=== PATIENT | male | born 1955 | race Caucasian/White ===

== ENCOUNTER 2016-10-13 17:24 | Inpatient (IN) | payer MEDICARE, OTHER ==
[~2016-10-13] VITALS: Ht 175.3 cm; Wt 148.0 kg
[~2016-10-13 17:24] MED LIST: ALLO300T2 PO; ASCO500C7 PO; ASPI-535 PO; GABA300C16 PO; INSU100V19 SQ; LISI20TA11 PO; METO100T PO; MTF1000T PO; NIT4 SL; NOVO3I SC; OMEG1CAP73 PO; UBID10CA5 PO; VITA1TAB58 PO; Vancomycin Iv Per Pharmacy XX; [UNRECOGNIZED DRUG - CODE] PO
[2016-10-13] MEDS ORDERED: ASPIRIN 81 MG TAB PO ONE (18:00)
[2016-10-13] MEDS ORDERED: ENALAPRILAT 1.25 MG INJ IV ONE (18:00)
[2016-10-13] MEDS ORDERED: FUROSEMIDE 40 MG INJ IV ONE (18:00)
[2016-10-13 18:33] LABS: BASOPHILS % 0.3 % (0.0-2.0); EOSINOPHILS # 0.1 10^3/ul (0.0-0.5); EOSINOPHILS % 2.3 % (0.0-7.0); HEMATOCRIT 34.4 % (42.0-52.0); HEMOGLOBIN 11.7 g/dl (14.0-18.0); LYMPHOCYTES % 20.3 % (15.0-51.0); MEAN CORPUSCULAR HGB CONC 34.1 g/dl (32.0-37.0); MEAN CORPUSCULAR VOLUME 99.6 fl (82.0-101.0); MEAN PLATELET VOLUME 10.9 fl (7.4-10.4); MONOCYTE # 0.5 10^3/ul (0.3-0.9); MONOCYTES % 10.6 % (0.0-11.0); NEUTROPHIL # 3.4 10^3/ul (1.6-7.5); NEUTROPHILS % 66.5 % (39.0-77.0); PLATELET COUNT 132 10^3/UL (140-440); RED BLOOD COUNT 3.46 10^6/ul (4.70-6.10); RED CELL DISTRIBUTION WIDTH 14.7 % (11.5-14.5); UNCORRECTED WBC 5.2 10^3/ul (4.8-10.8); WHITE BLOOD COUNT 5.2 10^3/ul (4.8-10.8)
[2016-10-13 18:36] LABS: CONDITION 1; LH ANALYZER COMMENTS 1
--- NOTE | 2016-10-13 18:36 | RADRPT ---
PROCEDURE: XR Chest AP portable CLINICAL INDICATION: CHF, abdominal pain TECHNIQUE: An AP portable radiograph of the chest was submitted. COMPARISON: 06/28/2016 FINDINGS: Support Hardware: The left upper extremity PICC catheter is no longer evident. The TIPS shunt is no t identified to the density in the abdomen. Cardiovascular: The heart remains mildly enlarged well a peripheral plantar vasculature is unremarka ble. . Lung Flores: The lung flores appear clear with no nodule, alveolar infiltrate, for a interstitial pr ominence evident. Pleural Spaces: No pneumothorax or pleural effusion is identified. Osseous Structures: The osseous structures appear intact. Soft Tissues: The soft tissues appear unremarkable. IMPRESSION: 1. The left upper extremity PICC catheter is no longer evident and the TIPS shunt is poorly seen to the density of the superior abdomen on this underpenetrated image. 2. Mild persistent cardiomegaly without CHF. 3. Otherwise, stable unremarkable portable chest. Physician Ankur Date Time Electronically viewed and signed by Physician Ankur on 10/13/2016 18:36 /
[2016-10-13 18:42] LABS: ALBUMIN 3.5 g/dl (3.3-4.9)
[2016-10-13 18:43] LABS: POTASSIUM 4.7 mmol/L (3.5-5.1)
[2016-10-13 18:45] LABS: ALBUMIN/GLOBULIN RATIO 0.89; BILIRUBIN,INDIRECT 0.3 mg/dl (0-1.1); BILIRUBIN,TOTAL 0.3 mg/dl (0.2-1.3); CALCIUM 9.2 mg/dl (8.4-10.2); CREATININE 1.17 mg/dl (0.61-1.24); TOTAL PROTEIN 7.4 g/dl (6.1-8.1)
[2016-10-13 18:56] LABS: TROPONIN-I 0.021 ng/ml (0.00-0.12)
[2016-10-13] MEDS ORDERED: SELE200T11 PO (19:10)
[2016-10-13] MEDS ORDERED: CHOL100062 PO (19:11)
[2016-10-13] MEDS ORDERED: RANO500T2 PO (19:12)
[2016-10-13] MEDS ORDERED: UBID400C5 PO (19:12)
[2016-10-13] MEDS ORDERED: OMEG-124 PO (19:16)
--- NOTE | 2016-10-13 19:40 | ERA ---
ER Documentation Chief Complaint Date/Time DATE: 10/13/16 TIME: 19:21 Chief Complaint SOB,ЕЛЕНА LOWER EXT SWELLING,HX OF CHF HPI 61-year-old man referred here by the [facility] for suspicion of acutely decompensated heart failure. Patient is status post left forefoot amputation and was therefore wound care although he has had recent increased bilateral peripheral edema and stated he felt short of breath. Patient has had nocturnal dyspnea, and severe dyspnea on exertion over the last few weeks with increased swelling to the lower legs. He has been using low-dose furosemide daily for the last 5 days without improvement. Patient denies chest pain, no fevers or chills, no vomiting or diarrhea, no headache or blurry vision. ROS All systems reviewed and are negative except as per history of present illness. Medications Home Meds Reported Medications [place]-3S/Dha/Epa/Fish Oil (Fish Oil 1,200 mg Softgel) 1 Each Capsule, 1 EACH PO DAILY, CAP 10/13/16 Ranolazine* (Ranexa*) 500 Mg Tab.sr.12h, 500 MG PO Q12, TAB 10/13/16 Ubidecarenone* (Co Q-10*) 400 Mg Capsule, 400 MG PO DAILY, CAP 10/13/16 Cholecalciferol* (Vitamin D3*) 1,000 Unit Tablet, 1000 UNIT PO DAILY, TAB 10/13/16 Selenomethionine* (Selenium*) 200 Mcg Tablet, 200 MCG PO DAILY, TAB 10/13/16 Lisinopril* (Lisinopril*) 20 Mg Tablet, 20 MG PO BID, #30 TAB 06/22/16 Allopurinol* (Allopurinol*) 300 Mg Tablet, 300 MG PO DAILY, TAB 06/22/16 Gabapentin* (Gabapentin*) 300 Mg Capsule, 300 MG PO BID, CAP 01/01/15 Metformin* (Glucophage*) 1,000 Mg Tablet, 1000 MG PO BID, TAB 01/01/15 Insulin Aspart* (Novolog Insulin Pen*) 100 Unit/Ml Soln, 18 UNIT SC WITH MEALS, EA 01/01/15 Aspirin Ec (Aspir 81) 81 Mg Tablet.dr, 81 MG PO DAILY, TAB 04/23/14 Vitamin B Complex (B Complex) 1 Tab.sa Tablet.sa, 1 TAB.SA PO DAILY 04/16/13 Vitamin E* (Vitamin E*) 1,000 Unit Capsule, 1000 UNIT PO DAILY 04/16/13 Ascorbic Acid* (Vitamin C*) 500 Mg Capsule.sa, 1000 MG PO DAILY 04/16/13 Metoprolol (Lopressor) 100 Mg Tablet, 100 MG PO AM 04/16/13 Insulin Glargine,Hum.rec.anlog (Lantus) 100 U/Ml Vial, 30 UNITS SQ DAILY 09/10/12 Discontinued Reported Medications Ubidecarenone* (Co Q-10*) Unknown Strength Capsule, MG PO DAILY, CAP 06/22/16 Nitroglycerin* (Nitrostat*) 0.4 Mg Tab.subl, 0.4 MG SL Q5MIN Y for CHEST PAIN, BOTTLE 03/03/15 [place]-3/Dha/Epa/Fish Oil (FISH OIL 1,000 MG SOFTGEL) 1 Each Capsule, 1 EACH PO DAILY 04/16/13 Discontinued Scripts [Vancomycin Iv Per Pharmacy] 1 EA EACH No Conflict Check, 0 EA XX .PER PROTOCOL for 42 Days Prov:RICHRUSS 06/30/16 Allergies Allergies: Coded Allergies: Penicillins (Verified Allergy, Unknown, 10/13/16) PMhx/Soc Obesity, hypertension, gout, congestive heart failure, coronary artery disease previous myocardial infarction, diabetes mellitus, peripheral vascular disease, peripheral neuropathy, left forefoot amputation History of Surgery: Yes (see notes) Anesthesia Reaction: No Hx Neurological Disorder: Yes Hx Respiratory Disorders: No Hx Cardiac Disorders: Yes Hx Psychiatric Problems: No Hx Miscellaneous Medical Probl: No Hx Alcohol Use: Yes Hx Substance Use: No Hx Tobacco Use: No Smoking Status: Unknown if ever smoked FmHx Family History: diabetes Physical Exam Vitals Vital Signs Date Time Temp Pulse Resp B/P Pulse Ox O2 Delivery O2 Flow Rate FiO2 10/13/16 18:50 98.7 72 18 165/125 96 10/13/16 18:03 Nasal Cannula 10/13/16 17:30 98.7 73 18 168/72 96 Physical Exam GENERAL: Well-developed, well-nourished, well-hydrated, dyspneic, afebrile HEENT: Moist mucous membranes, pink conjunctiva, no cervical spine tenderness or step-off deformities, no goiter, no jaundice or icterus, extraocular movements intact without pain. No submandibular induration, and no pharyngeal erythema NEURO: Alert and oriented 3, cranial nerves II through XII intact bilaterally, pupils equal round reactive to light, no focal deficits or facial asymmetry, sensation intact distally Strength 5/5 in upper and lower extremities bilaterally CARDIAC: Regular rate and rhythm, no murmurs rubs or gallops LUNGS: Bilateral crackles, no wheezing or stridor ABDOMEN: Soft nontender, no guarding, no rigidity, no rebound, no psoas sign no obturator sign. Normoactive bowel sounds SKIN: Warm and dry to touch, no abrasions, contusions, or hematomas, no lacerations, no ecchymosis, no target lesions, and without ulcers EXTREMITIES: No clubbing cyanosis 4+ pitting edema in the lower extremities bilaterally, calves are bilaterally symmetrical, no Homans sign, no popliteal cord sign. Distal pulses equal and bilateral PSYCH: Normal affect without agitation or irritability Result Diagram: 10/13/16181410/13/161814 Results 24 hrs Laboratory Tests Test 10/13/16 18:15 Alanine Aminotransferase (ALT/SGPT) 42IU/L Albumin 3.5g/dl Albumin/Globulin Ratio 0.89 Alkaline Phosphatase 78IU/L Anion Gap 16 Aspartate Amino Transf (AST/SGOT) 52IU/L B-Type Natriuretic Peptide 3400PG/ML Basophils # 0.010^3/ul Basophils % 0.3% Blood Morphology Comment Blood Urea Nitrogen 24mg/dl Calcium Level 9.2mg/dl Carbon Dioxide Level 26mmol/L Chloride Level 103mmol/L Creatinine 1.17mg/dl Direct Bilirubin 0.00mg/dl Eosinophils # 0.110^3/ul Eosinophils % 2.3% Globulin 3.90g/dl Glucose Level 229mg/dl Hematocrit 34.4% Hemoglobin 11.7g/dl Indirect Bilirubin 0.3mg/dl Lipase 70U/L Lymphocytes # 1.010^3/ul Lymphocytes % 20.3% Mean Corpuscular Hemoglobin 34.0pg Mean Corpuscular Hemoglobin Concent 34.1g/dl Mean Corpuscular Volume 99.6fl Mean Platelet Volume 10.9fl Monocytes # 0.510^3/ul Monocytes % 10.6% Neutrophils # 3.410^3/ul Neutrophils % 66.5% Nucleated Red Blood Cells # 0.010^3/ul Nucleated Red Blood Cells % 0.0/100WBC Platelet Count 24412^3/UL Potassium Level 4.7mmol/L Red Blood Count 3.4610^6/ul Red Cell Distribution Width 14.7% Sodium Level 140mmol/L Total Bilirubin 0.3mg/dl Total Protein 7.4g/dl Troponin I 0.021ng/ml White Blood Count 5.210^3/ul Current Medications Medications (Trade) Dose Ordered Sig/Marcos Route PRN Reason Start Time Stop Time Status Last Admin Dose Admin Aspirin (Aspirin) 324 mg ONCE ONCE PO 10/13/16 18:00 10/13/16 18:01 DC 10/13/16 18:21 Furosemide (Lasix) 80 mg ONCE ONCE IV 10/13/16 18:00 10/13/16 18:01 DC 10/13/16 18:20 Enalaprilat (Vasotec Iv) 1.25 mg ONCE ONCE IV 10/13/16 18:00 10/13/16 18:01 DC 10/13/16 18:20 Procedures/MDM IV line was established patient was placed on web development manager rhythm strip revealed a sinus rhythm at about 70 bpm with upright P and T waves. Patient was afebrile. I administered aspirin 324 mg p.o. and furosemide 80 mg IV for diuresis. For hypertension I administered enalapril 1.25 mg IV. EKG performed, read by me revealed a normal sinus rhythm at 69 bpm, normal axis with a first-degree atrioventricular block and a right bundle branch block with diffuse T-wave inversions, QRS duration 136 ms, no concerning ST elevations or depressions noted One view chest x-ray performed, read by me revealed cardiomegaly and bilateral interstitial edema, no acute infiltrates, no pneumothorax. CBC revealed mild thrombocytopenia, electrolytes revealed dehydration with a BUN /creatinine of 24/1.2, liver function tests were normal, troponin was negative, BNP was elevated at 3400 consistent with decompensated heart failure. Patient will be admitted to telemetry setting for continued medical management and cardiology consultation. Blood pressure has improved and patient has diuresed although he remains symptomatic and dyspneic. Departure Diagnosis: Primary Impression: Congestive heart failure Qualified Code: I50.21 - Acute systolic congestive heart failure Additional Impressions: Hypertension Qualified Code: I10 - Essential hypertension Peripheral edema Condition: ELLIS Samayoa MD Oct 13, 2016 19:39
[2016-10-13 20:21] VITALS: TEMP 98.6
[2016-10-13 20:45] VITALS: BP 138/67; PULSE 67; RESP 20; Ht 175.3 cm; Wt 148.0 kg
[2016-10-13 20:55] VITALS: PULSE 66
[2016-10-13] MEDS ORDERED: ACETAMINOPHEN 325 MG TAB PO PRN ×2 (22:00→22:30)
[2016-10-13] MEDS ORDERED: GLUCOSE GEL 15 GRAM TUBE PO PRN ×2 (22:30)
[2016-10-13] MEDS ORDERED: GLUCOSE GEL 15 GRAM TUBE BUCCAL PRN (22:30)
[2016-10-13] MEDS ORDERED: DEXTROSE 50% 50 ML SYRINGE IV PRN ×2 (22:30)
[2016-10-13] MEDS ORDERED: GLUCAGON 1 MG INJ IM PRN (22:30)
[2016-10-13 23:34] VITALS: BP 138/69; RESP 20
[2016-10-14] VITALS (12 sets, daily range): BP systolic 114–136; BP diastolic 55–75; PULSE 59–66; RESP 16–20
[2016-10-14] MEDS: ACCUCHECK XX SCH (02:00)
[2016-10-14 06:37] LABS: ALBUMIN 3.2 g/dl (3.3-4.9)
[2016-10-14 06:38] LABS: POTASSIUM 4.3 mmol/L (3.5-5.1)
[2016-10-14 06:40] LABS: ALBUMIN/GLOBULIN RATIO 0.88; BILIRUBIN,INDIRECT 0.4 mg/dl (0-1.1); BILIRUBIN,TOTAL 0.4 mg/dl (0.2-1.3); CALCIUM 9.1 mg/dl (8.4-10.2); CREATININE 1.19 mg/dl (0.61-1.24); TOTAL PROTEIN 6.8 g/dl (6.1-8.1)
[2016-10-14 06:41] LABS: CHOL/HDL RATIO 3.6 RATIO; MAGNESIUM 1.8 mg/dl (1.7-2.5)
[2016-10-14 06:50] LABS: TROPONIN-I 0.021 ng/ml (0.00-0.12)
[2016-10-14 06:53] LABS: BASOPHILS % 0.6 % (0.0-2.0); EOSINOPHILS % 3.4 % (0.0-7.0); HEMATOCRIT 32.1 % (42.0-52.0); HEMOGLOBIN 10.6 g/dl (14.0-18.0); LYMPHOCYTES # 1.2 10^3/ul (0.8-2.9); LYMPHOCYTES % 25.4 % (15.0-51.0); MEAN CORPUSCULAR HEMOGLOBIN 33.5 pg (29.0-33.0); MEAN CORPUSCULAR VOLUME 101.6 fl (82.0-101.0); MEAN PLATELET VOLUME 12.6 fl (7.4-10.4); MONOCYTE # 0.7 10^3/ul (0.3-0.9); MONOCYTES % 14.5 % (0.0-11.0); NEUTROPHIL # 2.6 10^3/ul (1.6-7.5); NEUTROPHILS % 55.9 % (39.0-77.0); PLATELET COUNT 116 10^3/UL (140-440); RED BLOOD COUNT 3.16 10^6/ul (4.70-6.10); RED CELL DISTRIBUTION WIDTH 13.8 % (11.5-14.5); WHITE BLOOD COUNT 4.7 10^3/ul (4.8-10.8)
--- NOTE | 2016-10-14 07:06 | HP ---
DATE OF ADMISSION: 10/13/2016 TIME SEEN: 2200 CHIEF COMPLAINT: Shortness of breath and lower extremity swelling. HISTORY OF PRESENT ILLNESS: The patient is a 61-year-old male with a history of CAD, hypertension, d iabetes, gout, previous history of left foot transmetatarsal amputation, with a subsequent history o f infection/ulcer, status post surgical debridement, history of cirrhosis, status post TIPS, who indeep eugeniealia [facility] care followup, but was transfe rred to the ER for shortness of breath. He said his shortness of breath and lower extremity swellin g and has been going on for 1 month, but has been progressively getting worse. He stated that 2 wee ks ago he was started on Lasix 20 mg daily, but he states his urine output has been on the lower adrian e. He also reports earlier today having had left-sided chest pain described as a tightness, with r adiation to his left the upper arm. He also reported PND. He denied any nausea, vomiting, fever or chills. He also reported increased abdominal girth, which has been also progressively getting wors e. He states he had a cardiac catheterization about 3 years ago and said he was told he had minimal blockage. There is actually a report here from 2012, which is incomplete. When the patient presented to the ER, his blood pressure was 158/72, heart rate 73, respiratory rate 18, temperature 98.7, oxygen saturation 96% on room air. Laboratory values show a hemoglobin of 1 1.7, BUN 24, with a creatinine of 1.17. Glucose 229. AST 52. Otherwise, CBC and CMP are within no rmal limits. His BNP is 3400. His chest x-ray shows mild persistent cardiomegaly without CHF. The patient was given Lasix 80 mg IV x1, Vasotec and aspirin. Currently he is admitted to the telemetr y unit and he actually looks comfortable, is chest pain free now, and is able to speak in full sente nces and no acute respiratory distress was noted. REVIEW OF SYSTEMS: A 12-point review of systems was performed and negative except as mentioned in th e HPI. PAST MEDICAL HISTORY: As per HPI. PAST SURGICAL HISTORY: Left transmetatarsal amputation, and a TIPS procedure. SOCIAL HISTORY: The patient has almost 15 years of alcohol abuse, almost drinking on a daily basis, but for the past several years has only been drinking occasionally. ALLERGIES: PENICILLIN. HOME MEDICATIONS: 1. Lisinopril. 2. Metoprolol. 3. Fish oil. 4. Ranexa 5. Aspirin. 6. Gabapentin. 7. Selenium. 8. Insulin. 9. Metformin. 10. Ascorbic acid. 11. Vitamin D3. 12. Vitamin B. 13. Vitamin E. 14. Allopurinol. 15. CoQ10. PHYSICAL EXAMINATION: VITAL SIGNS: Blood pressure 138/67, heart rate 67, respiratory rate 20, temperature 98.1, oxygen sa turation 97% on room air. GENERAL: Morbidly obese male, lying in bed, in no acute distress, answering questions appropriately and able to speak in full sentences. HEENT: Normocephalic, atraumatic. Extraocular muscles are intact. Pupils are reactive to light an d no scleral icterus. CARDIOVASCULAR: Regular rate and rhythm, with no extra sounds. LUNGS: He has decreased breath sounds at the bases. ABDOMEN: Morbidly obese. There is a sign of anasarca. His abdomen is diffusely tender to deep pal pation, with no guarding, no rebound tenderness, or rigidity. EXTREMITIES: The patient is status post left transmetatarsal amputation and his left lower extremit y is covered up to his knee. Right lower extremity shows venous stasis changes, as well as he has t ense pitting edema. LABORATORY: Pertinent positives as mentioned in the HPI. Chest x-ray, results as mentioned in the HPI. IMPRESSION: 1. Volume overload state and shortness of breath. 2. Congestive heart failure exacerbation. 3. Chest pain. 4. History of cirrhosis, status post TIPS. 5. Status post transmetatarsal amputation of the left foot. 6. Left foot necrotic open wound, status post excisional debridement. 7. Diabetes, with a recent A1c of 10.1. 8. Morbid obesity, with a BMI of 48. 9. A history of gout. 10. Hypertension. PLAN: The patient's shortness of breath and volume overload state is most likely secondary to conge stive heart failure exacerbation, but with a history of cirrhosis with TIPS procedure, it can also h ave liver etiology. He will be continued with Lasix for diuresis. Strict ins and outs, and will mo nitor his urine output closely. He will be continued with his home medications, with adjustment as needed. Will obtain a 2D echo. Will trend his troponins and place a cardiology consult with Dr. Fan garrido. He will be continued with his insulin for diabetes. Will continue wound care management and will notify the [facility] about the patient's admission. Further workup and management per clinical course. Dictated By: HILL RUBIN/MILTON Conf#: [id number] DID#: [id number]
[2016-10-14] MEDS: ASPIRIN (EC) 81 MG TAB PO SCH (08:35)
[2016-10-14] MEDS: GABAPENTIN 300 MG CAP PO SCH ×2 (08:36→20:41)
[2016-10-14] MEDS: RANOLAZINE (SR) 500 MG TAB PO SCH ×2 (08:37→20:41)
[2016-10-14] MEDS: CHOLECALCIFEROL 1,000 UNIT TAB PO SCH (08:37)
[2016-10-14] MEDS: VITAMIN E 1,000 UNIT CAP PO SCH (08:37)
[2016-10-14] MEDS: ASCORBIC ACID 500 MG TAB PO SCH (08:37)
[2016-10-14] MEDS: ALLOPURINOL 300 MG TAB PO SCH (08:38)
[2016-10-14] MEDS: LISINOPRIL 20 MG TAB PO SCH ×2 (08:38→20:41)
[2016-10-14] MEDS: HEPARIN 5,000 UNIT/0.5 ML SYG SC SCH ×2 (08:39→20:41)
[2016-10-14] MEDS: INSULIN GLARGINE [LANtus] 3 ML PEN SC SCH (08:39)
[2016-10-14] MEDS: INSULIN ASPART [NOVOLOG] 3 ML PEN SC SCH ×7 (08:40→20:41)
[2016-10-14] MEDS ORDERED: FUROSEMIDE 20 MG INJ IV SCH ×2 (09:00)
[2016-10-14] MEDS ORDERED: METOPROLOL 100 MG TAB PO SCH ×2 (09:00→21:00)
[2016-10-14] MEDS ORDERED: HEPARIN 5,000 UNIT/0.5 ML SYG SC SCH (09:00)
--- NOTE | 2016-10-14 10:17 | CONS ---
Date/Time of Note Date/Time of Note DATE: 10/14/16 TIME: 10:10 Assessment/Plan Assessment/Plan Additional Assessment/Plan Ascites * Continue diuretic * Paracentesis as needed * Fluid analysis * Sodium and fluid restriction Abdominal pain * Evaluate 2/2 2 increasing abdominal girth versus SBP * Reviewed fluid analysis Liver cirrhosis Status post TIPS CAD Hypertension Diabetes Status post left foot transmetatarsal amputation Further recommendations depend on clinical course Patient seen in collaboration with Dr. Reid Consultation Date/Type/Reason Admit Date/Time Oct 13, 2016 at 20:09 Reason for Consultation GI Hx of Present Illness 61 YO M that presents with increasing abdominal girth x 1 month. Pt reports starting diuretic 2 weeks ago but has not noticed a decrease in the girth. Pt denies nausea, vomiting, and diarrhea. Pt reports lower abdominal tenderness that is secondary to his abdomen being taut. Pt reports a TIPS procedure, possibly in 1998, and reports not having any issues with increasing abdominal girth after that. 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 Pt reports last drink Axis Frdea 2015 and he has been sober ever since. Pt does not adhere to sodium or fluid restriction with diet. Patient has past medical history of CAD, hypertension, diabetes, gout, previous history of left foot transmetatarsal amputation, with a subsequent history of infection/ulcer, status post surgical debridement, history of cirrhosis, status post TIPS. Per HPI Past Medical History Medical History: coronary artery disease, diabetes, other (Cirrhosis) Past Surgical History Past Surgical Hx: other (Left foot dictation) Social History Alcohol Use: sober Smoking Status: Unknown if ever smoked Exam/Review of Systems Vital Signs Vitals Vital Signs Date Time Temp Pulse Resp B/P Pulse Ox O2 Delivery O2 Flow Rate FiO2 10/14/16 08:08 61 10/14/16 07:14 97.6 20 116/56 97 10/13/16 20:45 Room Air Intake and Output 10/13/16 10/13/16 10/14/16 15:00 23:00 07:00 Intake Total 350 ml Output Total 650 ml Balance -300 ml Exam Constitutional: alert, obese, oriented, well developed Psych: nl mood/affect Head: normocephalic Eyes: EOMI, nl conjunctiva, nl lids, nl sclera ENMT: mucosa pink and moist, nl external ears & nose, nl lips & teeth, nl nasal mucosa & septum Respiratory: normal air movement Cardiovascular: regular rate and rhythm Gastrointestinal: distended, firm, tender (Diffuse) Neurological: EVICTION SPECIALIST II-XII intact Results Result Diagram: 10/14/16 0535 10/14/16 0535 Results 24 hrs Laboratory Tests Test 10/13/16 18:15 10/13/16 21:24 10/14/16 05:35 10/14/16 07:42 Alanine Aminotransferase (ALT/SGPT) 42 38 Albumin 3.5 3.2 L Albumin/Globulin Ratio 0.89 0.88 Alkaline Phosphatase 78 65 Anion Gap 16 16 Aspartate Amino Transf (AST/SGOT) 52 H 42 B-Type Natriuretic Peptide 3400 H Basophils # 0.0 Basophils % 0.3 0.6 Blood Morphology Comment Blood Urea Nitrogen 24 H 25 H Calcium Level 9.2 9.1 Carbon Dioxide Level 26 26 Chloride Level 103 105 Creatinine 1.17 1.19 Direct Bilirubin 0.00 0.00 Eosinophils # 0.1 Eosinophils % 2.3 3.4 Globulin 3.90 H 3.60 H Glucose Level 229 H 152 Hematocrit 34.4 L 32.1 L Hemoglobin 11.7 L 10.6 L Indirect Bilirubin 0.3 0.4 Lipase 70 Lymphocytes # 1.0 1.2 Lymphocytes % 20.3 25.4 Mean Corpuscular Hemoglobin 34.0 H 33.5 H Mean Corpuscular Hemoglobin Concent 34.1 33.0 Mean Corpuscular Volume 99.6 101.6 H Mean Platelet Volume 10.9 H 12.6 H Monocytes # 0.5 0.7 Monocytes % 10.6 14.5 H Neutrophils # 3.4 2.6 Neutrophils % 66.5 55.9 Nucleated Red Blood Cells # 0.0 Nucleated Red Blood Cells % 0.0 Platelet Count 132 #L 116 L Potassium Level 4.7 4.3 Red Blood Count 3.46 L 3.16 L Red Cell Distribution Width 14.7 H 13.8 Sodium Level 140 143 Total Bilirubin 0.3 0.4 Total Protein 7.4 6.8 Troponin I 0.021 0.021 White Blood Count 5.2 4.7 L Bedside Glucose 158 179 Cholesterol Level 120 Cholesterol/HDL Ratio 3.6 HDL Cholesterol 33 LDL Cholesterol, Calculated 72 Magnesium Level 1.8 Triglycerides Level 73 Medications Medications Current Medications Allopurinol (Zyloprim) 300 mg DAILY PO Last administered on 10/14/16 08:38; Admin Dose 300 MG; Start 10/14/16 at 09:00 Ascorbic Acid (Vitamin C) 1,000 mg DAILY PO Last administered on 10/14/16 08:37 ; Admin Dose 1,000 MG; Start 10/14/16 at 09:00 Aspirin (Halfprin) 81 mg DAILY PO Last administered on 10/14/16 08:35; Admin Dose 81 MG; Start 10/14/16 at 09:00 Cholecalciferol (Vitamin D) 1,000 unit DAILY PO Last administered on 10/14/16 08:37; Admin Dose 1,000 UNIT; Start 10/14/16 at 09:00 Gabapentin (Neurontin) 300 mg BID PO Last administered on 10/14/16 08:36; Admin Dose 300 MG; Start 10/14/16 at 09:00 Insulin Glargine (Lantus) 30 unit DAILY SC Last administered on 10/14/16 08:39 ; Admin Dose 30 UNIT; Start 10/14/16 at 09:00 Lisinopril (Zestril) 20 mg BID PO Last administered on 10/14/16 08:38; Admin Dose 20 MG; Start 10/14/16 at 09:00 Metoprolol Tartrate (Lopressor) 100 mg AM PO Last administered on 10/14/16 08: 36; Admin Dose 100 MG; Start 10/14/16 at 09:00 Ranolazine (Ranexa) 500 mg Q12 PO Last administered on 10/14/16 08:37; Admin Dose 500 MG; Start 10/14/16 at 09:00 Vitamin E (Vitamin E) 1,000 unit DAILY PO Last administered on 10/14/16 08:37; Admin Dose 1,000 UNIT; Start 10/14/16 at 09:00 Acetaminophen (Tylenol Tab) 650 mg Q6H PRN PO PAIN AND OR ELEVATED TEMP; Start 10/13/16 at 22:30 Heparin Sodium (Porcine) (Heparin (5000 Units/0.5 ml)) 5,000 unit BID SC Last administered on 10/14/16 08:39; Admin Dose 5,000 UNIT; Start 10/14/16 at 09:00 Diagnostic Test (Pha) (Accucheck) 1 ea 02 XX ; Start 10/14/16 at 02:00 Miscellaneous Information 1 ea NOTE XX ; Start 10/13/16 at 22:30 Glucose (Glutose) 15 gm Q15M PRN PO DECREASED GLUCOSE; Start 10/13/16 at 22:30 Glucose (Glutose) 22.5 gm Q15M PRN PO DECREASED GLUCOSE; Start 10/13/16 at 22:30 Dextrose (D50w Syringe) 25 ml Q15M PRN IV DECREASED GLUCOSE; Start 10/13/16 at 22:30 Dextrose (D50w Syringe) 50 ml Q15M PRN IV DECREASED GLUCOSE; Start 10/13/16 at 22:30 Glucagon (Glucagen) 1 mg Q15M PRN IM DECREASED GLUCOSE; Start 10/13/16 at 22:30 Glucose (Glutose) 15 gm Q15M PRN BUCCAL DECREASED GLUCOSE; Start 10/13/16 at 22: 30 Furosemide (Lasix) 40 mg DAILY IV ; Start 10/15/16 at 09:00 MILTON GOFF Oct 14, 2016 10:17
[2016-10-14 13:28] LABS: INR 1.16; PROTIME 14.9 Sec (12.2-14.2); PT RATIO 1.2
[2016-10-14 13:29] LABS: PARTIAL THROMBOPLASTIN TIME 36.5 Sec (25.0-35.0)
--- NOTE | 2016-10-14 13:37 | PN ---
Date/Time of Note Date/Time of Note DATE: 10/14/16 TIME: 13:23 Assessment/Plan VTE Prophylaxis VTE Prophylaxis Intervention: heparin Lines/Catheters IV Catheter Type (from Nrs): Saline Lock Urinary Cath still in place: No Assessment/Plan Assessment/Plan 1. Shortness of breath, likely obesity related, ABG check hypoventilation, echo check pulmonary artery pressure 2. Obesity, sleep study outpatient 3. History of cirrhosis, status post TIPS. 5. Status post transmetatarsal amputation of the left foot. 6. Left foot necrotic open wound, status post excisional debridement. 7. Diabetes, adjust medications 8. A history of gout. 9. Hypertension. controlled 10. DVT prophylaxis: heparin Subjective 24 Hr Interval Summary Free Text/Dictation SOB, severe ZACARIAS Exam/Review of Systems Vital Signs Vitals Vital Signs Date Time Temp Pulse Resp B/P Pulse Ox O2 Delivery O2 Flow Rate FiO2 10/14/16 12:06 59 10/14/16 11:15 97.8 20 126/75 96 10/13/16 20:45 Room Air Intake and Output 10/13/16 10/13/16 10/14/16 15:00 23:00 07:00 Intake Total 350 ml Output Total 650 ml Balance -300 ml Exam Constitutional: alert, obese, oriented Head: atraumatic, normocephalic Eyes: EOMI, PERRL, nl conjunctiva, nl lids ENMT: nl external ears & nose, nl lips & teeth, nl nasal mucosa & septum Neck: non-tender, supple Respiratory: clear to auscultation, normal air movement, No congested cough, No crackles/rales, No diminished breath sounds, No intercostal retraction, No labored breathing, No other, No respirations, No tactile fremitus, No wheezing Cardiovascular: nl pulses, regular rate and rhythm, No S3, No S4, No bruits, No diastolic murmur, No edema, No gallop, No irregular rhythm, No jugular venous distention (JVD), No murmurs/extra sounds, No other, No rub, No systolic murmur Gastrointestinal: bowel sounds, distended, nl liver, spleen, non-tender, soft, No firm, No hepatomegaly, No mass, No rebound or guarding, No surgical scars , No tender Extremities: other (left foot amputation/wound) Neurological: LECTURER IN COMPUTER SCIENCE II-XII intact, nl mental status, nl speech, nl strength Results Result Diagram: 10/14/16 0535 10/14/16 0535 Results 24 hrs Laboratory Tests Test 10/13/16 18:15 10/13/16 21:24 10/14/16 05:35 10/14/16 07:42 Alanine Aminotransferase (ALT/SGPT) 42 38 Albumin 3.5 3.2 L Albumin/Globulin Ratio 0.89 0.88 Alkaline Phosphatase 78 65 Anion Gap 16 16 Aspartate Amino Transf (AST/SGOT) 52 H 42 B-Type Natriuretic Peptide 3400 H Basophils # 0.0 Basophils % 0.3 0.6 Blood Morphology Comment Blood Urea Nitrogen 24 H 25 H Calcium Level 9.2 9.1 Carbon Dioxide Level 26 26 Chloride Level 103 105 Creatinine 1.17 1.19 Direct Bilirubin 0.00 0.00 Eosinophils # 0.1 Eosinophils % 2.3 3.4 Globulin 3.90 H 3.60 H Glucose Level 229 H 152 Hematocrit 34.4 L 32.1 L Hemoglobin 11.7 L 10.6 L Indirect Bilirubin 0.3 0.4 Lipase 70 Lymphocytes # 1.0 1.2 Lymphocytes % 20.3 25.4 Mean Corpuscular Hemoglobin 34.0 H 33.5 H Mean Corpuscular Hemoglobin Concent 34.1 33.0 Mean Corpuscular Volume 99.6 101.6 H Mean Platelet Volume 10.9 H 12.6 H Monocytes # 0.5 0.7 Monocytes % 10.6 14.5 H Neutrophils # 3.4 2.6 Neutrophils % 66.5 55.9 Nucleated Red Blood Cells # 0.0 Nucleated Red Blood Cells % 0.0 Platelet Count 132 #L 116 L Potassium Level 4.7 4.3 Red Blood Count 3.46 L 3.16 L Red Cell Distribution Width 14.7 H 13.8 Sodium Level 140 143 Total Bilirubin 0.3 0.4 Total Protein 7.4 6.8 Troponin I 0.021 0.021 White Blood Count 5.2 4.7 L Bedside Glucose 158 179 Cholesterol Level 120 Cholesterol/HDL Ratio 3.6 HDL Cholesterol 33 LDL Cholesterol, Calculated 72 Magnesium Level 1.8 Triglycerides Level 73 Test 10/14/16 11:32 Bedside Glucose 189 Medications Medications Current Medications Allopurinol (Zyloprim) 300 mg DAILY PO Last administered on 10/14/16t 08:38; Admin Dose 300 MG; Start 10/14/16 at 09:00 Ascorbic Acid (Vitamin C) 1,000 mg DAILY PO Last administered on 10/14/16 08:37 ; Admin Dose 1,000 MG; Start 10/14/16 at 09:00 Aspirin (Halfprin) 81 mg DAILY PO Last administered on 10/14/16 08:35; Admin Dose 81 MG; Start 10/14/16 at 09:00 Cholecalciferol (Vitamin D) 1,000 unit DAILY PO Last administered on 10/14/16 08:37; Admin Dose 1,000 UNIT; Start 10/14/16 at 09:00 Gabapentin (Neurontin) 300 mg BID PO Last administered on 10/14/16 08:36; Admin Dose 300 MG; Start 10/14/16 at 09:00 Insulin Glargine (Lantus) 30 unit DAILY SC Last administered on 10/14/16 08:39 ; Admin Dose 30 UNIT; Start 10/14/16 at 09:00 Lisinopril (Zestril) 20 mg BID PO Last administered on 10/14/16 08:38; Admin Dose 20 MG; Start 10/14/16 at 09:00 Ranolazine (Ranexa) 500 mg Q12 PO Last administered on 10/14/16 08:37; Admin Dose 500 MG; Start 10/14/16 at 09:00 Vitamin E (Vitamin E) 1,000 unit DAILY PO Last administered on 10/14/16 08:37; Admin Dose 1,000 UNIT; Start 10/14/16 at 09:00 Acetaminophen (Tylenol Tab) 650 mg Q6H PRN PO PAIN AND OR ELEVATED TEMP; Start 10/13/16 at 22:30 Heparin Sodium (Porcine) (Heparin (5000 Units/0.5 ml)) 5,000 unit BID SC Last administered on 10/14/16 08:39; Admin Dose 5,000 UNIT; Start 10/14/16 at 09:00 Diagnostic Test (Pha) (Accucheck) 1 ea 02 XX ; Start 10/14/16 at 02:00 Miscellaneous Information 1 ea NOTE XX ; Start 10/13/16 at 22:30 Glucose (Glutose) 15 gm Q15M PRN PO DECREASED GLUCOSE; Start 10/13/16 at 22:30 Glucose (Glutose) 22.5 gm Q15M PRN PO DECREASED GLUCOSE; Start 10/13/16 at 22:30 Dextrose (D50w Syringe) 25 ml Q15M PRN IV DECREASED GLUCOSE; Start 10/13/16 at 22:30 Dextrose (D50w Syringe) 50 ml Q15M PRN IV DECREASED GLUCOSE; Start 10/13/16 at 22:30 Glucagon (Glucagen) 1 mg Q15M PRN IM DECREASED GLUCOSE; Start 10/13/16 at 22:30 Glucose (Glutose) 15 gm Q15M PRN BUCCAL DECREASED GLUCOSE; Start 10/13/16 at 22: 30 Metoprolol Tartrate (Lopressor) 50 mg BID PO ; Start 10/14/16 at 21:00 JESSICA PARRISH MD Oct 14, 2016 13:33
--- NOTE | 2016-10-14 13:54 | CONS ---
DATE OF ADMISSION: 10/13/2016 DATE OF CONSULTATION: 10/14/2016 TYPE OF CONSULTATION: Cardiology. REASON FOR CONSULTATION: Congestive heart failure exacerbation. REQUESTING PHYSICIAN: Dr. Haynes from the hospitalist service and Dr. Buckley from the vascular surgery department. HISTORY OF PRESENT ILLNESS: Mr. Morales is a very pleasant 61-year-old male with a history of donna nary artery disease; hypertension; diabetes mellitus; gout; peripheral arterial disease, status post left transmetatarsal amputation; nonhealing wound with need for surgical debridement and ongoing ca re; cirrhosis, status post TIPS who had [facility] and was found to have significant shortness of breath and therefore was referred to the e mergency department. Upon arrival, temperature 98.7, blood pressure elevated at 168/72, pulse 73, r espiratory rate 18, saturating 96%. The patient's labs revealed a white cell count of 5.2, hemoglob in 11.7, platelet count of 132. Sodium 140, potassium 4.7, creatinine 1.1, BUN of 25, AST 52, ALT 4 2. Troponin negative. BNP 3400. The patient underwent a chest x-ray revealing left upper extremit y ____ evident, tip shunt poorly seen, mild persistent cardiomegaly, questionable CHF. The patient' s electrocardiogram revealed sinus arrhythmia, rate of 69, prolonged first-degree AV block, right bu ndle branch block with secondary repolarization abnormalities. The patient subsequently admitted to the floor and since admit to the floor continues to have shortness of breath, has had improvement i n blood pressure, has had some milder bradycardia to the high 50s, has had a second troponin return negative. PAST MEDICAL HISTORY: As above in HPI. MEDICATIONS CURRENTLY IN HOSPITAL: 1. Lasix 40 mg IV daily. 2. Allopurinol 300 mg daily. 3. Vitamin C 1000 mg daily. 4. Aspirin 81 mg daily. 5. Vitamin D 1000 ____ daily. 6. Neurontin 300 mg b.i.d. 7. Lantus 30 units subQ daily. 8. Zestril 20 mg p.o. b.i.d. 9. Metoprolol 100 mg daily. 10. Ranexa 500 mg q.12. 11. Vitamin E 1000 mg daily. 12. Heparin 5000 subQ b.i.d. 13. Insulin sliding scale. ALLERGIES: PENICILLIN. SOCIAL HISTORY: No current tobacco, ETOH, illicit drug use. FAMILY HISTORY: No history of sudden cardiac or early CAD. REVIEW OF SYSTEMS: As above in HPI. CONSTITUTIONAL: No fevers, chills. PULMONARY: Positive shortness of breath. CARDIOVASCULAR: Congestive heart failure. GASTROINTESTINAL: Cirrhosis. GENITOURINARY: No hematuria. MUSCULOSKELETAL: Degenerative joint disease. Nonhealing lower extremity wound, status post left tr ansmetatarsal amputation. PSYCHIATRIC: No documented psychiatric history. NEUROLOGIC: No documented history of CVA. PHYSICAL EXAMINATION: VITAL SIGNS: Temperature of 97.8, blood pressure 126/75, pulse 67, respiratory rate 20, saturating 96%. GENERAL: The patient is alert, awake, complaining of shortness of breath. NECK: JVP approximately 9 cm of water. CHEST: Fair air movement throughout with decreased breath sounds at bases bilaterally. HEART: Bradycardic, regular rhythm. Normal S1, S2. I/ systolic murmur. ABDOMEN: Positive bowel sounds, soft, mildly distended. EXTREMITIES: Chronic venous stasis changes of the right lower extremity. Difficult to palpate righ t lower extremity pulses. Trace edema. Left lower extremity status post transmetatarsal amputation with dressing covering lower leg. LABORATORIES: As above in HPI with most recent from today: Sodium 143, potassium 4.3, creatinine 1 .1, BUN of 25. Troponin negative x2. LDL 72, HDL of 33. White blood cell count 4.7, hemoglobin 10 .6, platelet count of 116. IMAGING STUDIES: As above in HPI. No further imaging studies for my review at this time. ELECTROCARDIOGRAM: As above in HPI. No further electrocardiograms for my review at this time. IMPRESSION: 1. Congestive heart failure exacerbation, question systolic versus diastolic, likely acute on chron ic. 2. Hypertension, under improved control. 3. Abnormal electrocardiogram, assess for acute coronary syndrome with negative troponins x2 at thi s time. 4. Shortness of breath secondary to #1 possibly. 5. History of cirrhosis. 6. Diabetes mellitus. 7. Obesity. 8. Status post transmetatarsal amputation of the foot. 9. Left lower extremity nonhealing wound, status post debridement, covered by dressing. 10. Ascites. 11. Diabetes mellitus. RECOMMENDATIONS: 1. At this time would maintain the patient on telemetry monitoring to follow rhythm and rate contro l closely. 2. Complete the patient's rule-out for myocardial infarction, ensure that the patient's constellati on of symptoms are not due to an acute coronary syndrome such as acute myocardial infarction. 3. Continue the patient's Lasix diuresis, following strict I's and O's to grade diuresis closely. 4. Continue the patient's current Zestril and metoprolol for blood pressure and heart rate control but will change the beta tawana to b.i.d. dosing given half-life of the medication to improve overa ll efficacy. 5. Continue the patient's aspirin for prophylaxis for cardiac events. 6. Continue the patient current Ranexa antianginal medication at this time. 6. Will follow up the patient's 2D echo done today for assessment of ejection fraction, wall motion , rule out any major valve abnormalities and complete the patient's rule-out for myocardial infarcti on. 7. Continue local wound care per PMD and alternative consultations and follow the patient's blood s ugars closely. Thank you for allowing me to take part in the care of this patient. I will continue to follow along very closely with you with further recommendations to be made as the patient progresses through his inpatient hospital clinical course. Dictated By: AMAN GARCES/MILTON Conf#: [id number] DID#: [id number] CC: AMAN BUCKLEY MD; HILL HAYNES MD;*End*
--- NOTE | 2016-10-14 14:02 | RADRPT ---
Echocardiogram Report Patient Name: MARIO CROOKS Gender: Male Date: 1955 Study Date: 14-Oct-2016 [facility] Technician: [facility] Location: 502 Ref. Physician: HILL HAYNES Quality: Technically Difficult Study Procedures: Transthoracic echocardiogram with complete 2D, M-Mode, and doppler examination. Indications: Congestive Heart Failure. 2D/M Mode Doppler Measurement Value Normal Ranges Measurement Value Normal Ranges LVIDd 2D 5.5 3.5 - 5.6 cm AV Peak Arturo 1.5 m/sec LVIDs 2D 4.4 2.1 - 4.1 cm AV Peak PG 9.0 mmHg FS 2D 19.5 % LVOT Peak Arturo 0.9 m/sec LVPWd 2D 1.1 0.6 - 1.1 cm LVOT Peak PG 3.0 mmHg IVSd 2D 0.9 0.6 - 1.1 cm MV E Peak Arturo 1.3 m/sec IVS/LVPW 2D 0.8 MV A Peak Arturo 0.7 m/sec AoR Diam 2D 2.7 2.0 - 3.7 cm MV E/A 1.8 LA/Ao 2D 2 0 - 1 MV Decel Time 289 msec EDV 2D 166.0 cm3 MV E/A 1.8 ESV 2D 86.9 cm3 TR Peak Arturo 2.3 m/sec LA Dimen 2D 4.6 2.3 - 4.0 cm TR Peak PG 20.0 mmHg Findings Left Ventricle: Overall, normal left ventricular systolic function. Not all segments visualized. Normal left ventricular cavity size. Left ventricular wall thickness upper limits of normal. Ejection fraction is visually estimated at 50 %. Right Ventricle: Not well visualized. Left Atrium: There is mild enlargement of left atrium. Right Atrium: There is mild enlargement of right atrium. Mitral Valve: Mild mitral leaflet calcification. Mild mitral annular calcification. Trace mitral regurgitation. Aortic Valve: Trileaflet aortic valve. Tricuspid Valve: Tricuspid valve not well visualized. Estimated peak PA systolic pressure 28 mmHg. There is mild tricuspid regurgitation. Pulmonic Valve: There is trace pulmonic regurgitation. Pericardium: Left pleural effusion seen. Aorta: Normal aortic root. IVC: Dilated IVC with respiratory collapse consistent with elevated right atrial pressure. Conclusions 1.Overall, normal left ventricular systolic function. Not all segments visualized. Normal left ventricular cavity size. Left ventricular wall thickness upper limits of normal. Ejection fraction is visually estimated at 50 %. 2.There is mild enlargement of left atrium. 3.There is mild enlargement of right atrium. 4.Mild mitral leaflet calcification. Mild mitral annular calcification. Trace mitral regurgitation. 5.Tricuspid valve not well visualized. Estimated peak PA systolic pressure 28 mmHg. There is mild tricuspid regurgitation. 6.There is trace pulmonic regurgitation. 7.Left pleural effusion seen. Electronically Signed By: Josh Munoz 14-Oct-2016 14:02:17 -0800 Patient Name: MARIO CROOKS Study Date: 14-Oct-2016 [id number]
[2016-10-14 14:43] LABS: AADO2 Arterial 97.8 mmHg (7.0-24.0); Allen Test ACCEPTAB; Arterial Base Excess 1.2 mmol/L (-3.0-3); Arterial COHb 0.1 % (0.0-3.0); Arterial Fraction of Oxyhgb 94.4 % (93.0-99.0); Arterial HCO3 24.8 mmol/L (22.0-26.0); Arterial MetHb 0.1 % (0.0-1.5); Arterial Total Hemglobin 11.9 g/dl (12.0-18.0); MODE ROOM AIR
[2016-10-14] MEDS: METOPROLOL 50 MG TAB PO SCH (20:40)
[2016-10-14] MEDS: FUROSEMIDE 40 MG INJ IV SCH (20:40)
[2016-10-14] MEDS ORDERED: MAGNESIUM SULFATE 2 GM/50 ML 50 ML IVPB ONE (21:00)
[2016-10-15] VITALS (11 sets, daily range): BP systolic 121–140; BP diastolic 60–68; PULSE 59–71; RESP 18–20
[2016-10-15] MEDS: ACCUCHECK XX SCH (02:00)
[2016-10-15] MEDS: FUROSEMIDE 40 MG INJ IV SCH ×2 (05:17→17:34)
[2016-10-15 06:18] LABS: ADD SCAN DIFF NO
[2016-10-15 06:20] LABS: BASOPHILS % 0.5 % (0.0-2.0); EOSINOPHILS # 0.2 10^3/ul (0.0-0.5); EOSINOPHILS % 2.8 % (0.0-7.0); HEMATOCRIT 35.8 % (42.0-52.0); HEMOGLOBIN 11.9 g/dl (14.0-18.0); LYMPHOCYTES # 1.7 10^3/ul (0.8-2.9); LYMPHOCYTES % 26.4 % (15.0-51.0); MEAN CORPUSCULAR HEMOGLOBIN 33.4 pg (29.0-33.0); MEAN CORPUSCULAR HGB CONC 33.2 g/dl (32.0-37.0); MEAN CORPUSCULAR VOLUME 100.6 fl (82.0-101.0); MEAN PLATELET VOLUME 12.2 fl (7.4-10.4); MONOCYTE # 0.8 10^3/ul (0.3-0.9); NEUTROPHIL # 3.8 10^3/ul (1.6-7.5); PLATELET COUNT 157 10^3/UL (140-415); RED BLOOD COUNT 3.56 10^6/ul (4.70-6.10); RED CELL DISTRIBUTION WIDTH 13.7 % (11.5-14.5); WHITE BLOOD COUNT 6.5 10^3/ul (4.8-10.8)
[2016-10-15 06:53] LABS: POTASSIUM 4.2 mmol/L (3.5-5.1)
[2016-10-15 06:55] LABS: CREATININE 1.23 mg/dl (0.61-1.24)
[2016-10-15 06:56] LABS: CALCIUM 9.9 mg/dl (8.4-10.2)
[2016-10-15] MEDS: ASPIRIN (EC) 81 MG TAB PO SCH (08:54)
[2016-10-15] MEDS: GABAPENTIN 300 MG CAP PO SCH ×2 (08:55→21:10)
[2016-10-15] MEDS: METOPROLOL 50 MG TAB PO SCH ×2 (08:55→21:10)
[2016-10-15] MEDS: ASCORBIC ACID 500 MG TAB PO SCH (08:56)
[2016-10-15] MEDS: VITAMIN E 1,000 UNIT CAP PO SCH (08:56)
[2016-10-15] MEDS: RANOLAZINE (SR) 500 MG TAB PO SCH ×2 (08:56→21:10)
[2016-10-15] MEDS: CHOLECALCIFEROL 1,000 UNIT TAB PO SCH (08:56)
[2016-10-15] MEDS: LISINOPRIL 20 MG TAB PO SCH ×2 (08:56→21:10)
[2016-10-15] MEDS: ALLOPURINOL 300 MG TAB PO SCH (08:57)
[2016-10-15] MEDS ORDERED: FUROSEMIDE 20 MG INJ IV SCH (09:00)
[2016-10-15] MEDS ORDERED: FUROSEMIDE 40 MG INJ IV SCH (09:00)
[2016-10-15] MEDS: INSULIN ASPART [NOVOLOG] 3 ML PEN SC SCH ×7 (09:00→21:14)
[2016-10-15] MEDS: INSULIN GLARGINE [LANtus] 3 ML PEN SC SCH (09:01)
[2016-10-15] MEDS: HEPARIN 5,000 UNIT/0.5 ML SYG SC SCH ×2 (09:02→21:11)
--- NOTE | 2016-10-15 10:20 | RADRPT ---
PROCEDURE: US Abdomen (right upper quadrant). CLINICAL INDICATION: Assess for TIPS patency. TECHNIQUE: Multiple real-time longitudinal and transverse images of the right upper quadrant of th e abdomen were acquired utilizing a curved array transducer. Images were reviewed on a high-resoluti on PACS workstation. COMPARISON: None FINDINGS: The study is suboptimal due to the patient's body habitus. A patent TIPS shunt is identified within the liver extending from the portal vein to the respective hepatic vein. The liver is increase in size and echogenicity indicative of fatty infiltration measuring 17.7 cm wi thout focal mass or intrahepatic biliary dilatation. The gallbladder demonstrate mild gallbladder w all thickening measuring 3.6 cm in thickness. No intra or extrahepatic biliary dilatation is seen. The common bile duct measures 8 mm in maximal dimension. The visualized portions of the pancreas a re unremarkable with obscuration of the tail of the pancreas. No free fluid is identified. The right kidney measures 12.9 cm in length. There is normal echogenicity within the right kidney. There is no perinephric fluid collection. No hydronephrosis, mass, or calculus is seen. IMPRESSION: 1. Suboptimal study due to the patient's body habitus. 2. Mild hepatomegaly and hepatic steatosis. 3. Patent TIPS shunt. 4. The pancreas is partially visualized. 5. Mild gallbladder wall thickening. 6. Otherwise unremarkable right upper quadrant ultrasound. 7. No evidence of ascites. RPTAT: QQ .Monica Spangler MD, MD Date Time Electronically viewed and signed by .Monica Spangler MD, MD on 10/15/2016 10:20 .N/
--- NOTE | 2016-10-15 11:10 | CONS ---
Date/Time of Note Date/Time of Note DATE: 10/15/16 TIME: 11:06 Assessment/Plan Assessment/Plan Chief Complaint/Hosp Course 61 YO M that presents with increasing abdominal girth x 1 month. Pt reports starting diuretic 2 weeks ago but has not noticed a decrease in the girth. Pt denies nausea, vomiting, and diarrhea. Pt reports lower abdominal tenderness that is secondary to his abdomen being taut. Pt reports a TIPS procedure, possibly in 1998, and reports not having any issues with increasing abdominal girth after that. 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 Pt reports last drink [place] 2015 and he has been sober ever since. Pt does not adhere to sodium or fluid restriction with diet. Patient has past medical history of CAD, hypertension, diabetes, gout, previous history of left foot transmetatarsal amputation, with a subsequent history of infection/ulcer, status post surgical debridement, history of cirrhosis, status post TIPS. Problems: Additional Assessment/Plan Ascites * Continue diuretics * Paracentesis as needed Abdominal pain, improving Liver cirrhosis Status post TIPS, per Doppler still patent CAD Hypertension Diabetes Status post left foot transmetatarsal amputation Further recommendations depend on clinical course Patient seen in collaboration with Dr. Reid Consultation Date/Type/Reason Admit Date/Time Oct 13, 2016 at 20:09 Initial Consult Date Type of Consultation: Gastroenterology Reason for Consultation Increasing abdominal girth 24 HR Interval Summary Free Text/Dictation Tolerating diet Liver ultrasound in process Exam/Review of Systems Vital Signs Vitals Vital Signs Date Time Temp Pulse Resp B/P Pulse Ox O2 Delivery O2 Flow Rate FiO2 10/15/16 08:41 65 10/15/16 07:48 97.0 18 129/62 98 10/15/16 04:00 Room Air Intake and Output 10/14/16 10/14/16 10/15/16 15:00 23:00 07:00 Intake Total 400 ml 550 ml Output Total 900 ml 1200 ml Balance -500 ml -650 ml Exam Constitutional: alert, obese, oriented, well developed Psych: nl mood/affect Head: normocephalic Eyes: EOMI, nl conjunctiva, nl lids, nl sclera ENMT: mucosa pink and moist, nl external ears & nose, nl lips & teeth, nl nasal mucosa & septum Respiratory: normal air movement Cardiovascular: regular rate and rhythm Gastrointestinal: soft, mild diffuse abdominal pain Neurological: DESTATICIZER FEEDER II-XII intact Results Result Diagram: 10/15/16 0540 10/15/16 0545 Results 24 hrs Laboratory Tests Test 10/14/16 11:32 10/14/16 11:40 10/14/16 12:52 10/14/16 14:00 Bedside Glucose 189 Troponin I 0.013 Activated Partial Thromboplast Time 36.5 H INR International Normalized Ratio 1.16 Prothrombin Time 14.9 H Prothrombin Time Ratio 1.2 Arterial Blood HCO3 24.8 Arterial Blood Base Excess 1.2 Arterial Blood Oxygen Saturation 94.6 L Oscar Test ACCEPTAB Arterial Blood Gas Puncture Site Left Radial Arterial Blood Carboxyhemoglobin 0.1 Arterial Blood Date Drawn 10/14/2016 2:00:00 PM Arterial Blood Methemoglobin 0.1 Arterial Blood pCO2 (Temp correct) 35.9 Arterial Blood pH (Temp corrected) 7.458 H Arterial Blood pO2 (Temp corrected) 73.9 L Blood Gas A-a O2 Differential 97.8 H Blood Gas Modality ROOM AIR Blood Gas Notified Time 10/14/2016 2:36:00 PM Blood Gas Notified Whom JLD Blood Gas Specimen Source Blood arterial Blood Gas Temperature 37.0 FiO2 30.0 Oxyhemoglobin Percent 94.4 Total Hemoglobin 11.9 L Test 10/14/16 17:19 10/14/16 20:37 10/15/16 05:40 10/15/16 05:45 Bedside Glucose 115 119 Basophils # 0.0 Basophils % 0.5 Eosinophils # 0.2 Eosinophils % 2.8 Hematocrit 35.8 L Hemoglobin 11.9 L Lymphocytes # 1.7 Lymphocytes % 26.4 Mean Corpuscular Hemoglobin 33.4 H Mean Corpuscular Hemoglobin Concent 33.2 Mean Corpuscular Volume 100.6 Mean Platelet Volume 12.2 H Monocytes # 0.8 Monocytes % 12.0 H Neutrophils # 3.8 Neutrophils % 58.0 Nucleated Red Blood Cells # 0.0 Nucleated Red Blood Cells % 0.0 Platelet Count 157 Red Blood Count 3.56 L Red Cell Distribution Width 13.7 White Blood Count 6.5 # Anion Gap 17 H Blood Urea Nitrogen 26 H Calcium Level 9.9 Carbon Dioxide Level 27 Chloride Level 101 Creatinine 1.23 Glucose Level 164 Potassium Level 4.2 Sodium Level 141 Test 10/15/16 08:51 Bedside Glucose 161 Medications Medications Current Medications Allopurinol (Zyloprim) 300 mg DAILY PO Last administered on 10/15/16 08:57; Admin Dose 300 MG; Start 10/14/16 at 09:00 Ascorbic Acid (Vitamin C) 1,000 mg DAILY PO Last administered on 10/15/16 08: 56; Admin Dose 1,000 MG; Start 10/14/16 at 09:00 Aspirin (Halfprin) 81 mg DAILY PO Last administered on 10/15/16 08:54; Admin Dose 81 MG; Start 10/14/16 at 09:00 Cholecalciferol (Vitamin D) 1,000 unit DAILY PO Last administered on 10/15/16 08:56; Admin Dose 1,000 UNIT; Start 10/14/16 at 09:00 Gabapentin (Neurontin) 300 mg BID PO Last administered on 10/15/16 08:55; Admin Dose 300 MG; Start 10/14/16 at 09:00 Insulin Glargine (Lantus) 30 unit DAILY SC Last administered on 10/15/16 09:01 ; Admin Dose 30 UNIT; Start 10/14/16 at 09:00 Lisinopril (Zestril) 20 mg BID PO Last administered on 10/15/16 08:56; Admin Dose 20 MG; Start 10/14/16 at 09:00 Ranolazine (Ranexa) 500 mg Q12 PO Last administered on 10/15/16 08:56; Admin Dose 500 MG; Start 10/14/16 at 09:00 Vitamin E (Vitamin E) 1,000 unit DAILY PO Last administered on 10/15/16 08:56 ; Admin Dose 1,000 UNIT; Start 10/14/16 at 09:00 Acetaminophen (Tylenol Tab) 650 mg Q6H PRN PO PAIN AND OR ELEVATED TEMP; Start 10/13/16 at 22:30 Heparin Sodium (Porcine) (Heparin (5000 Units/0.5 ml)) 5,000 unit BID SC Last administered on 10/15/16 09:02; Admin Dose 5,000 UNIT; Start 10/14/16 at 09:00 Diagnostic Test (Pha) (Accucheck) 1 ea 02 XX ; Start 10/14/16 at 02:00 Miscellaneous Information 1 ea NOTE XX ; Start 10/13/16 at 22:30 Glucose (Glutose) 15 gm Q15M PRN PO DECREASED GLUCOSE; Start 10/13/16 at 22:30 Glucose (Glutose) 22.5 gm Q15M PRN PO DECREASED GLUCOSE; Start 10/13/16 at 22:30 Dextrose (D50w Syringe) 25 ml Q15M PRN IV DECREASED GLUCOSE; Start 10/13/16 at 22:30 Dextrose (D50w Syringe) 50 ml Q15M PRN IV DECREASED GLUCOSE; Start 10/13/16 at 22:30 Glucagon (Glucagen) 1 mg Q15M PRN IM DECREASED GLUCOSE; Start 10/13/16 at 22:30 Glucose (Glutose) 15 gm Q15M PRN BUCCAL DECREASED GLUCOSE; Start 10/13/16 at 22: 30 Metoprolol Tartrate (Lopressor) 50 mg BID PO Last administered on 10/15/16t 08: 55; Admin Dose 50 MG; Start 10/14/16 at 21:00 MILTON GOFF Oct 15, 2016 11:10
--- NOTE | 2016-10-15 13:16 | PN ---
Date/Time of Note Date/Time of Note DATE: 10/15/16 TIME: 13:12 Assessment/Plan VTE Prophylaxis VTE Prophylaxis Intervention: heparin Lines/Catheters IV Catheter Type (from Nrs): Saline Lock Urinary Cath still in place: No Assessment/Plan Assessment/Plan 1. Shortness of breath, likely obesity related, echo unremarkable without pulmonary hypertension, no CO2 retention on ABG, CT r/o ILD 2. Obesity, sleep study outpatient 3. History of cirrhosis, unclear etiology, status post TIPS. 5. Status post transmetatarsal amputation of the left foot. 6. Left foot necrotic open wound, status post excisional debridement. 7. Diabetes, adjust medications 8. A history of gout. 9. Hypertension. controlled 10. DVT prophylaxis: heparin Subjective 24 Hr Interval Summary Free Text/Dictation still SOB on exertion Exam/Review of Systems Vital Signs Vitals Vital Signs Date Time Temp Pulse Resp B/P Pulse Ox O2 Delivery O2 Flow Rate FiO2 10/15/16 12:28 59 10/15/16 12:22 98.0 18 133/68 98 10/15/16 04:00 Room Air Intake and Output 10/14/16 10/14/16 10/15/16 15:00 23:00 07:00 Intake Total 400 ml 550 ml Output Total 900 ml 1200 ml Balance -500 ml -650 ml Exam Constitutional: alert, obese, oriented, well developed Psych: nl mood/affect, no complaints Head: atraumatic, normocephalic Eyes: EOMI, PERRL, nl conjunctiva, nl lids ENMT: nl external ears & nose, nl lips & teeth, nl nasal mucosa & septum Neck: non-tender, supple Respiratory: clear to auscultation, normal air movement, No congested cough, No crackles/rales, No diminished breath sounds, No intercostal retraction, No labored breathing, No other, No respirations, No tactile fremitus, No wheezing Cardiovascular: nl pulses, regular rate and rhythm, No S3, No S4, No bruits, No diastolic murmur, No edema, No gallop, No irregular rhythm, No jugular venous distention (JVD), No murmurs/extra sounds, No other, No rub, No systolic murmur Gastrointestinal: nl liver, spleen, non-tender, other (abdominal wall edema), soft, No ascites, No bowel sounds, No distended, No firm, No hepatomegaly, No mass , No rebound or guarding, No splenomegaly, No surgical scars, No tender Musculoskeletal: other (left foot amputation) Extremities: normal pulses, other (left foot amputation), No calf tenderness, No clubbing, No cyanosis, No palpable cord, No tenderness 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 II-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 intact, nl mental status, nl speech, nl strength Lymph: nl lymph nodes Results Result Diagram: 10/15/16 0540 10/15/16 0545 Results 24 hrs Laboratory Tests Test 10/14/16 14:00 10/14/16 17:19 10/14/16 20:37 10/15/16 05:40 Arterial Blood HCO3 24.8 Arterial Blood Base Excess 1.2 Arterial Blood Oxygen Saturation 94.6 L Oscar Test ACCEPTAB Arterial Blood Gas Puncture Site Left Radial Arterial Blood Carboxyhemoglobin 0.1 Arterial Blood Date Drawn 10/14/2016 2:00:00 PM Arterial Blood Methemoglobin 0.1 Arterial Blood pCO2 (Temp correct) 35.9 Arterial Blood pH (Temp corrected) 7.458 H Arterial Blood pO2 (Temp corrected) 73.9 L Blood Gas A-a O2 Differential 97.8 H Blood Gas Modality ROOM AIR Blood Gas Notified Time 10/14/2016 2:36:00 PM Blood Gas Notified Whom JLD Blood Gas Specimen Source Blood arterial Blood Gas Temperature 37.0 FiO2 30.0 Oxyhemoglobin Percent 94.4 Total Hemoglobin 11.9 L Bedside Glucose 115 119 Basophils # 0.0 Basophils % 0.5 Eosinophils # 0.2 Eosinophils % 2.8 Hematocrit 35.8 L Hemoglobin 11.9 L Lymphocytes # 1.7 Lymphocytes % 26.4 Mean Corpuscular Hemoglobin 33.4 H Mean Corpuscular Hemoglobin Concent 33.2 Mean Corpuscular Volume 100.6 Mean Platelet Volume 12.2 H Monocytes # 0.8 Monocytes % 12.0 H Neutrophils # 3.8 Neutrophils % 58.0 Nucleated Red Blood Cells # 0.0 Nucleated Red Blood Cells % 0.0 Platelet Count 157 Red Blood Count 3.56 L Red Cell Distribution Width 13.7 White Blood Count 6.5 # Test 10/15/16 05:45 10/15/16 08:51 10/15/16 12:43 Anion Gap 17 H Blood Urea Nitrogen 26 H Calcium Level 9.9 Carbon Dioxide Level 27 Chloride Level 101 Creatinine 1.23 Glucose Level 164 Potassium Level 4.2 Sodium Level 141 Bedside Glucose 161 188 Medications Medications Current Medications Allopurinol (Zyloprim) 300 mg DAILY PO Last administered on 10/15/16 08:57; Admin Dose 300 MG; Start 10/14/16 at 09:00 Ascorbic Acid (Vitamin C) 1,000 mg DAILY PO Last administered on 10/15/16 08: 56; Admin Dose 1,000 MG; Start 10/14/16 at 09:00 Aspirin (Halfprin) 81 mg DAILY PO Last administered on 10/15/16 08:54; Admin Dose 81 MG; Start 10/14/16 at 09:00 Cholecalciferol (Vitamin D) 1,000 unit DAILY PO Last administered on 10/15/16 08:56; Admin Dose 1,000 UNIT; Start 10/14/16 at 09:00 Gabapentin (Neurontin) 300 mg BID PO Last administered on 10/15/16 08:55; Admin Dose 300 MG; Start 10/14/16 at 09:00 Insulin Glargine (Lantus) 30 unit DAILY SC Last administered on 10/15/16 09:01 ; Admin Dose 30 UNIT; Start 10/14/16 at 09:00 Lisinopril (Zestril) 20 mg BID PO Last administered on 10/15/16 08:56; Admin Dose 20 MG; Start 10/14/16 at 09:00 Ranolazine (Ranexa) 500 mg Q12 PO Last administered on 10/15/16 08:56; Admin Dose 500 MG; Start 10/14/16 at 09:00 Vitamin E (Vitamin E) 1,000 unit DAILY PO Last administered on 10/15/16 08:56 ; Admin Dose 1,000 UNIT; Start 10/14/16 at 09:00 Acetaminophen (Tylenol Tab) 650 mg Q6H PRN PO PAIN AND OR ELEVATED TEMP; Start 10/13/16 at 22:30 Heparin Sodium (Porcine) (Heparin (5000 Units/0.5 ml)) 5,000 unit BID SC Last administered on 10/15/16 09:02; Admin Dose 5,000 UNIT; Start 10/14/16 at 09:00 Diagnostic Test (Pha) (Accucheck) 1 ea 02 XX ; Start 10/14/16 at 02:00 Miscellaneous Information 1 ea NOTE XX ; Start 10/13/16 at 22:30 Glucose (Glutose) 15 gm Q15M PRN PO DECREASED GLUCOSE; Start 10/13/16 at 22:30 Glucose (Glutose) 22.5 gm Q15M PRN PO DECREASED GLUCOSE; Start 10/13/16 at 22:30 Dextrose (D50w Syringe) 25 ml Q15M PRN IV DECREASED GLUCOSE; Start 10/13/16 at 22:30 Dextrose (D50w Syringe) 50 ml Q15M PRN IV DECREASED GLUCOSE; Start 10/13/16 at 22:30 Glucagon (Glucagen) 1 mg Q15M PRN IM DECREASED GLUCOSE; Start 10/13/16 at 22:30 Glucose (Glutose) 15 gm Q15M PRN BUCCAL DECREASED GLUCOSE; Start 10/13/16 at 22: 30 Metoprolol Tartrate (Lopressor) 50 mg BID PO Last administered on 10/15/16t 08: 55; Admin Dose 50 MG; Start 10/14/16 at 21:00 JESSICA PARRISH MD Oct 15, 2016 13:16
--- NOTE | 2016-10-15 14:38 | CONS ---
Date/Time of Note Date/Time of Note DATE: 10/15/16 TIME: 14:34 Assessment/Plan Assessment/Plan Chief Complaint/Hosp Course IMPRESSION: 1. Congestive heart failure exacerbation, diastolic, likely acute on chronic. EF 50% by echo this admit/mild RV hypokinesis 2. Hypertension, under improved control. 3. Abnormal electrocardiogram, assess for acute coronary syndrome with negative troponins x2 at this time. 4. Shortness of breath secondary to #1 possibly. 5. History of cirrhosis s/p TIPPS 6. Diabetes mellitus. 7. Obesity. 8. Status post transmetatarsal amputation of the foot. 9. Left lower extremity nonhealing wound, status post debridement, covered by dressing. 10. Ascites-no sig ascites by imaging studies. 11. Diabetes mellitus. Recc: -Tele -serial ecg's -Contineu current BB/ACEI -Contineu lasix and follow i/o's closely Problems: Consultation Date/Type/Reason Admit Date/Time Oct 13, 2016 at 20:09 Initial Consult Date 10/13/2016 Type of Consultation: Cardiology Reason for Consultation CHF Referring Provider: CONSTANTINE FERNANDEZ MD Exam/Review of Systems Vital Signs Vitals Vital Signs Date Time Temp Pulse Resp B/P Pulse Ox O2 Delivery O2 Flow Rate FiO2 10/15/16 12:28 59 10/15/16 12:22 98.0 18 133/68 98 10/15/16 04:00 Room Air Intake and Output 10/14/16 10/14/16 10/15/16 15:00 23:00 07:00 Intake Total 400 ml 550 ml Output Total 900 ml 1200 ml Balance -500 ml -650 ml Exam Review of Systems: CONSTITUTIONAL: No fevers, chills. PULMONARY: ongoing sob CARDIOVASCULAR: No chest pain/palpitations GASTROINTESTINAL: No nausea/vomiting. GENITOURINARY: No hematuria/dysuria. MUSCULOSKELETAL: No myagias/arthalgias. PSYCHIATRIC: The patient denies depression. NEUROLOGIC: No weakness Constitutional: alert, oriented Psych: no complaints ENMT: mucosa pink and moist Neck: jvd (9 cm water), supple Respiratory: diminished breath sounds (at bases/B) Cardiovascular: regular rate and rhythm Gastrointestinal: distended, soft Musculoskeletal: muscle tone (normal) Extremities: pitting pedal edema (bilateral LE) Neurological: other (No focal deficits) Results Result Diagram: 2/10/17 0540 10/15/16 0545 Results 24 hrs Laboratory Tests Test 10/14/16 17:19 10/14/16 20:37 10/15/16 05:40 10/15/16 05:45 Bedside Glucose 115 119 Basophils # 0.0 Basophils % 0.5 Eosinophils # 0.2 Eosinophils % 2.8 Hematocrit 35.8 L Hemoglobin 11.9 L Lymphocytes # 1.7 Lymphocytes % 26.4 Mean Corpuscular Hemoglobin 33.4 H Mean Corpuscular Hemoglobin Concent 33.2 Mean Corpuscular Volume 100.6 Mean Platelet Volume 12.2 H Monocytes # 0.8 Monocytes % 12.0 H Neutrophils # 3.8 Neutrophils % 58.0 Nucleated Red Blood Cells # 0.0 Nucleated Red Blood Cells % 0.0 Platelet Count 157 Red Blood Count 3.56 L Red Cell Distribution Width 13.7 White Blood Count 6.5 # Anion Gap 17 H Blood Urea Nitrogen 26 H Calcium Level 9.9 Carbon Dioxide Level 27 Chloride Level 101 Creatinine 1.23 Glucose Level 164 Potassium Level 4.2 Sodium Level 141 Thyroid Stimulating Hormone (TSH) 5.770 H Test 10/15/16 08:51 10/15/16 12:43 Bedside Glucose 161 188 Medications Medications Current Medications Allopurinol (Zyloprim) 300 mg DAILY PO Last administered on 10/15/16 08:57; Admin Dose 300 MG; Start 10/14/16 at 09:00 Ascorbic Acid (Vitamin C) 1,000 mg DAILY PO Last administered on 10/15/16 08: 56; Admin Dose 1,000 MG; Start 10/14/16 at 09:00 Aspirin (Halfprin) 81 mg DAILY PO Last administered on 10/15/16 08:54; Admin Dose 81 MG; Start 10/14/16 at 09:00 Cholecalciferol (Vitamin D) 1,000 unit DAILY PO Last administered on 10/15/16 08:56; Admin Dose 1,000 UNIT; Start 10/14/16 at 09:00 Gabapentin (Neurontin) 300 mg BID PO Last administered on 10/15/16 08:55; Admin Dose 300 MG; Start 10/14/16 at 09:00 Insulin Glargine (Lantus) 30 unit DAILY SC Last administered on 10/15/16 09:01 ; Admin Dose 30 UNIT; Start 10/14/16 at 09:00 Lisinopril (Zestril) 20 mg BID PO Last administered on 10/15/16 08:56; Admin Dose 20 MG; Start 10/14/16 at 09:00 Ranolazine (Ranexa) 500 mg Q12 PO Last administered on 10/15/16 08:56; Admin Dose 500 MG; Start 10/14/16 at 09:00 Vitamin E (Vitamin E) 1,000 unit DAILY PO Last administered on 10/15/16 08:56 ; Admin Dose 1,000 UNIT; Start 10/14/16 at 09:00 Acetaminophen (Tylenol Tab) 650 mg Q6H PRN PO PAIN AND OR ELEVATED TEMP; Start 10/13/16 at 22:30 Heparin Sodium (Porcine) (Heparin (5000 Units/0.5 ml)) 5,000 unit BID SC Last administered on 10/15/16 09:02; Admin Dose 5,000 UNIT; Start 10/14/16 at 09:00 Diagnostic Test (Pha) (Accucheck) 1 ea 02 XX ; Start 10/14/16 at 02:00 Miscellaneous Information 1 ea NOTE XX ; Start 10/13/16 at 22:30 Glucose (Glutose) 15 gm Q15M PRN PO DECREASED GLUCOSE; Start 10/13/16 at 22:30 Glucose (Glutose) 22.5 gm Q15M PRN PO DECREASED GLUCOSE; Start 10/13/16 at 22:30 Dextrose (D50w Syringe) 25 ml Q15M PRN IV DECREASED GLUCOSE; Start 10/13/16 at 22:30 Dextrose (D50w Syringe) 50 ml Q15M PRN IV DECREASED GLUCOSE; Start 10/13/16 at 22:30 Glucagon (Glucagen) 1 mg Q15M PRN IM DECREASED GLUCOSE; Start 10/13/16 at 22:30 Glucose (Glutose) 15 gm Q15M PRN BUCCAL DECREASED GLUCOSE; Start 10/13/16 at 22: 30 Metoprolol Tartrate (Lopressor) 50 mg BID PO Last administered on 10/15/16 08: 55; Admin Dose 50 MG; Start 10/14/16 at 21:00 AMAN CALDWELLb 10, 2017 14:37
[2016-10-15] MEDS: METOLAZONE 5 MG TAB PO SCH (17:34)
--- NOTE | 2016-10-15 18:35 | RADRPT ---
PROCEDURE: CT scan of the chest with and without intravenous contrast. CLINICAL INDICATION: Evaluate for interstitial lung disease. TECHNIQUE: Thin section axial, coronal and sagittal images were performed through the chest before and after administration of the 100 cc of Isovue 370 intravenous contrast. CTDI: 27.4 and DLP: 1114.96 One or more of the following dose reduction techniques were used: - Automated exposure control. - Adjustment of the mA and/or kV according to patient size. Use of iterative reconstruction technique. COMPARISON: Chest x-ray 10/13/2016. 06:22 p.m. FINDINGS: The thyroid gland and trachea are unremarkable. The great vessels of the superior mediastinum are n ormal in size. There is bilateral gynecomastia. No enlarged supraclavicular, mediastinal or hilar lymph nodes are identified. The main pulmonary artery and pulmonary artery outflow tracts are normal. The pulmonary vasculature and lung flores are normal. No interstitial changes are identified. Ther e is no evidence of pulmonary nodule or pleural effusion. There are vascular calcifications in the a ortic arch and coronary arteries. The heart is moderately enlarged but stable when compared to 04/2017. The left diaphragm is elevated. A TIPS procedure has been performed with a stent noted in the right lobe of the liver and santiago hepa tis area. No hepatic mass or intrahepatic biliary ductal dilatation is identified. There is no ariella dence of ascites. The liver has a slightly nodular border. The small amount of ascitic fluid adjac ent to the spleen. The spleen measures 11.7 cm. There is no evidence of a hiatal hernia. The stomach contains an air-fluid level but is otherwise n ormal. The visible portions of the kidneys are normal. The adrenal glands are normal. The pancreas and extrahepatic common bile duct are normal. There are degenerative osteophytes in the thoracic and upper lumbar spine. No bone metastasis or ac ely sh[place] bony fracture is noted. IMPRESSION: 1. The lungs are unremarkable with no evidence of interstitial lung disease. 2. Cardiomegaly with vascular calcifications in the coronary arteries, thoracic and upper abdominal aorta. 3. Status post TIPS procedure with cirrhosis of the liver and a small amount of intra-abdominal asc ites. RPTAT:AAJJ Juancho Barber Physician Date Time Electronically viewed and signed by Juancho Barber Physician on 10/15/2016 18:34 JM/
[2016-10-16] VITALS (15 sets, daily range): BP systolic 91–146; BP diastolic 52–67; PULSE 59–88; RESP 16–20
[2016-10-16] MEDS: ACCUCHECK XX SCH (02:00)
[2016-10-16 06:10] LABS: ADD SCAN DIFF NO
[2016-10-16 06:22] LABS: CREATININE 1.19 mg/dl (0.61-1.24)
[2016-10-16] MEDS: FUROSEMIDE 40 MG INJ IV SCH ×2 (06:28→17:12)
[2016-10-16 06:34] LABS: BASOPHILS % 0.6 % (0.0-2.0); EOSINOPHILS # 0.2 10^3/ul (0.0-0.5); EOSINOPHILS % 3.1 % (0.0-7.0); HEMATOCRIT 33.9 % (42.0-52.0); HEMOGLOBIN 11.6 g/dl (14.0-18.0); LYMPHOCYTES # 1.2 10^3/ul (0.8-2.9); LYMPHOCYTES % 22.9 % (15.0-51.0); MEAN CORPUSCULAR HEMOGLOBIN 34.1 pg (29.0-33.0); MEAN CORPUSCULAR HGB CONC 34.2 g/dl (32.0-37.0); MEAN CORPUSCULAR VOLUME 99.7 fl (82.0-101.0); MEAN PLATELET VOLUME 11.9 fl (7.4-10.4); MONOCYTE # 0.7 10^3/ul (0.3-0.9); MONOCYTES % 12.9 % (0.0-11.0); NEUTROPHIL # 3.1 10^3/ul (1.6-7.5); NEUTROPHILS % 60.3 % (39.0-77.0); PLATELET COUNT 132 10^3/UL (140-415); RED CELL DISTRIBUTION WIDTH 13.6 % (11.5-14.5); WHITE BLOOD COUNT 5.2 10^3/ul (4.8-10.8)
[2016-10-16] MEDS: INSULIN ASPART [NOVOLOG] 3 ML PEN SC SCH ×7 (08:09→21:00)
[2016-10-16] MEDS: GABAPENTIN 300 MG CAP PO SCH ×2 (09:03→22:00)
[2016-10-16] MEDS: ASCORBIC ACID 500 MG TAB PO SCH (09:03)
[2016-10-16] MEDS: ALLOPURINOL 300 MG TAB PO SCH (09:04)
[2016-10-16] MEDS: LISINOPRIL 20 MG TAB PO SCH ×2 (09:04→22:00)
[2016-10-16] MEDS: ASPIRIN (EC) 81 MG TAB PO SCH (09:05)
[2016-10-16] MEDS: CHOLECALCIFEROL 1,000 UNIT TAB PO SCH (09:05)
[2016-10-16] MEDS: RANOLAZINE (SR) 500 MG TAB PO SCH ×2 (09:06→22:00)
[2016-10-16] MEDS: VITAMIN E 1,000 UNIT CAP PO SCH (09:07)
[2016-10-16] MEDS: METOPROLOL 50 MG TAB PO SCH ×2 (09:07→22:00)
[2016-10-16] MEDS: METOLAZONE 5 MG TAB PO SCH (09:08)
[2016-10-16] MEDS: HEPARIN 5,000 UNIT/0.5 ML SYG SC SCH ×2 (09:24→22:04)
[2016-10-16] MEDS: INSULIN GLARGINE [LANtus] 3 ML PEN SC SCH (09:24)
--- NOTE | 2016-10-16 15:51 | PN ---
Date/Time of Note Date/Time of Note DATE: 10/16/16 TIME: 15:46 Assessment/Plan VTE Prophylaxis VTE Prophylaxis Intervention: SCD's Lines/Catheters IV Catheter Type (from Rust): Saline Lock Urinary Cath still in place: No Assessment/Plan Assessment/Plan Assessment : * Decompensated congestive heart failure * Coronary artery disease/hypertension History of alcoholic cirrhosis * Status post tips currently patent * Small amount of ascites Diabetes mellitus Morbid obesity Peripheral vascular disease/post left foot transmetatarsal amputation Plan: Continue present regimen with diureses GI gregory no evidence of significant ascites TIPS patent therefore portal hypertension risk of varices minimal Abstinence critical to patient's well-being Subjective 24 Hr Interval Summary Free Text/Dictation Course reviewed with nursing staff Patient feels better Abdominal distention also improved Exam/Review of Systems Vital Signs Vitals Vital Signs Date Time Temp Pulse Resp B/P Pulse Ox O2 Delivery O2 Flow Rate FiO2 10/16/16 15:40 98.1 59 19 120/67 96 10/16/16 00:31 Intake and Output 10/15/16 10/15/16 10/16/16 14:59 22:59 06:59 Intake Total 800 ml 240 ml Output Total 1800 ml 1150 ml Balance -1000 ml -910 ml Exam Constitutional: alert, oriented, well developed Head: atraumatic, normocephalic Eyes: EOMI, PERRL, nl conjunctiva, nl lids, nl sclera Neck: non-tender, supple Respiratory: clear to auscultation, crackles/rales (Both bases), diminished breath sounds Cardiovascular: nl pulses, regular rate and rhythm Gastrointestinal: bowel sounds, distended, firm, non-tender, No ascites, No hepatomegaly, No mass, No rebound or guarding, No splenomegaly Musculoskeletal: other (Post left transmetatarsal amputation) Skin: nl turgor, No rash or lesions Lymph: nl lymph nodes Results Result Diagram: 10/16/1645 10/16/1645 Results 24 hrs Laboratory Tests Test 10/15/16 16:56 10/15/16 20:59 10/16/16 02:18 10/16/16 05:45 Bedside Glucose 191 202 163 Anion Gap 15 Basophils # 0.0 Basophils % 0.6 Blood Urea Nitrogen 26 H Calcium Level 10.0 Carbon Dioxide Level 28 Chloride Level 101 Creatinine 1.19 Eosinophils # 0.2 Eosinophils % 3.1 Glucose Level 159 Hematocrit 33.9 L Hemoglobin 11.6 L Lymphocytes # 1.2 Lymphocytes % 22.9 Mean Corpuscular Hemoglobin 34.1 H Mean Corpuscular Hemoglobin Concent 34.2 Mean Corpuscular Volume 99.7 Mean Platelet Volume 11.9 H Monocytes # 0.7 Monocytes % 12.9 H Neutrophils # 3.1 Neutrophils % 60.3 Nucleated Red Blood Cells # 0.0 Nucleated Red Blood Cells % 0.0 Platelet Count 132 L Potassium Level 4.0 Red Blood Count 3.40 L Red Cell Distribution Width 13.6 Sodium Level 140 White Blood Count 5.2 Test 10/16/16 07:56 10/16/16 11:50 Bedside Glucose 186 159 Medications Medications Current Medications Allopurinol (Zyloprim) 300 mg DAILY PO Last administered on 10/16/16 09:04; Admin Dose 300 MG; Start 10/14/16 at 09:00 Ascorbic Acid (Vitamin C) 1,000 mg DAILY PO Last administered on 10/16/16 09: 03; Admin Dose 1,000 MG; Start 10/14/16 at 09:00 Aspirin (Halfprin) 81 mg DAILY PO Last administered on 10/16/16 09:05; Admin Dose 81 MG; Start 10/14/16 at 09:00 Cholecalciferol (Vitamin D) 1,000 unit DAILY PO Last administered on 10/16/16 09:05; Admin Dose 1,000 UNIT; Start 10/14/16 at 09:00 Gabapentin (Neurontin) 300 mg BID PO Last administered on 10/16/16 09:03; Admin Dose 300 MG; Start 10/14/16 at 09:00 Insulin Glargine (Lantus) 30 unit DAILY SC Last administered on 10/16/16 09:24 ; Admin Dose 30 UNIT; Start 10/14/16 at 09:00 Lisinopril (Zestril) 20 mg BID PO Last administered on 10/16/16 09:04; Admin Dose 20 MG; Start 10/14/16 at 09:00 Ranolazine (Ranexa) 500 mg Q12 PO Last administered on 10/16/16 09:06; Admin Dose 500 MG; Start 10/14/16 at 09:00 Vitamin E (Vitamin E) 1,000 unit DAILY PO Last administered on 10/16/16 09:07 ; Admin Dose 1,000 UNIT; Start 10/14/16 at 09:00 Acetaminophen (Tylenol Tab) 650 mg Q6H PRN PO PAIN AND OR ELEVATED TEMP; Start 10/13/16 at 22:30 Heparin Sodium (Porcine) (Heparin (5000 Units/0.5 ml)) 5,000 unit BID SC Last administered on 10/16/16 09:24; Admin Dose 5,000 UNIT; Start 10/14/16 at 09:00 Diagnostic Test (Pha) (Accucheck) 1 ea 02 XX ; Start 10/14/16 at 02:00 Miscellaneous Information 1 ea NOTE XX ; Start 10/13/16 at 22:30 Glucose (Glutose) 15 gm Q15M PRN PO DECREASED GLUCOSE; Start 10/13/16 at 22:30 Glucose (Glutose) 22.5 gm Q15M PRN PO DECREASED GLUCOSE; Start 10/13/16 at 22:30 Dextrose (D50w Syringe) 25 ml Q15M PRN IV DECREASED GLUCOSE; Start 10/13/16 at 22:30 Dextrose (D50w Syringe) 50 ml Q15M PRN IV DECREASED GLUCOSE; Start 10/13/16 at 22:30 Glucagon (Glucagen) 1 mg Q15M PRN IM DECREASED GLUCOSE; Start 10/13/16 at 22:30 Glucose (Glutose) 15 gm Q15M PRN BUCCAL DECREASED GLUCOSE; Start 10/13/16 at 22: 30 Metoprolol Tartrate (Lopressor) 50 mg BID PO Last administered on 10/16/16 09: 07; Admin Dose 50 MG; Start 10/14/16 at 21:00 Metolazone (Zaroxolyn) 5 mg DAILY PO Last administered on 10/16/16 09:08; Admin Dose 5 MG; Start 10/15/16 at 20:30 DUY SARABIA MD Oct 16, 2016 15:51
[2016-10-17] VITALS (10 sets, daily range): BP systolic 91–117; BP diastolic 45–61; PULSE 50–66; RESP 16–19
[2016-10-17] MEDS: ACCUCHECK XX SCH (02:00)
[2016-10-17] MEDS: FUROSEMIDE 40 MG INJ IV SCH ×2 (06:07→16:56)
[2016-10-17] MEDS: INSULIN ASPART [NOVOLOG] 3 ML PEN SC SCH ×7 (07:55→21:00)
--- NOTE | 2016-10-17 07:58 | PN ---
DATE: 10/16/2016 INTERNAL MEDICINE FOLLOWUP SUBJECTIVE: Chart reviewed. Events noted. The patient is diuresing well. The patient, however, s till complains of shortness of breath on exertion. PHYSICAL EXAMINATION: VITAL SIGNS: Blood pressure 104/52, pulse 57, respiration 18, temperature 98, saturating 97%. HEENT: Pupils are equal and reactive to light. NECK: Supple, no JVD noted, no cervical adenopathy noted, no carotid bruits heard. LUNGS: Diminished breath sounds bilaterally. CARDIOVASCULAR: S1, S2 normal. ABDOMEN: Soft, obese, nontender. No organomegaly or masses noted. EXTREMITIES: No clubbing or cyanosis noted. 2+ pretibial edema present on the right lower extremit y. LABORATORY DATA: Sodium 140, potassium 4.0, chloride 101, CO2 28, BUN 26, creatinine 1.19, glucose 159. WBC 5.2, hemoglobin 11.6, hematocrit 33.9, platelets 132. ABG shows pH of 7.45, pCO2 of 36, p O2 of [address] scan of the chest done yesterday shows no evidence of interstitial lung di sease. IMPRESSION: 1. The patient most likely has congestive heart failure due to acute on chronic LV diastolic failur e. 2. Morbid obesity and suspect underlying obstructive sleep apnea. 3. Obstructive sleep apnea may be the reason for acute diastolic LV failure. 4. History of hypertension. 5. History of cirrhosis status post TIPS. 6. Diabetes mellitus. 7. Morbid obesity. 8. Status post transmetatarsal amputation of left foot. 9. Left lower extremity nonhealing wound status post debridement. 10. No significant ascites on CAT scan. PLAN: 1. Continue diuresis per cardiology. 2. Continue wound care. 3. The patient will need an outpatient sleep study after discharge. 4. Above discussed with patient and explained to him in detail. Dictated By: MIKE HOGUE MD, MA/MILTON Conf#: [id number] DID#: [id number]
[2016-10-17] MEDS: GABAPENTIN 300 MG CAP PO SCH ×2 (08:31→20:26)
[2016-10-17] MEDS: VITAMIN E 1,000 UNIT CAP PO SCH (08:32)
[2016-10-17] MEDS: METOLAZONE 5 MG TAB PO SCH (08:32)
[2016-10-17] MEDS: CHOLECALCIFEROL 1,000 UNIT TAB PO SCH (08:32)
[2016-10-17] MEDS: ALLOPURINOL 300 MG TAB PO SCH (08:32)
[2016-10-17] MEDS: ASCORBIC ACID 500 MG TAB PO SCH (08:32)
[2016-10-17] MEDS: ASPIRIN (EC) 81 MG TAB PO SCH (08:32)
[2016-10-17] MEDS: RANOLAZINE (SR) 500 MG TAB PO SCH ×2 (08:33→20:25)
[2016-10-17] MEDS: HEPARIN 5,000 UNIT/0.5 ML SYG SC SCH ×2 (08:47→20:27)
[2016-10-17] MEDS: INSULIN GLARGINE [LANtus] 3 ML PEN SC SCH (08:48)
[2016-10-17] MEDS: LISINOPRIL 20 MG TAB PO SCH ×2 (09:00→20:26)
[2016-10-17] MEDS: METOPROLOL 50 MG TAB PO SCH ×2 (09:00→20:25)
--- NOTE | 2016-10-17 11:24 | PN ---
DATE: 10/17/2016 INTERNAL MEDICINE FOLLOWUP SUBJECTIVE: Chart reviewed. No significant events noted. OBJECTIVE: VITAL SIGNS: Blood pressure 99/46, pulse 67, respirations 18, temperature 98.1, saturating 95%. HEENT: Pupils are equal and reactive to light. NECK: Supple, no JVD noted, no cervical adenopathy noted, no carotid bruits heard. LUNGS: Fair breath sounds bilaterally. CARDIOVASCULAR: S1, S2 normal. ABDOMEN: Soft, nontender. No organomegaly or masses noted. EXTREMITIES: No clubbing or cyanosis noted. NEUROLOGIC: No changes. IMPRESSION: 1. Congestive heart failure. 2. Acute on chronic LV diastolic failure. 3. Morbid obesity and suspect underlying obstructive sleep apnea. 4. History of hypertension. 5. History of cirrhosis, status post TIPS. 6. Diabetes mellitus. 7. Morbid obesity. 8. Status post transmetatarsal amputation, left foot. 9. Left lower extremity nonhealing wound status post debridement. 10. No significant ascites on CAT scan. RECOMMENDATIONS: 1. Continue diuresis per cardiology. 2. Continue wound care. 3. He will need outpatient sleep study after discharge. 4. Above plans discussed with patient. Dictated By: MIKE HOGUE MD, MA/MILTON Conf#: [id number] DID#: [id number]
--- NOTE | 2016-10-17 12:11 | PN ---
Date/Time of Note Date/Time of Note DATE: 10/17/16 TIME: 12:08 Assessment/Plan VTE Prophylaxis VTE Prophylaxis Intervention: SCD's Lines/Catheters IV [facility]ter Type (from [facility] Saline Lock Urinary Cath still in place: No Assessment/Plan Assessment/Plan Assessment : * Decompensated congestive heart failure * Coronary artery disease/hypertension History of alcoholic cirrhosis * Status post tips currently patent * Small amount of ascites Diabetes mellitus Morbid obesity Peripheral vascular disease/post left foot transmetatarsal amputation Plan: Continue present regimen with diureses GI gregory no evidence of significant ascites TIPS patent therefore portal hypertension risk of varices minimal Abstinence critical to patient's well-being Will sign off and follow upon request Subjective 24 Hr Interval Summary Free Text/Dictation Course reviewed with nursing staff Patient reports feeling better Breathing a lot easier Informed of findings i.e. patency of TIPS, minimal ascites No further GI intervention required We will sign off and follow upon request Exam/Review of Systems Vital Signs Vitals Vital Signs Date Time Temp Pulse Resp B/P Pulse Ox O2 Delivery O2 Flow Rate FiO2 10/17/16 12:01 66 10/17/16 11:35 98.0 19 117/46 96 10/16/16 20:00 Room Air Intake and Output 10/16/16 10/16/16 10/17/16 15:00 23:00 07:00 Intake Total 1200 ml 800 ml Output Total 3350 ml 950 ml Balance -2150 ml -150 ml Exam Constitutional: alert, oriented, well developed Head: atraumatic, normocephalic Eyes: EOMI, PERRL, nl conjunctiva, nl lids, nl sclera Neck: non-tender, supple Respiratory: clear to auscultation, crackles/rales (Both bases), diminished breath sounds Cardiovascular: nl pulses, regular rate and rhythm Gastrointestinal: bowel sounds, distended, firm, non-tender, No ascites, No hepatomegaly, No mass, No rebound or guarding, No splenomegaly Musculoskeletal: other (Post left transmetatarsal amputation) Skin: nl turgor, No rash or lesions Lymph: nl lymph nodes Results Result Diagram: 10/16/16 0545 10/16/16 0545 Results 24 hrs Laboratory Tests Test 10/16/16 17:03 10/16/16 21:53 10/17/16 07:18 10/17/16 11:31 Bedside Glucose 134 124 122 183 Medications Medications Current Medications Allopurinol (Zyloprim) 300 mg DAILY PO Last administered on 10/17/16 08:32; Admin Dose 300 MG; Start 10/14/16 at 09:00 Ascorbic Acid (Vitamin C) 1,000 mg DAILY PO Last administered on 10/17/16 08: 32; Admin Dose 1,000 MG; Start 10/14/16 at 09:00 Aspirin (Halfprin) 81 mg DAILY PO Last administered on 10/17/16 08:32; Admin Dose 81 MG; Start 10/14/16 at 09:00 Cholecalciferol (Vitamin D) 1,000 unit DAILY PO Last administered on 10/17/16 08:32; Admin Dose 1,000 UNIT; Start 10/14/16 at 09:00 Gabapentin (Neurontin) 300 mg BID PO Last administered on 10/17/16 08:31; Admin Dose 300 MG; Start 10/14/16 at 09:00 Insulin Glargine (Lantus) 30 unit DAILY SC Last administered on 10/17/16 08:48 ; Admin Dose 30 UNIT; Start 10/14/16 at 09:00 Lisinopril (Zestril) 20 mg BID PO Last administered on 10/16/16 22:00; Admin Dose 20 MG; Start 10/14/16 at 09:00 Ranolazine (Ranexa) 500 mg Q12 PO Last administered on 10/17/16 08:33; Admin Dose 500 MG; Start 10/14/16 at 09:00 Vitamin E (Vitamin E) 1,000 unit DAILY PO Last administered on 10/17/16 08:32 ; Admin Dose 1,000 UNIT; Start 10/14/16 at 09:00 Acetaminophen (Tylenol Tab) 650 mg Q6H PRN PO PAIN AND OR ELEVATED TEMP; Start 10/13/16 at 22:30 Heparin Sodium (Porcine) (Heparin (5000 Units/0.5 ml)) 5,000 unit BID SC Last administered on 10/17/16 08:47; Admin Dose 5,000 UNIT; Start 10/14/16 at 09:00 Diagnostic Test (Pha) (Accucheck) 1 ea 02 XX ; Start 10/14/16 at 02:00 Miscellaneous Information 1 ea NOTE XX ; Start 10/13/16 at 22:30 Glucose (Glutose) 15 gm Q15M PRN PO DECREASED GLUCOSE; Start 10/13/16 at 22:30 Glucose (Glutose) 22.5 gm Q15M PRN PO DECREASED GLUCOSE; Start 10/13/16 at 22:30 Dextrose (D50w Syringe) 25 ml Q15M PRN IV DECREASED GLUCOSE; Start 10/13/16 at 22:30 Dextrose (D50w Syringe) 50 ml Q15M PRN IV DECREASED GLUCOSE; Start 10/13/16 at 22:30 Glucagon (Glucagen) 1 mg Q15M PRN IM DECREASED GLUCOSE; Start 10/13/16 at 22:30 Glucose (Glutose) 15 gm Q15M PRN BUCCAL DECREASED GLUCOSE; Start 10/13/16 at 22: 30 Metoprolol Tartrate (Lopressor) 50 mg BID PO Last administered on 10/16/16 22: 00; Admin Dose 50 MG; Start 10/14/16 at 21:00 Metolazone (Zaroxolyn) 5 mg DAILY PO Last administered on 10/17/16 08:32; Admin Dose 5 MG; Start 10/15/16 at 20:30 DUY SARABIA MD Oct 17, 2016 12:11
--- NOTE | 2016-10-17 13:19 | CONS ---
Date/Time of Note Date/Time of Note DATE: 10/17/16 TIME: 13:18 Assessment/Plan Assessment/Plan Chief Complaint/Hosp Course IMPRESSION: 1. Congestive heart failure exacerbation, diastolic, likely acute on chronic. EF 50% by echo this admit/mild RV hypokinesis 2. Hypertension, under improved control. 3. Abnormal electrocardiogram, assess for acute coronary syndrome with negative troponins x2 at this time. 4. Shortness of breath secondary to #1 possibly. 5. History of cirrhosis s/p TIPPS 6. Diabetes mellitus. 7. Obesity. 8. Status post transmetatarsal amputation of the foot. 9. Left lower extremity nonhealing wound, status post debridement, covered by dressing. 10. Ascites-no sig ascites by imaging studies. 11. Diabetes mellitus. Recc: -Tele -serial ecg's -Continue current BB/ACEI -Continue lasix and follow i/o's closely -AM lexiscan as possible given weight Problems: Consultation Date/Type/Reason Admit Date/Time Oct 13, 2016 at 20:09 Initial Consult Date 10/13/2016 Type of Consultation: Cardiology Reason for Consultation CHF Referring Provider: CONSTANTINE FERNANDEZ MD Exam/Review of Systems Vital Signs Vitals Vital Signs Date Time Temp Pulse Resp B/P Pulse Ox O2 Delivery O2 Flow Rate FiO2 10/17/16 12:01 66 10/17/16 11:35 98.0 19 117/46 96 10/16/16 20:00 Room Air Intake and Output 10/16/16 10/16/16 10/17/16 15:00 23:00 07:00 Intake Total 1200 ml 800 ml Output Total 3350 ml 950 ml Balance -2150 ml -150 ml Exam Review of Systems: CONSTITUTIONAL: No fevers, chills. PULMONARY: mild sob CARDIOVASCULAR: No chest pain/palpitations GASTROINTESTINAL: No nausea/vomiting. GENITOURINARY: No hematuria/dysuria. MUSCULOSKELETAL: No myagias/arthalgias. PSYCHIATRIC: The patient denies depression. NEUROLOGIC: No weakness Constitutional: alert, oriented Psych: no complaints Head: normocephalic ENMT: mucosa pink and moist Neck: jvd (9-10 cm water) Respiratory: diminished breath sounds (at bases/B) Cardiovascular: regular rate and rhythm Gastrointestinal: non-tender, soft Musculoskeletal: muscle tone (normal) Extremities: edema (trace/B) Neurological: other (No focal deficits) Results Result Diagram: 10/16/16 0545 10/16/16 0545 Results 24 hrs Laboratory Tests Test 10/16/16 17:03 10/16/16 21:53 10/17/16 07:18 10/17/16 11:31 Bedside Glucose 134 124 122 183 Medications Medications Current Medications Allopurinol (Zyloprim) 300 mg DAILY PO Last administered on 10/17/16 08:32; Admin Dose 300 MG; Start 10/14/16 at 09:00 Ascorbic Acid (Vitamin C) 1,000 mg DAILY PO Last administered on 10/17/16 08: 32; Admin Dose 1,000 MG; Start 10/14/16 at 09:00 Aspirin (Halfprin) 81 mg DAILY PO Last administered on 10/17/16 08:32; Admin Dose 81 MG; Start 10/14/16 at 09:00 Cholecalciferol (Vitamin D) 1,000 unit DAILY PO Last administered on 10/17/16 08:32; Admin Dose 1,000 UNIT; Start 10/14/16 at 09:00 Gabapentin (Neurontin) 300 mg BID PO Last administered on 10/17/16 08:31; Admin Dose 300 MG; Start 10/14/16 at 09:00 Insulin Glargine (Lantus) 30 unit DAILY SC Last administered on 10/17/16 08:48 ; Admin Dose 30 UNIT; Start 10/14/16 at 09:00 Lisinopril (Zestril) 20 mg BID PO Last administered on 10/16/16 22:00; Admin Dose 20 MG; Start 10/14/16 at 09:00 Ranolazine (Ranexa) 500 mg Q12 PO Last administered on 10/17/16 08:33; Admin Dose 500 MG; Start 10/14/16 at 09:00 Vitamin E (Vitamin E) 1,000 unit DAILY PO Last administered on 10/17/16 08:32 ; Admin Dose 1,000 UNIT; Start 10/14/16 at 09:00 Acetaminophen (Tylenol Tab) 650 mg Q6H PRN PO PAIN AND OR ELEVATED TEMP; Start 10/13/16 at 22:30 Heparin Sodium (Porcine) (Heparin (5000 Units/0.5 ml)) 5,000 unit BID SC Last administered on 10/17/16 08:47; Admin Dose 5,000 UNIT; Start 10/14/16 at 09:00 Diagnostic Test (Pha) (Accucheck) 1 ea 02 XX ; Start 10/14/16 at 02:00 Miscellaneous Information 1 ea NOTE XX ; Start 10/13/16 at 22:30 Glucose (Glutose) 15 gm Q15M PRN PO DECREASED GLUCOSE; Start 10/13/16 at 22:30 Glucose (Glutose) 22.5 gm Q15M PRN PO DECREASED GLUCOSE; Start 10/13/16 at 22:30 Dextrose (D50w Syringe) 25 ml Q15M PRN IV DECREASED GLUCOSE; Start 10/13/16 at 22:30 Dextrose (D50w Syringe) 50 ml Q15M PRN IV DECREASED GLUCOSE; Start 10/13/16 at 22:30 Glucagon (Glucagen) 1 mg Q15M PRN IM DECREASED GLUCOSE; Start 10/13/16 at 22:30 Glucose (Glutose) 15 gm Q15M PRN BUCCAL DECREASED GLUCOSE; Start 10/13/16 at 22: 30 Metoprolol Tartrate (Lopressor) 50 mg BID PO Last administered on 10/16/16 22: 00; Admin Dose 50 MG; Start 10/14/16 at 21:00 Metolazone (Zaroxolyn) 5 mg DAILY PO Last administered on 10/17/16 08:32; Admin Dose 5 MG; Start 10/15/16 at 20:30 AMAN CALDWELL Oct 17, 2016 13:19
[2016-10-18] VITALS (11 sets, daily range): BP systolic 102–120; BP diastolic 56–72; PULSE 60–67; RESP 18–20
[2016-10-18] MEDS: ACCUCHECK XX SCH (02:00)
[2016-10-18] MEDS: FUROSEMIDE 40 MG INJ IV SCH ×2 (05:49→18:19)
[2016-10-18] MEDS: INSULIN ASPART [NOVOLOG] 3 ML PEN SC SCH ×7 (07:55→21:15)
[2016-10-18] MEDS: ASPIRIN (EC) 81 MG TAB PO SCH (08:30)
[2016-10-18] MEDS: GABAPENTIN 300 MG CAP PO SCH ×2 (08:34→21:16)
[2016-10-18] MEDS: METOPROLOL 50 MG TAB PO SCH ×2 (08:34→21:00)
[2016-10-18] MEDS: CHOLECALCIFEROL 1,000 UNIT TAB PO SCH (08:35)
[2016-10-18] MEDS: ASCORBIC ACID 500 MG TAB PO SCH (08:35)
[2016-10-18] MEDS: RANOLAZINE (SR) 500 MG TAB PO SCH ×2 (08:35→21:15)
[2016-10-18] MEDS: VITAMIN E 1,000 UNIT CAP PO SCH (08:35)
[2016-10-18] MEDS: METOLAZONE 5 MG TAB PO SCH (08:36)
[2016-10-18] MEDS: LISINOPRIL 20 MG TAB PO SCH ×2 (08:36→21:00)
[2016-10-18] MEDS: ALLOPURINOL 300 MG TAB PO SCH (08:37)
[2016-10-18] MEDS: INSULIN GLARGINE [LANtus] 3 ML PEN SC SCH (08:44)
[2016-10-18] MEDS: HEPARIN 5,000 UNIT/0.5 ML SYG SC SCH ×2 (08:45→21:20)
[2016-10-18] MEDS ORDERED: REGADENOSON 0.4 MG/5 ML SYG ONE (10:26)
--- NOTE | 2016-10-18 10:49 | CONS ---
Date/Time of Note Date/Time of Note DATE: 10/18/16 TIME: 10:47 Assessment/Plan Assessment/Plan Chief Complaint/Hosp Course IMPRESSION: 1. Congestive heart failure exacerbation, diastolic, likely acute on chronic. EF 50% by echo this admit/mild RV hypokinesis 2. Hypertension, under improved control. 3. Abnormal electrocardiogram, assess for acute coronary syndrome with negative troponins x2 at this time. 4. Shortness of breath secondary to #1 possibly. 5. History of cirrhosis s/p TIPPS 6. Diabetes mellitus. 7. Obesity. 8. Status post transmetatarsal amputation of the foot. 9. Left lower extremity nonhealing wound, status post debridement, covered by dressing. 10. Ascites-no sig ascites by imaging studies. 11. Diabetes mellitus. Recc: -Tele -serial ecg's -Continue current BB/ACEI -Continue lasix and follow i/o's closely -Lexiscan today Problems: Consultation Date/Type/Reason Admit Date/Time Oct 13, 2016 at 20:09 Initial Consult Date 10/13/2016 Type of Consultation: Cardiology Reason for Consultation CHF Referring Provider: CONSTANTINE FERNANDEZ MD Exam/Review of Systems Vital Signs Vitals Vital Signs Date Time Temp Pulse Resp B/P Pulse Ox O2 Delivery O2 Flow Rate FiO2 10/18/16 09:30 60 10/18/16 08:37 98.1 19 115/72 96 10/18/16 04:00 Room Air Intake and Output 10/17/16 10/17/16 10/18/16 15:00 23:00 07:00 Intake Total 1600 ml 800 ml Output Total 4250 ml 850 ml Balance -2650 ml -50 ml Exam Review of Systems: CONSTITUTIONAL: No fevers, chills. PULMONARY: mild sob-improving CARDIOVASCULAR: No chest pain/palpitations GASTROINTESTINAL: No nausea/vomiting. GENITOURINARY: No hematuria/dysuria. MUSCULOSKELETAL: No myagias/arthalgias. PSYCHIATRIC: The patient denies depression. NEUROLOGIC: No weakness Constitutional: alert Psych: no complaints Head: normocephalic ENMT: mucosa pink and moist Neck: jvd (9 cm water), supple Respiratory: diminished breath sounds (at bases/B) Cardiovascular: regular rate and rhythm Gastrointestinal: non-tender, soft Musculoskeletal: muscle tone (normal) Extremities: pitting pedal edema (bilateral) Neurological: other (No focal deficits) Results Result Diagram: 10/16/16 0545 10/16/16 0545 Results 24 hrs Laboratory Tests Test 10/17/16 11:31 10/17/16 16:52 10/17/16 20:15 10/18/16 07:37 Bedside Glucose 183 166 169 165 Medications Medications Current Medications Allopurinol (Zyloprim) 300 mg DAILY PO Last administered on 10/18/16 08:37; Admin Dose 300 MG; Start 10/14/16 at 09:00 Ascorbic Acid (Vitamin C) 1,000 mg DAILY PO Last administered on 10/18/16 08: 35; Admin Dose 1,000 MG; Start 10/14/16 at 09:00 Aspirin (Halfprin) 81 mg DAILY PO Last administered on 10/18/16 08:30; Admin Dose 81 MG; Start 10/14/16 at 09:00 Cholecalciferol (Vitamin D) 1,000 unit DAILY PO Last administered on 10/18/16 08:35; Admin Dose 1,000 UNIT; Start 10/14/16 at 09:00 Gabapentin (Neurontin) 300 mg BID PO Last administered on 10/18/16 08:34; Admin Dose 300 MG; Start 10/14/16 at 09:00 Insulin Glargine (Lantus) 30 unit DAILY SC Last administered on 10/18/16 08:44 ; Admin Dose 30 UNIT; Start 10/14/16 at 09:00 Lisinopril (Zestril) 20 mg BID PO Last administered on 10/18/16 08:36; Admin Dose 20 MG; Start 10/14/16 at 09:00 Ranolazine (Ranexa) 500 mg Q12 PO Last administered on 10/18/16 08:35; Admin Dose 500 MG; Start 10/14/16 at 09:00 Vitamin E (Vitamin E) 1,000 unit DAILY PO Last administered on 10/18/16 08:35 ; Admin Dose 1,000 UNIT; Start 10/14/16 at 09:00 Acetaminophen (Tylenol Tab) 650 mg Q6H PRN PO PAIN AND OR ELEVATED TEMP; Start 10/13/16 at 22:30 Heparin Sodium (Porcine) (Heparin (5000 Units/0.5 ml)) 5,000 unit BID SC Last administered on 10/18/16 08:45; Admin Dose 5,000 UNIT; Start 10/14/16 at 09:00 Diagnostic Test (Pha) (Accucheck) 1 ea 02 XX ; Start 10/14/16 at 02:00 Miscellaneous Information 1 ea NOTE XX ; Start 10/13/16 at 22:30 Glucose (Glutose) 15 gm Q15M PRN PO DECREASED GLUCOSE; Start 10/13/16 at 22:30 Glucose (Glutose) 22.5 gm Q15M PRN PO DECREASED GLUCOSE; Start 10/13/16 at 22:30 Dextrose (D50w Syringe) 25 ml Q15M PRN IV DECREASED GLUCOSE; Start 10/13/16 at 22:30 Dextrose (D50w Syringe) 50 ml Q15M PRN IV DECREASED GLUCOSE; Start 10/13/16 at 22:30 Glucagon (Glucagen) 1 mg Q15M PRN IM DECREASED GLUCOSE; Start 10/13/16 at 22:30 Glucose (Glutose) 15 gm Q15M PRN BUCCAL DECREASED GLUCOSE; Start 10/13/16 at 22: 30 Metoprolol Tartrate (Lopressor) 50 mg BID PO Last administered on 10/18/16 08: 34; Admin Dose 50 MG; Start 10/14/16 at 21:00 Metolazone (Zaroxolyn) 5 mg DAILY PO Last administered on 10/18/16 08:36; Admin Dose 5 MG; Start 10/15/16 at 20:30 AMAN CALDWELL Oct 18, 2016 10:49
--- NOTE | 2016-10-18 13:39 | RADRPT ---
PROCEDURE: Lexiscan myocardial perfusion study CLINICAL INDICATION: 61 -year-old patient complaining of chest pain. TECHNIQUE: Lexiscan 0.4 mg intravenously separate acquisition gated myocardial perfusion SPECT usi ng Tc 99m Myoview 32.2 mCi intravenously at stress and Tc-99m Myoview, 10.3 mCi intravenously at res t was performed using the rest/stress sequence. Poststress Myoview SPECT images were obtained in th e supine position. COMPARISON: No prior studies. FINDINGS: Perfusion images reveal no evidence of perfusion defects. Lexiscan post stress gated SPECT images demonstrate no wall motion abnormalities. IMPRESSION: 1. No evidence of perfusion defects. 2. No wall motion abnormalities. 3. The left ventricle ejection fraction at stress is 61%. A call report was made to Dr. Munoz at 01:37 p.m. on October 18, 2016. RPTAT: HH .Swathi Carpenter MD, Date Time Electronically viewed and signed by .Swathi Carpenter MD, on 10/18/2016 13:39 .L/
--- NOTE | 2016-10-18 15:57 | PN ---
Date/Time of Note Date/Time of Note DATE: 10/18/16 TIME: 15:52 Assessment/Plan VTE Prophylaxis VTE Prophylaxis Intervention: LMWH Lines/Catheters IV [facility]ter Type (from [facility] Saline Lock Urinary Cath still in place: No Assessment/Plan Chief Complaint/Hosp Course Subjective: Less dyspnea. Less abd pain. No fever. Objective: Vss. First-degree AV block remains PE No pallor adenopathy JVD icterus Reg, no murmur rub gallop CTAB Bs+, mild tender, mildly distended, no r/r/g Mild edema A/P: 1. Acute decompensated diastolic CHF. Stable cont bp mngmnt. Stress test appears negative. 2. Chronic hypertension; salt nonadherence 3. Chronic compensated alcoholic cirrhosis. ho TIPS procedure 4. Past alcoholism 5. Hypothyroidism? 6. PAD? 7. Left TMA status. 8. Lwr ext wound~nonweightbearing? 9. Diabetes A1c 7.7. Could be better 10. Chr CAD; cont Ranexa/ asa. Needs advanced care planning reevaluated 11. Sleep apnea? Outpatient sleep study 12. First-degree AV block. Avoid beta-tawana 13. RBBB 14. Chr stasis 15. Anemia stable Problems: Exam/Review of Systems Vital Signs Vitals Vital Signs Date Time Temp Pulse Resp B/P Pulse Ox O2 Delivery O2 Flow Rate FiO2 10/18/16 15:41 98.3 61 18 102/59 96 10/18/16 04:00 Room Air Intake and Output 10/17/16 10/17/16 10/18/16 15:00 23:00 07:00 Intake Total 1600 ml 800 ml Output Total 4250 ml 850 ml Balance -2650 ml -50 ml Results Result Diagram: 10/16/16 0545 10/16/16 0545 Results 24 hrs Laboratory Tests Test 10/17/16 16:52 10/17/16 20:15 10/18/16 07:37 10/18/16 12:27 Bedside Glucose 166 169 165 146 Medications Medications Current Medications Allopurinol (Zyloprim) 300 mg DAILY PO Last administered on 10/18/16 08:37; Admin Dose 300 MG; Start 10/14/16 at 09:00 Ascorbic Acid (Vitamin C) 1,000 mg DAILY PO Last administered on 10/18/16 08: 35; Admin Dose 1,000 MG; Start 10/14/16 at 09:00 Aspirin (Halfprin) 81 mg DAILY PO Last administered on 10/18/16 08:30; Admin Dose 81 MG; Start 10/14/16 at 09:00 Cholecalciferol (Vitamin D) 1,000 unit DAILY PO Last administered on 10/18/16 08:35; Admin Dose 1,000 UNIT; Start 10/14/16 at 09:00 Gabapentin (Neurontin) 300 mg BID PO Last administered on 10/18/16 08:34; Admin Dose 300 MG; Start 10/14/16 at 09:00 Insulin Glargine (Lantus) 30 unit DAILY SC Last administered on 10/18/16 08:44 ; Admin Dose 30 UNIT; Start 10/14/16 at 09:00 Lisinopril (Zestril) 20 mg BID PO Last administered on 10/18/16 08:36; Admin Dose 20 MG; Start 10/14/16 at 09:00 Ranolazine (Ranexa) 500 mg Q12 PO Last administered on 10/18/16 08:35; Admin Dose 500 MG; Start 10/14/16 at 09:00 Vitamin E (Vitamin E) 1,000 unit DAILY PO Last administered on 10/18/16 08:35 ; Admin Dose 1,000 UNIT; Start 10/14/16 at 09:00 Acetaminophen (Tylenol Tab) 650 mg Q6H PRN PO PAIN AND OR ELEVATED TEMP; Start 10/13/16 at 22:30 Heparin Sodium (Porcine) (Heparin (5000 Units/0.5 ml)) 5,000 unit BID SC Last administered on 10/18/16 08:45; Admin Dose 5,000 UNIT; Start 10/14/16 at 09:00 Diagnostic Test (Pha) (Accucheck) 1 ea 02 XX ; Start 10/14/16 at 02:00 Miscellaneous Information 1 ea NOTE XX ; Start 10/13/16 at 22:30 Glucose (Glutose) 15 gm Q15M PRN PO DECREASED GLUCOSE; Start 10/13/16 at 22:30 Glucose (Glutose) 22.5 gm Q15M PRN PO DECREASED GLUCOSE; Start 10/13/16 at 22:30 Dextrose (D50w Syringe) 25 ml Q15M PRN IV DECREASED GLUCOSE; Start 10/13/16 at 22:30 Dextrose (D50w Syringe) 50 ml Q15M PRN IV DECREASED GLUCOSE; Start 10/13/16 at 22:30 Glucagon (Glucagen) 1 mg Q15M PRN IM DECREASED GLUCOSE; Start 10/13/16 at 22:30 Glucose (Glutose) 15 gm Q15M PRN BUCCAL DECREASED GLUCOSE; Start 10/13/16 at 22: 30 Metoprolol Tartrate (Lopressor) 50 mg BID PO Last administered on 10/18/16 08: 34; Admin Dose 50 MG; Start 10/14/16 at 21:00 Metolazone (Zaroxolyn) 5 mg DAILY PO Last administered on 10/18/16 08:36; Admin Dose 5 MG; Start 10/15/16 at 20:30 NISHANT SONG MD Oct 18, 2016 15:57
[2016-10-18] MEDS: THIAMINE 100 MG TAB PO SCH (16:42)
--- NOTE | 2016-10-18 17:57 | CARRPT ---
DATE OF PROCEDURE: 10/18/2016 REASON FOR STRESS TESTING: Congestive heart failure, abnormal electrocardiogram, assess for ischemi a. BASELINE VITAL SIGNS/ELECTROCARDIOGRAM: Pulse 54, blood pressure 116/65. Electrocardiogram with si nus bradycardia, rate of 59 with a prolonged first degree AV block, occasional PACs, right bundle br anch block, secondary repolarization abnormalities, nonspecific ST and T . PROCEDURE: The patient underwent standard Lexiscan infusion protocol over 10 seconds followed by ra diolabeled tracer. The patient's test was stopped due to completion of protocol. Maximal achieved blood pressure during the test 97/55. Maximal heart rate during the test 61. ELECTROCARDIOGRAM FINDINGS: The patient did not develop any new Lexiscan-induced ST or T-wave russell es from baseline abnormalities. Patient had occasional PVCs. SYMPTOMS: The patient had complaints of shortness of breath during stress testing. No chest pain. IMPRESSION: 1. No Lexiscan-induced ST or T wave changes from baseline abnormalities or diagnostic cardiac ische corie. 2. Complaints of shortness breath during stress test that resolved in recovery. 3. No documented chest pain during stress testing. 4. Occasional premature ventricular contractions during stress testing. Dictated By: AMAN GARCES/MILTON Conf#: [id number] DID#: [id number]
[2016-10-19] VITALS (15 sets, daily range): BP systolic 84–124; BP diastolic 40–70; PULSE 56–83; RESP 20
[2016-10-19] MEDS ORDERED: ACCUCHECK XX SCH (02:00)
[2016-10-19] MEDS: ACCUCHECK XX SCH (02:00)
[2016-10-19] MEDS ORDERED: LEVOTHYROXINE 25 MCG TAB PO SCH (06:00)
[2016-10-19] MEDS: FUROSEMIDE 40 MG INJ IV SCH (06:09)
[2016-10-19 06:28] LABS: POTASSIUM 3.9 mmol/L (3.5-5.1)
[2016-10-19 06:30] LABS: CREATININE 1.49 mg/dl (0.61-1.24)
[2016-10-19 06:31] LABS: CALCIUM 10.3 mg/dl (8.4-10.2)
[2016-10-19 07:02] LABS: TRIIODOTHYRONINE 1.5 ng/ml (0.97-1.69)
[2016-10-19] MEDS: ASPIRIN (EC) 81 MG TAB PO SCH (08:20)
[2016-10-19] MEDS: METOPROLOL 50 MG TAB PO SCH (08:21)
[2016-10-19] MEDS: RANOLAZINE (SR) 500 MG TAB PO SCH (08:21)
[2016-10-19] MEDS: GABAPENTIN 300 MG CAP PO SCH (08:21)
[2016-10-19] MEDS: ASCORBIC ACID 500 MG TAB PO SCH (08:22)
[2016-10-19] MEDS: CHOLECALCIFEROL 1,000 UNIT TAB PO SCH (08:22)
[2016-10-19] MEDS: THIAMINE 100 MG TAB PO SCH (08:22)
[2016-10-19] MEDS: LISINOPRIL 20 MG TAB PO SCH (08:23)
[2016-10-19] MEDS: VITAMIN E 1,000 UNIT CAP PO SCH (08:23)
[2016-10-19] MEDS: ALLOPURINOL 300 MG TAB PO SCH (08:23)
[2016-10-19] MEDS: METOLAZONE 5 MG TAB PO SCH (08:23)
[2016-10-19] MEDS: HEPARIN 5,000 UNIT/0.5 ML SYG SC SCH (08:25)
[2016-10-19] MEDS: INSULIN GLARGINE [LANtus] 3 ML PEN SC SCH (08:26)
[2016-10-19] MEDS: INSULIN ASPART [NOVOLOG] 3 ML PEN SC SCH ×6 (08:27→17:31)
--- NOTE | 2016-10-19 09:55 | CONS ---
Date/Time of Note Date/Time of Note DATE: 10/19/16 TIME: 09:50 Assessment/Plan Assessment/Plan Additional Assessment/Plan 1. Congestive heart failure exacerbation, diastolic, likely acute on chronic. EF 50% by echo this admit/mild RV hypokinesis - stress test EF 60%, no ischemia. 2. Hypertension, under improved control -con't med rx 3. Abnormal electrocardiogram, assess for acute coronary syndrome with negative troponins x2 at this time. 4. Shortness of breath secondary to #1 possibly- no ischemia - mild CHF by exam , improved with diuresis. 5. History of cirrhosis s/p TIPPS - GI to follow 6. Diabetes mellitus-on meds, keep euglycemic 7. Obesity. 8. Status post transmetatarsal amputation of the foot - stable. 9. Left lower extremity nonhealing wound, status post debridement, covered by dressing. 10. Ascites-no sig ascites by imaging studies. 11. Diabetes mellitus. Consultation Date/Type/Reason Admit Date/Time Oct 13, 2016 at 20:09 Initial Consult Date Type of Consultation: Cardiology Referring Provider: CONSTANTINE FERNANDEZ MD 24 HR Interval Summary Free Text/Dictation No acute change -improved SOB - stress test EF 60%, no ischemia. ROS: No fever, no chills, no nausea, no vomiting, no diarrhea/constipation No recent weight changes No chest pain, no PND, no orthopnea - stable SOB No dizziness, blurred vision No thirst, no heat or cold intolerance Exam/Review of Systems Vital Signs Vitals Vital Signs Date Time Temp Pulse Resp B/P Pulse Ox O2 Delivery O2 Flow Rate FiO2 10/19/16 09:22 83 10/19/16 08:19 119/70 10/19/16 07:16 98.2 20 96 10/18/16 04:00 Room Air Intake and Output 10/18/16 10/18/16 10/19/16 15:00 23:00 07:00 Intake Total 450 ml 120 ml Output Total 1100 ml 1400 ml Balance -650 ml -1280 ml Exam General: WN/WD/NAD, AOx 3 HEENT: Unicetric/atraumatic/EOMI (follow commands) NECK: JVD elevated, no thyromegaly Lymph: no lymphadenopathy HEART: regular with no S3, II/ systolic murmur at apex LUNGS: Coarse sounds ABD: soft, NT, ND, +BS : Intact Neuro: non focal SKIN: chronic changes EXT: trace edema, amput Results Result Diagram: 10/16/16 0545 10/19/16 0535 Results 24 hrs Laboratory Tests Test 10/18/16 12:27 10/18/16 17:20 10/18/16 21:12 10/19/16 02:07 Bedside Glucose 146 186 219 172 Test 10/19/16 05:35 10/19/16 08:17 Anion Gap 14 Blood Urea Nitrogen 34 H Calcium Level 10.3 H Carbon Dioxide Level 33 H Chloride Level 96 L Creatinine 1.49 H Free Thyroxine 1.20 Glucose Level 171 Potassium Level 3.9 Sodium Level 139 Total Triiodothyronine 1.50 Bedside Glucose 179 Medications Medications Current Medications Allopurinol (Zyloprim) 300 mg DAILY PO Last administered on 10/19/16 08:23; Admin Dose 300 MG; Start 10/14/16 at 09:00 Ascorbic Acid (Vitamin C) 1,000 mg DAILY PO Last administered on 10/19/16 08: 22; Admin Dose 1,000 MG; Start 10/14/16 at 09:00 Aspirin (Halfprin) 81 mg DAILY PO Last administered on 10/19/16 08:20; Admin Dose 81 MG; Start 10/14/16 at 09:00 Cholecalciferol (Vitamin D) 1,000 unit DAILY PO Last administered on 10/19/16 08:22; Admin Dose 1,000 UNIT; Start 10/14/16 at 09:00 Gabapentin (Neurontin) 300 mg BID PO Last administered on 10/19/16 08:21; Admin Dose 300 MG; Start 10/14/16 at 09:00 Insulin Glargine (Lantus) 30 unit DAILY SC Last administered on 10/19/16 08:26 ; Admin Dose 30 UNIT; Start 10/14/16 at 09:00 Lisinopril (Zestril) 20 mg BID PO Last administered on 10/19/16 08:23; Admin Dose 20 MG; Start 10/14/16 at 09:00 Ranolazine (Ranexa) 500 mg Q12 PO Last administered on 10/19/16 08:21; Admin Dose 500 MG; Start 10/14/16 at 09:00 Vitamin E (Vitamin E) 1,000 unit DAILY PO Last administered on 10/19/16 08:23 ; Admin Dose 1,000 UNIT; Start 10/14/16 at 09:00 Acetaminophen (Tylenol Tab) 650 mg Q6H PRN PO PAIN AND OR ELEVATED TEMP; Start 10/13/16 at 22:30 Heparin Sodium (Porcine) (Heparin (5000 Units/0.5 ml)) 5,000 unit BID SC Last administered on 10/19/16 08:25; Admin Dose 5,000 UNIT; Start 10/14/16 at 09:00 Diagnostic Test (Pha) (Accucheck) 1 ea 02 XX ; Start 10/14/16 at 02:00 Miscellaneous Information 1 ea NOTE XX ; Start 10/13/16 at 22:30 Glucose (Glutose) 15 gm Q15M PRN PO DECREASED GLUCOSE; Start 10/13/16 at 22:30 Glucose (Glutose) 22.5 gm Q15M PRN PO DECREASED GLUCOSE; Start 10/13/16 at 22:30 Dextrose (D50w Syringe) 25 ml Q15M PRN IV DECREASED GLUCOSE; Start 10/13/16 at 22:30 Dextrose (D50w Syringe) 50 ml Q15M PRN IV DECREASED GLUCOSE; Start 10/13/16 at 22:30 Glucagon (Glucagen) 1 mg Q15M PRN IM DECREASED GLUCOSE; Start 10/13/16 at 22:30 Glucose (Glutose) 15 gm Q15M PRN BUCCAL DECREASED GLUCOSE; Start 10/13/16 at 22: 30 Metoprolol Tartrate (Lopressor) 50 mg BID PO Last administered on 10/19/16 08: 21; Admin Dose 50 MG; Start 10/14/16 at 21:00 Metolazone (Zaroxolyn) 5 mg DAILY PO Last administered on 10/19/16 08:23; Admin Dose 5 MG; Start 10/15/16 at 20:30 Diagnostic Test (Pha) (Accucheck) 1 ea 02 XX ; Start 10/19/16 at 02:00 Levothyroxine Sodium (Synthroid) 25 mcg DAILY@06 PO Last administered on 06:04; Admin Dose 25 MCG; Start 10/19/16 at 06:00 Thiamine HCl (Vitamin B1) 100 mg DAILY PO Last administered on 10/19/16 08:22 ; Admin Dose 100 MG; Start 10/18/16 at 16:00 BABATUNDE URIBE MD Oct 19, 2016 09:55
--- NOTE | 2016-10-19 15:14 | PN ---
Date/Time of Note Date/Time of Note DATE: 10/19/16 TIME: 15:11 Assessment/Plan VTE Prophylaxis VTE Prophylaxis Intervention: LMWH Lines/Catheters IV [facility]ter Type (from [email or web address] Saline Lock Urinary Cath still in place: No Assessment/Plan Chief Complaint/Hosp Course Subjective: No events. No dyspnea fever. Was nonadherent with PT; refused nwb status. Risk of limb loss discussed with patient.. Objective: Vss. First-degree AV block remains PE No pallor JVD Reg, no m/r/g CTAB Bs+, mild tender, mildly distended, no r/r/g Mild edema; foot dressed. A/P: 1. Ac decompensated diastolic CHF. Stable cont bp mngmnt. Stress test negative. Discharge home. 2. Chronic hypertension; salt nonadherence 3. Chronic compensated alcoholic cirrhosis. ho TIPS procedure 4. Past alcoholism 5. Hypothyroidism? 6. PAD? 7. Left TMA status. 8. Lwr ext wound- nwb recommended 9. Diabetes A1c 7.7. Could be better 10. Chr CAD; cont Ranexa/ asa. Needs advanced care planning reevaluated 11. Sleep apnea? Outpatient sleep study 12. First-degree AV block. Tolerating beta-tawana 13. RBBB 14. Chr stasis 15. Anemia stable 16. Nonadherence Problems: Exam/Review of Systems Vital Signs Vitals Vital Signs Date Time Temp Pulse Resp B/P Pulse Ox O2 Delivery O2 Flow Rate FiO2 10/19/16 15:04 98.5 52 20 92/57 94 10/18/16 04:00 Room Air Intake and Output 10/18/16 10/18/16 10/19/16 15:00 23:00 07:00 Intake Total 450 ml 120 ml Output Total 1100 ml 1400 ml Balance -650 ml -1280 ml Results Result Diagram: 10/16/16 0545 10/19/16 0535 Results 24 hrs Laboratory Tests Test 10/18/16 17:20 10/18/16 21:12 10/19/16 02:07 10/19/16 05:35 Bedside Glucose 186 219 172 Anion Gap 14 Blood Urea Nitrogen 34 H Calcium Level 10.3 H Carbon Dioxide Level 33 H Chloride Level 96 L Creatinine 1.49 H Free Thyroxine 1.20 Glucose Level 171 Potassium Level 3.9 Sodium Level 139 Total Triiodothyronine 1.50 Test 10/19/16 08:17 10/19/16 11:35 Bedside Glucose 179 220 Medications Medications Current Medications Allopurinol (Zyloprim) 300 mg DAILY PO Last administered on 10/19/16 08:23; Admin Dose 300 MG; Start 10/14/16 at 09:00 Ascorbic Acid (Vitamin C) 1,000 mg DAILY PO Last administered on 10/19/16 08: 22; Admin Dose 1,000 MG; Start 10/14/16 at 09:00 Aspirin (Halfprin) 81 mg DAILY PO Last administered on 10/19/16 08:20; Admin Dose 81 MG; Start 10/14/16 at 09:00 Cholecalciferol (Vitamin D) 1,000 unit DAILY PO Last administered on 10/19/16 08:22; Admin Dose 1,000 UNIT; Start 10/14/16 at 09:00 Gabapentin (Neurontin) 300 mg BID PO Last administered on 10/19/16 08:21; Admin Dose 300 MG; Start 10/14/16 at 09:00 Insulin Glargine (Lantus) 30 unit DAILY SC Last administered on 10/19/16 08:26 ; Admin Dose 30 UNIT; Start 10/14/16 at 09:00 Lisinopril (Zestril) 20 mg BID PO Last administered on 10/19/16 08:23; Admin Dose 20 MG; Start 10/14/16 at 09:00 Ranolazine (Ranexa) 500 mg Q12 PO Last administered on 10/19/16 08:21; Admin Dose 500 MG; Start 10/14/16 at 09:00 Vitamin E (Vitamin E) 1,000 unit DAILY PO Last administered on 10/19/16 08:23 ; Admin Dose 1,000 UNIT; Start 10/14/16 at 09:00 Acetaminophen (Tylenol Tab) 650 mg Q6H PRN PO PAIN AND OR ELEVATED TEMP; Start 10/13/16 at 22:30 Heparin Sodium (Porcine) (Heparin (5000 Units/0.5 ml)) 5,000 unit BID SC Last administered on 10/19/16 08:25; Admin Dose 5,000 UNIT; Start 10/14/16 at 09:00 Diagnostic Test (Pha) (Accucheck) 1 ea 02 XX ; Start 10/14/16 at 02:00 Miscellaneous Information 1 ea NOTE XX ; Start 10/13/16 at 22:30 Glucose (Glutose) 15 gm Q15M PRN PO DECREASED GLUCOSE; Start 10/13/16 at 22:30 Glucose (Glutose) 22.5 gm Q15M PRN PO DECREASED GLUCOSE; Start 10/13/16 at 22:30 Dextrose (D50w Syringe) 25 ml Q15M PRN IV DECREASED GLUCOSE; Start 10/13/16 at 22:30 Dextrose (D50w Syringe) 50 ml Q15M PRN IV DECREASED GLUCOSE; Start 10/13/16 at 22:30 Glucagon (Glucagen) 1 mg Q15M PRN IM DECREASED GLUCOSE; Start 10/13/16 at 22:30 Glucose (Glutose) 15 gm Q15M PRN BUCCAL DECREASED GLUCOSE; Start 10/13/16 at 22: 30 Metoprolol Tartrate (Lopressor) 50 mg BID PO Last administered on 10/19/16 08: 21; Admin Dose 50 MG; Start 10/14/16 at 21:00 Metolazone (Zaroxolyn) 5 mg DAILY PO Last administered on 10/19/16 08:23; Admin Dose 5 MG; Start 10/15/16 at 20:30 Diagnostic Test (Pha) (Accucheck) 1 ea 02 XX ; Start 10/19/16 at 02:00 Levothyroxine Sodium (Synthroid) 25 mcg DAILY@06 PO Last administered on 06:04; Admin Dose 25 MCG; Start 10/19/16 at 06:00 Thiamine HCl (Vitamin B1) 100 mg DAILY PO Last administered on 10/19/16 08:22 ; Admin Dose 100 MG; Start 10/18/16 at 16:00 NISHANT SONG MD Oct 19, 2016 15:14
--- NOTE | 2016-10-19 15:21 | PDOCDIS ---
Discharge Instructions DIAGNOSIS Discharge Diagnosis: chf CONDITION Patient Condition: Good HOME CARE INSTRUCTIONS: Special Diet: 1800 prashanth, 2gram, low chol low fat ACTIVITY: Activity Restrictions: Slowly Increase Activity Do not Drive FOLLOW UP/APPOINTMENTS Appointments Pcp -1wk Dr Jaeger 1-2wks; for sleep testing referral. Regular Product Support Engineer -1-2wks NISHANT SONG MD Oct 19, 2016 15:21
[2016-10-19] MEDS ORDERED: Thiamine PO (15:24)
[2016-10-19] MEDS ORDERED: METO5TAB65 PO (15:24)
[2016-10-19] MEDS ORDERED: LEVO25TA53 PO (15:24)
[2016-10-19] MEDS ORDERED: METO-429 PO (15:24)
[2016-10-19] MEDS ORDERED: LAS20 PO (16:04)
--- NOTE | 2016-10-19 17:42 | DS ---
DATE OF ADMISSION: 10/13/2016 DATE OF DISCHARGE: 10/19/2016 PRIMARY CARE PHYSICIAN: Unknown. 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 Munoz. DIAGNOSIS ON ADMISSION: Congestive heart failure. DIAGNOSES ON DISCHARGE: 1. Acute on likely chronic decompensated diastolic congestive heart failure. 2. Hypertension. 3. Chronic compensated DICTATION ENDS HERE Dictated By: NISHANT SONG MD AC/NTS Conf#: [id number] DID#: [id number] CC: HILL HAYNES MD;*EndCC*
--- NOTE | 2016-10-19 18:01 | DS ---
DATE OF ADMISSION: 10/13/2016 DATE OF DISCHARGE: 10/19/2016 PRIMARY CARE PHYSICIAN: Unknown. DIAGNOSIS ON ADMISSION: Congestive heart failure. DIAGNOSES ON DISCHARGE: 1. Congestive heart failure. 2. Nonadherence. HOSPITAL COURSE: This is a 61-year-old gentleman admitted with anasarca. Evaluated by cardiology a nd gastroenterology due to cirrhosis. The patient is presently stable and fit for discharge. Stres s test negative. A 2D echo done. He is not a smoker. He does have some salt nonadherence issues. In terms of his CHF, blood pressure, salt management will be ideal. His cardiac stress test was neg ative. The patient was seen by GI for alcoholic cirrhosis. He has a history of TIPS procedure. I do not b elieve paracentesis was done or required. would be one thing that could be evaluated [facility]. He was seen by GI. No decompensation of cirrhosis at this time. There is . Possible peripheral artery disease, continue surveillance. Possible hypothyroidism appears subclinical. Left transmetatarsal amputation status. Lower extremity wound. Continue wound care. Follow up wit podiatry. Myself and podiatry recommended nonweightbearing status. The patient refused. He stat es he is going to bear weight on his leg. I did go through the risks and benefits of our recommenda tions. He has a risk of limb loss, and we will be happy to reinforce this adherence plan at any cornelius e should he choose to accept our care. Diabetes. A1c 7.7, could be a little better, not at goal. Chronic coronary artery disease, stable. Continue Ranexa and aspirin. Needs advanced care planning established. Possible sleep apnea. Outpatient sleep study recommended to patient. He was given the phone number of pulmonary. First degree AV block. However, he is tolerating a beta tawana. Nonadherence to physical therapy and salt. Counseling done. Anemia. Chronic venous stasis. Right bundle branch block. DISCHARGE PLAN: Home. Follow up with primary in 1 week or sooner. DIET: Cardiac 1800 ADA. ALLERGIES: PENICILLIN. CODE STATUS: FULL. CONDITION: Stable. BARRIERS TO DISCHARGE: None. PENDING TESTS: None. FUNCTIONAL STATUS: The patient is awake, alert and aware of the care plan and options. PENDING TESTS: None. VARIOUS PROCEDURES: None. STOPPED MEDICATIONS: None. DURABLE MEDICAL EQUIPMENT: None. MEDICATIONS: 1. Lisinopril 20 b.i.d. 2. Lopressor 50 b.i.d. 3. Fish oil daily. 4. Ranexa 500 twice daily. 5. Aspirin 81 daily. 6. Neurontin 300 b.i.d. 7. Selenium 200 mcg daily. 8. Insulin NovoLog 18 units with meals, 30 subcutaneous Lantus at bedtime. 9. Vitamin C 1000 daily. 10. D3 1000 daily. 11. B complex daily. 12. Vitamin E 1000 daily. 13. Allopurinol 300 daily. 14. Coenzyme Q10 400 daily. STOPPED MEDICATION: Metformin. NEW MEDICATIONS: 1. Synthroid 25 mcg daily. 2. Metolazone 5 mg daily. 3. Thiamine 100 daily. 4. Lasix 20 mg p.o. b.i.d. for 3 days. LABORATORY/DIAGNOSTIC DATA: Cardiac stress test negative, Lexiscan, EF of 61. CT chest with contra st: No acute process. There is cardiomegaly. TIPS procedure with cirrhosis, small amount of intra -abdominal ascites. Liver ultrasound suboptimal study, mild hepatomegaly and hepatic steatosis, pat ent TIPS. Mild gallbladder wall thickening, otherwise normal. No significant ascites. Chest x-ray : No acute process. Sodium 139, potassium 3.9, chloride 96, bicarbonate 33, BUN 34, creatinine 1.4, glucose of 170. A1c of 7.7. TSH of 5.7, T 4 of 1.0, T3 of 1.5. Troponin negative. LFTs okay. Cholesterol 120, trigl ycerides 73, LDL 72, HDL 33. Dictated By: NISHANT SONG MD AC/NTS Conf#: [id number] DID#: [id number] CC: ; MIKE HOGUE MD; AMAN CALDWELL MD;*[facility]*
[2016-10-20] MEDS ORDERED: FUROSEMIDE 20 MG TAB PO SCH (09:00)
== END 2016-10-19 18:15 | disposition home or self-care (01) | DRG 292 ==
LOC: E/R 17:24 → TEL 20:09 → UNDOADMIN 21:21 → TEL 21:21
PROVIDERS: ADMIT Internal Medicine; ATTEND Internal Medicine
DX: I11.0 Hypertensive heart disease with heart failure (principal); Z68.42 Body mass index [BMI] 45.0-49.9, adult; K70.31 Alcoholic cirrhosis of liver with ascites; E11.9 Type 2 diabetes mellitus without complications; E02 Subclinical iodine-deficiency hypothyroidism; D64.9 Anemia, unspecified; Z91.11 Patient's noncompliance with dietary regimen; I25.10 Atherosclerotic heart disease of native coronary artery without angina pectoris; G47.30 Sleep apnea, unspecified; I44.0 Atrioventricular block, first degree; Z89.432 Acquired absence of left foot; I25.2 Old myocardial infarction; E66.01 Morbid (severe) obesity due to excess calories; M10.9 Gout, unspecified; I50.43 Acute on chronic combined systolic (congestive) and diastolic (congestive) heart failure; S81.802D Unspecified open wound, left lower leg, subsequent encounter; I45.10 Unspecified right bundle-branch block; I87.8 Other specified disorders of veins
CPT/HCPCS: 36415; 36600; 71010; 71250; 76705; 78452; 80048; 80053; 80061; 82803; 82962; 83036; 83690; 83735; 83880; 84439; 84443; 84480; 84484; 85025; 85610; 85730; 93005; 93017; 93306; 96374; 96375; J1940; A9500; A9505; J1815; J2785; J3475

== ENCOUNTER 2016-12-14 16:19 | Inpatient (IN) | payer MEDICARE, OTHER ==
[~2016-12-14] VITALS: Ht 175.3 cm; Wt 133.5 kg
[~2016-12-14 16:19] MED LIST changes: +CHOL100062 PO; +LAS20 PO; +LEVO25TA53 PO; +METO-429 PO; -METO100T PO; +METO5TAB65 PO; -MTF1000T PO; -NIT4 SL; +OMEG-124 PO; -OMEG1CAP73 PO; +RANO500T2 PO; +SELE200T11 PO; +Thiamine PO; -UBID10CA5 PO; +UBID400C5 PO; -Vancomycin Iv Per Pharmacy XX
--- NOTE | 2016-12-14 18:58 | ERA ---
ER Documentation Chief Complaint Date/Time DATE: 12/14/16 TIME: 18:54 Chief Complaint LT FOOT DIABETIC ULCER HPI Patient is a 61-year-old male with diabetes, status post partial amputation of left foot with chronic ulcers who is noted to have increased erythema to the left foot extending up to the left lower leg. Onset of erythema is unknown. Patient denies increased pain. Denies fever, nausea, vomiting, shortness of breath. The patient was seen by his event marketing specialist, Dr. Major, who sent him to the ER for admission and IV antibiotics. ROS All systems reviewed and are negative except as per history of present illness. Medications Home Meds Active Scripts Furosemide (Lasix) 20 Mg Tab, 20 MG PO BID DIURETICS for 3 Days, #10 TAB Prov:NISHANT SONG MD 10/19/16 Metoprolol Tartrate* (Lopressor*) 50 Mg Tab, 50 MG PO BID for 10 Days, #20 TAB Prov:NISHANT SONG MD 10/19/16 [Thiamine] 100 MG TAB No Conflict Check, 100 MG PO DAILY for 30 Days, #30 2 Refills Prov:NISHANT SONG MD 10/19/16 Metolazone* (Metolazone*) 5 Mg Tablet, 5 MG PO DAILY for 14 Days, #14 TAB Prov:NISHANT SONG MD 10/19/16 Levothyroxine Sodium* (Levothyroxine Sodium*) 25 Mcg Tablet, 25 MCG PO DAILY@06 for 30 Days, #30 TAB Prov:NISHANT SONG MD 10/19/16 Reported Medications [place]-3S/Dha/Epa/Fish Oil (Fish Oil 1,200 mg Softgel) 1 Each Capsule, 1 EACH PO DAILY, CAP 10/13/16 Ranolazine* (Ranexa*) 500 Mg Tab.sr.12h, 500 MG PO Q12, TAB 10/13/16 Ubidecarenone* (Co Q-10*) 400 Mg Capsule, 400 MG PO DAILY, CAP 10/13/16 Cholecalciferol* (Vitamin D3*) 1,000 Unit Tablet, 1000 UNIT PO DAILY, TAB 10/13/16 Selenomethionine* (Selenium*) 200 Mcg Tablet, 200 MCG PO DAILY, TAB 10/13/16 Lisinopril* (Lisinopril*) 20 Mg Tablet, 20 MG PO BID, #30 TAB 06/22/16 Allopurinol* (Allopurinol*) 300 Mg Tablet, 300 MG PO DAILY, TAB 06/22/16 Gabapentin* (Gabapentin*) 300 Mg Capsule, 300 MG PO BID, CAP 01/01/15 Insulin Aspart* (Novolog Insulin Pen*) 100 Unit/Ml Soln, 18 UNIT SC WITH MEALS, EA 01/01/15 Aspirin Ec (Aspir 81) 81 Mg Tablet.dr, 81 MG PO DAILY, TAB 04/23/14 Vitamin B Complex (B Complex) 1 Tab.sa Tablet.sa, 1 TAB.SA PO DAILY 04/16/13 Vitamin E* (Vitamin E*) 1,000 Unit Capsule, 1000 UNIT PO DAILY 04/16/13 Ascorbic Acid* (Vitamin C*) 500 Mg Capsule.sa, 1000 MG PO DAILY 04/16/13 Insulin Glargine,Hum.rec.anlog (Lantus) 100 U/Ml Vial, 30 UNITS SQ DAILY 09/10/12 Allergies Allergies: Coded Allergies: Penicillins (Verified Allergy, Unknown, 10/13/16) PMhx/Soc Past medical history: Diabetes, hypertension, CHF Past surgical history: Amputation of left foot, unknown abdominal vascular surgery. Social history: Denies tobacco or alcohol History of Surgery: Yes (AAA repair? partial foot amputation) Anesthesia Reaction: No Hx Neurological Disorder: Yes Hx Respiratory Disorders: Yes Hx Cardiac Disorders: Yes (HTN, CHF) Hx Psychiatric Problems: No Hx Miscellaneous Medical Probl: Yes (DM) Hx Alcohol Use: No Hx Substance Use: No Hx Tobacco Use: No Smoking Status: Never smoker FmHx Family History: No coronary disease, No diabetes Physical Exam Vitals Vital Signs Date Time Temp Pulse Resp B/P Pulse Ox O2 Delivery O2 Flow Rate FiO2 12/14/16 16:21 99.3 70 16 132/60 100 Physical Exam Const: Alert, no acute distress Head: Atraumatic Eyes: Normal Conjunctiva, no pallor or icterus ENT: Normal External Ears, Nose and Mouth. Neck: Full range of motion. No JVD. No meningismus. Resp: Clear to auscultation bilaterally, no wheezes, no rales Cardio: Regular rate and rhythm, no murmurs Abd: Soft, non tender, non distended. Obese Skin: Erythema to left foot extending up to the left knee. No bulla formation. Compartments soft, no significant tenderness to palpation. 4 cm ulcer to sole of foot 1 cm ulcer to lateral foot, no foul odor or expressible discharge. Back: No midline or flank tenderness Ext: No cyanosis, 2+ edema bilateral legs, amputation to left midfoot. Additional findings under skin above. Neur: Awake and alert, cranial nerves II through XII intact bilaterally moves and feels 4 extremities appropriately. Psych: Normal Mood and Affect Result Diagram: 12/14/16184812/14/161848 Results 24 hrs Laboratory Tests Test 12/14/16 18:49 White Blood Count 8.310^3/ul Red Blood Count 3.8910^6/ul Hemoglobin 13.0g/dl Hematocrit 37.5% Mean Corpuscular Volume 96.4fl Mean Corpuscular Hemoglobin 33.4pg Mean Corpuscular Hemoglobin Concent 34.7g/dl Red Cell Distribution Width 14.3% Platelet Count 32455^3/UL Mean Platelet Volume 11.2fl Neutrophils % 63.4% Lymphocytes % 22.3% Monocytes % 10.8% Eosinophils % 2.6% Basophils % 0.4% Nucleated Red Blood Cells % 0.0/100WBC Neutrophils # 5.310^3/ul Lymphocytes # 1.910^3/ul Monocytes # 0.910^3/ul Eosinophils # 0.210^3/ul Basophils # 0.010^3/ul Nucleated Red Blood Cells # 0.010^3/ul Prothrombin Time 13.8Sec Prothrombin Time Ratio 1.1 INR International Normalized Ratio 1.06 Activated Partial Thromboplast Time 29.1Sec Sodium Level 133mmol/L Potassium Level 4.4mmol/L Chloride Level 96mmol/L Carbon Dioxide Level 29mmol/L Anion Gap 12 Blood Urea Nitrogen 18mg/dl Creatinine 1.12mg/dl Glucose Level 417mg/dl Lactic Acid Level 2.8mmol/L Calcium Level 9.7mg/dl Total Bilirubin 0.5mg/dl Direct Bilirubin 0.00mg/dl Indirect Bilirubin 0.5mg/dl Aspartate Amino Transf (AST/SGOT) 37IU/L Alanine Aminotransferase (ALT/SGPT) 31IU/L Alkaline Phosphatase 90IU/L Total Protein 7.7g/dl Albumin 3.5g/dl Globulin 4.20g/dl Albumin/Globulin Ratio 0.83 Current Medications Medications (Trade) Dose Ordered Sig/Marcos Route PRN Reason Start Time Stop Time Status Last Admin Dose Admin Ciprofloxacin/ Dextrose 200 ml @ 200 mls/hr ONCE ONCE IVPB 12/14/16 19:00 12/14/16 19:59 DC 12/14/16 19:09 Clindamycin HCl/ Dextrose 50 ml @ 50 mls/hr ONCE IVPB 12/14/16 19:00 12/14/16 19:59 DC Sodium Chloride 1,000 ml @ 1,000 mls/hr Q1H ONCE IV 12/14/16 19:00 12/14/16 19:59 DC 12/14/16 19:09 Sodium Chloride (NS) 1,000 ml @ 1,000 mls/hr Q1H ONCE IV 12/14/16 20:00 12/14/16 20:59 Insulin Human Regular (Humulin R) 10 unit ONCE ONCE SC 12/14/16 20:00 12/14/16 20:01 DC Procedures/MDM EKG read by me: Time 1853, rate 62 Rhythm: Normal sinus [place]: Normal Intervals: First-degree AV block, right bundle branch block, prolonged QTC ST-T waves: Nonspecific ST-T wave changes in inferior and lateral leads Ectopy: No Q-waves: No Impression: Right bundle branch block, first-degree AV block, nonspecific ST -T wave changes MDM: Patient is a 61-year-old male with diabetes and chronic left foot ulcers who was sent by his event marketing specialist due to cellulitis of the left foot and lower leg there is acute in onset. The patient does not have fever or leukocytosis, but he does have a slightly elevated lactic acid. He is also found to have hyperglycemia without signs of DKA. Due to penicillin allergy, he will be treated with ciprofloxacin and clindamycin per his event marketing specialist's request. Blood and urine cultures were sent prior to administration of antibiotics. He was given a bolus of 2 L of IV fluids, but due to underlying CHF and low suspicion for sepsis, weight-based IV fluids were not given. Given his poorly controlled diabetes and history of amputation to this limb, he will be admitted for IV antibiotics and further treatment. He was given subcutaneous insulin for glycemic control. There is no evidence of necrotizing soft tissue infection or gangrene. I attempted to admit him to his primary doctor Dr. Kingston, but he did not return calls over more than 1 hour. He will be admitted to Dr. Hui. Departure Diagnosis: Primary Impression: Cellulitis Qualified Code: L03.116 - Cellulitis of left lower extremity Additional Impression: Hyperglycemia Condition: Stable CAMILO HARTMAN MD Dec 14, 2016 18:58
[2016-12-14] MEDS ORDERED: CIPROFLOXACIN 400MG/D5W 200 ML IVPB ONE (19:00)
[2016-12-14] MEDS ORDERED: SOD CHLORIDE 0.9% 1,000 ML IV ONE ×2 (19:00→20:00)
[2016-12-14] MEDS ORDERED: CLINDAMYCIN 900 MG/D5W (PMX) 50 ML IVPB SCH (19:00)
[2016-12-14 19:02] LABS: ADD SCAN DIFF NO
[2016-12-14 19:04] LABS: BASOPHILS % 0.4 % (0.0-2.0); EOSINOPHILS # 0.2 10^3/ul (0.0-0.5); EOSINOPHILS % 2.6 % (0.0-7.0); HEMATOCRIT 37.5 % (42.0-52.0); LYMPHOCYTES # 1.9 10^3/ul (0.8-2.9); LYMPHOCYTES % 22.3 % (15.0-51.0); MEAN CORPUSCULAR HEMOGLOBIN 33.4 pg (29.0-33.0); MEAN CORPUSCULAR HGB CONC 34.7 g/dl (32.0-37.0); MEAN CORPUSCULAR VOLUME 96.4 fl (82.0-101.0); MEAN PLATELET VOLUME 11.2 fl (7.4-10.4); MONOCYTE # 0.9 10^3/ul (0.3-0.9); MONOCYTES % 10.8 % (0.0-11.0); NEUTROPHIL # 5.3 10^3/ul (1.6-7.5); NEUTROPHILS % 63.4 % (39.0-77.0); PLATELET COUNT 196 10^3/UL (140-415); RED BLOOD COUNT 3.89 10^6/ul (4.70-6.10); RED CELL DISTRIBUTION WIDTH 14.3 % (11.5-14.5); WHITE BLOOD COUNT 8.3 10^3/ul (4.8-10.8)
[2016-12-14 19:13] LABS: INR 1.06; PROTIME 13.8 Sec (12.2-14.2); PT RATIO 1.1
[2016-12-14 19:14] LABS: PARTIAL THROMBOPLASTIN TIME 29.1 Sec (25.0-35.0)
[2016-12-14 19:16] LABS: ALBUMIN 3.5 g/dl (3.3-4.9); ALBUMIN/GLOBULIN RATIO 0.83; BILIRUBIN,INDIRECT 0.5 mg/dl (0-1.1); BILIRUBIN,TOTAL 0.5 mg/dl (0.2-1.3); CALCIUM 9.7 mg/dl (8.4-10.2); CREATININE 1.12 mg/dl (0.61-1.24); POTASSIUM 4.4 mmol/L (3.5-5.1); TOTAL PROTEIN 7.7 g/dl (6.1-8.1)
--- NOTE | 2016-12-14 19:56 | RADRPT ---
PROCEDURE: XR Chest. CLINICAL INDICATION: Chest pain. Possible sepsis TECHNIQUE: Portable AP semi - erect view of the chest was obtained. COMPARISON: 10/13/2016 FINDINGS: The cardiomediastinal silhouette is moderately enlarged. The lungs are clear. There is no evidence for pleural effusion, pneumothorax or pulmonary vascular congestion. The osseous structures are in tact with no evidence for acute abnormality. Faint calcification of the aortic arch is again noted. RPTAT:HJJR IMPRESSION: Stable cardiac silhouette enlargement without evidence for acute intrathoracic pathology. Physician Scooby Date Time Electronically viewed and signed by Physician Scooby on 12/14/2016 19:56 JR/
[2016-12-14] MEDS ORDERED: INSULIN REGULAR, HUMAN 100 UNIT/1 ML 3ML VIAL SC ONE (20:00)
[2016-12-14 20:30] VITALS: TEMP 98.4
[2016-12-14] MEDS ORDERED: ONDANSETRON 4 MG INJ IV PRN ×2 (21:00→22:30)
[2016-12-14] MEDS ORDERED: ACETAMINOPHEN 325 MG TAB PO PRN ×2 (21:00→22:30)
[2016-12-14] MEDS ORDERED: HYDROmorphONE 1 MG/ML SYG IV STA (21:01)
--- NOTE | 2016-12-14 21:27 | RADRPT ---
PROCEDURE: XR Left Foot CLINICAL INDICATION: Infection TECHNIQUE: An AP and a lateral view were submitted. COMPARISON: 02/27/2016 FINDINGS: Since the previous study, the spine is been removed. Osseous structures: There is again evidence of amputation at the bases of the metatarsals. A cortic al screw is seen extend to the medial malleolus presumably transfixing a healed fracture and a synde smotic screw is evident. An anchor suture projects through the junction of the cuneiform and tarsal navicular. There is calcaneal spurring at the insertion of the plantar aponeurosis. Joint spaces: There is narrowing of the tibial talar joint space with degenerative spurring. Soft tissues: There appears to be an ulceration plantar are to the metatarsal tarsal junction as see n in the lateral projection with diffuse soft tissue swelling. IMPRESSION: 1. The spleen has been removed. 2. There is again amputation at the bases of the metatarsals with soft tissue swelling seen distall y and with the suggestion of an ulceration plantar are to the metatarsal tarsal junction as seen in the lateral projection. 3. Fixation screws are seen at the distal tibia and fibula as described with an anchor suture proje cting through the cuboid tarsal navicular junction. 4. Degenerative changes are seen about the tibial talar joint. Physician Ankur Date Time Electronically viewed and signed by Physician Ankur on 12/14/2016 21:26 /
[2016-12-14 21:47] VITALS: BP 143/104; RESP 19
[2016-12-14 22:27] VITALS: Ht 175.3 cm; Wt 133.5 kg
[2016-12-14] MEDS ORDERED: morphine 4 MG/ML VIAL IV PRN (22:30)
[2016-12-14] MEDS ORDERED: VANCOMYCIN IV PER PHARMACY XX SCH (22:30)
[2016-12-14] MEDS ORDERED: GLUCOSE GEL 15 GRAM TUBE PO PRN ×2 (23:00)
[2016-12-14] MEDS ORDERED: GLUCAGON 1 MG INJ IM PRN (23:00)
[2016-12-14] MEDS ORDERED: GLUCOSE GEL 15 GRAM TUBE BUCCAL PRN (23:00)
[2016-12-14] MEDS ORDERED: DEXTROSE 50% 50 ML SYRINGE IV PRN ×2 (23:00)
[2016-12-14] MEDS: ERTAPENEM SODIUM 1 GM in SOD CHLORIDE 0.9% 100 ML IVPB SCH (23:25)
[2016-12-14] MEDS ORDERED: VANCOMYCIN 2 GM in SOD CHLORIDE 0.9% 500 ML IVPB SCH (23:30)
[2016-12-15] MEDS: ACCU-CHEK XX SCH (02:00)
--- NOTE | 2016-12-15 04:32 | HP ---
Date/Time of Note Date/Time of Note DATE: 12/15/16 TIME: 04:15 Assessment/Plan VTE Prophylaxis VTE Prophylaxis Intervention: heparin Lines/Catheters IV [facility]from [facility] Peripheral IV Urinary Cath still in place: No Assessment/Plan Assessment/Plan 1. Chronic Left foot necrotic open wound, status post excisional debridement - broad spectrum abx - f/u wound cx result - pt to be followed by his Wood Flooring Specialist, Dr. Major - Will place an ID consult 2. Diabetes with hyperglycemia: recent A1c of 10.1. - insulin and IVF 3. History of cirrhosis, status post TIPS. - no acute issue 4. Status post transmetatarsal amputation of the left foot. - see # 1 5. Morbid obesity, with a BMI of 43. - weight loss advised 6. A history of Gout.- with no acute flare-up 7. Hypertension. - cont meds with adjustment as needed HPI/ROS Admit Date/Time Admit Date/Time Dec 14, 2016 at 20:42 Hx of Present Illness The patient is a 61-year-old male with a history of CAD, hypertension, diabetes , gout, previous history of left foot transmetatarsal amputation, with a subsequent history of infection/ulcer, status post surgical debridement, history of cirrhosis, status post TIPS, who [facility], but was transferred to the ER by his cash reconciliation specialist, Dr. Major, who for admission and IV antibiotics for increased erythema to the left foot extending up to the left lower leg. Patient denied fever, chills, CP, N/V. In ER, vitals were stable. Labs showed Na 133, lactate 2.8, glucose 417. Foot xray was read by radiologist as there is again amputation at the bases of the metatarsals with soft tissue swelling seen distally and with the suggestion of an ulceration plantar are to the metatarsal tarsal junction as seen in the lateral projection. . PMH/Family/Social Past Medical History Medical History: congestive heart failure, diabetes, hypertension Past Surgical History Past Surgical Hx: other Social History Alcohol Use: occasionally Smoking Status: Former smoker Drug Use: none Exam/Review of Systems Vital Signs Vitals Vital Signs Date Time Temp Pulse Resp B/P Pulse Ox O2 Delivery O2 Flow Rate FiO2 12/14/16 21:47 98.2 65 19 143/104 96 12/14/16 21:19 Room Air Exam Exam GENERAL: Morbidly obese male, lying in bed, in no acute distress, answering questions appropriately and able to speak in full sentences. HEENT: Normocephalic, atraumatic. Extraocular muscles are intact. Pupils are reactive to light and no scleral icterus. CARDIOVASCULAR: Regular rate and rhythm, with no extra sounds. LUNGS: He has decreased breath sounds at the bases. ABDOMEN: Morbidly obese. non-tender, no guarding, no rebound tenderness, or rigidity. EXTREMITIES: The patient is status post left transmetatarsal amputation and his left lower extremity is covered up to his knee. Right lower extremity shows venous stasis changes, as well as he has tense pitting edema. Labs Result Diagram: 12/14/16184812/14/161848 Medications Medications Current Medications Gabapentin (Neurontin) 300 mg BID PO ; Start 12/15/16 at 09:00 Insulin Glargine (Lantus) 30 unit DAILY SC ; Start 12/15/16 at 09:00 Morphine Sulfate (morphine) 3 mg Q4H PRN IV pain; Start 12/14/16 at 22:30 Ondansetron HCl (Zofran Inj) 4 mg Q6H PRN IV NAUSEA AND/OR VOMITING; Start 07/22 at 22:30 Acetaminophen (Tylenol Tab) 650 mg Q4H PRN PO PAIN AND OR ELEVATED TEMP; Start 12/14/16 at 22:30 Diagnostic Test (Pha) 1 ea 1 ea 02 XX ; Start 12/15/16 at 02:00 Ertapenem/Sodium Chloride (Invanz/NS) 100 ml @ 200 mls/hr Q24H IVPB Last administered on 12/14/16t 23:25; Admin Dose 200 MLS/HR; Start 12/14/16 at 23:00 Miscellaneous Information 1 ea NOTE XX ; Start 12/14/16 at 23:00 Glucose (Glutose) 15 gm Q15M PRN PO DECREASED GLUCOSE; Start 12/14/16 at 23:00 Glucose (Glutose) 22.5 gm Q15M PRN PO DECREASED GLUCOSE; Start 12/14/16 at 23: 00 Dextrose (D50w Syringe) 25 ml Q15M PRN IV DECREASED GLUCOSE; Start 12/14/16 at 23:00 Dextrose (D50w Syringe) 50 ml Q15M PRN IV DECREASED GLUCOSE; Start 12/14/16 at 23:00 Glucagon (Glucagen) 1 mg Q15M PRN IM DECREASED GLUCOSE; Start 12/14/16 at 23:00 Glucose (Glutose) 15 gm Q15M PRN BUCCAL DECREASED GLUCOSE; Start 12/14/16 at 23 :00 Heparin Sodium (Porcine) 5000 unit 5,000 unit BID SC ; Start 12/15/16 at 09:00 Vancomycin HCl/ Sodium Chloride (Vancocin/NS) 250 ml @ 83.333 mls/ hr Q12H IVPB ; Start 12/15/16 at 12:00 HILL HAYNES MD Dec 15, 2016 04:30
[2016-12-15 05:48] LABS: ADD SCAN DIFF NO
[2016-12-15 05:53] LABS: BASOPHILS % 0.6 % (0.0-2.0); EOSINOPHILS # 0.2 10^3/ul (0.0-0.5); EOSINOPHILS % 4.6 % (0.0-7.0); HEMATOCRIT 34.4 % (42.0-52.0); HEMOGLOBIN 11.9 g/dl (14.0-18.0); LYMPHOCYTES # 1.6 10^3/ul (0.8-2.9); LYMPHOCYTES % 30.9 % (15.0-51.0); MEAN CORPUSCULAR HEMOGLOBIN 33.4 pg (29.0-33.0); MEAN CORPUSCULAR HGB CONC 34.6 g/dl (32.0-37.0); MEAN CORPUSCULAR VOLUME 96.6 fl (82.0-101.0); MEAN PLATELET VOLUME 11.4 fl (7.4-10.4); MONOCYTE # 0.7 10^3/ul (0.3-0.9); MONOCYTES % 12.7 % (0.0-11.0); NEUTROPHIL # 2.6 10^3/ul (1.6-7.5); NEUTROPHILS % 50.8 % (39.0-77.0); PLATELET COUNT 151 10^3/UL (140-415); RED BLOOD COUNT 3.56 10^6/ul (4.70-6.10); RED CELL DISTRIBUTION WIDTH 14.2 % (11.5-14.5); WHITE BLOOD COUNT 5.2 10^3/ul (4.8-10.8)
[2016-12-15 06:05] LABS: ALBUMIN 2.8 g/dl (3.3-4.9); ALBUMIN/GLOBULIN RATIO 0.75; BILIRUBIN,INDIRECT 0.4 mg/dl (0-1.1); BILIRUBIN,TOTAL 0.4 mg/dl (0.2-1.3); CALCIUM 8.6 mg/dl (8.4-10.2); CREATININE 0.85 mg/dl (0.61-1.24); POTASSIUM 4.1 mmol/L (3.5-5.1); TOTAL PROTEIN 6.5 g/dl (6.1-8.1)
[2016-12-15 06:40] LABS: ADD UMIC YES; URINE BILIRUBIN (Dip) NEGATIVE (NEGATIVE); URINE BLOOD (Dip) NEGATIVE (NEGATIVE); URINE COLOR YELLOW (YELLOW); URINE KETONES (Dip) NEGATIVE (NEGATIVE); URINE LEUKOCYTE ESTERASE (Dip) NEGATIVE (NEGATIVE); URINE NITRITE (Dip) NEGATIVE (NEGATIVE); URINE TOTAL PROTEIN (Dip) TRACE (NEGATIVE); URINE UROBILINOGEN (Dip) 0.2 E.U./dL (0.1-1.0)
[2016-12-15 06:56] LABS: URINE RBCS 0-2 /HPF (0)
[2016-12-15] MEDS: INSULIN ASPART [NOVOLOG] 3 ML PEN SC SCH ×7 (08:06→21:13)
[2016-12-15] MEDS: GABAPENTIN 300 MG CAP PO SCH ×2 (08:53→21:07)
[2016-12-15 08:58] VITALS: BP 125/59; RESP 20
[2016-12-15] MEDS ORDERED: INSULIN GLARGINE [LANtus] 3 ML PEN SC SCH (09:00)
[2016-12-15] MEDS: HEPARIN 5,000 UNIT/0.5 ML VIAL SC SCH ×2 (09:48→21:13)
--- NOTE | 2016-12-15 10:58 | PN ---
DATE: 12/15/2016 SUBJECTIVE: The patient denies any left foot pain, sent in by manager business systems, no acute events overnight . OBJECTIVE: VITAL SIGNS: Stable. GENERAL: The patient is lying in bed, answering questions appropriately, alert, in no acute distres s. HEENT: Pupils equal, round, react to light. Extraocular muscles intact. NECK: Supple, no thyromegaly. LUNGS: Clear to auscultation bilaterally. CARDIOVASCULAR: S1, S2 heard. No gallops. ABDOMEN: Soft, nontender, nondistended. Normal bowel sounds. No rebound or guarding. MUSCULOSKELETAL: He is status post left transmetatarsal amputation left lower extremity covered up in bandage up to the knee. Right lower extremity shows venous stasis changes, some mild pitting chad ma as well. NEUROLOGIC: No focal deficits. LABORATORY DATA: The CBC is normal. The sodium 134, potassium 4.1, chloride 105, CO2 of 25, BUN of 17, creatinine 0.8, glucose 279. Lactic acid yesterday was 2.8. LFTs are normal. The foot x-ray showed: There is amputation at the base above the metatarsals with soft tissue swelling seen distall y with a suggestion of an ulceration plantar to the metatarsal tarsal culture junction as seen in th e lateral projection. There are also fixation screws seen at the distal tibia and fibula as a nchor with an anchor suture projecting through the cuboid tarsal navicular junction, degenerative ch anges are seen about the tibiotalar joint and this is on the left foot. ASSESSMENT AND PLAN: This is a 61-year-old male with past medical history of CAD, hypertension, typ e 2 diabetes poorly controlled, gout, previous left foot transmetatarsal amputation with subsequent infection and ulcer, cirrhosis, status post TIPS procedure, who sent in by manager business systems for increasing erythema to the left foot, cellulitis and diabetic foot ulcers. 1. Left foot cellulitis and diabetic foot ulcer. Continue broad spectrum antibiotics. Check A1c, it has been elevated in the past. We will get endocrinology consult, get infectious disease consult as well. Follow podiatry recommendations. Pain control medications as well IV fluids. Follow up c ulture results, continue broad spectrum antibiotics. Consider PT consult. 2. Type 2 diabetes, again, poorly controlled. Follow up A1c. Continue insulins. We will increase Lantus to 35 units, continue Aspart insulin with meals and again get a personal development educator consult an d an endocrinology consult. 3. History of hypertension. Blood pressure is presently stable. Continue current medications. 4. History of coronary artery disease. Continue to monitor for now. 5. History of cirrhosis, status post TIPS procedure in the past. Continue to monitor for now. 6. Lactic acidosis, unclear source. Continue IV fluids and trend lactic acid as well. The patient is alert. 7. Gastrointestinal prophylaxis. Add PPI. 8. Deep venous thrombosis prophylaxis. Continue heparin subQ. Dictated By: AHSAN GLASER/MILTON Conf#: [id number] DID#: [id number]
--- NOTE | 2016-12-15 11:45 | CONS ---
DATE OF ADMISSION: 12/14/2016 DATE OF CONSULTATION: 12/15/2016 INFECTIOUS DISEASE CONSULTATION REASON FOR CONSULTATION: Antibiotic management. HISTORY OF PRESENT ILLNESS: Silvio Morales is a 61-year-old male with a number of problems who com es in with chronic left foot chronic open wound status post excisional debridement. His past proble ms include: 1. Coronary artery disease. 2. Hypertension. 3. Diabetes. 4. Gout. 5. Previous history of left foot transmetatarsal amputation with a subsequent history of infection and ulcer status post surgical debridement. 6. History of cirrhosis. 7. Status post TIPS. The [facility] care followup and was rain sferred to the ER by his comic book designer, Dr. Sivakumar Major, for admission and IV antibiotics because of i ncreased erythema to the left foot extending up to the left lower leg. The patient denies fever or chills. A foot x-ray was read by radiologist, there is an amputation at the base of the metatarsals with soft tissue swelling. Seen ____ with a suggestion of a plantar ulceration near the metatarsal -tarsal junction as seen in the lateral projection. There are also fixation screws which are seen a t the distal tibia and fibula and described with an anchor suture projecting through the cuboidal-ta rsal-navicular junction. Chest x-ray was unremarkable. PAST MEDICAL HISTORY: Operations as outlined. FAMILY HISTORY: Noncontributory. SOCIAL HISTORY: The patient is a former smoker. He does not drink or abuse drugs. ALLERGIES: NONE TO PENICILLIN, SULFA OR FOODS. MEDICATIONS: Per chart. REVIEW OF SYSTEMS: Positive for morbid obesity with a BMI of 43 as well as the aforementioned probl ems. PHYSICAL EXAMINATION: GENERAL: The patient is a morbidly obese male who is lying in bed in no acute distress. VITAL SIGNS: Stable. He is afebrile. SKIN: Without generalized rash. HEENT: Within normal limits. NECK: Supple. LYMPH NODES: None palpable. CHEST: Decreased breath sounds at the bases. HEART: Without murmur or gallop. ABDOMEN: Soft, morbidly obese, nontender, without organosplenomegaly or masses. EXTREMITIES: Status post left transmetatarsal amputation. Right lower extremity shows venous stasi s changes as well as pitting edema. The left foot is noted to have chronic open wound status post e xcisional debridement. LABORATORY DATA: His white count was 8.3, H and H of 13 and 37.5, platelet count of 396,000. BUN a nd creatinine 18 and 1.12, glucose of 417. IMPRESSION AND PLAN: The patient is currently on vancomycin and ertapenem. Urine cultures are nega tive. We will continue him on this regimen. I will dictate my findings to the hospitalist. Dictated By: JYOTHI HERNANDEZ MD, JD/MILTON Conf#: [id number] DID#: [id number]
[2016-12-15] MEDS ORDERED: VANCOMYCIN 1.25 GM in SOD CHLORIDE 0.9% 250 ML IVPB SCH (12:00)
[2016-12-15] MEDS: VANCOMYCIN 1.5 GM in SOD CHLORIDE 0.9% 250 ML IVPB SCH (12:08)
[2016-12-15] MEDS: HYDROCODONE/APAP (5/325) TAB PO PRN (13:06)
[2016-12-15] MEDS: morphine 4 MG/ML VIAL IV PRN ×2 (18:39→23:03)
--- NOTE | 2016-12-15 19:29 | CONS ---
DATE OF ADMISSION: 12/14/2016 DATE OF CONSULTATION: 12/15/2016 TYPE OF CONSULTATION: Endocrinology. HISTORY OF PRESENT ILLNESS: This is one of multiple [facility] admissions for thi s 61-year-old male with a long history of diabetes mellitus type 2, now on insulin therapy , who has a 9-year history of a left foot ulcer that has never healed, multiple episodes of infectio n including gas gangrene requiring a transmetatarsal amputation, now comes in with another infection . His blood sugar control at home has not been excellent, and he reports he has not been good about taking care of himself. Please note he has had a recent formalized cardiac evaluation that was unr emarkable. PAST MEDICAL HISTORY: 1. Alcoholism. 2. History of cirrhosis. 3. Status post shunt procedure--probable TIPS. 4. Organic heart disease. 5. Hypertension. 6. Diabetes mellitus type 2. 7. Hyperuricemic gout. 8. History of left foot ulcer with normal arterial circulation with multiple infections including g as gangrene and prior left TMA. 9. History of left ankle fracture with hardware. 10. Usual childhood diseases. ALLERGIES: HE REPORTS AN ALLERGY TO PENICILLIN. OUTPATIENT MEDICATIONS: If the information is correct include: 1. Allopurinol. 2. Vitamin C. 3. Aspirin. 4. Vitamin D. 5. Lasix. 6. Gabapentin. 7. NovoLog insulin. 8. Lantus insulin. 9. Levothyroxine at 25 mcg daily. 10. Lisinopril. 11. Metolazone. 12. Lopressor. 13. [place]-3 fish oil. 14. Ranexa. 15. Selenium. 16. CoQ10. 17. Vitamin B. 18. Vitamin E. 19. Thiamine. HABITS: He is not smoking. He has a long history of alcohol usage and said his last alcohol was a week ago which was some type of a pineapple drink (I do not find him to be a reliable historian). D enies recreational drugs. FAMILY HISTORY: Noncontributory. PHYSICAL EXAMINATION: At time of physical exam, he is a morbidly obese male lying in bed. His general exam is well documented by colleagues. ASSESSMENT AND PLAN: 1. Diabetes mellitus type 2. Given his liver disease, we need to be somewhat circumspect about how we do this, but we can use metformin at very low dose safely in this situation. I will get him sta rted on that to see if it will augment his insulin nicely and get him under better control. 2. Hypertension. He should be maintained on his MARTINA inhibitor. 3. Alcoholism. He should continue on thiamine. 4. Foot infection. He has been attempted to be treated for this for 9 years. Will see where we ar e going to go from here. Dictated By: CARY DURAN MD, JR/MILTON Conf#: [id number] DID#: [id number]
[2016-12-15 19:59] VITALS: BP 139/64; RESP 20
[2016-12-15] MEDS: TERBINAFINE 250 MG TAB PO SCH (21:07)
[2016-12-15] MEDS: ERTAPENEM SODIUM 1 GM in SOD CHLORIDE 0.9% 100 ML IVPB SCH (23:03)
[2016-12-16] MEDS: VANCOMYCIN 1.5 GM in SOD CHLORIDE 0.9% 250 ML IVPB SCH ×2 (00:43→16:40)
[2016-12-16] MEDS: ACCU-CHEK XX SCH (02:00)
[2016-12-16 05:11] LABS: ADD SCAN DIFF NO
[2016-12-16 05:14] LABS: BASOPHILS % 0.8 % (0.0-2.0); EOSINOPHILS # 0.3 10^3/ul (0.0-0.5); EOSINOPHILS % 5.1 % (0.0-7.0); HEMATOCRIT 36.2 % (42.0-52.0); HEMOGLOBIN 12.4 g/dl (14.0-18.0); LYMPHOCYTES # 1.6 10^3/ul (0.8-2.9); LYMPHOCYTES % 30.9 % (15.0-51.0); MEAN CORPUSCULAR HEMOGLOBIN 33.4 pg (29.0-33.0); MEAN CORPUSCULAR HGB CONC 34.3 g/dl (32.0-37.0); MEAN CORPUSCULAR VOLUME 97.6 fl (82.0-101.0); MEAN PLATELET VOLUME 11.3 fl (7.4-10.4); MONOCYTE # 0.6 10^3/ul (0.3-0.9); NEUTROPHIL # 2.7 10^3/ul (1.6-7.5); PLATELET COUNT 162 10^3/UL (140-415); RED BLOOD COUNT 3.71 10^6/ul (4.70-6.10); RED CELL DISTRIBUTION WIDTH 14.3 % (11.5-14.5); WHITE BLOOD COUNT 5.3 10^3/ul (4.8-10.8)
[2016-12-16] MEDS: PANTOPRAZOLE (EC) 40 MG TAB PO SCH (05:16)
[2016-12-16 05:23] LABS: POTASSIUM 4.1 mmol/L (3.5-5.1)
[2016-12-16] MEDS: morphine 4 MG/ML VIAL IV PRN ×3 (05:24→20:36)
[2016-12-16 05:26] LABS: CREATININE 0.93 mg/dl (0.61-1.24)
[2016-12-16 05:27] LABS: CALCIUM 9.2 mg/dl (8.4-10.2); CREATININE 0.85 mg/dl (0.61-1.24)
[2016-12-16 07:29] VITALS: BP 138/65; RESP 18
[2016-12-16] MEDS: INSULIN ASPART [NOVOLOG] 3 ML PEN SC SCH ×7 (08:03→22:00)
--- NOTE | 2016-12-16 08:53 | PN ---
Date/Time of Note Date/Time of Note DATE: 12/16/16 TIME: 08:49 Assessment/Plan VTE Prophylaxis VTE Prophylaxis Intervention: heparin Lines/Catheters IV C[facility]ter Type (from [facility]): [place] Urinary Cath still in place: No Assessment/Plan Chief Complaint/Hosp Course ASSESSMENT AND PLAN: 61-year-old male with past medical history of CAD, hypertension, type 2 diabetes poorly controlled, gout, previous left foot transmetatarsal amputation with subsequent infection and ulcer, cirrhosis, status post TIPS procedure, who sent in by provider relations specialist for increasing erythema to the left foot, cellulitis and diabetic foot ulcers. 1. Left foot cellulitis and diabetic foot ulcer. A1c = 10.3, FS still elevated. - Continue broad spectrum antibiotics, f/u endocrinology consult and nfectious disease rec's. - Follow podiatry recommendations - consider left foot MRI. - Pain control medications as well IV fluids. Follow up culture result - Consider PT consult. 2. Type 2 diabetes, again, poorly controlled - appreciate endo consult - continue insulins, metformin added yesterday as well, continue Lantus to 35 units, continue Aspart insulin with meals - f/u endocrinology consult rec's 3. History of hypertension. Blood pressure is presently stable. Continue current medications. 4. History of coronary artery disease. Continue to monitor for now. 5. History of cirrhosis, status post TIPS procedure in the past. Continue to monitor for now. 6. Lactic acidosis, unclear source - but resolved now - Continue IV fluids and trend lactic acid as well. The patient is alert. 7. Gastrointestinal prophylaxis - PPI. 8. Deep venous thrombosis prophylaxis. Continue heparin subQ. Problems: Subjective 24 Hr Interval Summary Free Text/Dictation No acute events overnight, seen by endo and ID teams. Exam/Review of Systems Vital Signs Vitals Vital Signs Date Time Temp Pulse Resp B/P Pulse Ox O2 Delivery O2 Flow Rate FiO2 12/16/16 07:29 97.7 65 18 138/65 96 12/14/16 21:19 Room Air Intake and Output 12/15/16 12/15/16 12/16/16 15:00 23:00 07:00 Intake Total 1310 ml 1150 ml Output Total 800 ml 700 ml Balance 510 ml 450 ml Exam GENERAL: The patient is lying in bed, answering questions appropriately, alert , in no acute distress. HEENT: Pupils equal, round, react to light. Extraocular muscles intact. NECK: Supple, no thyromegaly. LUNGS: Clear to auscultation bilaterally. CARDIOVASCULAR: S1, S2 heard. No gallops. ABDOMEN: Soft, nontender, nondistended. Normal bowel sounds. No rebound or guarding. MUSCULOSKELETAL: He is status post left transmetatarsal amputation left lower extremity covered up in bandage up to the knee. Right lower extremity shows venous stasis changes, some mild pitting edema as well. NEUROLOGIC: No focal deficits. Results Result Diagram: 12/16/16 0444 12/16/16 0444 Results 24 hrs Laboratory Tests Test 12/15/16 11:50 12/15/16 12:23 12/15/16 12:38 12/15/16 17:21 Bedside Glucose 255 H 287 H 179 Lactic Acid Level 1.3 Test 12/15/16 18:50 12/15/16 21:08 12/16/16 02:25 12/16/16 04:15 Lactic Acid Level 1.6 Bedside Glucose 248 H 246 H Uric Acid 4.2 Thyroid Stimulating Hormone (TSH) 4.840 H Test 12/16/16 04:44 12/16/16 07:55 White Blood Count 5.3 Red Blood Count 3.71 L Hemoglobin 12.4 L Hematocrit 36.2 L Mean Corpuscular Volume 97.6 Mean Corpuscular Hemoglobin 33.4 H Mean Corpuscular Hemoglobin Concent 34.3 Red Cell Distribution Width 14.3 Platelet Count 162 Mean Platelet Volume 11.3 H Neutrophils % 52.0 Lymphocytes % 30.9 Monocytes % 11.0 Eosinophils % 5.1 Basophils % 0.8 Nucleated Red Blood Cells % 0.0 Neutrophils # 2.7 Lymphocytes # 1.6 Monocytes # 0.6 Eosinophils # 0.3 Basophils # 0.0 Nucleated Red Blood Cells # 0.0 Sodium Level 136 Potassium Level 4.1 Chloride Level 101 Carbon Dioxide Level 29 Anion Gap 10 Blood Urea Nitrogen 18 Creatinine 0.93 Glucose Level 239 H Calcium Level 9.2 Bedside Glucose 252 H Medications Medications Current Medications Gabapentin (Neurontin) 300 mg BID PO Last administered on 12/15/16t 21:07; Admin Dose 300 MG; Start 12/15/16 at 09:00 Ondansetron HCl (Zofran Inj) 4 mg Q6H PRN IV NAUSEA AND/OR VOMITING; Start 07/22 at 22:30 Acetaminophen (Tylenol Tab) 650 mg Q4H PRN PO PAIN AND OR ELEVATED TEMP; Start 12/14/16 at 22:30 Diagnostic Test (Pha) 1 ea 1 ea 02 XX ; Start 12/15/16 at 02:00 Ertapenem/Sodium Chloride (Invanz/NS) 100 ml @ 200 mls/hr Q24H IVPB Last administered on 12/15/16 23:03; Admin Dose 200 MLS/HR; Start 12/14/16 at 23:00 Miscellaneous Information 1 ea NOTE XX ; Start 12/14/16 at 23:00 Glucose (Glutose) 15 gm Q15M PRN PO DECREASED GLUCOSE; Start 12/14/16 at 23:00 Glucose (Glutose) 22.5 gm Q15M PRN PO DECREASED GLUCOSE; Start 12/14/16 at 23: 00 Dextrose (D50w Syringe) 25 ml Q15M PRN IV DECREASED GLUCOSE; Start 12/14/16 at 23:00 Dextrose (D50w Syringe) 50 ml Q15M PRN IV DECREASED GLUCOSE; Start 12/14/16 at 23:00 Glucagon (Glucagen) 1 mg Q15M PRN IM DECREASED GLUCOSE; Start 12/14/16 at 23:00 Glucose (Glutose) 15 gm Q15M PRN BUCCAL DECREASED GLUCOSE; Start 12/14/16 at 23 :00 Heparin Sodium (Porcine) 5000 unit 5,000 unit BID SC Last administered on 21:13; Admin Dose 5,000 UNIT; Start 12/15/16 at 09:00 Vancomycin HCl/ Sodium Chloride (Vancocin/NS) 250 ml @ 83.333 mls/ hr Q12H IVPB Last administered on 12/16/16 00:43; Admin Dose 83.333 MLS/HR; Start 08/21 at 12:00 Miscellaneous Information (*Rx Drug Level Order Reminder*) VANCOMYCIN TROUGH AT 1100 ONCE ONCE XX ; Start 12/16/16 at 11:00; Stop 12/16/16 at 11:01 Morphine Sulfate (morphine) 2 mg Q4H PRN IV pain Last administered on 05:24; Admin Dose 2 MG; Start 12/15/16 at 10:30 Acetaminophen/ Hydrocodone Bitart ([place] (5/325)) 1 tab Q4H PRN PO PAIN LEVEL 4 -7 Last administered on 12/15/16 13:06; Admin Dose 1 TAB; Start 12/15/16 at 10: 00 Insulin Glargine (Lantus) 35 unit DAILY SC ; Start 12/16/16 at 09:00 Pantoprazole (Protonix Tab) 40 mg DAILY@06 PO Last administered on 12/16/16 05 :16; Admin Dose 40 MG; Start 12/16/16 at 06:00 Terbinafine HCl (Lamisil) 250 mg BID PO Last administered on 12/15/16 21:07; Admin Dose 250 MG; Start 12/15/16 at 21:00; Stop 12/22/16 at 20:59 Allopurinol (Zyloprim) 300 mg DAILY PO ; Start 12/16/16 at 09:00 Thiamine HCl (Vitamin B1) 100 mg DAILY PO ; Start 12/16/16 at 09:00 AHSAN ALVARENGA Dec 16, 2016 08:53
[2016-12-16] MEDS ORDERED: INSULIN GLARGINE [LANtus] 3 ML PEN SC SCH (09:00)
[2016-12-16] MEDS ORDERED: UBIDECARENONE 400 MG PO SCH (09:00)
[2016-12-16] MEDS ORDERED: SELENOMETHIONINE 200 MCG PO SCH (09:00)
[2016-12-16] MEDS ORDERED: ALLOPURINOL 300 MG TAB PO SCH (09:00)
[2016-12-16] MEDS: GABAPENTIN 300 MG CAP PO SCH ×2 (09:02→20:34)
[2016-12-16] MEDS: TERBINAFINE 250 MG TAB PO SCH ×2 (09:02→20:34)
[2016-12-16] MEDS: THIAMINE 100 MG TAB PO SCH (09:02)
[2016-12-16] MEDS: HEPARIN 5,000 UNIT/0.5 ML VIAL SC SCH ×2 (09:21→20:53)
[2016-12-16] MEDS: ALLOPURINOL 300 MG TAB PO SCH (10:19)
[2016-12-16] MEDS ORDERED: THIAMINE 100 MG TAB PO SCH (10:30)
--- NOTE | 2016-12-16 11:56 | RADRPT ---
PROCEDURE: MRI OF THE LEFT FOOT. CLINICAL INDICATION: Concern for osteomyelitis. History of multiple surgeries and amputations since 2009. Diabetes. TECHNIQUE: Multiple MRI images of the left foot were obtained in multiple planes utilizing multipl e pulse sequences. Images were interpreted on the high-resolution PACS system. COMPARISON: Plain film dated 12/14/2016. FINDINGS: There has been an amputation no of the metatarsals at the metatarsal bases. No there is moderate de generative change of Lisfranc's articulation but no bone destructive change to suggest osteomyelitis in this location. No midfoot osteomyelitis is identified. No evidence for osteomyelitis of the an kle. There is soft tissue swelling adjacent to probable ulceration of the plantar medial midfoot see n on sagittal image number 31. No underlying abscess and no discrete mass to suggest phlegmon is se en. There is moderate ankle joint degenerative change present. There is soft tissue swelling of the stump. No abscess or gangrene is seen. There is metallic artifact from the fixation screws of the tibia identified. IMPRESSION: 1. No evidence for osteomyelitis, abscess, phlegmon, or gangrene. 2. Soft tissue swelling along the plantar aspect of the medial midfoot adjacent to a probable ulcer ation. 3. Mid foot and ankle degenerative change. RPTAT: XX .Darien Moss MD, MD Date Time Electronically viewed and signed by .Darien Moss MD, on 12/16/2016 11:55 .T/
[2016-12-16] MEDS: RANOLAZINE (SR) 500 MG TAB PO SCH ×2 (12:21→20:34)
[2016-12-16] MEDS: VITAMIN E 1,000 UNIT CAP PO SCH (12:21)
[2016-12-16] MEDS: CHOLECALCIFEROL 1,000 UNIT TAB PO SCH (12:21)
[2016-12-16] MEDS: ASCORBIC ACID 500 MG TAB PO SCH (12:21)
[2016-12-16] MEDS: VITAMIN B COMPLEX/VIT C CAP PO SCH (12:22)
[2016-12-16] MEDS: ASPIRIN (EC) 81 MG TAB PO SCH (12:22)
[2016-12-16] MEDS: FISH OIL 1,000 MG CAP PO SCH (12:22)
[2016-12-16] MEDS: FUROSEMIDE 20 MG TAB PO SCH ×2 (12:25→17:36)
[2016-12-16] MEDS: METOPROLOL 50 MG TAB PO SCH ×2 (12:27→20:35)
[2016-12-16] MEDS: COLLAGENASE 30 GM TUBE TOP SCH (14:27)
[2016-12-16] MEDS: LEVOTHYROXINE 25 MCG TAB PO SCH (14:27)
[2016-12-16] MEDS: SODIUM HYPOCHLORITE 1/40% 1L IRRIG IRR SCH (14:27)
--- NOTE | 2016-12-16 14:38 | PN ---
DATE: 12/16/2016 SUBJECTIVE: No acute changes. The patient is alert, feels okay, looks comfortable, no fevers. LABORATORY DATA: WBC 5.3, no shift, no bands. BUN 18, creatinine 0.93. MICROBIOLOGY: Left lower extremity growing gram-positive cocci. DIAGNOSTICS: MRI revealed no evidence of osteomyelitis, abscess, phlegmon or gangrene. ANTIMICROBIALS: The patient is on: 1. Vancomycin. 2. Invanz. PHYSICAL EXAMINATION: GENERAL: An obese, well-developed, elderly man who is alert, in no distress. HEENT: Head atraumatic, normocephalic. Sclerae anicteric. Buccal mucosa pink. NECK: Supple. CHEST: Rise symmetrical. Breath sounds clear. HEART: S1, S2. ABDOMEN: Soft, bowel sounds present. EXTREMITIES: Without cyanosis. Left lower extremity erythema, edema, dressing intact. ASSESSMENT: 1. Left lower extremity acute on chronic cellulitis, no evidence of osteomyelitis, cultures on 12/04 grew Streptococcus agalactiae, Staphylococcus aureus and gram-negative rods. 2. Obesity. 3. Diabetes with diabetic neuropathy. 4. History of coronary artery disease and hypertension. 5. Gout. 6. History of cirrhosis, status post TIPS procedure. PLAN: The patient remains stable on appropriate antimicrobials. Awaiting for final cultures. Foll ow podiatry recommendations. Dictated By: SVETLANA MAY CYANIDE POT TENDER for JYOTHI ALLEN/MILTON Conf#: [id number] DID#: [id number]
[2016-12-16] MEDS: METOLAZONE 5 MG TAB PO SCH (16:38)
--- NOTE | 2016-12-16 17:03 | CONS ---
Date/Time of Note Date/Time of Note DATE: 12/16/16 TIME: 16:58 Assessment/Plan Assessment/Plan Problems: (1) Type 2 diabetes mellitus with hyperglycemia Status: Chronic Comment: DM remains OOC. Increase lantus to 48 qam. Increase Novolog to 24 qac. Increase metformin to 500 mg bid. Qualifiers: Diabetes mellitus chcf insulin use: with chcf use Qualified Code : E11.65 - Type 2 diabetes mellitus with hyperglycemia, with long-term current use of insulin Consultation Date/Type/Reason Admit Date/Time Dec 14, 2016 at 20:42 Initial Consult Date 12/15/2016 Type of Consultation: Endocrinology Reason for Consultation T2DM out of control (OOC) Referring Provider: AHSAN ALVARENGA 24 HR Interval Summary Constitutional: improved, no complaints Detailed Summary Respiratory: no complaints Cardiovascular: no complaints Gastrointestinal: no complaints Genitourinary: no complaints Musculoskeletal: no complaints Neurologic: no complaints Exam/Review of Systems Vital Signs Vitals VS - Last 72 Hours, by Label Date Time Temp Pulse Resp B/P Pulse Ox O2 Delivery O2 Flow Rate FiO2 12/16/16 07:29 97.7 65 18 138/65 96 12/15/16 19:59 97.8 62 20 139/64 96 12/15/16 08:58 97.5 59 20 125/59 97 12/14/16 21:47 98.2 65 19 143/104 96 12/14/16 21:19 63 18 137/100 96 Room Air 12/14/16 20:30 98.4 63 18 127/75 96 Room Air 12/14/16 16:21 99.3 70 16 132/60 100 Vital Signs Date Time Temp Pulse Resp B/P Pulse Ox O2 Delivery O2 Flow Rate FiO2 12/16/16 07:29 97.7 65 18 138/65 96 12/14/16 21:19 Room Air Intake and Output 12/15/16 12/15/16 12/16/16 15:00 23:00 07:00 Intake Total 1310 ml 1150 ml Output Total 800 ml 700 ml Balance 510 ml 450 ml Exam Constitutional: alert, obese, oriented Psych: nl mood/affect, no complaints Respiratory: clear to auscultation, normal air movement Cardiovascular: regular rate and rhythm, No edema, No murmurs/extra sounds, No rub Gastrointestinal: bowel sounds, nl liver, spleen, non-tender, soft, No mass, No rebound or guarding Musculoskeletal: No nl extremities to inspection (TMTA) Extremities: No clubbing, No cyanosis, No edema Neurological: 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, nl mental status, nl speech, nl strength Additional Comments Bedside Glucose - 72 Hours Test 12/14/16 20:45 12/14/16 23:44 12/15/16 07:49 12/15/16 11:50 Bedside Glucose 401mg/dL (70-220) *H 300mg/dL (70-220) H 266mg/dL (70-220) H 255mg/dL (70-220) H Test 12/15/16 12:38 12/15/16 17:21 12/15/16 21:08 12/16/16 02:25 Bedside Glucose 287mg/dL (70-220) H 179mg/dL (70-220) 248mg/dL (70-220) H 246mg/dL (70-220) H Test 12/16/16 07:55 12/16/16 12:17 Bedside Glucose 252mg/dL (70-220) H 206mg/dL (70-220) Results Result Diagram: 12/16/16 0444 12/16/16 0444 Results 24 hrs Laboratory Tests Test 12/15/16 17:21 12/15/16 18:50 12/15/16 21:08 12/16/16 02:25 Bedside Glucose 179 248 H 246 H Lactic Acid Level 1.6 Test 12/16/16 04:15 12/16/16 04:44 12/16/16 07:55 12/16/16 12:00 Uric Acid 4.2 Thyroid Stimulating Hormone (TSH) 4.840 H White Blood Count 5.3 Red Blood Count 3.71 L Hemoglobin 12.4 L Hematocrit 36.2 L Mean Corpuscular Volume 97.6 Mean Corpuscular Hemoglobin 33.4 H Mean Corpuscular Hemoglobin Concent 34.3 Red Cell Distribution Width 14.3 Platelet Count 162 Mean Platelet Volume 11.3 H Neutrophils % 52.0 Lymphocytes % 30.9 Monocytes % 11.0 Eosinophils % 5.1 Basophils % 0.8 Nucleated Red Blood Cells % 0.0 Neutrophils # 2.7 Lymphocytes # 1.6 Monocytes # 0.6 Eosinophils # 0.3 Basophils # 0.0 Nucleated Red Blood Cells # 0.0 Sodium Level 136 Potassium Level 4.1 Chloride Level 101 Carbon Dioxide Level 29 Anion Gap 10 Blood Urea Nitrogen 18 Creatinine 0.93 Glucose Level 239 H Calcium Level 9.2 Bedside Glucose 252 H Vancomycin Level Trough 13.5 Test 12/16/16 12:17 Bedside Glucose 206 Medications Medications Current Medications Gabapentin (Neurontin) 300 mg BID PO Last administered on 12/16/16 09:02; Admin Dose 300 MG; Start 12/15/16 at 09:00 Ondansetron HCl (Zofran Inj) 4 mg Q6H PRN IV NAUSEA AND/OR VOMITING; Start 07/22 at 22:30 Acetaminophen (Tylenol Tab) 650 mg Q4H PRN PO PAIN AND OR ELEVATED TEMP; Start 12/14/16 at 22:30 Diagnostic Test (Pha) 1 ea 1 ea 02 XX ; Start 12/15/16 at 02:00 Ertapenem/Sodium Chloride (Invanz/NS) 100 ml @ 200 mls/hr Q24H IVPB Last administered on 12/15/16 23:03; Admin Dose 200 MLS/HR; Start 12/14/16 at 23:00 Miscellaneous Information 1 ea NOTE XX ; Start 12/14/16 at 23:00 Glucose (Glutose) 15 gm Q15M PRN PO DECREASED GLUCOSE; Start 12/14/16 at 23:00 Glucose (Glutose) 22.5 gm Q15M PRN PO DECREASED GLUCOSE; Start 12/14/16 at 23: 00 Dextrose (D50w Syringe) 25 ml Q15M PRN IV DECREASED GLUCOSE; Start 12/14/16 at 23:00 Dextrose (D50w Syringe) 50 ml Q15M PRN IV DECREASED GLUCOSE; Start 12/14/16 at 23:00 Glucagon (Glucagen) 1 mg Q15M PRN IM DECREASED GLUCOSE; Start 12/14/16 at 23:00 Glucose (Glutose) 15 gm Q15M PRN BUCCAL DECREASED GLUCOSE; Start 12/14/16 at 23 :00 Heparin Sodium (Porcine) 5000 unit 5,000 unit BID SC Last administered on 09:21; Admin Dose 5,000 UNIT; Start 12/15/16 at 09:00 Vancomycin HCl/ Sodium Chloride (Vancocin/NS) 250 ml @ 83.333 mls/ hr Q12H IVPB Last administered on 12/16/16 16:40; Admin Dose 83.333 MLS/HR; Start 08/21 at 12:00 Morphine Sulfate (morphine) 2 mg Q4H PRN IV pain Last administered on 16:40; Admin Dose 2 MG; Start 12/15/16 at 10:30 Acetaminophen/ Hydrocodone Bitart ([place] (5/325)) 1 tab Q4H PRN PO PAIN LEVEL 4 -7 Last administered on 12/15/16 13:06; Admin Dose 1 TAB; Start 12/15/16 at 10: 00 Pantoprazole (Protonix Tab) 40 mg DAILY@06 PO Last administered on 12/16/16 05 :16; Admin Dose 40 MG; Start 12/16/16 at 06:00 Terbinafine HCl (Lamisil) 250 mg BID PO Last administered on 12/16/16 09:02; Admin Dose 250 MG; Start 12/15/16 at 21:00; Stop 12/22/16 at 20:59 Thiamine HCl (Vitamin B1) 100 mg DAILY PO Last administered on 12/16/16 09:02 ; Admin Dose 100 MG; Start 12/16/16 at 09:00 Allopurinol (Zyloprim) 300 mg DAILY PO ; Start 12/16/16 at 10:30 Ascorbic Acid (Vitamin C) 1,000 mg DAILY PO Last administered on 12/16/16 12: 21; Admin Dose 1,000 MG; Start 12/16/16 at 10:30 Aspirin (Halfprin) 81 mg DAILY PO Last administered on 12/16/16 12:22; Admin Dose 81 MG; Start 12/16/16 at 10:30 Cholecalciferol (Vitamin D) 1,000 unit DAILY PO Last administered on 12/16/16 12:21; Admin Dose 1,000 UNIT; Start 12/16/16 at 10:30 Levothyroxine Sodium (Synthroid) 25 mcg DAILY@06 PO Last administered on 14:27; Admin Dose 25 MCG; Start 12/16/16 at 10:30 Metolazone (Zaroxolyn) 5 mg DAILY PO Last administered on 12/16/16 16:38; Admin Dose 5 MG; Start 12/16/16 at 10:30 Metoprolol Tartrate (Lopressor) 50 mg BID PO Last administered on 12/16/16 12: 27; Admin Dose 50 MG; Start 12/16/16 at 10:30 Ranolazine (Ranexa) 500 mg Q12 PO Last administered on 12/16/16 12:21; Admin Dose 500 MG; Start 12/16/16 at 10:30 Vitamin E (Vitamin E) 1,000 unit DAILY PO Last administered on 12/16/16 12:21 ; Admin Dose 1,000 UNIT; Start 12/16/16 at 10:30 Fish Oil (Fish Oil) 1,000 mg DAILY PO Last administered on 12/16/16 12:22; Admin Dose 1,000 MG; Start 12/16/16 at 10:30 Vitamin B Complex/ Vitamin C (Berocca) 1 cap DAILY PO Last administered on 12/16 12:22; Admin Dose 1 CAP; Start 12/16/16 at 11:30 Collagenase (Santyl) 1 applic DAILY TOP Last administered on 12/16/16 14:27; Admin Dose 1 APPLIC; Start 12/16/16 at 12:00 Sodium Hypochlorite (Dakin'S (Dilute 1/40%)) 1 applic DAILY IRR Last administered on 12/16/16 14:27; Admin Dose 1 APPLIC; Start 12/16/16 at 12:00 Insulin Glargine (Lantus) 48 unit DAILY SC ; Start 12/17/16 at 09:00 ALICIA TORO MD Dec 16, 2016 17:03
[2016-12-16] MEDS: metFORMIN 500 MG TAB PO SCH (17:36)
[2016-12-16] MEDS ORDERED: metFORMIN 500 MG TAB PO SCH (18:00)
[2016-12-16] MEDS: ERTAPENEM SODIUM 1 GM in SOD CHLORIDE 0.9% 100 ML IVPB SCH (22:11)
--- NOTE | 2016-12-16 23:56 | PN ---
Date/Time of Note Date/Time of Note DATE: 12/16/16 TIME: 23:56 Assessment/Plan Lines/Catheters IV Catheter Type (from [facility]): Saline Lock Fine in Place (from [facility]): No Exam/Review of Systems Vital Signs Vitals Vital Signs Date Time Temp Pulse Resp B/P Pulse Ox O2 Delivery O2 Flow Rate FiO2 12/16/16 07:29 97.7 65 18 138/65 96 12/14/16 21:19 Room Air Intake and Output 12/15/16 12/15/16 12/16/16 15:00 23:00 07:00 Intake Total 1310 ml 1150 ml Output Total 800 ml 700 ml Balance 510 ml 450 ml Results Result Diagram: 12/16/16 0444 12/16/16 0444 ANGEL STARK DPM Dec 16, 2016 23:56
--- NOTE | 2016-12-16 23:57 | CONS ---
Date/Time of Note Date/Time of Note DATE: 12/16/16 TIME: 23:57 Consultation Date/Type/Reason Admit Date/Time Dec 14, 2016 at 20:42 Constitutional: improved, no complaints Respiratory: no complaints Cardiovascular: no complaints Gastrointestinal: no complaints Genitourinary: no complaints Musculoskeletal: no complaints Neurologic: no complaints Psychological: nl mood/affect, no complaints Past Medical History Medical History: congestive heart failure, diabetes, hypertension Past Surgical History Past Surgical Hx: other Social History Alcohol Use: occasionally Smoking Status: Former smoker Drug Use: none Exam/Review of Systems Vital Signs Vitals Vital Signs Date Time Temp Pulse Resp B/P Pulse Ox O2 Delivery O2 Flow Rate FiO2 12/16/16 07:29 97.7 65 18 138/65 96 12/14/16 21:19 Room Air Intake and Output 12/15/16 12/15/16 12/16/16 15:00 23:00 07:00 Intake Total 1310 ml 1150 ml Output Total 800 ml 700 ml Balance 510 ml 450 ml Results Result Diagram: 12/16/16 0444 12/16/16 0444 Results 24 hrs Laboratory Tests Test 12/16/16 02:25 12/16/16 04:15 12/16/16 04:44 12/16/16 07:55 Bedside Glucose 246 H 252 H Uric Acid 4.2 Thyroid Stimulating Hormone (TSH) 4.840 H White Blood Count 5.3 Red Blood Count 3.71 L Hemoglobin 12.4 L Hematocrit 36.2 L Mean Corpuscular Volume 97.6 Mean Corpuscular Hemoglobin 33.4 H Mean Corpuscular Hemoglobin Concent 34.3 Red Cell Distribution Width 14.3 Platelet Count 162 Mean Platelet Volume 11.3 H Neutrophils % 52.0 Lymphocytes % 30.9 Monocytes % 11.0 Eosinophils % 5.1 Basophils % 0.8 Nucleated Red Blood Cells % 0.0 Neutrophils # 2.7 Lymphocytes # 1.6 Monocytes # 0.6 Eosinophils # 0.3 Basophils # 0.0 Nucleated Red Blood Cells # 0.0 Sodium Level 136 Potassium Level 4.1 Chloride Level 101 Carbon Dioxide Level 29 Anion Gap 10 Blood Urea Nitrogen 18 Creatinine 0.93 Glucose Level 239 H Calcium Level 9.2 Test 12/16/16 12:00 12/16/16 12:17 12/16/16 17:35 12/16/16 22:09 Vancomycin Level Trough 13.5 Bedside Glucose 206 166 154 Medications Medications Current Medications Gabapentin (Neurontin) 300 mg BID PO Last administered on 12/16/16 20:34; Admin Dose 300 MG; Start 12/15/16 at 09:00 Ondansetron HCl (Zofran Inj) 4 mg Q6H PRN IV NAUSEA AND/OR VOMITING; Start 07/22 at 22:30 Acetaminophen (Tylenol Tab) 650 mg Q4H PRN PO PAIN AND OR ELEVATED TEMP; Start 12/14/16 at 22:30 Diagnostic Test (Pha) 1 ea 1 ea 02 XX ; Start 12/15/16 at 02:00 Ertapenem/Sodium Chloride (Invanz/NS) 100 ml @ 200 mls/hr Q24H IVPB Last administered on 12/16/16 22:11; Admin Dose 200 MLS/HR; Start 12/14/16 at 23:00 Miscellaneous Information 1 ea NOTE XX ; Start 12/14/16 at 23:00 Glucose (Glutose) 15 gm Q15M PRN PO DECREASED GLUCOSE; Start 12/14/16 at 23:00 Glucose (Glutose) 22.5 gm Q15M PRN PO DECREASED GLUCOSE; Start 12/14/16 at 23: 00 Dextrose (D50w Syringe) 25 ml Q15M PRN IV DECREASED GLUCOSE; Start 12/14/16 at 23:00 Dextrose (D50w Syringe) 50 ml Q15M PRN IV DECREASED GLUCOSE; Start 12/14/16 at 23:00 Glucagon (Glucagen) 1 mg Q15M PRN IM DECREASED GLUCOSE; Start 12/14/16 at 23:00 Glucose (Glutose) 15 gm Q15M PRN BUCCAL DECREASED GLUCOSE; Start 12/14/16 at 23 :00 Heparin Sodium (Porcine) (Heparin (5000 Units/0.5 ml)) 5,000 unit BID SC Last administered on 12/16/16 20:53; Admin Dose 5,000 UNIT; Start 12/15/16 at 09:00 Morphine Sulfate (morphine) 2 mg Q4H PRN IV pain Last administered on 20:36; Admin Dose 2 MG; Start 12/15/16 at 10:30 Acetaminophen/ Hydrocodone Bitart ([place] (5/325)) 1 tab Q4H PRN PO PAIN LEVEL 4 -7 Last administered on 12/15/16 13:06; Admin Dose 1 TAB; Start 12/15/16 at 10: 00 Pantoprazole (Protonix Tab) 40 mg DAILY@06 PO Last administered on 12/16/16 05 :16; Admin Dose 40 MG; Start 12/16/16 at 06:00 Terbinafine HCl (Lamisil) 250 mg BID PO Last administered on 12/16/16 20:34; Admin Dose 250 MG; Start 12/15/16 at 21:00; Stop 12/22/16 at 20:59 Thiamine HCl (Vitamin B1) 100 mg DAILY PO Last administered on 12/16/16 09:02 ; Admin Dose 100 MG; Start 12/16/16 at 09:00 Allopurinol (Zyloprim) 300 mg DAILY PO ; Start 12/16/16 at 10:30 Ascorbic Acid (Vitamin C) 1,000 mg DAILY PO Last administered on 12/16/16 12: 21; Admin Dose 1,000 MG; Start 12/16/16 at 10:30 Aspirin (Halfprin) 81 mg DAILY PO Last administered on 12/16/16 12:22; Admin Dose 81 MG; Start 12/16/16 at 10:30 Cholecalciferol (Vitamin D) 1,000 unit DAILY PO Last administered on 12/16/16 12:21; Admin Dose 1,000 UNIT; Start 12/16/16 at 10:30 Levothyroxine Sodium (Synthroid) 25 mcg DAILY@06 PO Last administered on 14:27; Admin Dose 25 MCG; Start 12/16/16 at 10:30 Metolazone (Zaroxolyn) 5 mg DAILY PO Last administered on 12/16/16 16:38; Admin Dose 5 MG; Start 12/16/16 at 10:30 Metoprolol Tartrate (Lopressor) 50 mg BID PO Last administered on 12/16/16 20: 35; Admin Dose 50 MG; Start 12/16/16 at 10:30 Ranolazine (Ranexa) 500 mg Q12 PO Last administered on 12/16/16 20:34; Admin Dose 500 MG; Start 12/16/16 at 10:30 Vitamin E (Vitamin E) 1,000 unit DAILY PO Last administered on 12/16/16 12:21 ; Admin Dose 1,000 UNIT; Start 12/16/16 at 10:30 Fish Oil (Fish Oil) 1,000 mg DAILY PO Last administered on 12/16/16 12:22; Admin Dose 1,000 MG; Start 12/16/16 at 10:30 Vitamin B Complex/ Vitamin C (Berocca) 1 cap DAILY PO Last administered on 12/16 12:22; Admin Dose 1 CAP; Start 12/16/16 at 11:30 Collagenase (Santyl) 1 applic DAILY TOP Last administered on 12/16/16 14:27; Admin Dose 1 APPLIC; Start 12/16/16 at 12:00 Sodium Hypochlorite (Dakin'S (Dilute 1/40%)) 1 applic DAILY IRR Last administered on 12/16/16 14:27; Admin Dose 1 APPLIC; Start 12/16/16 at 12:00 Insulin Glargine 48 unit 48 unit DAILY SC ; Start 12/17/16 at 09:00 Vancomycin HCl/ Sodium Chloride (Vancocin/NS) 250 ml @ 83.333 mls/ hr Q12H IVPB ; Start 12/17/16 at 04:00 ANGEL STARK DPM Dec 16, 2016 23:57
[2016-12-17] MEDS: ACCU-CHEK XX SCH (02:00)
[2016-12-17] MEDS: VANCOMYCIN 1.5 GM in SOD CHLORIDE 0.9% 250 ML IVPB SCH ×2 (03:55→16:25)
[2016-12-17] MEDS: morphine 4 MG/ML VIAL IV PRN ×3 (04:00→19:54)
[2016-12-17] MEDS: PANTOPRAZOLE (EC) 40 MG TAB PO SCH (05:24)
[2016-12-17] MEDS: LEVOTHYROXINE 25 MCG TAB PO SCH (05:24)
[2016-12-17] MEDS: FUROSEMIDE 20 MG TAB PO SCH ×2 (05:26→17:56)
[2016-12-17 06:10] LABS: ADD SCAN DIFF NO
[2016-12-17 06:35] LABS: CALCIUM 9.3 mg/dl (8.4-10.2); CREATININE 1.04 mg/dl (0.61-1.24); POTASSIUM 4.5 mmol/L (3.5-5.1)
[2016-12-17 06:37] LABS: BASOPHILS % 0.5 % (0.0-2.0); EOSINOPHILS # 0.3 10^3/ul (0.0-0.5); EOSINOPHILS % 4.4 % (0.0-7.0); HEMOGLOBIN 12.9 g/dl (14.0-18.0); MEAN CORPUSCULAR HGB CONC 33.9 g/dl (32.0-37.0); MEAN CORPUSCULAR VOLUME 97.2 fl (82.0-101.0); MEAN PLATELET VOLUME 11.4 fl (7.4-10.4); MONOCYTE # 0.8 10^3/ul (0.3-0.9); MONOCYTES % 12.8 % (0.0-11.0); NEUTROPHIL # 3.1 10^3/ul (1.6-7.5); NEUTROPHILS % 49.3 % (39.0-77.0); PLATELET COUNT 156 10^3/UL (140-415); RED BLOOD COUNT 3.91 10^6/ul (4.70-6.10); RED CELL DISTRIBUTION WIDTH 14.4 % (11.5-14.5); WHITE BLOOD COUNT 6.2 10^3/ul (4.8-10.8)
[2016-12-17 07:16] VITALS: BP 111/62; RESP 18
[2016-12-17] MEDS: INSULIN ASPART [NOVOLOG] 3 ML PEN SC SCH ×7 (08:16→22:10)
[2016-12-17] MEDS: TERBINAFINE 250 MG TAB PO SCH ×2 (08:26→22:12)
[2016-12-17] MEDS: VITAMIN E 1,000 UNIT CAP PO SCH (08:27)
[2016-12-17] MEDS: THIAMINE 100 MG TAB PO SCH (08:27)
[2016-12-17] MEDS: VITAMIN B COMPLEX/VIT C CAP PO SCH (08:27)
[2016-12-17] MEDS: ASCORBIC ACID 500 MG TAB PO SCH (08:27)
[2016-12-17] MEDS: ALLOPURINOL 300 MG TAB PO SCH (08:27)
[2016-12-17] MEDS: RANOLAZINE (SR) 500 MG TAB PO SCH ×2 (08:27→22:11)
[2016-12-17] MEDS: CHOLECALCIFEROL 1,000 UNIT TAB PO SCH (08:27)
[2016-12-17] MEDS: GABAPENTIN 300 MG CAP PO SCH ×2 (08:27→22:11)
[2016-12-17] MEDS: FISH OIL 1,000 MG CAP PO SCH (08:27)
[2016-12-17] MEDS: ASPIRIN (EC) 81 MG TAB PO SCH (08:27)
[2016-12-17] MEDS: METOLAZONE 5 MG TAB PO SCH (08:28)
[2016-12-17] MEDS: COLLAGENASE 30 GM TUBE TOP SCH (08:28)
[2016-12-17] MEDS: SODIUM HYPOCHLORITE 1/40% 1L IRRIG IRR SCH (08:28)
[2016-12-17] MEDS: metFORMIN 500 MG TAB PO SCH ×2 (08:28→18:00)
[2016-12-17] MEDS: METOPROLOL 50 MG TAB PO SCH ×2 (08:29→22:11)
[2016-12-17] MEDS: HEPARIN 5,000 UNIT/0.5 ML VIAL SC SCH ×2 (08:37→22:23)
[2016-12-17] MEDS: INSULIN GLARGINE [LANtus] 3 ML PEN SC SCH (08:38)
--- NOTE | 2016-12-17 09:30 | PN ---
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 1. Left foot cellulitis and diabetic foot ulcer. A1c = 10.3, FS somewhat improved in last 24 hrs. MRI left foot neg for osteo. - Continue broad spectrum antibiotics, f/u endocrinology consult and infectious disease rec's. - Follow podiatry recommendations - Pain control medications as well IV fluids. Follow up culture result - f/u PT consult. 2. Type 2 diabetes, again, poorly controlled - appreciate endo consult - continue metformin, continue Lantus 48 units, continue Aspart insulin with meals 24 U - f/u endocrinology consult rec's 3. History of hypertension. Blood pressure is presently stable. Continue current medications. 4. History of coronary artery disease. Continue to monitor for now. 5. History of cirrhosis, status post TIPS procedure in the past. Continue to monitor for now. 6. Lactic acidosis, unclear source - but resolved now - Continue IV fluids and trend lactic acid as well. The patient is alert. 7. Gastrointestinal prophylaxis - PPI. 8. Deep venous thrombosis prophylaxis. Continue heparin subQ. Problems: Subjective 24 Hr Interval Summary Free Text/Dictation MRI left foot obtained. Sugars improved after increase in insulin, no acute events overnight. Exam/Review of Systems Vital Signs Vitals Vital Signs Date Time Temp Pulse Resp B/P Pulse Ox O2 Delivery O2 Flow Rate FiO2 12/17/16 07:16 97.7 58 18 111/62 95 12/14/16 21:19 Room Air Intake and Output 12/16/16 12/16/16 12/17/16 15:00 23:00 07:00 Intake Total 1510 ml 450 ml Output Total 2250 ml 2500 ml Balance -740 ml -2050 ml Exam GENERAL: The patient is lying in bed, answering questions appropriately, alert , in no acute distress. HEENT: Pupils equal, round, react to light. Extraocular muscles intact. NECK: Supple, no thyromegaly. LUNGS: Clear to auscultation bilaterally. CARDIOVASCULAR: S1, S2 heard. No gallops. ABDOMEN: Soft, nontender, nondistended. Normal bowel sounds. No rebound or guarding. MUSCULOSKELETAL: He is status post left transmetatarsal amputation left lower extremity covered up in bandage up to the knee. Right lower extremity shows venous stasis changes, some mild pitting edema as well. NEUROLOGIC: No focal deficits. Results Result Diagram: 12/17/16 0530 12/17/16 0530 Results 24 hrs Laboratory Tests Test 12/16/16 12:00 12/16/16 12:17 12/16/16 17:35 12/16/16 22:09 Vancomycin Level Trough 13.5 Bedside Glucose 206 166 154 Test 12/17/16 05:30 12/17/16 08:01 White Blood Count 6.2 Red Blood Count 3.91 L Hemoglobin 12.9 L Hematocrit 38.0 L Mean Corpuscular Volume 97.2 Mean Corpuscular Hemoglobin 33.0 Mean Corpuscular Hemoglobin Concent 33.9 Red Cell Distribution Width 14.4 Platelet Count 156 Mean Platelet Volume 11.4 H Neutrophils % 49.3 Lymphocytes % 33.0 Monocytes % 12.8 H Eosinophils % 4.4 Basophils % 0.5 Nucleated Red Blood Cells % 0.0 Neutrophils # 3.1 Lymphocytes # 2.0 Monocytes # 0.8 Eosinophils # 0.3 Basophils # 0.0 Nucleated Red Blood Cells # 0.0 Sodium Level 131 L Potassium Level 4.5 Chloride Level 101 Carbon Dioxide Level 27 Anion Gap 8 Blood Urea Nitrogen 19 Creatinine 1.04 Glucose Level 143 # Calcium Level 9.3 Bedside Glucose 165 Medications Medications Current Medications Gabapentin (Neurontin) 300 mg BID PO Last administered on 12/17/16t 08:27; Admin Dose 300 MG; Start 12/15/16 at 09:00 Ondansetron HCl (Zofran Inj) 4 mg Q6H PRN IV NAUSEA AND/OR VOMITING; Start 07/22 at 22:30 Acetaminophen (Tylenol Tab) 650 mg Q4H PRN PO PAIN AND OR ELEVATED TEMP; Start 12/14/16 at 22:30 Diagnostic Test (Pha) 1 ea 1 ea 02 XX ; Start 12/15/16 at 02:00 Ertapenem/Sodium Chloride (Invanz/NS) 100 ml @ 200 mls/hr Q24H IVPB Last administered on 12/16/16 22:11; Admin Dose 200 MLS/HR; Start 12/14/16 at 23:00 Miscellaneous Information 1 ea NOTE XX ; Start 12/14/16 at 23:00 Glucose (Glutose) 15 gm Q15M PRN PO DECREASED GLUCOSE; Start 12/14/16 at 23:00 Glucose (Glutose) 22.5 gm Q15M PRN PO DECREASED GLUCOSE; Start 12/14/16 at 23: 00 Dextrose (D50w Syringe) 25 ml Q15M PRN IV DECREASED GLUCOSE; Start 12/14/16 at 23:00 Dextrose (D50w Syringe) 50 ml Q15M PRN IV DECREASED GLUCOSE; Start 12/14/16 at 23:00 Glucagon (Glucagen) 1 mg Q15M PRN IM DECREASED GLUCOSE; Start 12/14/16 at 23:00 Glucose (Glutose) 15 gm Q15M PRN BUCCAL DECREASED GLUCOSE; Start 12/14/16 at 23 :00 Heparin Sodium (Porcine) (Heparin (5000 Units/0.5 ml)) 5,000 unit BID SC Last administered on 12/17/16 08:37; Admin Dose 5,000 UNIT; Start 12/15/16 at 09:00 Morphine Sulfate (morphine) 2 mg Q4H PRN IV pain Last administered on 04:00; Admin Dose 2 MG; Start 12/15/16 at 10:30 Acetaminophen/ Hydrocodone Bitart ([place] (5/325)) 1 tab Q4H PRN PO PAIN LEVEL 4 -7 Last administered on 12/15/16 13:06; Admin Dose 1 TAB; Start 12/15/16 at 10: 00 Pantoprazole (Protonix Tab) 40 mg DAILY@06 PO Last administered on 12/17/16 05 :24; Admin Dose 40 MG; Start 12/16/16 at 06:00 Terbinafine HCl (Lamisil) 250 mg BID PO Last administered on 12/17/16 08:26; Admin Dose 250 MG; Start 12/15/16 at 21:00; Stop 12/22/16 at 20:59 Thiamine HCl (Vitamin B1) 100 mg DAILY PO Last administered on 12/17/16 08:27 ; Admin Dose 100 MG; Start 12/16/16 at 09:00 Allopurinol (Zyloprim) 300 mg DAILY PO Last administered on 12/17/16 08:27; Admin Dose 300 MG; Start 12/16/16 at 10:30 Ascorbic Acid (Vitamin C) 1,000 mg DAILY PO Last administered on 12/17/16 08: 27; Admin Dose 1,000 MG; Start 12/16/16 at 10:30 Aspirin (Halfprin) 81 mg DAILY PO Last administered on 12/17/16 08:27; Admin Dose 81 MG; Start 12/16/16 at 10:30 Cholecalciferol (Vitamin D) 1,000 unit DAILY PO Last administered on 12/17/16 08:; Admin Dose 1,000 UNIT; Start 12/16/16 at 10:30 Levothyroxine Sodium (Synthroid) 25 mcg DAILY@06 PO Last administered on 05:24; Admin Dose 25 MCG; Start 12/16/16 at 10:30 Metolazone (Zaroxolyn) 5 mg DAILY PO Last administered on 12/17/16 08:28; Admin Dose 5 MG; Start 12/16/16 at 10:30 Metoprolol Tartrate (Lopressor) 50 mg BID PO Last administered on 12/16/16 20: 35; Admin Dose 50 MG; Start 12/16/16 at 10:30 Ranolazine (Ranexa) 500 mg Q12 PO Last administered on 12/17/16 08:27; Admin Dose 500 MG; Start 12/16/16 at 10:30 Vitamin E (Vitamin E) 1,000 unit DAILY PO Last administered on 12/17/16 08:27 ; Admin Dose 1,000 UNIT; Start 12/16/16 at 10:30 Fish Oil (Fish Oil) 1,000 mg DAILY PO Last administered on 12/17/16 08:; Admin Dose 1,000 MG; Start 12/16/16 at 10:30 Vitamin B Complex/ Vitamin C (Berocca) 1 cap DAILY PO Last administered on 12/17 08:27; Admin Dose 1 CAP; Start 12/16/16 at 11:30 Collagenase (Santyl) 1 applic DAILY TOP Last administered on 12/17/16 08:28; Admin Dose 1 APPLIC; Start 12/16/16 at 12:00 Sodium Hypochlorite (Dakin'S (Dilute 1/40%)) 1 applic DAILY IRR Last administered on 12/17/16 08:28; Admin Dose 1 APPLIC; Start 12/16/16 at 12:00 Insulin Glargine 48 unit 48 unit DAILY SC Last administered on 12/17/16 08:38 ; Admin Dose 48 UNIT; Start 12/17/16 at 09:00 Vancomycin HCl/ Sodium Chloride (Vancocin/NS) 250 ml @ 83.333 mls/ hr Q12H IVPB Last administered on 12/17/16 03:55; Admin Dose 83.333 MLS/HR; Start at 04:00 AHSAN ALVARENGA Dec 17, 2016 09:30
--- NOTE | 2016-12-17 14:55 | CONS ---
Date/Time of Note Date/Time of Note DATE: 12/17/16 TIME: 14:52 Assessment/Plan Assessment/Plan Problems: (1) Type 2 diabetes mellitus with hyperglycemia Status: Chronic Comment: Marked improvement in glycemic control. Will continue current insulin /metformin doses. Reeval tomorrow. Qualifiers: Diabetes mellitus [facility] insulin use: with [facility] use Qualified Code : E11.65 - Type 2 diabetes mellitus with hyperglycemia, with long-term current use of insulin Consultation Date/Type/Reason Admit Date/Time Dec 14, 2016 at 20:42 Initial Consult Date 12/15/2016 Type of Consultation: Endocrinology Reason for Consultation T2DM OOC Referring Provider: AHSAN ALVARENGA 24 HR Interval Summary Constitutional: improved, no complaints Detailed Summary Respiratory: no complaints Cardiovascular: no complaints Gastrointestinal: no complaints Genitourinary: no complaints Musculoskeletal: bone/joint pain (L foot pain) Neurologic: no complaints Exam/Review of Systems Vital Signs Vitals VS - Last 72 Hours, by Label Date Time Temp Pulse Resp B/P Pulse Ox O2 Delivery O2 Flow Rate FiO2 12/17/16 07:16 97.7 58 18 111/62 95 12/16/16 07:29 97.7 65 18 138/65 96 12/15/16 19:59 97.8 62 20 139/64 96 12/15/16 08:58 97.5 59 20 125/59 97 12/14/16 21:47 98.2 65 19 143/104 96 12/14/16 21:19 63 18 137/100 96 Room Air 12/14/16 20:30 98.4 63 18 127/75 96 Room Air 12/14/16 16:21 99.3 70 16 132/60 100 Vital Signs Date Time Temp Pulse Resp B/P Pulse Ox O2 Delivery O2 Flow Rate FiO2 12/17/16 07:16 97.7 58 18 111/62 95 12/14/16 21:19 Room Air Intake and Output 12/16/16 12/16/16 12/17/16 15:00 23:00 07:00 Intake Total 1510 ml 450 ml Output Total 2250 ml 2500 ml Balance -740 ml -2050 ml Exam Constitutional: alert, obese, oriented Psych: nl mood/affect, no complaints Respiratory: clear to auscultation, normal air movement Cardiovascular: regular rate and rhythm, No edema, No murmurs/extra sounds, No rub Musculoskeletal: No nl extremities to inspection (L TMTA) Extremities: No clubbing, No cyanosis, No edema Neurological: 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, nl mental status, nl speech, nl strength Additional Comments Bedside Glucose - 72 Hours Test 12/14/16 20:45 12/14/16 23:44 12/15/16 07:49 12/15/16 11:50 Bedside Glucose 401mg/dL (70-220) *H 300mg/dL (70-220) H 266mg/dL (70-220) H 255mg/dL (70-220) H Test 12/15/16 12:38 12/15/16 17:21 12/15/16 21:08 12/16/16 02:25 Bedside Glucose 287mg/dL (70-220) H 179mg/dL (70-220) 248mg/dL (70-220) H 246mg/dL (70-220) H Test 12/16/16 07:55 12/16/16 12:17 12/16/16 17:35 12/16/16 22:09 Bedside Glucose 252mg/dL (70-220) H 206mg/dL (70-220) 166mg/dL (70-220) 154mg/dL (70-220) Test 12/17/16 08:01 12/17/16 11:54 Bedside Glucose 165mg/dL (70-220) 136mg/dL (70-220) Results Result Diagram: 12/17/16 0530 12/17/16 0530 Results 24 hrs Laboratory Tests Test 12/16/16 17:35 12/16/16 22:09 12/17/16 05:30 12/17/16 08:01 Bedside Glucose 166 154 165 White Blood Count 6.2 Red Blood Count 3.91 L Hemoglobin 12.9 L Hematocrit 38.0 L Mean Corpuscular Volume 97.2 Mean Corpuscular Hemoglobin 33.0 Mean Corpuscular Hemoglobin Concent 33.9 Red Cell Distribution Width 14.4 Platelet Count 156 Mean Platelet Volume 11.4 H Neutrophils % 49.3 Lymphocytes % 33.0 Monocytes % 12.8 H Eosinophils % 4.4 Basophils % 0.5 Nucleated Red Blood Cells % 0.0 Neutrophils # 3.1 Lymphocytes # 2.0 Monocytes # 0.8 Eosinophils # 0.3 Basophils # 0.0 Nucleated Red Blood Cells # 0.0 Sodium Level 131 L Potassium Level 4.5 Chloride Level 101 Carbon Dioxide Level 27 Anion Gap 8 Blood Urea Nitrogen 19 Creatinine 1.04 Glucose Level 143 # Calcium Level 9.3 Test 12/17/16 11:54 Bedside Glucose 136 Medications Medications Current Medications Gabapentin (Neurontin) 300 mg BID PO Last administered on 12/17/16 08:27; Admin Dose 300 MG; Start 12/15/16 at 09:00 Ondansetron HCl (Zofran Inj) 4 mg Q6H PRN IV NAUSEA AND/OR VOMITING; Start 07/22 at 22:30 Acetaminophen (Tylenol Tab) 650 mg Q4H PRN PO PAIN AND OR ELEVATED TEMP; Start 12/14/16 at 22:30 Diagnostic Test (Pha) 1 ea 1 ea 02 XX ; Start 12/15/16 at 02:00 Ertapenem/Sodium Chloride (Invanz/NS) 100 ml @ 200 mls/hr Q24H IVPB Last administered on 12/16/16 22:11; Admin Dose 200 MLS/HR; Start 12/14/16 at 23:00 Miscellaneous Information 1 ea NOTE XX ; Start 12/14/16 at 23:00 Glucose (Glutose) 15 gm Q15M PRN PO DECREASED GLUCOSE; Start 12/14/16 at 23:00 Glucose (Glutose) 22.5 gm Q15M PRN PO DECREASED GLUCOSE; Start 12/14/16 at 23: 00 Dextrose (D50w Syringe) 25 ml Q15M PRN IV DECREASED GLUCOSE; Start 12/14/16 at 23:00 Dextrose (D50w Syringe) 50 ml Q15M PRN IV DECREASED GLUCOSE; Start 12/14/16 at 23:00 Glucagon (Glucagen) 1 mg Q15M PRN IM DECREASED GLUCOSE; Start 12/14/16 at 23:00 Glucose (Glutose) 15 gm Q15M PRN BUCCAL DECREASED GLUCOSE; Start 12/14/16 at 23 :00 Heparin Sodium (Porcine) (Heparin (5000 Units/0.5 ml)) 5,000 unit BID SC Last administered on 12/17/16 08:37; Admin Dose 5,000 UNIT; Start 12/15/16 at 09:00 Morphine Sulfate (morphine) 2 mg Q4H PRN IV pain Last administered on 10:22; Admin Dose 2 MG; Start 12/15/16 at 10:30 Acetaminophen/ Hydrocodone Bitart ([place] (5/325)) 1 tab Q4H PRN PO PAIN LEVEL 4 -7 Last administered on 12/15/16 13:06; Admin Dose 1 TAB; Start 12/15/16 at 10: 00 Pantoprazole (Protonix Tab) 40 mg DAILY@06 PO Last administered on 12/17/16 05 :24; Admin Dose 40 MG; Start 12/16/16 at 06:00 Terbinafine HCl (Lamisil) 250 mg BID PO Last administered on 12/17/16 08:26; Admin Dose 250 MG; Start 12/15/16 at 21:00; Stop 12/22/16 at 20:59 Thiamine HCl (Vitamin B1) 100 mg DAILY PO Last administered on 12/17/16 08:27 ; Admin Dose 100 MG; Start 12/16/16 at 09:00 Allopurinol (Zyloprim) 300 mg DAILY PO Last administered on 12/17/16 08:27; Admin Dose 300 MG; Start 12/16/16 at 10:30 Ascorbic Acid (Vitamin C) 1,000 mg DAILY PO Last administered on 12/17/16 08: 27; Admin Dose 1,000 MG; Start 12/16/16 at 10:30 Aspirin (Halfprin) 81 mg DAILY PO Last administered on 12/17/16 08:27; Admin Dose 81 MG; Start 12/16/16 at 10:30 Cholecalciferol (Vitamin D) 1,000 unit DAILY PO Last administered on 12/17/16 08:27; Admin Dose 1,000 UNIT; Start 12/16/16 at 10:30 Levothyroxine Sodium (Synthroid) 25 mcg DAILY@06 PO Last administered on 05:24; Admin Dose 25 MCG; Start 12/16/16 at 10:30 Metolazone (Zaroxolyn) 5 mg DAILY PO Last administered on 12/17/16 08:28; Admin Dose 5 MG; Start 12/16/16 at 10:30 Metoprolol Tartrate (Lopressor) 50 mg BID PO Last administered on 12/16/16 20: 35; Admin Dose 50 MG; Start 12/16/16 at 10:30 Ranolazine (Ranexa) 500 mg Q12 PO Last administered on 12/17/16 08:27; Admin Dose 500 MG; Start 12/16/16 at 10:30 Vitamin E (Vitamin E) 1,000 unit DAILY PO Last administered on 12/17/16 08:27 ; Admin Dose 1,000 UNIT; Start 12/16/16 at 10:30 Fish Oil (Fish Oil) 1,000 mg DAILY PO Last administered on 12/17/16 08:27; Admin Dose 1,000 MG; Start 12/16/16 at 10:30 Vitamin B Complex/ Vitamin C (Berocca) 1 cap DAILY PO Last administered on 12/17 08:27; Admin Dose 1 CAP; Start 12/16/16 at 11:30 Collagenase (Santyl) 1 applic DAILY TOP Last administered on 12/17/16 08:28; Admin Dose 1 APPLIC; Start 12/16/16 at 12:00 Sodium Hypochlorite (Dakin'S (Dilute 1/40%)) 1 applic DAILY IRR Last administered on 12/17/16 08:28; Admin Dose 1 APPLIC; Start 12/16/16 at 12:00 Insulin Glargine 48 unit 48 unit DAILY SC Last administered on 12/17/16 08:38 ; Admin Dose 48 UNIT; Start 12/17/16 at 09:00 Vancomycin HCl/ Sodium Chloride (Vancocin/NS) 250 ml @ 83.333 mls/ hr Q12H IVPB Last administered on 12/17/16 03:55; Admin Dose 83.333 MLS/HR; Start at 04:00 ALICIA TORO MD Dec 17, 2016 14:55
--- NOTE | 2016-12-17 15:29 | PN ---
DATE: 12/17/2016 INFECTIOUS DISEASE PROGRESS NOTE SUBJECTIVE: Patient is alert, feels good, looks comfortable. No fevers. WBC 6.2, no shift, no ban ds. BUN 19, creatinine 1.04. MICROBIOLOGY: Wound culture on 12/14/2016 grew strep, MRSA, Klebsiella oxytoca. ANTIMICROBIALS: The patient is on: 1. IV vancomycin. 2. Invanz. PHYSICAL EXAMINATION: GENERAL: This is a morbidly obese elderly man, who is alert, in no distress. HEENT: Head atraumatic, normocephalic. Sclerae anicteric. Buccal mucosa pink. NECK: Supple. CHEST: Chest rise is symmetrical. Breath sounds clear. HEART: S1, S2. ABDOMEN: Soft, bowel tones present. EXTREMITIES: With left foot dressing intact. ASSESSMENT: 1. Left foot acute on chronic cellulitis. No evidence of osteomyelitis, per MRI. 2. Diabetes, with diabetic neuropathy. 3. Coronary artery disease. 4. Hypertension. 5. Cirrhosis, status post TIPS procedure. PLAN: The patient remains stable, on appropriate antimicrobials. Podiatry follows. Dictated By: SVETLANA MAY [employer] AIRCREWMAN for JYOTHI HERNANDEZ MD NI/NTS Conf#: [id number] DID#: [id number]
[2016-12-17] MEDS: HYDROCODONE/APAP (5/325) TAB PO PRN (16:07)
[2016-12-17 19:25] VITALS: BP 129/60; RESP 20
[2016-12-17 22:10] VITALS: BP 136/65; PULSE 63
[2016-12-17] MEDS: ERTAPENEM SODIUM 1 GM in SOD CHLORIDE 0.9% 100 ML IVPB SCH (22:10)
[2016-12-18] MEDS: ACCU-CHEK XX SCH (02:00)
[2016-12-18] MEDS: morphine 4 MG/ML VIAL IV PRN ×5 (02:09→20:50)
[2016-12-18] MEDS: VANCOMYCIN 1.5 GM in SOD CHLORIDE 0.9% 250 ML IVPB SCH (04:51)
[2016-12-18 05:33] LABS: ADD SCAN DIFF NO
[2016-12-18 05:43] LABS: BASOPHILS % 0.5 % (0.0-2.0); EOSINOPHILS # 0.3 10^3/ul (0.0-0.5); EOSINOPHILS % 4.6 % (0.0-7.0); HEMATOCRIT 39.1 % (42.0-52.0); HEMOGLOBIN 13.5 g/dl (14.0-18.0); LYMPHOCYTES # 1.9 10^3/ul (0.8-2.9); LYMPHOCYTES % 30.9 % (15.0-51.0); MEAN CORPUSCULAR HEMOGLOBIN 33.4 pg (29.0-33.0); MEAN CORPUSCULAR HGB CONC 34.5 g/dl (32.0-37.0); MEAN CORPUSCULAR VOLUME 96.8 fl (82.0-101.0); MEAN PLATELET VOLUME 10.7 fl (7.4-10.4); MONOCYTE # 0.8 10^3/ul (0.3-0.9); MONOCYTES % 12.6 % (0.0-11.0); NEUTROPHIL # 3.2 10^3/ul (1.6-7.5); NEUTROPHILS % 50.9 % (39.0-77.0); PLATELET COUNT 185 10^3/UL (140-415); RED BLOOD COUNT 4.04 10^6/ul (4.70-6.10); RED CELL DISTRIBUTION WIDTH 14.1 % (11.5-14.5); WHITE BLOOD COUNT 6.3 10^3/ul (4.8-10.8)
[2016-12-18] MEDS: PANTOPRAZOLE (EC) 40 MG TAB PO SCH (06:02)
[2016-12-18] MEDS: LEVOTHYROXINE 25 MCG TAB PO SCH (06:02)
[2016-12-18] MEDS: FUROSEMIDE 20 MG TAB PO SCH ×2 (06:02→17:23)
[2016-12-18 06:20] LABS: POTASSIUM 4.5 mmol/L (3.5-5.1)
[2016-12-18 06:23] LABS: CALCIUM 9.9 mg/dl (8.4-10.2); CREATININE 1.21 mg/dl (0.61-1.24)
[2016-12-18 07:23] VITALS: BP 126/60; RESP 20
[2016-12-18] MEDS: INSULIN GLARGINE [LANtus] 3 ML PEN SC SCH (08:20)
[2016-12-18] MEDS: INSULIN ASPART [NOVOLOG] 3 ML PEN SC SCH ×7 (08:20→20:16)
[2016-12-18] MEDS: ASCORBIC ACID 500 MG TAB PO SCH (08:25)
[2016-12-18] MEDS: GABAPENTIN 300 MG CAP PO SCH ×2 (08:25→20:41)
[2016-12-18] MEDS: metFORMIN 500 MG TAB PO SCH ×2 (08:28→17:23)
[2016-12-18] MEDS: ALLOPURINOL 300 MG TAB PO SCH (08:28)
[2016-12-18] MEDS: CHOLECALCIFEROL 1,000 UNIT TAB PO SCH (08:28)
[2016-12-18] MEDS: TERBINAFINE 250 MG TAB PO SCH ×2 (08:29→20:41)
[2016-12-18] MEDS: VITAMIN B COMPLEX/VIT C CAP PO SCH (08:29)
[2016-12-18] MEDS: FISH OIL 1,000 MG CAP PO SCH (08:29)
[2016-12-18] MEDS: VITAMIN E 1,000 UNIT CAP PO SCH (08:29)
[2016-12-18] MEDS: ASPIRIN (EC) 81 MG TAB PO SCH (08:29)
[2016-12-18] MEDS: THIAMINE 100 MG TAB PO SCH (08:29)
[2016-12-18] MEDS: RANOLAZINE (SR) 500 MG TAB PO SCH ×2 (08:29→20:40)
[2016-12-18] MEDS: METOLAZONE 5 MG TAB PO SCH (08:32)
[2016-12-18] MEDS: METOPROLOL 50 MG TAB PO SCH ×2 (08:33→20:40)
[2016-12-18] MEDS: COLLAGENASE 30 GM TUBE TOP SCH (08:34)
[2016-12-18] MEDS: SODIUM HYPOCHLORITE 1/40% 1L IRRIG IRR SCH (08:34)
[2016-12-18] MEDS: HEPARIN 5,000 UNIT/0.5 ML VIAL SC SCH ×2 (08:56→20:46)
--- NOTE | 2016-12-18 09:48 | CONS ---
Date/Time of Note Date/Time of Note DATE: 12/18/16 TIME: 09:46 Assessment/Plan Assessment/Plan Problems: (1) Type 2 diabetes mellitus with hyperglycemia Status: Chronic Comment: Excellent glycemic control on current insulin regimen. Will continue. Qualifiers: Diabetes mellitus custodial insulin use: with long term care social worker use Qualified Code : E11.65 - Type 2 diabetes mellitus with hyperglycemia, with long-term current use of insulin Consultation Date/Type/Reason Admit Date/Time Dec 14, 2016 at 20:42 Initial Consult Date 12/15/2016 Type of Consultation: Endocrinology Reason for Consultation T2DM OOC Referring Provider: AHSAN ALVARENGA 24 HR Interval Summary Constitutional: improved, no complaints Detailed Summary Respiratory: no complaints Cardiovascular: no complaints Gastrointestinal: no complaints Genitourinary: no complaints Musculoskeletal: bone/joint pain (L foot pain), swelling (LLE) Neurologic: no complaints Exam/Review of Systems Vital Signs Vitals VS - Last 72 Hours, by Label Date Time Temp Pulse Resp B/P Pulse Ox O2 Delivery O2 Flow Rate FiO2 12/18/16 07:23 98.2 66 20 126/60 97 12/17/16 22:10 63 136/65 12/17/16 20:00 Room Air 12/17/16 19:25 98.2 64 20 129/60 96 12/17/16 07:16 97.7 58 18 111/62 95 12/16/16 07:29 97.7 65 18 138/65 96 12/15/16 19:59 97.8 62 20 139/64 96 Vital Signs Date Time Temp Pulse Resp B/P Pulse Ox O2 Delivery O2 Flow Rate FiO2 12/18/16 07:23 98.2 66 20 126/60 97 12/17/16 20:00 Room Air Intake and Output 12/17/16 12/17/16 12/18/16 15:00 23:00 07:00 Intake Total 100 ml 1170 ml 600 ml Output Total 1800 ml 1325 ml Balance 100 ml -630 ml -725 ml Exam Constitutional: alert, obese, oriented Psych: nl mood/affect, no complaints Respiratory: clear to auscultation, normal air movement Cardiovascular: edema (1+ LLE), regular rate and rhythm, No murmurs/extra sounds, No rub Gastrointestinal: bowel sounds, nl liver, spleen, non-tender, soft, No mass, No rebound or guarding Musculoskeletal: No nl extremities to inspection (LLE TMTA) Extremities: No clubbing, No cyanosis, No edema Neurological: JUNIOR LOAN PROCESSOR II-XII intact, nl mental status, nl speech, nl strength Additional Comments Bedside Glucose - 72 Hours Test 12/15/16 11:50 12/15/16 12:38 12/15/16 17:21 12/15/16 21:08 Bedside Glucose 255mg/dL (70-220) H 287mg/dL (70-220) H 179mg/dL (70-220) 248mg/dL (70-220) H Test 12/16/16 02:25 12/16/16 07:55 12/16/16 12:17 12/16/16 17:35 Bedside Glucose 246mg/dL (70-220) H 252mg/dL (70-220) H 206mg/dL (70-220) 166mg/dL (70-220) Test 12/16/16 22:09 12/17/16 08:01 12/17/16 11:54 12/17/16 17:26 Bedside Glucose 154mg/dL (70-220) 165mg/dL (70-220) 136mg/dL (70-220) 130mg/dL (70-220) Test 12/17/16 22:04 12/18/16 07:52 Bedside Glucose 111mg/dL (70-220) 157mg/dL (70-220) Results Result Diagram: 12/18/16 0450 12/18/16 0450 Results 24 hrs Laboratory Tests Test 12/17/16 11:54 12/17/16 17:26 12/17/16 22:04 12/18/16 04:50 Bedside Glucose 136 130 111 White Blood Count 6.3 Red Blood Count 4.04 L Hemoglobin 13.5 L Hematocrit 39.1 L Mean Corpuscular Volume 96.8 Mean Corpuscular Hemoglobin 33.4 H Mean Corpuscular Hemoglobin Concent 34.5 Red Cell Distribution Width 14.1 Platelet Count 185 Mean Platelet Volume 10.7 H Neutrophils % 50.9 Lymphocytes % 30.9 Monocytes % 12.6 H Eosinophils % 4.6 Basophils % 0.5 Nucleated Red Blood Cells % 0.0 Neutrophils # 3.2 Lymphocytes # 1.9 Monocytes # 0.8 Eosinophils # 0.3 Basophils # 0.0 Nucleated Red Blood Cells # 0.0 Sodium Level 136 Potassium Level 4.5 Chloride Level 97 Carbon Dioxide Level 31 Anion Gap 13 Blood Urea Nitrogen 22 H Creatinine 1.21 Glucose Level 151 Calcium Level 9.9 Test 12/18/16 07:52 Bedside Glucose 157 Medications Medications Current Medications Gabapentin (Neurontin) 300 mg BID PO Last administered on 12/18/16 08:25; Admin Dose 300 MG; Start 12/15/16 at 09:00 Ondansetron HCl (Zofran Inj) 4 mg Q6H PRN IV NAUSEA AND/OR VOMITING; Start 07/22 at 22:30 Acetaminophen (Tylenol Tab) 650 mg Q4H PRN PO PAIN AND OR ELEVATED TEMP; Start 12/14/16 at 22:30 Diagnostic Test (Pha) 1 ea 1 ea 02 XX ; Start 12/15/16 at 02:00 Ertapenem/Sodium Chloride (Invanz/NS) 100 ml @ 200 mls/hr Q24H IVPB Last administered on 12/17/16 22:10; Admin Dose 200 MLS/HR; Start 12/14/16 at 23:00 Miscellaneous Information 1 ea NOTE XX ; Start 12/14/16 at 23:00 Glucose (Glutose) 15 gm Q15M PRN PO DECREASED GLUCOSE; Start 12/14/16 at 23:00 Glucose (Glutose) 22.5 gm Q15M PRN PO DECREASED GLUCOSE; Start 12/14/16 at 23: 00 Dextrose (D50w Syringe) 25 ml Q15M PRN IV DECREASED GLUCOSE; Start 12/14/16 at 23:00 Dextrose (D50w Syringe) 50 ml Q15M PRN IV DECREASED GLUCOSE; Start 12/14/16 at 23:00 Glucagon (Glucagen) 1 mg Q15M PRN IM DECREASED GLUCOSE; Start 12/14/16 at 23:00 Glucose (Glutose) 15 gm Q15M PRN BUCCAL DECREASED GLUCOSE; Start 12/14/16 at 23 :00 Heparin Sodium (Porcine) (Heparin (5000 Units/0.5 ml)) 5,000 unit BID SC Last administered on 12/18/16 08:56; Admin Dose 5,000 UNIT; Start 12/15/16 at 09:00 Morphine Sulfate (morphine) 2 mg Q4H PRN IV pain Last administered on 06:02; Admin Dose 2 MG; Start 12/15/16 at 10:30 Acetaminophen/ Hydrocodone Bitart ([place] (5/325)) 1 tab Q4H PRN PO PAIN LEVEL 4 -7 Last administered on 12/17/16 16:07; Admin Dose 1 TAB; Start 12/15/16 at 10: 00 Pantoprazole (Protonix Tab) 40 mg DAILY@06 PO Last administered on 12/18/16 06 :02; Admin Dose 40 MG; Start 12/16/16 at 06:00 Terbinafine HCl (Lamisil) 250 mg BID PO Last administered on 12/18/16 08:29; Admin Dose 250 MG; Start 12/15/16 at 21:00; Stop 12/22/16 at 20:59 Thiamine HCl (Vitamin B1) 100 mg DAILY PO Last administered on 12/18/16 08:29 ; Admin Dose 100 MG; Start 12/16/16 at 09:00 Allopurinol (Zyloprim) 300 mg DAILY PO Last administered on 12/18/16 08:28; Admin Dose 300 MG; Start 12/16/16 at 10:30 Ascorbic Acid (Vitamin C) 1,000 mg DAILY PO Last administered on 12/18/16 08: 25; Admin Dose 1,000 MG; Start 12/16/16 at 10:30 Aspirin (Halfprin) 81 mg DAILY PO Last administered on 12/18/16 08:29; Admin Dose 81 MG; Start 12/16/16 at 10:30 Cholecalciferol (Vitamin D) 1,000 unit DAILY PO Last administered on 12/18/16 08:28; Admin Dose 1,000 UNIT; Start 12/16/16 at 10:30 Levothyroxine Sodium (Synthroid) 25 mcg DAILY@06 PO Last administered on 06:02; Admin Dose 25 MCG; Start 12/16/16 at 10:30 Metolazone (Zaroxolyn) 5 mg DAILY PO Last administered on 12/18/16 08:32; Admin Dose 5 MG; Start 12/16/16 at 10:30 Metoprolol Tartrate (Lopressor) 50 mg BID PO Last administered on 12/18/16 08: 33; Admin Dose 50 MG; Start 12/16/16 at 10:30 Ranolazine (Ranexa) 500 mg Q12 PO Last administered on 12/18/16 08:29; Admin Dose 500 MG; Start 12/16/16 at 10:30 Vitamin E (Vitamin E) 1,000 unit DAILY PO Last administered on 12/18/16 08:29 ; Admin Dose 1,000 UNIT; Start 12/16/16 at 10:30 Fish Oil (Fish Oil) 1,000 mg DAILY PO Last administered on 12/18/16 08:29; Admin Dose 1,000 MG; Start 12/16/16 at 10:30 Vitamin B Complex/ Vitamin C (Berocca) 1 cap DAILY PO Last administered on 12/18 08:29; Admin Dose 1 CAP; Start 12/16/16 at 11:30 Collagenase (Santyl) 1 applic DAILY TOP Last administered on 12/18/16 08:34; Admin Dose 1 APPLIC; Start 12/16/16 at 12:00 Sodium Hypochlorite (Dakin'S (Dilute 1/40%)) 1 applic DAILY IRR Last administered on 12/18/16 08:34; Admin Dose 1 APPLIC; Start 12/16/16 at 12:00 Insulin Glargine 48 unit 48 unit DAILY SC Last administered on 12/18/16 08:20 ; Admin Dose 48 UNIT; Start 12/17/16 at 09:00 Vancomycin HCl/ Sodium Chloride (Vancocin/NS) 250 ml @ 83.333 mls/ hr Q12H IVPB Last administered on 12/18/16 04:51; Admin Dose 83.333 MLS/HR; Start at 04:00 ALICIA TORO MD Dec 18, 2016 09:48
--- NOTE | 2016-12-18 10:57 | PN ---
Date/Time of Note Date/Time of Note DATE: 12/18/16 TIME: 10:53 Assessment/Plan VTE Prophylaxis VTE Prophylaxis Intervention: heparin Lines/Catheters IV [facility]from [facility] [place] Urinary Cath still in place: No Assessment/Plan Chief Complaint/Hosp Course ASSESSMENT AND PLAN: 61-year-old male with past medical history of CAD, hypertension, type 2 diabetes poorly controlled, gout, previous left foot transmetatarsal amputation with subsequent infection and ulcer, cirrhosis, status post TIPS procedure, who sent in by rotary pump operator for increasing erythema to the left foot, cellulitis and diabetic foot ulcers. 1. Left foot cellulitis and diabetic foot ulcer. A1c = 10.3, FS improved. MRI left foot neg for osteo. - Continue broad spectrum antibiotics, f/u endocrinology consult and infectious disease rec's. - Follow podiatry recommendations - Pain control medications as well IV fluids. Follow up culture result - f/u PT consult. 2. Type 2 diabetes, again, poorly controlled as outpt, but markedly improved now - appreciate endo consult - continue metformin, continue Lantus 48 units, continue Aspart insulin with meals 24 U - f/u endocrinology consult rec's 3. History of hypertension. Blood pressure is presently stable. Continue current medications. 4. History of coronary artery disease. Continue to monitor for now. 5. History of cirrhosis, status post TIPS procedure in the past. Continue to monitor for now. 6. Lactic acidosis, unclear source - but resolved now - Continue IV fluids and trend lactic acid as well. The patient is alert. 7. Gastrointestinal prophylaxis - PPI. 8. Deep venous thrombosis prophylaxis. Continue heparin subQ. Problems: Subjective 24 Hr Interval Summary Free Text/Dictation No acute events overnight. Exam/Review of Systems Vital Signs Vitals Vital Signs Date Time Temp Pulse Resp B/P Pulse Ox O2 Delivery O2 Flow Rate FiO2 12/18/16 07:23 98.2 66 20 126/60 97 12/17/16 20:00 Room Air Intake and Output 12/17/16 12/17/16 12/18/16 15:00 23:00 07:00 Intake Total 100 ml 1170 ml 600 ml Output Total 1800 ml 1325 ml Balance 100 ml -630 ml -725 ml Exam GENERAL: The patient is lying in bed, answering questions appropriately, alert , in no acute distress. HEENT: Pupils equal, round, react to light. Extraocular muscles intact. NECK: Supple, no thyromegaly. LUNGS: Clear to auscultation bilaterally. CARDIOVASCULAR: S1, S2 heard. No gallops. ABDOMEN: Soft, nontender, nondistended. Normal bowel sounds. No rebound or guarding. MUSCULOSKELETAL: He is status post left transmetatarsal amputation left lower extremity covered up in bandage up to the knee. Right lower extremity shows venous stasis changes, some mild pitting edema as well. NEUROLOGIC: No focal deficits. Results Result Diagram: 12/18/16 0450 12/18/16 0450 Results 24 hrs Laboratory Tests Test 12/17/16 11:54 12/17/16 17:26 12/17/16 22:04 12/18/16 04:50 Bedside Glucose 136 130 111 White Blood Count 6.3 Red Blood Count 4.04 L Hemoglobin 13.5 L Hematocrit 39.1 L Mean Corpuscular Volume 96.8 Mean Corpuscular Hemoglobin 33.4 H Mean Corpuscular Hemoglobin Concent 34.5 Red Cell Distribution Width 14.1 Platelet Count 185 Mean Platelet Volume 10.7 H Neutrophils % 50.9 Lymphocytes % 30.9 Monocytes % 12.6 H Eosinophils % 4.6 Basophils % 0.5 Nucleated Red Blood Cells % 0.0 Neutrophils # 3.2 Lymphocytes # 1.9 Monocytes # 0.8 Eosinophils # 0.3 Basophils # 0.0 Nucleated Red Blood Cells # 0.0 Sodium Level 136 Potassium Level 4.5 Chloride Level 97 Carbon Dioxide Level 31 Anion Gap 13 Blood Urea Nitrogen 22 H Creatinine 1.21 Glucose Level 151 Calcium Level 9.9 Test 12/18/16 07:52 Bedside Glucose 157 Medications Medications Current Medications Gabapentin (Neurontin) 300 mg BID PO Last administered on 12/18/16t 08:25; Admin Dose 300 MG; Start 12/15/16 at 09:00 Ondansetron HCl (Zofran Inj) 4 mg Q6H PRN IV NAUSEA AND/OR VOMITING; Start 07/22 at 22:30 Acetaminophen (Tylenol Tab) 650 mg Q4H PRN PO PAIN AND OR ELEVATED TEMP; Start 12/14/16 at 22:30 Diagnostic Test (Pha) 1 ea 1 ea 02 XX ; Start 12/15/16 at 02:00 Ertapenem/Sodium Chloride (Invanz/NS) 100 ml @ 200 mls/hr Q24H IVPB Last administered on 12/17/16 22:10; Admin Dose 200 MLS/HR; Start 12/14/16 at 23:00 Miscellaneous Information 1 ea NOTE XX ; Start 12/14/16 at 23:00 Glucose (Glutose) 15 gm Q15M PRN PO DECREASED GLUCOSE; Start 12/14/16 at 23:00 Glucose (Glutose) 22.5 gm Q15M PRN PO DECREASED GLUCOSE; Start 12/14/16 at 23: 00 Dextrose (D50w Syringe) 25 ml Q15M PRN IV DECREASED GLUCOSE; Start 12/14/16 at 23:00 Dextrose (D50w Syringe) 50 ml Q15M PRN IV DECREASED GLUCOSE; Start 12/14/16 at 23:00 Glucagon (Glucagen) 1 mg Q15M PRN IM DECREASED GLUCOSE; Start 12/14/16 at 23:00 Glucose (Glutose) 15 gm Q15M PRN BUCCAL DECREASED GLUCOSE; Start 12/14/16 at 23 :00 Heparin Sodium (Porcine) (Heparin (5000 Units/0.5 ml)) 5,000 unit BID SC Last administered on 12/18/16 08:56; Admin Dose 5,000 UNIT; Start 12/15/16 at 09:00 Morphine Sulfate (morphine) 2 mg Q4H PRN IV pain Last administered on 06:02; Admin Dose 2 MG; Start 12/15/16 at 10:30 Acetaminophen/ Hydrocodone Bitart ([place] (5/325)) 1 tab Q4H PRN PO PAIN LEVEL 4 -7 Last administered on 12/17/16 16:07; Admin Dose 1 TAB; Start 12/15/16 at 10: 00 Pantoprazole (Protonix Tab) 40 mg DAILY@06 PO Last administered on 12/18/16 06 :02; Admin Dose 40 MG; Start 12/16/16 at 06:00 Terbinafine HCl (Lamisil) 250 mg BID PO Last administered on 12/18/16 08:29; Admin Dose 250 MG; Start 12/15/16 at 21:00; Stop 12/22/16 at 20:59 Thiamine HCl (Vitamin B1) 100 mg DAILY PO Last administered on 12/18/16 08:29 ; Admin Dose 100 MG; Start 12/16/16 at 09:00 Allopurinol (Zyloprim) 300 mg DAILY PO Last administered on 12/18/16 08:28; Admin Dose 300 MG; Start 12/16/16 at 10:30 Ascorbic Acid (Vitamin C) 1,000 mg DAILY PO Last administered on 12/18/16 08: 25; Admin Dose 1,000 MG; Start 12/16/16 at 10:30 Aspirin (Halfprin) 81 mg DAILY PO Last administered on 12/18/16 08:29; Admin Dose 81 MG; Start 12/16/16 at 10:30 Cholecalciferol (Vitamin D) 1,000 unit DAILY PO Last administered on 12/18/16 08:28; Admin Dose 1,000 UNIT; Start 12/16/16 at 10:30 Levothyroxine Sodium (Synthroid) 25 mcg DAILY@06 PO Last administered on 06:02; Admin Dose 25 MCG; Start 12/16/16 at 10:30 Metolazone (Zaroxolyn) 5 mg DAILY PO Last administered on 12/18/16 08:32; Admin Dose 5 MG; Start 12/16/16 at 10:30 Metoprolol Tartrate (Lopressor) 50 mg BID PO Last administered on 12/18/16 08: 33; Admin Dose 50 MG; Start 12/16/16 at 10:30 Ranolazine (Ranexa) 500 mg Q12 PO Last administered on 12/18/16 08:29; Admin Dose 500 MG; Start 12/16/16 at 10:30 Vitamin E (Vitamin E) 1,000 unit DAILY PO Last administered on 12/18/16 08:29 ; Admin Dose 1,000 UNIT; Start 12/16/16 at 10:30 Fish Oil (Fish Oil) 1,000 mg DAILY PO Last administered on 12/18/16 08:29; Admin Dose 1,000 MG; Start 12/16/16 at 10:30 Vitamin B Complex/ Vitamin C (Berocca) 1 cap DAILY PO Last administered on 12/18 08:29; Admin Dose 1 CAP; Start 12/16/16 at 11:30 Collagenase (Santyl) 1 applic DAILY TOP Last administered on 12/18/16 08:34; Admin Dose 1 APPLIC; Start 12/16/16 at 12:00 Sodium Hypochlorite (Dakin'S (Dilute 1/40%)) 1 applic DAILY IRR Last administered on 12/18/16 08:34; Admin Dose 1 APPLIC; Start 12/16/16 at 12:00 Insulin Glargine (Lantus) 48 unit DAILY SC Last administered on 12/18/16 08:20 ; Admin Dose 48 UNIT; Start 12/17/16 at 09:00 Mupirocin 1 applic 1 applic BID TOP ; Start 12/18/16 at 12:00 Vancomycin HCl/ Sodium Chloride (Vancocin/NS) 250 ml @ 83.333 mls/ hr Q12H IVPB ; Start 12/18/16 at 17:00 Miscellaneous Information (*Rx Drug Level Order Reminder*) VANCOMYCIN TROUGH AT 0400 ONCE ONCE XX ; Start 12/19/16 at 04:00; Stop 12/19/16 at 04:01 AHSAN ALVARENGA Dec 18, 2016 10:57
[2016-12-18] MEDS: MUPIROCIN 2% 22 GM OINT TOP SCH ×2 (12:28→20:41)
[2016-12-18] MEDS ORDERED: VANCOMYCIN 1.25 GM in SOD CHLORIDE 0.9% 250 ML IVPB SCH (17:00)
[2016-12-18 19:17] VITALS: BP 144/65; RESP 20
--- NOTE | 2016-12-18 20:00 | CONS ---
Date/Time of Note Date/Time of Note DATE: 12/18/16 TIME: 19:58 Assessment/Plan Assessment/Plan Chief Complaint/Hosp Course SUBJECTIVE: Patient is alert, feels good, looks comfortable. No fevers. MICROBIOLOGY: Wound culture on 12/14/2016 grew strep, MRSA, Klebsiella oxytoca , repeat cx + MRSA. ANTIMICROBIALS: The patient is on: 1. IV vancomycin. 2. Invanz. PHYSICAL EXAMINATION: GENERAL: This is a morbidly obese elderly man, who is alert, in no distress. HEENT: Head atraumatic, normocephalic. Sclerae anicteric. Buccal mucosa pink. NECK: Supple. CHEST: Chest rise is symmetrical. Breath sounds clear. HEART: S1, S2. ABDOMEN: Soft, bowel tones present. EXTREMITIES: With left foot dressing intact. ASSESSMENT: 1. Left foot acute on chronic cellulitis. No evidence of osteomyelitis, per MRI. 2. Diabetes, with diabetic neuropathy. 3. Coronary artery disease. 4. Hypertension. 5. Cirrhosis, status post TIPS procedure. PLAN: The patient remains stable, will change Invanz to Cipro, continue Gillo, f/u podiatry rec-s. Anticipate dc on PO Bactrim and Cipro DW staff Problems: Consultation Date/Type/Reason Admit Date/Time Dec 14, 2016 at 20:42 Initial Consult Date Type of Consultation: ID Referring Provider: AHSAN ALVARENGA Exam/Review of Systems Vital Signs Vitals Vital Signs Date Time Temp Pulse Resp B/P Pulse Ox O2 Delivery O2 Flow Rate FiO2 12/18/16 19:17 98.0 63 20 144/65 99 12/17/16 20:00 Room Air Intake and Output 12/17/16 12/17/16 12/18/16 15:00 23:00 07:00 Intake Total 100 ml 1170 ml 600 ml Output Total 1800 ml 1325 ml Balance 100 ml -630 ml -725 ml Results Result Diagram: 12/18/16 0450 12/18/16 0450 Results 24 hrs Laboratory Tests Test 12/17/16 22:04 12/18/16 04:50 12/18/16 07:52 12/18/16 12:07 Bedside Glucose 111 157 144 White Blood Count 6.3 Red Blood Count 4.04 L Hemoglobin 13.5 L Hematocrit 39.1 L Mean Corpuscular Volume 96.8 Mean Corpuscular Hemoglobin 33.4 H Mean Corpuscular Hemoglobin Concent 34.5 Red Cell Distribution Width 14.1 Platelet Count 185 Mean Platelet Volume 10.7 H Neutrophils % 50.9 Lymphocytes % 30.9 Monocytes % 12.6 H Eosinophils % 4.6 Basophils % 0.5 Nucleated Red Blood Cells % 0.0 Neutrophils # 3.2 Lymphocytes # 1.9 Monocytes # 0.8 Eosinophils # 0.3 Basophils # 0.0 Nucleated Red Blood Cells # 0.0 Sodium Level 136 Potassium Level 4.5 Chloride Level 97 Carbon Dioxide Level 31 Anion Gap 13 Blood Urea Nitrogen 22 H Creatinine 1.21 Glucose Level 151 Calcium Level 9.9 Test 12/18/16 17:21 12/18/16 18:09 Bedside Glucose 78 82 Medications Medications Current Medications Gabapentin (Neurontin) 300 mg BID PO Last administered on 12/18/16 08:25; Admin Dose 300 MG; Start 12/15/16 at 09:00 Ondansetron HCl (Zofran Inj) 4 mg Q6H PRN IV NAUSEA AND/OR VOMITING; Start 07/22 at 22:30 Acetaminophen (Tylenol Tab) 650 mg Q4H PRN PO PAIN AND OR ELEVATED TEMP; Start 12/14/16 at 22:30 Diagnostic Test (Pha) 1 ea 1 ea 02 XX ; Start 12/15/16 at 02:00 Ertapenem/Sodium Chloride (Invanz/NS) 100 ml @ 200 mls/hr Q24H IVPB Last administered on 12/17/16 22:10; Admin Dose 200 MLS/HR; Start 12/14/16 at 23:00 Miscellaneous Information 1 ea NOTE XX ; Start 12/14/16 at 23:00 Glucose (Glutose) 15 gm Q15M PRN PO DECREASED GLUCOSE; Start 12/14/16 at 23:00 Glucose (Glutose) 22.5 gm Q15M PRN PO DECREASED GLUCOSE; Start 12/14/16 at 23: 00 Dextrose (D50w Syringe) 25 ml Q15M PRN IV DECREASED GLUCOSE; Start 12/14/16 at 23:00 Dextrose (D50w Syringe) 50 ml Q15M PRN IV DECREASED GLUCOSE; Start 12/14/16 at 23:00 Glucagon (Glucagen) 1 mg Q15M PRN IM DECREASED GLUCOSE; Start 12/14/16 at 23:00 Glucose (Glutose) 15 gm Q15M PRN BUCCAL DECREASED GLUCOSE; Start 12/14/16 at 23 :00 Heparin Sodium (Porcine) (Heparin (5000 Units/0.5 ml)) 5,000 unit BID SC Last administered on 12/18/16 08:56; Admin Dose 5,000 UNIT; Start 12/15/16 at 09:00 Morphine Sulfate (morphine) 2 mg Q4H PRN IV pain Last administered on 16:52; Admin Dose 2 MG; Start 12/15/16 at 10:30 Acetaminophen/ Hydrocodone Bitart ([place] (5/325)) 1 tab Q4H PRN PO PAIN LEVEL 4 -7 Last administered on 12/17/16 16:07; Admin Dose 1 TAB; Start 12/15/16 at 10: 00 Pantoprazole (Protonix Tab) 40 mg DAILY@06 PO Last administered on 12/18/16 06 :02; Admin Dose 40 MG; Start 12/16/16 at 06:00 Terbinafine HCl (Lamisil) 250 mg BID PO Last administered on 12/18/16 08:29; Admin Dose 250 MG; Start 12/15/16 at 21:00; Stop 12/22/16 at 20:59 Thiamine HCl (Vitamin B1) 100 mg DAILY PO Last administered on 12/18/16 08:29 ; Admin Dose 100 MG; Start 12/16/16 at 09:00 Allopurinol (Zyloprim) 300 mg DAILY PO Last administered on 12/18/16 08:28; Admin Dose 300 MG; Start 12/16/16 at 10:30 Ascorbic Acid (Vitamin C) 1,000 mg DAILY PO Last administered on 12/18/16 08: 25; Admin Dose 1,000 MG; Start 12/16/16 at 10:30 Aspirin (Halfprin) 81 mg DAILY PO Last administered on 12/18/16 08:29; Admin Dose 81 MG; Start 12/16/16 at 10:30 Cholecalciferol (Vitamin D) 1,000 unit DAILY PO Last administered on 12/18/16 08:28; Admin Dose 1,000 UNIT; Start 12/16/16 at 10:30 Levothyroxine Sodium (Synthroid) 25 mcg DAILY@06 PO Last administered on 06:02; Admin Dose 25 MCG; Start 12/16/16 at 10:30 Metolazone (Zaroxolyn) 5 mg DAILY PO Last administered on 12/18/16 08:32; Admin Dose 5 MG; Start 12/16/16 at 10:30 Metoprolol Tartrate (Lopressor) 50 mg BID PO Last administered on 12/18/16 08: 33; Admin Dose 50 MG; Start 12/16/16 at 10:30 Ranolazine (Ranexa) 500 mg Q12 PO Last administered on 12/18/16 08:29; Admin Dose 500 MG; Start 12/16/16 at 10:30 Vitamin E (Vitamin E) 1,000 unit DAILY PO Last administered on 12/18/16 08:29 ; Admin Dose 1,000 UNIT; Start 12/16/16 at 10:30 Fish Oil (Fish Oil) 1,000 mg DAILY PO Last administered on 12/18/16 08:29; Admin Dose 1,000 MG; Start 12/16/16 at 10:30 Vitamin B Complex/ Vitamin C (Berocca) 1 cap DAILY PO Last administered on 12/18 08:29; Admin Dose 1 CAP; Start 12/16/16 at 11:30 Collagenase (Santyl) 1 applic DAILY TOP Last administered on 12/18/16 08:34; Admin Dose 1 APPLIC; Start 12/16/16 at 12:00 Sodium Hypochlorite (Dakin'S (Dilute 1/40%)) 1 applic DAILY IRR Last administered on 12/18/16 08:34; Admin Dose 1 APPLIC; Start 12/16/16 at 12:00 Insulin Glargine (Lantus) 48 unit DAILY SC Last administered on 12/18/16 08:20 ; Admin Dose 48 UNIT; Start 12/17/16 at 09:00 Mupirocin 1 applic 1 applic BID TOP Last administered on 12/18/16 12:28; Admin Dose 1 APPLIC; Start 12/18/16 at 12:00 Vancomycin HCl/ Sodium Chloride (Vancocin/NS) 250 ml @ 83.333 mls/ hr Q12H IVPB Last administered on 12/18/16 17:22; Admin Dose 83.333 MLS/HR; Start at 17:00 Miscellaneous Information (*Rx Drug Level Order Reminder*) VANCOMYCIN TROUGH AT 0400 ONCE ONCE XX ; Start 12/19/16 at 04:00; Stop 12/19/16 at 04:01 SVETLANA MAY NP Dec 18, 2016 20:00
[2016-12-18] MEDS: ERTAPENEM SODIUM 1 GM in SOD CHLORIDE 0.9% 100 ML IVPB SCH (22:22)
[2016-12-19] MEDS: ACCU-CHEK XX SCH (01:52)
[2016-12-19] MEDS: morphine 4 MG/ML VIAL IV PRN ×5 (01:52→21:19)
[2016-12-19 05:07] LABS: ADD SCAN DIFF NO; BASOPHILS % 0.4 % (0.0-2.0); EOSINOPHILS # 0.2 10^3/ul (0.0-0.5); EOSINOPHILS % 2.9 % (0.0-7.0); HEMATOCRIT 36.6 % (42.0-52.0); HEMOGLOBIN 13.1 g/dl (14.0-18.0); LYMPHOCYTES # 1.7 10^3/ul (0.8-2.9); LYMPHOCYTES % 21.9 % (15.0-51.0); MEAN CORPUSCULAR HEMOGLOBIN 34.1 pg (29.0-33.0); MEAN CORPUSCULAR HGB CONC 35.8 g/dl (32.0-37.0); MEAN CORPUSCULAR VOLUME 95.3 fl (82.0-101.0); MONOCYTES % 13.2 % (0.0-11.0); NEUTROPHIL # 4.8 10^3/ul (1.6-7.5); NEUTROPHILS % 61.2 % (39.0-77.0); PLATELET COUNT 186 10^3/UL (140-415); RED BLOOD COUNT 3.84 10^6/ul (4.70-6.10); WHITE BLOOD COUNT 7.8 10^3/ul (4.8-10.8)
[2016-12-19 05:26] LABS: CALCIUM 9.2 mg/dl (8.4-10.2); CREATININE 1.15 mg/dl (0.61-1.24); POTASSIUM 4.1 mmol/L (3.5-5.1)
[2016-12-19] MEDS: LEVOTHYROXINE 25 MCG TAB PO SCH (06:10)
[2016-12-19] MEDS: PANTOPRAZOLE (EC) 40 MG TAB PO SCH (06:10)
[2016-12-19] MEDS: FUROSEMIDE 20 MG TAB PO SCH ×2 (06:11→16:48)
[2016-12-19 07:20] VITALS: BP 132/68; RESP 20
[2016-12-19] MEDS: TERBINAFINE 250 MG TAB PO SCH ×2 (08:15→21:05)
[2016-12-19] MEDS: VITAMIN E 1,000 UNIT CAP PO SCH (08:15)
[2016-12-19] MEDS: THIAMINE 100 MG TAB PO SCH (08:15)
[2016-12-19] MEDS: RANOLAZINE (SR) 500 MG TAB PO SCH ×2 (08:15→21:05)
[2016-12-19] MEDS: METOLAZONE 5 MG TAB PO SCH (08:16)
[2016-12-19] MEDS: ASPIRIN (EC) 81 MG TAB PO SCH (08:16)
[2016-12-19] MEDS: CHOLECALCIFEROL 1,000 UNIT TAB PO SCH (08:16)
[2016-12-19] MEDS: ASCORBIC ACID 500 MG TAB PO SCH (08:16)
[2016-12-19] MEDS: METOPROLOL 50 MG TAB PO SCH ×2 (08:16→21:00)
[2016-12-19] MEDS: MUPIROCIN 2% 22 GM OINT TOP SCH ×2 (08:17→21:24)
[2016-12-19] MEDS: SODIUM HYPOCHLORITE 1/40% 1L IRRIG IRR SCH (08:17)
[2016-12-19] MEDS: FISH OIL 1,000 MG CAP PO SCH (08:17)
[2016-12-19] MEDS: VITAMIN B COMPLEX/VIT C CAP PO SCH (08:17)
[2016-12-19] MEDS: metFORMIN 500 MG TAB PO SCH ×2 (08:17→17:10)
[2016-12-19] MEDS: GABAPENTIN 300 MG CAP PO SCH ×2 (08:17→21:08)
[2016-12-19] MEDS: ALLOPURINOL 300 MG TAB PO SCH (08:17)
[2016-12-19] MEDS: COLLAGENASE 30 GM TUBE TOP SCH (08:18)
[2016-12-19] MEDS: INSULIN GLARGINE [LANtus] 3 ML PEN SC SCH (08:38)
[2016-12-19] MEDS: HEPARIN 5,000 UNIT/0.5 ML VIAL SC SCH ×2 (08:38→21:18)
[2016-12-19] MEDS: INSULIN ASPART [NOVOLOG] 3 ML PEN SC SCH ×7 (08:38→21:00)
[2016-12-19] MEDS ORDERED: VANCOMYCIN 750 MG in SOD CHLORIDE 0.9% 150 ML IVPB SCH (09:00)
--- NOTE | 2016-12-19 09:45 | PN ---
Date/Time of Note Date/Time of Note DATE: 12/19/16 TIME: 09:42 Assessment/Plan VTE Prophylaxis VTE Prophylaxis Intervention: heparin Lines/Catheters IV C[facility]ter Type (from [facility] [place] Urinary Cath still in place: No Assessment/Plan Chief Complaint/Hosp Course ASSESSMENT AND PLAN: 61-year-old male with past medical history of CAD, hypertension, type 2 diabetes poorly controlled, gout, previous left foot transmetatarsal amputation with subsequent infection and ulcer, cirrhosis, status post TIPS procedure, who sent in by nutrition and dietetics instructor for increasing erythema to the left foot, cellulitis and diabetic foot ulcers. 1. Left foot cellulitis and diabetic foot ulcer. A1c = 10.3, FS improved. MRI left foot neg for osteo. - Continue broad spectrum antibiotics, f/u endocrinology consult and infectious disease rec's. - Follow podiatry recommendations - Pain control medications as well IV fluids. Follow up culture result - f/u PT consult. 2. Type 2 diabetes, again, poorly controlled as outpt, but markedly improved now - appreciate endo consult - continue metformin, continue Lantus 48 units, continue Aspart insulin with meals 24 U - f/u endocrinology consult rec's 3. History of hypertension. Blood pressure is presently stable. Continue current medications. 4. History of coronary artery disease. Continue to monitor for now. 5. History of cirrhosis, status post TIPS procedure in the past. Continue to monitor for now. 6. Lactic acidosis, unclear source - but resolved now - Continue IV fluids and trend lactic acid as well. The patient is alert. 7. Gastrointestinal prophylaxis - PPI. 8. Deep venous thrombosis prophylaxis. Continue heparin subQ. Problems: Subjective 24 Hr Interval Summary Free Text/Dictation Pt had some elevated blood sugars this AM. Otherwise no acute events overnight. Exam/Review of Systems Vital Signs Vitals Vital Signs Date Time Temp Pulse Resp B/P Pulse Ox O2 Delivery O2 Flow Rate FiO2 12/19/16 07:20 98.0 67 20 132/68 96 12/18/16 20:00 Room Air Intake and Output 12/18/16 12/18/16 12/19/16 15:00 23:00 07:00 Intake Total 250 ml 1790 ml 480 ml Output Total 2250 ml 1850 ml Balance 250 ml -460 ml -1370 ml Exam GENERAL: The patient is lying in bed, answering questions appropriately, alert , in no acute distress. HEENT: Pupils equal, round, react to light. Extraocular muscles intact. NECK: Supple, no thyromegaly. LUNGS: Clear to auscultation bilaterally. CARDIOVASCULAR: S1, S2 heard. No gallops. ABDOMEN: Soft, nontender, nondistended. Normal bowel sounds. No rebound or guarding. MUSCULOSKELETAL: He is status post left transmetatarsal amputation left lower extremity covered up in bandage up to the knee. Right lower extremity shows venous stasis changes, some mild pitting edema as well. NEUROLOGIC: No focal deficits. Results Result Diagram: 12/19/16 0500 12/19/16 0433 Results 24 hrs Laboratory Tests Test 12/18/16 12:07 12/18/16 17:21 12/18/16 18:09 12/18/16 20:15 Bedside Glucose 144 78 82 122 Test 12/19/16 04:33 12/19/16 05:00 12/19/16 08:09 Sodium Level 133 L Potassium Level 4.1 Chloride Level 99 Carbon Dioxide Level 30 Anion Gap 8 Blood Urea Nitrogen 22 H Creatinine 1.15 Glucose Level 168 Calcium Level 9.2 Vancomycin Level Trough 26.4 *H White Blood Count 7.8 # Red Blood Count 3.84 L Hemoglobin 13.1 L Hematocrit 36.6 L Mean Corpuscular Volume 95.3 Mean Corpuscular Hemoglobin 34.1 H Mean Corpuscular Hemoglobin Concent 35.8 Red Cell Distribution Width 14.0 Platelet Count 186 Mean Platelet Volume 11.0 H Neutrophils % 61.2 Lymphocytes % 21.9 Monocytes % 13.2 H Eosinophils % 2.9 Basophils % 0.4 Nucleated Red Blood Cells % 0.0 Neutrophils # 4.8 Lymphocytes # 1.7 Monocytes # 1.0 H Eosinophils # 0.2 Basophils # 0.0 Nucleated Red Blood Cells # 0.0 Bedside Glucose 216 Medications Medications Current Medications Gabapentin (Neurontin) 300 mg BID PO Last administered on 12/19/16t 08:17; Admin Dose 300 MG; Start 12/15/16 at 09:00 Ondansetron HCl (Zofran Inj) 4 mg Q6H PRN IV NAUSEA AND/OR VOMITING; Start 07/22 at 22:30 Acetaminophen (Tylenol Tab) 650 mg Q4H PRN PO PAIN AND OR ELEVATED TEMP; Start 12/14/16 at 22:30 Diagnostic Test (Pha) (Accu-Chek) 1 ea 02 XX ; Start 12/15/16 at 02:00 Miscellaneous Information 1 ea NOTE XX ; Start 12/14/16 at 23:00 Glucose (Glutose) 15 gm Q15M PRN PO DECREASED GLUCOSE; Start 12/14/16 at 23:00 Glucose (Glutose) 22.5 gm Q15M PRN PO DECREASED GLUCOSE; Start 12/14/16 at 23: 00 Dextrose (D50w Syringe) 25 ml Q15M PRN IV DECREASED GLUCOSE; Start 12/14/16 at 23:00 Dextrose (D50w Syringe) 50 ml Q15M PRN IV DECREASED GLUCOSE; Start 12/14/16 at 23:00 Glucagon (Glucagen) 1 mg Q15M PRN IM DECREASED GLUCOSE; Start 12/14/16 at 23:00 Glucose (Glutose) 15 gm Q15M PRN BUCCAL DECREASED GLUCOSE; Start 12/14/16 at 23 :00 Heparin Sodium (Porcine) (Heparin (5000 Units/0.5 ml)) 5,000 unit BID SC Last administered on 12/19/16 08:38; Admin Dose 5,000 UNIT; Start 12/15/16 at 09:00 Morphine Sulfate (morphine) 2 mg Q4H PRN IV pain Last administered on 06:10; Admin Dose 2 MG; Start 12/15/16 at 10:30 Acetaminophen/ Hydrocodone Bitart ([place] (5/325)) 1 tab Q4H PRN PO PAIN LEVEL 4 -7 Last administered on 12/17/16 16:07; Admin Dose 1 TAB; Start 12/15/16 at 10: 00 Pantoprazole (Protonix Tab) 40 mg DAILY@06 PO Last administered on 12/19/16 06 :10; Admin Dose 40 MG; Start 12/16/16 at 06:00 Terbinafine HCl (Lamisil) 250 mg BID PO Last administered on 12/19/16 08:15; Admin Dose 250 MG; Start 12/15/16 at 21:00; Stop 12/22/16 at 20:59 Thiamine HCl (Vitamin B1) 100 mg DAILY PO Last administered on 12/19/16 08:15 ; Admin Dose 100 MG; Start 12/16/16 at 09:00 Allopurinol (Zyloprim) 300 mg DAILY PO Last administered on 12/19/16 08:17; Admin Dose 300 MG; Start 12/16/16 at 10:30 Ascorbic Acid (Vitamin C) 1,000 mg DAILY PO Last administered on 12/19/16 08: 16; Admin Dose 1,000 MG; Start 12/16/16 at 10:30 Aspirin (Halfprin) 81 mg DAILY PO Last administered on 12/19/16 08:16; Admin Dose 81 MG; Start 12/16/16 at 10:30 Cholecalciferol (Vitamin D) 1,000 unit DAILY PO Last administered on 12/19/16 08:16; Admin Dose 1,000 UNIT; Start 12/16/16 at 10:30 Levothyroxine Sodium (Synthroid) 25 mcg DAILY@06 PO Last administered on 06:10; Admin Dose 25 MCG; Start 12/16/16 at 10:30 Metolazone (Zaroxolyn) 5 mg DAILY PO Last administered on 12/19/16 08:16; Admin Dose 5 MG; Start 12/16/16 at 10:30 Metoprolol Tartrate (Lopressor) 50 mg BID PO Last administered on 12/19/16 08: 16; Admin Dose 50 MG; Start 12/16/16 at 10:30 Ranolazine (Ranexa) 500 mg Q12 PO Last administered on 12/19/16 08:15; Admin Dose 500 MG; Start 12/16/16 at 10:30 Vitamin E (Vitamin E) 1,000 unit DAILY PO Last administered on 12/19/16 08:15 ; Admin Dose 1,000 UNIT; Start 12/16/16 at 10:30 Fish Oil (Fish Oil) 1,000 mg DAILY PO Last administered on 12/19/16 08:17; Admin Dose 1,000 MG; Start 12/16/16 at 10:30 Vitamin B Complex/ Vitamin C (Berocca) 1 cap DAILY PO Last administered on 12/19 08:17; Admin Dose 1 CAP; Start 12/16/16 at 11:30 Collagenase (Santyl) 1 applic DAILY TOP Last administered on 12/19/16 08:18; Admin Dose 1 APPLIC; Start 12/16/16 at 12:00 Sodium Hypochlorite (Dakin'S (Dilute 1/40%)) 1 applic DAILY IRR Last administered on 12/19/16 08:17; Admin Dose 1 APPLIC; Start 12/16/16 at 12:00 Insulin Glargine (Lantus) 48 unit DAILY SC Last administered on 12/19/16 08:38 ; Admin Dose 48 UNIT; Start 12/17/16 at 09:00 Mupirocin 1 applic 1 applic BID TOP Last administered on 12/19/16 08:17; Admin Dose 1 APPLIC; Start 12/18/16 at 12:00 Vancomycin HCl/ Sodium Chloride (Vancocin/NS) 250 ml @ 83.333 mls/ hr Q24H IVPB ; Start 12/19/16 at 17:00 Ciprofloxacin (Cipro) 500 mg BID@06,18 PO ; Start 12/19/16 at 18:00 AHSAN ALVARENGA Dec 19, 2016 09:44
--- NOTE | 2016-12-19 10:25 | CONS ---
Date/Time of Note Date/Time of Note DATE: 12/19/16 TIME: 10:22 Assessment/Plan Assessment/Plan Problems: (1) Type 2 diabetes mellitus with hyperglycemia Status: Chronic Comment: FS mostly in good control. Sl. below goal yesterday pre-dinner. Well -managed but this am above goal. No changes in insulin regimen. If FBG remains high could double pm metformin or add NPH at hs. 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: with skilled nursing use Qualified Code : E11.65 - Type 2 diabetes mellitus with hyperglycemia, with long-term current use of insulin Consultation Date/Type/Reason Admit Date/Time Dec 14, 2016 at 20:42 Initial Consult Date 12/15/2016 Type of Consultation: Endocrinology Reason for Consultation T2DM OOC Referring Provider: AHSAN ALVARENGA 24 HR Interval Summary Constitutional: no complaints Detailed Summary Respiratory: no complaints Cardiovascular: no complaints Gastrointestinal: constipation Musculoskeletal: bone/joint pain (L foot) Neurologic: no complaints Exam/Review of Systems Vital Signs Vitals VS - Last 72 Hours, by Label Date Time Temp Pulse Resp B/P Pulse Ox O2 Delivery O2 Flow Rate FiO2 12/19/16 07:20 98.0 67 20 132/68 96 12/18/16 20:00 Room Air 12/18/16 19:17 98.0 63 20 144/65 99 12/18/16 07:23 98.2 66 20 126/60 97 12/17/16 22:10 63 136/65 12/17/16 20:00 Room Air 12/17/16 19:25 98.2 64 20 129/60 96 12/17/16 07:16 97.7 58 18 111/62 95 Vital Signs Date Time Temp Pulse Resp B/P Pulse Ox O2 Delivery O2 Flow Rate FiO2 12/19/16 07:20 98.0 67 20 132/68 96 12/18/16 20:00 Room Air Intake and Output 12/18/16 12/18/16 12/19/16 15:00 23:00 07:00 Intake Total 250 ml 1790 ml 480 ml Output Total 2250 ml 1850 ml Balance 250 ml -460 ml -1370 ml Exam Constitutional: alert, obese, oriented Psych: nl mood/affect, no complaints Respiratory: clear to auscultation, normal air movement Cardiovascular: regular rate and rhythm, No edema, No murmurs/extra sounds, No rub Gastrointestinal: bowel sounds, nl liver, spleen, non-tender, soft, No mass, No rebound or guarding Musculoskeletal: No nl extremities to inspection (L TMTA) Extremities: No clubbing, No cyanosis, No edema 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, nl mental status, nl speech, nl strength Additional Comments Bedside Glucose - 72 Hours Test 12/16/16 12:17 12/16/16 17:35 12/16/16 22:09 12/17/16 08:01 Bedside Glucose 206mg/dL (70-220) 166mg/dL (70-220) 154mg/dL (70-220) 165mg/dL (70-220) Test 12/17/16 11:54 12/17/16 17:26 12/17/16 22:04 12/18/16 07:52 Bedside Glucose 136mg/dL (70-220) 130mg/dL (70-220) 111mg/dL (70-220) 157mg/dL (70-220) Test 12/18/16 12:07 12/18/16 17:21 12/18/16 18:09 12/18/16 20:15 Bedside Glucose 144mg/dL (70-220) 78mg/dL (70-220) 82mg/dL (70-220) 122mg/dL (70-220) Test 12/19/16 08:09 Bedside Glucose 216mg/dL (70-220) Results Result Diagram: 12/19/16 0500 12/19/16 0433 Results 24 hrs Laboratory Tests Test 12/18/16 12:07 12/18/16 17:21 12/18/16 18:09 12/18/16 20:15 Bedside Glucose 144 78 82 122 Test 12/19/16 04:33 12/19/16 05:00 12/19/16 08:09 Sodium Level 133 L Potassium Level 4.1 Chloride Level 99 Carbon Dioxide Level 30 Anion Gap 8 Blood Urea Nitrogen 22 H Creatinine 1.15 Glucose Level 168 Calcium Level 9.2 Vancomycin Level Trough 26.4 *H White Blood Count 7.8 # Red Blood Count 3.84 L Hemoglobin 13.1 L Hematocrit 36.6 L Mean Corpuscular Volume 95.3 Mean Corpuscular Hemoglobin 34.1 H Mean Corpuscular Hemoglobin Concent 35.8 Red Cell Distribution Width 14.0 Platelet Count 186 Mean Platelet Volume 11.0 H Neutrophils % 61.2 Lymphocytes % 21.9 Monocytes % 13.2 H Eosinophils % 2.9 Basophils % 0.4 Nucleated Red Blood Cells % 0.0 Neutrophils # 4.8 Lymphocytes # 1.7 Monocytes # 1.0 H Eosinophils # 0.2 Basophils # 0.0 Nucleated Red Blood Cells # 0.0 Bedside Glucose 216 Medications Medications Current Medications Gabapentin (Neurontin) 300 mg BID PO Last administered on 12/19/16 08:17; Admin Dose 300 MG; Start 12/15/16 at 09:00 Ondansetron HCl (Zofran Inj) 4 mg Q6H PRN IV NAUSEA AND/OR VOMITING; Start 07/22 at 22:30 Acetaminophen (Tylenol Tab) 650 mg Q4H PRN PO PAIN AND OR ELEVATED TEMP; Start 12/14/16 at 22:30 Diagnostic Test (Pha) (Accu-Chek) 1 ea 02 XX ; Start 12/15/16 at 02:00 Miscellaneous Information 1 ea NOTE XX ; Start 12/14/16 at 23:00 Glucose (Glutose) 15 gm Q15M PRN PO DECREASED GLUCOSE; Start 12/14/16 at 23:00 Glucose (Glutose) 22.5 gm Q15M PRN PO DECREASED GLUCOSE; Start 12/14/16 at 23: 00 Dextrose (D50w Syringe) 25 ml Q15M PRN IV DECREASED GLUCOSE; Start 12/14/16 at 23:00 Dextrose (D50w Syringe) 50 ml Q15M PRN IV DECREASED GLUCOSE; Start 12/14/16 at 23:00 Glucagon (Glucagen) 1 mg Q15M PRN IM DECREASED GLUCOSE; Start 12/14/16 at 23:00 Glucose (Glutose) 15 gm Q15M PRN BUCCAL DECREASED GLUCOSE; Start 12/14/16 at 23 :00 Heparin Sodium (Porcine) (Heparin (5000 Units/0.5 ml)) 5,000 unit BID SC Last administered on 12/19/16 08:38; Admin Dose 5,000 UNIT; Start 12/15/16 at 09:00 Morphine Sulfate (morphine) 2 mg Q4H PRN IV pain Last administered on 06:10; Admin Dose 2 MG; Start 12/15/16 at 10:30 Acetaminophen/ Hydrocodone Bitart ([place] (5/325)) 1 tab Q4H PRN PO PAIN LEVEL 4 -7 Last administered on 12/17/16 16:07; Admin Dose 1 TAB; Start 12/15/16 at 10: 00 Pantoprazole (Protonix Tab) 40 mg DAILY@06 PO Last administered on 12/19/16 06 :10; Admin Dose 40 MG; Start 12/16/16 at 06:00 Terbinafine HCl (Lamisil) 250 mg BID PO Last administered on 12/19/16 08:15; Admin Dose 250 MG; Start 12/15/16 at 21:00; Stop 12/22/16 at 20:59 Thiamine HCl (Vitamin B1) 100 mg DAILY PO Last administered on 12/19/16 08:15 ; Admin Dose 100 MG; Start 12/16/16 at 09:00 Allopurinol (Zyloprim) 300 mg DAILY PO Last administered on 12/19/16 08:17; Admin Dose 300 MG; Start 12/16/16 at 10:30 Ascorbic Acid (Vitamin C) 1,000 mg DAILY PO Last administered on 12/19/16 08: 16; Admin Dose 1,000 MG; Start 12/16/16 at 10:30 Aspirin (Halfprin) 81 mg DAILY PO Last administered on 12/19/16 08:16; Admin Dose 81 MG; Start 12/16/16 at 10:30 Cholecalciferol (Vitamin D) 1,000 unit DAILY PO Last administered on 12/19/16 08:16; Admin Dose 1,000 UNIT; Start 12/16/16 at 10:30 Levothyroxine Sodium (Synthroid) 25 mcg DAILY@06 PO Last administered on 06:10; Admin Dose 25 MCG; Start 12/16/16 at 10:30 Metolazone (Zaroxolyn) 5 mg DAILY PO Last administered on 12/19/16 08:16; Admin Dose 5 MG; Start 12/16/16 at 10:30 Metoprolol Tartrate (Lopressor) 50 mg BID PO Last administered on 12/19/16 08: 16; Admin Dose 50 MG; Start 12/16/16 at 10:30 Ranolazine (Ranexa) 500 mg Q12 PO Last administered on 12/19/16 08:15; Admin Dose 500 MG; Start 12/16/16 at 10:30 Vitamin E (Vitamin E) 1,000 unit DAILY PO Last administered on 12/19/16 08:15 ; Admin Dose 1,000 UNIT; Start 12/16/16 at 10:30 Fish Oil (Fish Oil) 1,000 mg DAILY PO Last administered on 12/19/16 08:17; Admin Dose 1,000 MG; Start 12/16/16 at 10:30 Vitamin B Complex/ Vitamin C (Berocca) 1 cap DAILY PO Last administered on 12/19 08:17; Admin Dose 1 CAP; Start 12/16/16 at 11:30 Collagenase (Santyl) 1 applic DAILY TOP Last administered on 12/19/16 08:18; Admin Dose 1 APPLIC; Start 12/16/16 at 12:00 Sodium Hypochlorite (Dakin'S (Dilute 1/40%)) 1 applic DAILY IRR Last administered on 12/19/16 08:17; Admin Dose 1 APPLIC; Start 12/16/16 at 12:00 Insulin Glargine (Lantus) 48 unit DAILY SC Last administered on 12/19/16 08:38 ; Admin Dose 48 UNIT; Start 12/17/16 at 09:00 Mupirocin 1 applic 1 applic BID TOP Last administered on 12/19/16 08:17; Admin Dose 1 APPLIC; Start 12/18/16 at 12:00 Vancomycin HCl/ Sodium Chloride (Vancocin/NS) 250 ml @ 83.333 mls/ hr Q24H IVPB ; Start 12/19/16 at 17:00 Ciprofloxacin (Cipro) 500 mg BID@06,18 PO ; Start 12/19/16 at 18:00 ALICIA TORO MD Dec 19, 2016 10:25
[2016-12-19] MEDS ORDERED: VANCOMYCIN 1.5 GM in SOD CHLORIDE 0.9% 250 ML IVPB SCH (17:00)
[2016-12-19] MEDS: CIPROFLOXACIN 500 MG TAB PO SCH (17:09)
[2016-12-19 19:00] VITALS: BP 116/61; RESP 20
--- NOTE | 2016-12-19 19:56 | CONS ---
Date/Time of Note Date/Time of Note DATE: 12/19/16 TIME: 19:54 Assessment/Plan Assessment/Plan Chief Complaint/Hosp Course SUBJECTIVE: o acute changes, looks comfortable. No fevers. MICROBIOLOGY: Wound culture on 12/14/2016 grew strep, MRSA, Klebsiella oxytoca , repeat cx + MRSA. ANTIMICROBIALS: The patient is on: 1. IV vancomycin. 2. Cipro. PHYSICAL EXAMINATION: GENERAL: This is a morbidly obese elderly man, who is alert, in no distress. HEENT: Head atraumatic, normocephalic. Sclerae anicteric. Buccal mucosa pink. NECK: Supple. CHEST: Chest rise is symmetrical. Breath sounds clear. HEART: S1, S2. ABDOMEN: Soft, bowel tones present. EXTREMITIES: With left foot dressing intact. ASSESSMENT: 1. Left foot acute on chronic cellulitis. No evidence of osteomyelitis, per MRI. 2. Diabetes, with diabetic neuropathy. 3. Coronary artery disease. 4. Hypertension. 5. Cirrhosis, status post TIPS procedure. PLAN: The patient remains stable, continue abx, BS control, f/u podiatry rec- s. Anticipate dc on PO Bactrim and Cipro DW staff Problems: Consultation Date/Type/Reason Admit Date/Time Dec 14, 2016 at 20:42 Type of Consultation: ID Referring Provider: AHSAN ALVARENGA Exam/Review of Systems Vital Signs Vitals Vital Signs Date Time Temp Pulse Resp B/P Pulse Ox O2 Delivery O2 Flow Rate FiO2 12/19/16 07:20 98.0 67 20 132/68 96 12/18/16 20:00 Room Air Intake and Output 12/18/16 12/18/16 12/19/16 15:00 23:00 07:00 Intake Total 250 ml 1790 ml 480 ml Output Total 2250 ml 1850 ml Balance 250 ml -460 ml -1370 ml Results Result Diagram: 12/19/16 0500 12/19/16 0433 Results 24 hrs Laboratory Tests Test 12/18/16 20:15 12/19/16 04:33 12/19/16 05:00 12/19/16 08:09 Bedside Glucose 122 216 Sodium Level 133 L Potassium Level 4.1 Chloride Level 99 Carbon Dioxide Level 30 Anion Gap 8 Blood Urea Nitrogen 22 H Creatinine 1.15 Glucose Level 168 Calcium Level 9.2 Vancomycin Level Trough 26.4 *H White Blood Count 7.8 # Red Blood Count 3.84 L Hemoglobin 13.1 L Hematocrit 36.6 L Mean Corpuscular Volume 95.3 Mean Corpuscular Hemoglobin 34.1 H Mean Corpuscular Hemoglobin Concent 35.8 Red Cell Distribution Width 14.0 Platelet Count 186 Mean Platelet Volume 11.0 H Neutrophils % 61.2 Lymphocytes % 21.9 Monocytes % 13.2 H Eosinophils % 2.9 Basophils % 0.4 Nucleated Red Blood Cells % 0.0 Neutrophils # 4.8 Lymphocytes # 1.7 Monocytes # 1.0 H Eosinophils # 0.2 Basophils # 0.0 Nucleated Red Blood Cells # 0.0 Test 12/19/16 11:57 12/19/16 16:49 Bedside Glucose 165 88 Medications Medications Current Medications Gabapentin (Neurontin) 300 mg BID PO Last administered on 12/19/16t 08:17; Admin Dose 300 MG; Start 12/15/16 at 09:00 Ondansetron HCl (Zofran Inj) 4 mg Q6H PRN IV NAUSEA AND/OR VOMITING; Start 07/22 at 22:30 Acetaminophen (Tylenol Tab) 650 mg Q4H PRN PO PAIN AND OR ELEVATED TEMP; Start 12/14/16 at 22:30 Diagnostic Test (Pha) (Accu-Chek) 1 ea 02 XX ; Start 12/15/16 at 02:00 Miscellaneous Information 1 ea NOTE XX ; Start 12/14/16 at 23:00 Glucose (Glutose) 15 gm Q15M PRN PO DECREASED GLUCOSE; Start 12/14/16 at 23:00 Glucose (Glutose) 22.5 gm Q15M PRN PO DECREASED GLUCOSE; Start 12/14/16 at 23: 00 Dextrose (D50w Syringe) 25 ml Q15M PRN IV DECREASED GLUCOSE; Start 12/14/16 at 23:00 Dextrose (D50w Syringe) 50 ml Q15M PRN IV DECREASED GLUCOSE; Start 12/14/16 at 23:00 Glucagon (Glucagen) 1 mg Q15M PRN IM DECREASED GLUCOSE; Start 12/14/16 at 23:00 Glucose (Glutose) 15 gm Q15M PRN BUCCAL DECREASED GLUCOSE; Start 12/14/16 at 23 :00 Heparin Sodium (Porcine) (Heparin (5000 Units/0.5 ml)) 5,000 unit BID SC Last administered on 12/19/16 08:38; Admin Dose 5,000 UNIT; Start 12/15/16 at 09:00 Morphine Sulfate (morphine) 2 mg Q4H PRN IV pain Last administered on 17:10; Admin Dose 2 MG; Start 12/15/16 at 10:30 Acetaminophen/ Hydrocodone Bitart ([place] (5/325)) 1 tab Q4H PRN PO PAIN LEVEL 4 -7 Last administered on 12/17/16 16:07; Admin Dose 1 TAB; Start 12/15/16 at 10: 00 Pantoprazole (Protonix Tab) 40 mg DAILY@06 PO Last administered on 12/19/16 06 :10; Admin Dose 40 MG; Start 12/16/16 at 06:00 Terbinafine HCl (Lamisil) 250 mg BID PO Last administered on 12/19/16 08:15; Admin Dose 250 MG; Start 12/15/16 at 21:00; Stop 12/22/16 at 20:59 Thiamine HCl (Vitamin B1) 100 mg DAILY PO Last administered on 12/19/16 08:15 ; Admin Dose 100 MG; Start 12/16/16 at 09:00 Allopurinol (Zyloprim) 300 mg DAILY PO Last administered on 12/19/16 08:17; Admin Dose 300 MG; Start 12/16/16 at 10:30 Ascorbic Acid (Vitamin C) 1,000 mg DAILY PO Last administered on 12/19/16 08: 16; Admin Dose 1,000 MG; Start 12/16/16 at 10:30 Aspirin (Halfprin) 81 mg DAILY PO Last administered on 12/19/16 08:16; Admin Dose 81 MG; Start 12/16/16 at 10:30 Cholecalciferol (Vitamin D) 1,000 unit DAILY PO Last administered on 12/19/16 08:16; Admin Dose 1,000 UNIT; Start 12/16/16 at 10:30 Levothyroxine Sodium (Synthroid) 25 mcg DAILY@06 PO Last administered on 06:10; Admin Dose 25 MCG; Start 12/16/16 at 10:30 Metolazone (Zaroxolyn) 5 mg DAILY PO Last administered on 12/19/16 08:16; Admin Dose 5 MG; Start 12/16/16 at 10:30 Metoprolol Tartrate (Lopressor) 50 mg BID PO Last administered on 12/19/16 08: 16; Admin Dose 50 MG; Start 12/16/16 at 10:30 Ranolazine (Ranexa) 500 mg Q12 PO Last administered on 12/19/16 08:15; Admin Dose 500 MG; Start 12/16/16 at 10:30 Vitamin E (Vitamin E) 1,000 unit DAILY PO Last administered on 12/19/16 08:15 ; Admin Dose 1,000 UNIT; Start 12/16/16 at 10:30 Fish Oil (Fish Oil) 1,000 mg DAILY PO Last administered on 12/19/16 08:17; Admin Dose 1,000 MG; Start 12/16/16 at 10:30 Vitamin B Complex/ Vitamin C (Berocca) 1 cap DAILY PO Last administered on 12/19 08:17; Admin Dose 1 CAP; Start 12/16/16 at 11:30 Collagenase (Santyl) 1 applic DAILY TOP Last administered on 12/19/16 08:18; Admin Dose 1 APPLIC; Start 12/16/16 at 12:00 Sodium Hypochlorite (Dakin'S (Dilute 1/40%)) 1 applic DAILY IRR Last administered on 12/19/16 08:17; Admin Dose 1 APPLIC; Start 12/16/16 at 12:00 Insulin Glargine (Lantus) 48 unit DAILY SC Last administered on 12/19/16 08:38 ; Admin Dose 48 UNIT; Start 12/17/16 at 09:00 Mupirocin 1 applic 1 applic BID TOP Last administered on 12/19/16 08:17; Admin Dose 1 APPLIC; Start 12/18/16 at 12:00 Vancomycin HCl/ Sodium Chloride (Vancocin/NS) 250 ml @ 83.333 mls/ hr Q24H IVPB Last administered on 12/19/16 16:48; Admin Dose 83.333 MLS/HR; Start at 17:00 Ciprofloxacin (Cipro) 500 mg BID@06,18 PO Last administered on 12/19/16 17:09 ; Admin Dose 500 MG; Start 12/19/16 at 18:00 SVETLANA MAY NP Dec 19, 2016 19:56
[2016-12-20] MEDS: ACCU-CHEK XX SCH (02:00)
[2016-12-20] MEDS: morphine 4 MG/ML VIAL IV PRN ×4 (04:40→19:07)
[2016-12-20 05:40] VITALS: BP 123/68; PULSE 62
[2016-12-20] MEDS: CIPROFLOXACIN 500 MG TAB PO SCH ×2 (05:43→17:49)
[2016-12-20] MEDS: PANTOPRAZOLE (EC) 40 MG TAB PO SCH (05:43)
[2016-12-20] MEDS: FUROSEMIDE 20 MG TAB PO SCH (05:44)
[2016-12-20] MEDS: LEVOTHYROXINE 25 MCG TAB PO SCH (05:45)
[2016-12-20 06:04] LABS: ADD SCAN DIFF NO
[2016-12-20 06:16] LABS: BASOPHILS % 0.5 % (0.0-2.0); EOSINOPHILS # 0.2 10^3/ul (0.0-0.5); EOSINOPHILS % 4.2 % (0.0-7.0); HEMATOCRIT 37.4 % (42.0-52.0); HEMOGLOBIN 12.9 g/dl (14.0-18.0); LYMPHOCYTES # 1.9 10^3/ul (0.8-2.9); LYMPHOCYTES % 32.2 % (15.0-51.0); MEAN CORPUSCULAR HEMOGLOBIN 33.1 pg (29.0-33.0); MEAN CORPUSCULAR HGB CONC 34.5 g/dl (32.0-37.0); MEAN CORPUSCULAR VOLUME 95.9 fl (82.0-101.0); MEAN PLATELET VOLUME 11.5 fl (7.4-10.4); MONOCYTE # 0.8 10^3/ul (0.3-0.9); MONOCYTES % 14.3 % (0.0-11.0); NEUTROPHIL # 2.8 10^3/ul (1.6-7.5); NEUTROPHILS % 48.6 % (39.0-77.0); PLATELET COUNT 164 10^3/UL (140-415); WHITE BLOOD COUNT 5.8 10^3/ul (4.8-10.8)
[2016-12-20 06:19] LABS: POTASSIUM 3.6 mmol/L (3.5-5.1)
[2016-12-20 06:21] LABS: CREATININE 1.25 mg/dl (0.61-1.24)
[2016-12-20 06:22] LABS: CALCIUM 9.6 mg/dl (8.4-10.2)
[2016-12-20 07:13] VITALS: BP 118/61; RESP 20
[2016-12-20] MEDS: INSULIN ASPART [NOVOLOG] 3 ML PEN SC SCH ×7 (08:17→21:00)
[2016-12-20] MEDS: HEPARIN 5,000 UNIT/0.5 ML VIAL SC SCH ×2 (08:17→21:32)
[2016-12-20] MEDS: INSULIN GLARGINE [LANtus] 3 ML PEN SC SCH (08:18)
[2016-12-20] MEDS: RANOLAZINE (SR) 500 MG TAB PO SCH ×2 (08:23→21:15)
[2016-12-20] MEDS: TERBINAFINE 250 MG TAB PO SCH ×2 (08:24→21:18)
[2016-12-20] MEDS: VITAMIN E 1,000 UNIT CAP PO SCH (08:24)
[2016-12-20] MEDS: METOLAZONE 5 MG TAB PO SCH (08:24)
[2016-12-20] MEDS: ALLOPURINOL 300 MG TAB PO SCH (08:26)
[2016-12-20] MEDS: ASPIRIN (EC) 81 MG TAB PO SCH (08:26)
[2016-12-20] MEDS: GABAPENTIN 300 MG CAP PO SCH (08:26)
[2016-12-20] MEDS: METOPROLOL 50 MG TAB PO SCH ×2 (08:26→21:18)
[2016-12-20] MEDS: ASCORBIC ACID 500 MG TAB PO SCH (08:27)
[2016-12-20] MEDS: metFORMIN 500 MG TAB PO SCH ×2 (08:27→17:49)
[2016-12-20] MEDS: CHOLECALCIFEROL 1,000 UNIT TAB PO SCH (08:27)
[2016-12-20] MEDS: VITAMIN B COMPLEX/VIT C CAP PO SCH (08:27)
[2016-12-20] MEDS: THIAMINE 100 MG TAB PO SCH (08:28)
[2016-12-20] MEDS: SODIUM HYPOCHLORITE 1/40% 1L IRRIG IRR SCH (08:28)
[2016-12-20] MEDS: FISH OIL 1,000 MG CAP PO SCH (08:28)
[2016-12-20] MEDS: COLLAGENASE 30 GM TUBE TOP SCH (08:29)
[2016-12-20] MEDS: MUPIROCIN 2% 22 GM OINT TOP SCH ×2 (08:29→21:19)
--- NOTE | 2016-12-20 14:13 | PN ---
Date/Time of Note Date/Time of Note DATE: 12/20/16 TIME: 13:54 Assessment/Plan VTE Prophylaxis VTE Prophylaxis Intervention: heparin Lines/Catheters IV Catheter Type (from Nrs): [facility] Urinary Cath still in place: No Assessment/Plan Assessment/Plan 61-year-old male with past medical history of CAD, hypertension, type 2 diabetes poorly controlled, gout, previous left foot transmetatarsal amputation with subsequent infection and ulcer, cirrhosis, status post TIPS procedure, who sent in by consultant dietitian for increasing erythema to the left foot, cellulitis and diabetic foot ulcers. 1. Left foot MRSA / Klebsiella cellulitis and diabetic foot ulcer : MRI negative for osteo 2. Type 2 diabetes, again, poorly controlled as outpt, A1c = 10.3 but markedly improved now - 3. Hypertension: good control 4. Coronary artery disease Stable 5. Chronic Alcoholic cirrhosis, status post TIPS procedure in the past 6. Lactic acidosis, unclear source - but resolved 7. S/p TMA 8. Peripheral Neuropathy PLAN: * Patient has done well on broad spectrum abx therapy * Change Neurontin to Lyrica for better pain control * Podiatry to review for possible discharge * Temporarily hold diuretics for worsening renal function * Continue current mgt * Gastrointestinal prophylaxis - PPI. * Deep venous thrombosis prophylaxis. Continue heparin subQ. Subjective 24 Hr Interval Summary Free Text/Dictation still having shooting lancing pain in L foot we discussed MRI findings C/o abd fullness Exam/Review of Systems Vital Signs Vitals Vital Signs Date Time Temp Pulse Resp B/P Pulse Ox O2 Delivery O2 Flow Rate FiO2 12/20/16 07:13 97.8 60 20 118/61 98 12/18/16 20:00 Room Air Intake and Output 12/19/16 12/19/16 12/20/16 15:00 23:00 07:00 Intake Total 1810 ml 480 ml Output Total 2000 ml 1975 ml Balance -190 ml -1495 ml Exam Constitutional: alert, obese, oriented Psych: nl mood/affect Head: atraumatic, normocephalic Eyes: PERRL ENMT: mucosa pink and moist Neck: supple Respiratory: clear to auscultation, normal air movement Cardiovascular: regular rate and rhythm Gastrointestinal: bowel sounds, non-tender, soft Musculoskeletal: No nl extremities to inspection Neurological: nl mental status, nl speech Results Result Diagram: 12/20/16 0508 12/20/16 0508 Results 24 hrs Laboratory Tests Test 12/19/16 16:49 12/19/16 21:03 12/20/16 05:08 12/20/16 07:46 Bedside Glucose 88 79 151 White Blood Count 5.8 # Red Blood Count 3.90 L Hemoglobin 12.9 L Hematocrit 37.4 L Mean Corpuscular Volume 95.9 Mean Corpuscular Hemoglobin 33.1 H Mean Corpuscular Hemoglobin Concent 34.5 Red Cell Distribution Width 14.0 Platelet Count 164 Mean Platelet Volume 11.5 H Neutrophils % 48.6 Lymphocytes % 32.2 Monocytes % 14.3 H Eosinophils % 4.2 Basophils % 0.5 Nucleated Red Blood Cells % 0.0 Neutrophils # 2.8 Lymphocytes # 1.9 Monocytes # 0.8 Eosinophils # 0.2 Basophils # 0.0 Nucleated Red Blood Cells # 0.0 Sodium Level 134 L Potassium Level 3.6 Chloride Level 95 L Carbon Dioxide Level 29 Anion Gap 14 Blood Urea Nitrogen 24 H Creatinine 1.25 H Glucose Level 136 Calcium Level 9.6 Test 12/20/16 12:08 Bedside Glucose 178 Medications Medications Current Medications Gabapentin (Neurontin) 300 mg BID PO Last administered on 12/20/16t 08:26; Admin Dose 300 MG; Start 12/15/16 at 09:00 Ondansetron HCl (Zofran Inj) 4 mg Q6H PRN IV NAUSEA AND/OR VOMITING; Start 07/22 at 22:30 Acetaminophen (Tylenol Tab) 650 mg Q4H PRN PO PAIN AND OR ELEVATED TEMP; Start 12/14/16 at 22:30 Diagnostic Test (Pha) (Accu-Chek) 1 ea 02 XX ; Start 12/15/16 at 02:00 Miscellaneous Information 1 ea NOTE XX ; Start 12/14/16 at 23:00 Glucose (Glutose) 15 gm Q15M PRN PO DECREASED GLUCOSE; Start 12/14/16 at 23:00 Glucose (Glutose) 22.5 gm Q15M PRN PO DECREASED GLUCOSE; Start 12/14/16 at 23: 00 Dextrose (D50w Syringe) 25 ml Q15M PRN IV DECREASED GLUCOSE; Start 12/14/16 at 23:00 Dextrose (D50w Syringe) 50 ml Q15M PRN IV DECREASED GLUCOSE; Start 12/14/16 at 23:00 Glucagon (Glucagen) 1 mg Q15M PRN IM DECREASED GLUCOSE; Start 12/14/16 at 23:00 Glucose (Glutose) 15 gm Q15M PRN BUCCAL DECREASED GLUCOSE; Start 12/14/16 at 23 :00 Heparin Sodium (Porcine) (Heparin (5000 Units/0.5 ml)) 5,000 unit BID SC Last administered on 12/20/16 08:17; Admin Dose 5,000 UNIT; Start 12/15/16 at 09:00 Morphine Sulfate (morphine) 2 mg Q4H PRN IV pain Last administered on 08:40; Admin Dose 2 MG; Start 12/15/16 at 10:30 Acetaminophen/ Hydrocodone Bitart ([place] (5/325)) 1 tab Q4H PRN PO PAIN LEVEL 4 -7 Last administered on 12/17/16 16:07; Admin Dose 1 TAB; Start 12/15/16 at 10: 00 Pantoprazole (Protonix Tab) 40 mg DAILY@06 PO Last administered on 12/20/16 05 :43; Admin Dose 40 MG; Start 12/16/16 at 06:00 Terbinafine HCl (Lamisil) 250 mg BID PO Last administered on 12/20/16 08:24; Admin Dose 250 MG; Start 12/15/16 at 21:00; Stop 12/22/16 at 20:59 Thiamine HCl (Vitamin B1) 100 mg DAILY PO Last administered on 12/20/16 08:28 ; Admin Dose 100 MG; Start 12/16/16 at 09:00 Allopurinol (Zyloprim) 300 mg DAILY PO Last administered on 12/20/16 08:26; Admin Dose 300 MG; Start 12/16/16 at 10:30 Ascorbic Acid (Vitamin C) 1,000 mg DAILY PO Last administered on 12/20/16 08: 27; Admin Dose 1,000 MG; Start 12/16/16 at 10:30 Aspirin (Halfprin) 81 mg DAILY PO Last administered on 12/20/16 08:26; Admin Dose 81 MG; Start 12/16/16 at 10:30 Cholecalciferol (Vitamin D) 1,000 unit DAILY PO Last administered on 12/20/16 08:27; Admin Dose 1,000 UNIT; Start 12/16/16 at 10:30 Levothyroxine Sodium (Synthroid) 25 mcg DAILY@06 PO Last administered on 05:45; Admin Dose 25 MCG; Start 12/16/16 at 10:30 Metolazone (Zaroxolyn) 5 mg DAILY PO Last administered on 12/20/16 08:24; Admin Dose 5 MG; Start 12/16/16 at 10:30 Metoprolol Tartrate (Lopressor) 50 mg BID PO Last administered on 12/20/16 08: 26; Admin Dose 50 MG; Start 12/16/16 at 10:30 Ranolazine (Ranexa) 500 mg Q12 PO Last administered on 12/20/16 08:23; Admin Dose 500 MG; Start 12/16/16 at 10:30 Vitamin E (Vitamin E) 1,000 unit DAILY PO Last administered on 12/20/16 08:24 ; Admin Dose 1,000 UNIT; Start 12/16/16 at 10:30 Fish Oil (Fish Oil) 1,000 mg DAILY PO Last administered on 12/20/16 08:28; Admin Dose 1,000 MG; Start 12/16/16 at 10:30 Vitamin B Complex/ Vitamin C (Berocca) 1 cap DAILY PO Last administered on 12/20 08:27; Admin Dose 1 CAP; Start 12/16/16 at 11:30 Collagenase (Santyl) 1 applic DAILY TOP Last administered on 12/20/16 08:29; Admin Dose 1 APPLIC; Start 12/16/16 at 12:00 Sodium Hypochlorite (Dakin'S (Dilute 1/40%)) 1 applic DAILY IRR Last administered on 12/20/16 08:28; Admin Dose 1 APPLIC; Start 12/16/16 at 12:00 Insulin Glargine (Lantus) 48 unit DAILY SC Last administered on 12/20/16 08:18 ; Admin Dose 48 UNIT; Start 12/17/16 at 09:00 Mupirocin 1 applic 1 applic BID TOP Last administered on 12/20/16 08:29; Admin Dose 1 APPLIC; Start 12/18/16 at 12:00 Vancomycin HCl/ Sodium Chloride (Vancocin/NS) 250 ml @ 83.333 mls/ hr Q24H IVPB Last administered on 12/19/16 16:48; Admin Dose 83.333 MLS/HR; Start at 17:00 Ciprofloxacin (Cipro) 500 mg BID@06,18 PO Last administered on 12/20/16 05:43 ; Admin Dose 500 MG; Start 12/19/16 at 18:00 Procedures Procedures PROCEDURE: MRI OF THE LEFT FOOT. CLINICAL INDICATION: Concern for osteomyelitis. History of multiple surgeries and amputations since 2009. Diabetes. TECHNIQUE: Multiple MRI images of the left foot were obtained in multiple planes utilizing multiple pulse sequences. Images were interpreted on the high- resolution PACS system. COMPARISON: Plain film dated 12/14/2016. FINDINGS: There has been an amputation no of the metatarsals at the metatarsal bases. No there is moderate degenerative change of Lisfranc's articulation but no bone destructive change to suggest osteomyelitis in this location. No midfoot osteomyelitis is identified. No evidence for osteomyelitis of the ankle. There is soft tissue swelling adjacent to probable ulceration of the plantar medial midfoot seen on sagittal image number 31. No underlying abscess and no discrete mass to suggest phlegmon is seen. There is moderate ankle joint degenerative change present. There is soft tissue swelling of the stump. No abscess or gangrene is seen. There is metallic artifact from the fixation screws of the tibia identified. IMPRESSION: 1. No evidence for osteomyelitis, abscess, phlegmon, or gangrene. 2. Soft tissue swelling along the plantar aspect of the medial midfoot adjacent to a probable ulceration. 3. Mid foot and ankle degenerative change. RPTAT: XX .Darien Moss MD, MD Date Time Electronically viewed and signed by .Darien Moss MD, on 12/16/2016 11: 55 .T/ CC: AHSAN ALVARENGA BOLATITO M. Dec 20, 2016 14:05
--- NOTE | 2016-12-20 14:17 | CONS ---
Date/Time of Note Date/Time of Note DATE: 12/20/16 TIME: 14:16 Assessment/Plan Assessment/Plan Chief Complaint/Hosp Course SUBJECTIVE: No acute changes, alert, looks comfortable. No fevers. MICROBIOLOGY: Wound culture on 12/14/2016 grew strep, MRSA, Klebsiella oxytoca , repeat cx + MRSA. ANTIMICROBIALS: The patient is on: 1. IV vancomycin. 2. Cipro. PHYSICAL EXAMINATION: GENERAL: This is a morbidly obese elderly man, who is alert, in no distress. HEENT: Head atraumatic, normocephalic. Sclerae anicteric. Buccal mucosa pink. NECK: Supple. CHEST: Chest rise is symmetrical. Breath sounds clear. HEART: S1, S2. ABDOMEN: Soft, bowel tones present. EXTREMITIES: With left foot dressing intact. ASSESSMENT: 1. Left foot acute on chronic cellulitis. No evidence of osteomyelitis, per MRI. 2. Diabetes, with diabetic neuropathy. 3. Coronary artery disease. 4. Hypertension. 5. Cirrhosis, status post TIPS procedure. 6. RUE cellulitis 2 to IV infiltration PLAN: The patient remains stable, kidney f-n worsening, will change Vancomycin to Daptomycin, continue Cipro, elevate RUE, warm, moist compresses DW staff/pt Problems: Consultation Date/Type/Reason Admit Date/Time Dec 14, 2016 at 20:42 Type of Consultation: ID Referring Provider: AHSAN ALVARENGA Exam/Review of Systems Vital Signs Vitals Vital Signs Date Time Temp Pulse Resp B/P Pulse Ox O2 Delivery O2 Flow Rate FiO2 12/20/16 07:13 97.8 60 20 118/61 98 12/18/16 20:00 Room Air Intake and Output 12/19/16 12/19/16 12/20/16 15:00 23:00 07:00 Intake Total 1810 ml 480 ml Output Total 2000 ml 1975 ml Balance -190 ml -1495 ml Results Result Diagram: 12/20/16 0508 12/20/16 0508 Results 24 hrs Laboratory Tests Test 12/19/16 16:49 12/19/16 21:03 12/20/16 05:08 12/20/16 07:46 Bedside Glucose 88 79 151 White Blood Count 5.8 # Red Blood Count 3.90 L Hemoglobin 12.9 L Hematocrit 37.4 L Mean Corpuscular Volume 95.9 Mean Corpuscular Hemoglobin 33.1 H Mean Corpuscular Hemoglobin Concent 34.5 Red Cell Distribution Width 14.0 Platelet Count 164 Mean Platelet Volume 11.5 H Neutrophils % 48.6 Lymphocytes % 32.2 Monocytes % 14.3 H Eosinophils % 4.2 Basophils % 0.5 Nucleated Red Blood Cells % 0.0 Neutrophils # 2.8 Lymphocytes # 1.9 Monocytes # 0.8 Eosinophils # 0.2 Basophils # 0.0 Nucleated Red Blood Cells # 0.0 Sodium Level 134 L Potassium Level 3.6 Chloride Level 95 L Carbon Dioxide Level 29 Anion Gap 14 Blood Urea Nitrogen 24 H Creatinine 1.25 H Glucose Level 136 Calcium Level 9.6 Test 12/20/16 12:08 Bedside Glucose 178 Medications Medications Current Medications Ondansetron HCl (Zofran Inj) 4 mg Q6H PRN IV NAUSEA AND/OR VOMITING; Start 07/22 at 22:30 Acetaminophen (Tylenol Tab) 650 mg Q4H PRN PO PAIN AND OR ELEVATED TEMP; Start 12/14/16 at 22:30 Diagnostic Test (Pha) (Accu-Chek) 1 ea 02 XX ; Start 12/15/16 at 02:00 Miscellaneous Information 1 ea NOTE XX ; Start 12/14/16 at 23:00 Glucose (Glutose) 15 gm Q15M PRN PO DECREASED GLUCOSE; Start 12/14/16 at 23:00 Glucose (Glutose) 22.5 gm Q15M PRN PO DECREASED GLUCOSE; Start 12/14/16 at 23: 00 Dextrose (D50w Syringe) 25 ml Q15M PRN IV DECREASED GLUCOSE; Start 12/14/16 at 23:00 Dextrose (D50w Syringe) 50 ml Q15M PRN IV DECREASED GLUCOSE; Start 12/14/16 at 23:00 Glucagon (Glucagen) 1 mg Q15M PRN IM DECREASED GLUCOSE; Start 12/14/16 at 23:00 Glucose (Glutose) 15 gm Q15M PRN BUCCAL DECREASED GLUCOSE; Start 12/14/16 at 23 :00 Heparin Sodium (Porcine) (Heparin (5000 Units/0.5 ml)) 5,000 unit BID SC Last administered on 12/20/16 08:17; Admin Dose 5,000 UNIT; Start 12/15/16 at 09:00 Morphine Sulfate (morphine) 2 mg Q4H PRN IV pain Last administered on 08:40; Admin Dose 2 MG; Start 12/15/16 at 10:30 Acetaminophen/ Hydrocodone Bitart ([place] (5/325)) 1 tab Q4H PRN PO PAIN LEVEL 4 -7 Last administered on 12/17/16 16:07; Admin Dose 1 TAB; Start 12/15/16 at 10: 00 Pantoprazole (Protonix Tab) 40 mg DAILY@06 PO Last administered on 12/20/16 05 :43; Admin Dose 40 MG; Start 12/16/16 at 06:00 Terbinafine HCl (Lamisil) 250 mg BID PO Last administered on 12/20/16 08:24; Admin Dose 250 MG; Start 12/15/16 at 21:00; Stop 12/22/16 at 20:59 Thiamine HCl (Vitamin B1) 100 mg DAILY PO Last administered on 12/20/16 08:28 ; Admin Dose 100 MG; Start 12/16/16 at 09:00 Allopurinol (Zyloprim) 300 mg DAILY PO Last administered on 12/20/16 08:26; Admin Dose 300 MG; Start 12/16/16 at 10:30 Ascorbic Acid (Vitamin C) 1,000 mg DAILY PO Last administered on 12/20/16 08: 27; Admin Dose 1,000 MG; Start 12/16/16 at 10:30 Aspirin (Halfprin) 81 mg DAILY PO Last administered on 12/20/16 08:26; Admin Dose 81 MG; Start 12/16/16 at 10:30 Cholecalciferol (Vitamin D) 1,000 unit DAILY PO Last administered on 12/20/16 08:27; Admin Dose 1,000 UNIT; Start 12/16/16 at 10:30 Levothyroxine Sodium (Synthroid) 25 mcg DAILY@06 PO Last administered on 05:45; Admin Dose 25 MCG; Start 12/16/16 at 10:30 Metolazone (Zaroxolyn) 5 mg DAILY PO Last administered on 12/20/16 08:24; Admin Dose 5 MG; Start 12/16/16 at 10:30; Status Future Hold Metoprolol Tartrate (Lopressor) 50 mg BID PO Last administered on 12/20/16 08: 26; Admin Dose 50 MG; Start 12/16/16 at 10:30 Ranolazine (Ranexa) 500 mg Q12 PO Last administered on 12/20/16 08:23; Admin Dose 500 MG; Start 12/16/16 at 10:30 Vitamin E (Vitamin E) 1,000 unit DAILY PO Last administered on 12/20/16 08:24 ; Admin Dose 1,000 UNIT; Start 12/16/16 at 10:30 Fish Oil (Fish Oil) 1,000 mg DAILY PO Last administered on 12/20/16 08:28; Admin Dose 1,000 MG; Start 12/16/16 at 10:30 Vitamin B Complex/ Vitamin C (Berocca) 1 cap DAILY PO Last administered on 12/20 08:27; Admin Dose 1 CAP; Start 12/16/16 at 11:30 Collagenase (Santyl) 1 applic DAILY TOP Last administered on 12/20/16 08:29; Admin Dose 1 APPLIC; Start 12/16/16 at 12:00 Sodium Hypochlorite (Dakin'S (Dilute 1/40%)) 1 applic DAILY IRR Last administered on 12/20/16 08:28; Admin Dose 1 APPLIC; Start 12/16/16 at 12:00 Insulin Glargine (Lantus) 48 unit DAILY SC Last administered on 12/20/16 08:18 ; Admin Dose 48 UNIT; Start 12/17/16 at 09:00 Mupirocin 1 applic 1 applic BID TOP Last administered on 12/20/16 08:29; Admin Dose 1 APPLIC; Start 12/18/16 at 12:00 Vancomycin HCl/ Sodium Chloride (Vancocin/NS) 250 ml @ 83.333 mls/ hr Q24H IVPB Last administered on 12/19/16 16:48; Admin Dose 83.333 MLS/HR; Start at 17:00 Ciprofloxacin (Cipro) 500 mg BID@06,18 PO Last administered on 12/20/16 05:43 ; Admin Dose 500 MG; Start 12/19/16 at 18:00 Pregabalin (Lyrica) 75 mg BID PO ; Start 12/20/16 at 14:00; Status SVETLANA ISAACS NP Dec 20, 2016 14:17
[2016-12-20] MEDS: PREGABALIN 75 MG CAP PO SCH ×2 (15:54→21:18)
[2016-12-20] MEDS: DAPTOMYCIN 800 MG in SOD CHLORIDE 0.9% 100 ML IVPB SCH (15:55)
--- NOTE | 2016-12-20 17:41 | RADRPT ---
PROCEDURE: US right upper extremity veins. CLINICAL INDICATION: Right arm pain and swelling. TECHNIQUE: Multiple longitudinal and transverse images of the right upper extremity venous tree wa s obtained with noonan scale, pulsed Doppler, and color Doppler imaging. COMPARISON: None available FINDINGS: The right internal jugular, subclavian, axillary, brachial, basilic, cephalic, radial, and ulnar vei ns are patent. There is normal flow with augmentation and compressibility throughout. There is no t hrombus or occlusion. IMPRESSION: 1. Normal venous system of the right upper extremity. No evidence of thrombus or occlusion. RPTAT: QQ .Nehemias Olivo MD, MD Date Time Electronically viewed and signed by .Nehemias Olivo MD, MD on 12/20/2016 17:41 .R/
--- NOTE | 2016-12-20 17:42 | RADRPT ---
PROCEDURE: US Abdomen (limited). CLINICAL INDICATION: Abdominal pain and distension. TECHNIQUE: Multiple real-time longitudinal and transverse images of the four quadrants of the abdo men were acquired utilizing a curved array transducer. Images were reviewed on a high-resolution PAC S workstation. COMPARISON: None FINDINGS: There is no free fluid in the abdomen. IMPRESSION: 1. No free fluid in the abdomen. RPTAT: QQ .Nehemias Olivo MD, MD Date Time Electronically viewed and signed by .Nehemias Olivo MD, MD on 12/20/2016 17:42 .R/
--- NOTE | 2016-12-20 18:32 | CONS ---
Date/Time of Note Date/Time of Note DATE: 12/20/16 TIME: 18:22 Assessment/Plan Assessment/Plan Problems: (1) Non-pressure chronic ulcer of other part of left foot with necrosis of bone Comment: This is being managed by Dr. Major of the [facility]. 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 Input from [facility] and from infectious diseases about duration type and long-term goals with antibiotics Qualifiers: Site of cellulitis: extremity Site of cellulitis of extremity: lower extremity Laterality: left Qualified Code: L03.116 - Cellulitis of left lower extremity Consultation Date/Type/Reason Admit Date/Time Dec 14, 2016 at 20:42 Initial Consult Date Type of Consultation: Endocrinology Reason for Consultation Diabetes mellitus type 2 out of control Referring Provider: AHSAN ALVARENGA 24 HR Interval Summary Free Text/Dictation Patient complains of pain at the left foot otherwise doing well Exam/Review of Systems Vital Signs Vitals Vital Signs Date Time Temp Pulse Resp B/P Pulse Ox O2 Delivery O2 Flow Rate FiO2 12/20/16 07:13 97.8 60 20 118/61 98 12/18/16 20:00 Room Air Intake and Output 12/19/16 12/19/16 12/20/16 15:00 23:00 07:00 Intake Total 1810 ml 480 ml Output Total 2000 ml 1975 ml Balance -190 ml -1495 ml Exam Constitutional: alert, oriented Neck: non-tender, supple Respiratory: clear to auscultation, normal air movement Cardiovascular: nl pulses, regular rate and rhythm Neurological: NURSE RESEARCH II-XII intact, nl mental status, nl speech, nl strength Results Result Diagram: 12/20/16 0508 12/20/16 0508 Results 24 hrs Laboratory Tests Test 12/19/16 21:03 12/20/16 05:08 12/20/16 07:46 12/20/16 12:08 Bedside Glucose 79 151 178 White Blood Count 5.8 # Red Blood Count 3.90 L Hemoglobin 12.9 L Hematocrit 37.4 L Mean Corpuscular Volume 95.9 Mean Corpuscular Hemoglobin 33.1 H Mean Corpuscular Hemoglobin Concent 34.5 Red Cell Distribution Width 14.0 Platelet Count 164 Mean Platelet Volume 11.5 H Neutrophils % 48.6 Lymphocytes % 32.2 Monocytes % 14.3 H Eosinophils % 4.2 Basophils % 0.5 Nucleated Red Blood Cells % 0.0 Neutrophils # 2.8 Lymphocytes # 1.9 Monocytes # 0.8 Eosinophils # 0.2 Basophils # 0.0 Nucleated Red Blood Cells # 0.0 Sodium Level 134 L Potassium Level 3.6 Chloride Level 95 L Carbon Dioxide Level 29 Anion Gap 14 Blood Urea Nitrogen 24 H Creatinine 1.25 H Glucose Level 136 Calcium Level 9.6 Test 12/20/16 17:05 12/20/16 17:51 Bedside Glucose 107 104 Medications Medications Current Medications Ondansetron HCl (Zofran Inj) 4 mg Q6H PRN IV NAUSEA AND/OR VOMITING; Start 07/22 at 22:30 Acetaminophen (Tylenol Tab) 650 mg Q4H PRN PO PAIN AND OR ELEVATED TEMP; Start 12/14/16 at 22:30 Diagnostic Test (Pha) (Accu-Chek) 1 ea 02 XX ; Start 12/15/16 at 02:00 Miscellaneous Information 1 ea NOTE XX ; Start 12/14/16 at 23:00 Glucose (Glutose) 15 gm Q15M PRN PO DECREASED GLUCOSE; Start 12/14/16 at 23:00 Glucose (Glutose) 22.5 gm Q15M PRN PO DECREASED GLUCOSE; Start 12/14/16 at 23: 00 Dextrose (D50w Syringe) 25 ml Q15M PRN IV DECREASED GLUCOSE; Start 12/14/16 at 23:00 Dextrose (D50w Syringe) 50 ml Q15M PRN IV DECREASED GLUCOSE; Start 12/14/16 at 23:00 Glucagon (Glucagen) 1 mg Q15M PRN IM DECREASED GLUCOSE; Start 12/14/16 at 23:00 Glucose (Glutose) 15 gm Q15M PRN BUCCAL DECREASED GLUCOSE; Start 12/14/16 at 23 :00 Heparin Sodium (Porcine) (Heparin (5000 Units/0.5 ml)) 5,000 unit BID SC Last administered on 4/17/17at 08:17; Admin Dose 5,000 UNIT; Start 12/15/16 at 09:00 Morphine Sulfate (morphine) 2 mg Q4H PRN IV pain Last administered on 14:44; Admin Dose 2 MG; Start 12/15/16 at 10:30 Acetaminophen/ Hydrocodone Bitart ([place] (5/325)) 1 tab Q4H PRN PO PAIN LEVEL 4 -7 Last administered on 12/17/16 16:07; Admin Dose 1 TAB; Start 12/15/16 at 10: 00 Pantoprazole (Protonix Tab) 40 mg DAILY@06 PO Last administered on 12/20/16 05 :43; Admin Dose 40 MG; Start 12/16/16 at 06:00 Terbinafine HCl (Lamisil) 250 mg BID PO Last administered on 12/20/16 08:24; Admin Dose 250 MG; Start 12/15/16 at 21:00; Stop 12/22/16 at 20:59 Thiamine HCl (Vitamin B1) 100 mg DAILY PO Last administered on 12/20/16 08:28 ; Admin Dose 100 MG; Start 12/16/16 at 09:00 Allopurinol (Zyloprim) 300 mg DAILY PO Last administered on 12/20/16 08:26; Admin Dose 300 MG; Start 12/16/16 at 10:30 Ascorbic Acid (Vitamin C) 1,000 mg DAILY PO Last administered on 12/20/16 08: 27; Admin Dose 1,000 MG; Start 12/16/16 at 10:30 Aspirin (Halfprin) 81 mg DAILY PO Last administered on 12/20/16 08:26; Admin Dose 81 MG; Start 12/16/16 at 10:30 Cholecalciferol (Vitamin D) 1,000 unit DAILY PO Last administered on 12/20/16 08:27; Admin Dose 1,000 UNIT; Start 12/16/16 at 10:30 Levothyroxine Sodium (Synthroid) 25 mcg DAILY@06 PO Last administered on 05:45; Admin Dose 25 MCG; Start 12/16/16 at 10:30 Metolazone (Zaroxolyn) 5 mg DAILY PO Last administered on 12/20/16 08:24; Admin Dose 5 MG; Start 12/16/16 at 10:30; Status Future Hold Metoprolol Tartrate (Lopressor) 50 mg BID PO Last administered on 12/20/16 08: 26; Admin Dose 50 MG; Start 12/16/16 at 10:30 Ranolazine (Ranexa) 500 mg Q12 PO Last administered on 12/20/16 08:23; Admin Dose 500 MG; Start 12/16/16 at 10:30 Vitamin E (Vitamin E) 1,000 unit DAILY PO Last administered on 12/20/16 08:24 ; Admin Dose 1,000 UNIT; Start 12/16/16 at 10:30 Fish Oil (Fish Oil) 1,000 mg DAILY PO Last administered on 12/20/16 08:28; Admin Dose 1,000 MG; Start 12/16/16 at 10:30 Vitamin B Complex/ Vitamin C (Berocca) 1 cap DAILY PO Last administered on 12/20 08:27; Admin Dose 1 CAP; Start 12/16/16 at 11:30 Collagenase (Santyl) 1 applic DAILY TOP Last administered on 12/20/16 08:29; Admin Dose 1 APPLIC; Start 12/16/16 at 12:00 Sodium Hypochlorite (Dakin'S (Dilute 1/40%)) 1 applic DAILY IRR Last administered on 12/20/16 08:28; Admin Dose 1 APPLIC; Start 12/16/16 at 12:00 Insulin Glargine (Lantus) 48 unit DAILY SC Last administered on 12/20/16 08:18 ; Admin Dose 48 UNIT; Start 12/17/16 at 09:00 Mupirocin (Bactroban) 1 applic BID TOP Last administered on 12/20/16 08:29; Admin Dose 1 APPLIC; Start 12/18/16 at 12:00 Ciprofloxacin (Cipro) 500 mg BID@06,18 PO Last administered on 12/20/16 17:49 ; Admin Dose 500 MG; Start 12/19/16 at 18:00 Pregabalin 75 mg 75 mg BID PO Last administered on 12/20/16 15:54; Admin Dose 75 MG; Start 12/20/16 at 14:00 Daptomycin/Sodium Chloride (Cubicin/NS) 100 ml @ 200 mls/hr Q24H IVPB Last administered on 12/20/16 15:55; Admin Dose 200 MLS/HR; Start 12/20/16 at 16:00 CARY DURAN MD Dec 20, 2016 18:31
[2016-12-20 19:12] VITALS: BP 134/61; RESP 18
[2016-12-20] MEDS: HYDROCODONE/APAP (5/325) TAB PO PRN (21:15)
[2016-12-20] MEDS: morphine 2 MG INJ IV PRN (23:40)
--- NOTE | 2016-12-20 23:50 | PN ---
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 Continue daily dressing changes. Continue nonweightbearing on the left foot. No surgery recommended at this time. Patient's main issue is weight bearing as long as he is nonweightbearing he has a good chance of healing his wounds. His compliance is extremely low in this regard and patient will require constant monitoring. Patient will be followed in-house. Exam/Review of Systems Vital Signs Vitals Vital Signs Date Time Temp Pulse Resp B/P Pulse Ox O2 Delivery O2 Flow Rate FiO2 12/20/16 19:12 97.7 63 18 134/61 96 12/18/16 20:00 Room Air Intake and Output 12/20/16 12/20/16 12/21/16 15:00 23:00 07:00 Intake Total 1540 ml Output Total 1900 ml Balance -360 ml Results Result Diagram: 12/20/16 0508 12/20/16 0508 ANGEL STARK DPM Dec 20, 2016 23:50
[2016-12-21] MEDS: ACCU-CHEK XX SCH (01:46)
[2016-12-21] MEDS: HYDROCODONE/APAP (5/325) TAB PO PRN ×4 (01:47→17:34)
[2016-12-21] MEDS: morphine 2 MG INJ IV PRN (04:16)
[2016-12-21 05:36] LABS: ADD SCAN DIFF NO; POTASSIUM 4.1 mmol/L (3.5-5.1)
[2016-12-21 05:39] LABS: CREATININE 1.31 mg/dl (0.61-1.24)
[2016-12-21 05:40] LABS: CALCIUM 9.9 mg/dl (8.4-10.2); MAGNESIUM 1.8 mg/dl (1.7-2.5)
[2016-12-21 06:18] LABS: BASOPHILS % 0.5 % (0.0-2.0); EOSINOPHILS # 0.2 10^3/ul (0.0-0.5); EOSINOPHILS % 3.8 % (0.0-7.0); HEMATOCRIT 38.9 % (42.0-52.0); HEMOGLOBIN 13.4 g/dl (14.0-18.0); LYMPHOCYTES # 2.1 10^3/ul (0.8-2.9); LYMPHOCYTES % 32.4 % (15.0-51.0); MEAN CORPUSCULAR HEMOGLOBIN 33.1 pg (29.0-33.0); MEAN CORPUSCULAR HGB CONC 34.4 g/dl (32.0-37.0); MEAN PLATELET VOLUME 11.3 fl (7.4-10.4); MONOCYTES % 16.5 % (0.0-11.0); NEUTROPHILS % 46.6 % (39.0-77.0); PLATELET COUNT 169 10^3/UL (140-415); RED BLOOD COUNT 4.05 10^6/ul (4.70-6.10); WHITE BLOOD COUNT 6.3 10^3/ul (4.8-10.8)
[2016-12-21] MEDS: LEVOTHYROXINE 25 MCG TAB PO SCH (06:31)
[2016-12-21] MEDS: PANTOPRAZOLE (EC) 40 MG TAB PO SCH (06:32)
[2016-12-21] MEDS: CIPROFLOXACIN 500 MG TAB PO SCH ×2 (06:32→17:33)
[2016-12-21 07:15] VITALS: BP 147/68; RESP 20
[2016-12-21] MEDS: INSULIN ASPART [NOVOLOG] 3 ML PEN SC SCH ×6 (08:11→17:46)
[2016-12-21] MEDS: INSULIN GLARGINE [LANtus] 3 ML PEN SC SCH (08:13)
[2016-12-21] MEDS: metFORMIN 500 MG TAB PO SCH ×2 (08:15→17:33)
[2016-12-21] MEDS: SODIUM HYPOCHLORITE 1/40% 1L IRRIG IRR SCH (08:52)
[2016-12-21] MEDS: ALLOPURINOL 300 MG TAB PO SCH (08:53)
[2016-12-21] MEDS: VITAMIN B COMPLEX/VIT C CAP PO SCH (08:53)
[2016-12-21] MEDS: ASPIRIN (EC) 81 MG TAB PO SCH (08:53)
[2016-12-21] MEDS: TERBINAFINE 250 MG TAB PO SCH (08:53)
[2016-12-21] MEDS: FISH OIL 1,000 MG CAP PO SCH (08:53)
[2016-12-21] MEDS: MUPIROCIN 2% 22 GM OINT TOP SCH (08:54)
[2016-12-21] MEDS: ASCORBIC ACID 500 MG TAB PO SCH (08:54)
[2016-12-21] MEDS: THIAMINE 100 MG TAB PO SCH (08:54)
[2016-12-21] MEDS: RANOLAZINE (SR) 500 MG TAB PO SCH (08:54)
[2016-12-21] MEDS: PREGABALIN 75 MG CAP PO SCH (08:54)
[2016-12-21] MEDS: VITAMIN E 1,000 UNIT CAP PO SCH (08:54)
[2016-12-21] MEDS: CHOLECALCIFEROL 1,000 UNIT TAB PO SCH (08:54)
[2016-12-21] MEDS: COLLAGENASE 30 GM TUBE TOP SCH (08:55)
[2016-12-21] MEDS: METOPROLOL 50 MG TAB PO SCH (08:55)
[2016-12-21] MEDS: HEPARIN 5,000 UNIT/0.5 ML VIAL SC SCH (09:04)
--- NOTE | 2016-12-21 11:41 | PN ---
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 1. Left foot MRSA / Klebsiella cellulitis and diabetic foot ulcer : MRI negative for osteo 2. Type 2 diabetes, again, poorly controlled as outpt, A1c = 10.3 but markedly improved now - 3. Hypertension: good control 4. Coronary artery disease Stable 5. Chronic Alcoholic cirrhosis, status post TIPS procedure in the past 6. Lactic acidosis, unclear source - but resolved 7. S/p TMA 8. Peripheral Neuropathy 9. Diuretic induced LAUREANO PLAN: * Patient has done well on broad spectrum abx therapy * Continue Lyrica * Case mgt to attempt to get SNF * Continue to hold diuretics and monitor renal function * Continue current mgt * Gastrointestinal prophylaxis - PPI. * Deep venous thrombosis prophylaxis. Continue heparin subQ. Subjective 24 Hr Interval Summary Free Text/Dictation no new complaints we discussed discharge planning Exam/Review of Systems Vital Signs Vitals Vital Signs Date Time Temp Pulse Resp B/P Pulse Ox O2 Delivery O2 Flow Rate FiO2 12/21/16 07:15 97.9 61 20 147/68 99 12/18/16 20:00 Room Air Intake and Output 12/20/16 12/20/16 12/21/16 15:00 23:00 07:00 Intake Total 1540 ml Output Total 1900 ml Balance -360 ml Exam Constitutional: alert, obese, oriented Psych: nl mood/affect Head: atraumatic, normocephalic Eyes: PERRL ENMT: mucosa pink and moist Neck: supple Respiratory: clear to auscultation, normal air movement Cardiovascular: regular rate and rhythm Gastrointestinal: bowel sounds, non-tender, soft Musculoskeletal: No nl extremities to inspection Neurological: nl mental status, nl speech Results Result Diagram: 12/21/16 0446 12/21/16 0446 Results 24 hrs Laboratory Tests Test 12/20/16 12:08 12/20/16 17:05 12/20/16 17:51 12/20/16 21:10 Bedside Glucose 178 107 104 101 Test 12/21/16 04:46 12/21/16 07:47 White Blood Count 6.3 Red Blood Count 4.05 L Hemoglobin 13.4 L Hematocrit 38.9 L Mean Corpuscular Volume 96.0 Mean Corpuscular Hemoglobin 33.1 H Mean Corpuscular Hemoglobin Concent 34.4 Red Cell Distribution Width 14.0 Platelet Count 169 Mean Platelet Volume 11.3 H Neutrophils % 46.6 Lymphocytes % 32.4 Monocytes % 16.5 H Eosinophils % 3.8 Basophils % 0.5 Nucleated Red Blood Cells % 0.0 Neutrophils # 3.0 Lymphocytes # 2.1 Monocytes # 1.0 H Eosinophils # 0.2 Basophils # 0.0 Nucleated Red Blood Cells # 0.0 Sodium Level 136 Potassium Level 4.1 Chloride Level 95 L Carbon Dioxide Level 30 Anion Gap 15 Blood Urea Nitrogen 26 H Creatinine 1.31 H Glucose Level 156 Calcium Level 9.9 Magnesium Level 1.8 Creatine Kinase 44 Bedside Glucose 153 Medications Medications Current Medications Ondansetron HCl (Zofran Inj) 4 mg Q6H PRN IV NAUSEA AND/OR VOMITING; Start 07/22 at 22:30 Acetaminophen (Tylenol Tab) 650 mg Q4H PRN PO PAIN AND OR ELEVATED TEMP; Start 12/14/16 at 22:30 Diagnostic Test (Pha) (Accu-Chek) 1 ea 02 XX ; Start 12/15/16 at 02:00 Miscellaneous Information 1 ea NOTE XX ; Start 12/14/16 at 23:00 Glucose (Glutose) 15 gm Q15M PRN PO DECREASED GLUCOSE; Start 12/14/16 at 23:00 Glucose (Glutose) 22.5 gm Q15M PRN PO DECREASED GLUCOSE; Start 12/14/16 at 23: 00 Dextrose (D50w Syringe) 25 ml Q15M PRN IV DECREASED GLUCOSE; Start 12/14/16 at 23:00 Dextrose (D50w Syringe) 50 ml Q15M PRN IV DECREASED GLUCOSE; Start 12/14/16 at 23:00 Glucagon (Glucagen) 1 mg Q15M PRN IM DECREASED GLUCOSE; Start 12/14/16 at 23:00 Glucose (Glutose) 15 gm Q15M PRN BUCCAL DECREASED GLUCOSE; Start 12/14/16 at 23 :00 Heparin Sodium (Porcine) (Heparin (5000 Units/0.5 ml)) 5,000 unit BID SC Last administered on 12/21/16 09:04; Admin Dose 5,000 UNIT; Start 12/15/16 at 09:00 Acetaminophen/ Hydrocodone Bitart ([place] (5/325)) 1 tab Q4H PRN PO PAIN LEVEL 4 -7 Last administered on 12/21/16 06:31; Admin Dose 1 TAB; Start 12/15/16 at 10: 00 Pantoprazole (Protonix Tab) 40 mg DAILY@06 PO Last administered on 12/21/16 06 :32; Admin Dose 40 MG; Start 12/16/16 at 06:00 Terbinafine HCl (Lamisil) 250 mg BID PO Last administered on 12/21/16 08:53; Admin Dose 250 MG; Start 12/15/16 at 21:00; Stop 12/22/16 at 20:59 Thiamine HCl (Vitamin B1) 100 mg DAILY PO Last administered on 12/21/16 08:54 ; Admin Dose 100 MG; Start 12/16/16 at 09:00 Allopurinol (Zyloprim) 300 mg DAILY PO Last administered on 12/21/16 08:53; Admin Dose 300 MG; Start 12/16/16 at 10:30 Ascorbic Acid (Vitamin C) 1,000 mg DAILY PO Last administered on 12/21/16 08: 54; Admin Dose 1,000 MG; Start 12/16/16 at 10:30 Aspirin (Halfprin) 81 mg DAILY PO Last administered on 12/21/16 08:53; Admin Dose 81 MG; Start 12/16/16 at 10:30 Cholecalciferol (Vitamin D) 1,000 unit DAILY PO Last administered on 12/21/16 08:54; Admin Dose 1,000 UNIT; Start 12/16/16 at 10:30 Levothyroxine Sodium (Synthroid) 25 mcg DAILY@06 PO Last administered on 06:31; Admin Dose 25 MCG; Start 12/16/16 at 10:30 Metolazone (Zaroxolyn) 5 mg DAILY PO Last administered on 12/20/16 08:24; Admin Dose 5 MG; Start 12/16/16 at 10:30; Status Future Hold Metoprolol Tartrate (Lopressor) 50 mg BID PO Last administered on 12/21/16 08: 55; Admin Dose 50 MG; Start 12/16/16 at 10:30 Ranolazine (Ranexa) 500 mg Q12 PO Last administered on 12/21/16 08:54; Admin Dose 500 MG; Start 12/16/16 at 10:30 Vitamin E (Vitamin E) 1,000 unit DAILY PO Last administered on 12/21/16 08:54 ; Admin Dose 1,000 UNIT; Start 12/16/16 at 10:30 Fish Oil (Fish Oil) 1,000 mg DAILY PO Last administered on 12/21/16 08:53; Admin Dose 1,000 MG; Start 12/16/16 at 10:30 Vitamin B Complex/ Vitamin C (Berocca) 1 cap DAILY PO Last administered on 12/21 08:53; Admin Dose 1 CAP; Start 12/16/16 at 11:30 Collagenase (Santyl) 1 applic DAILY TOP Last administered on 12/21/16 08:55; Admin Dose 1 APPLIC; Start 12/16/16 at 12:00 Sodium Hypochlorite (Dakin'S (Dilute 1/40%)) 1 applic DAILY IRR Last administered on 12/21/16 08:52; Admin Dose 1 APPLIC; Start 12/16/16 at 12:00 Insulin Glargine (Lantus) 48 unit DAILY SC Last administered on 12/21/16 08:13 ; Admin Dose 48 UNIT; Start 12/17/16 at 09:00 Mupirocin (Bactroban) 1 applic BID TOP Last administered on 12/21/16 08:54; Admin Dose 1 APPLIC; Start 12/18/16 at 12:00 Ciprofloxacin (Cipro) 500 mg BID@06,18 PO Last administered on 12/21/16 06:32 ; Admin Dose 500 MG; Start 12/19/16 at 18:00 Pregabalin 75 mg 75 mg BID PO Last administered on 12/21/16 08:54; Admin Dose 75 MG; Start 12/20/16 at 14:00 Daptomycin/Sodium Chloride (Cubicin/NS) 100 ml @ 200 mls/hr Q24H IVPB Last administered on 12/20/16 15:55; Admin Dose 200 MLS/HR; Start 12/20/16 at 16:00 Morphine Sulfate (morphine) 2 mg Q4H PRN IV PAIN Last administered on 04:16; Admin Dose 2 MG; Start 12/20/16 at 23:45 Procedures Procedures PROCEDURE: US right upper extremity veins. CLINICAL INDICATION: Right arm pain and swelling. TECHNIQUE: Multiple longitudinal and transverse images of the right upper extremity venous tree was obtained with noonan scale, pulsed Doppler, and color Doppler imaging. COMPARISON: None available FINDINGS: The right internal jugular, subclavian, axillary, brachial, basilic, cephalic, radial, and ulnar veins are patent. There is normal flow with augmentation and compressibility throughout. There is no thrombus or occlusion. IMPRESSION: 1. Normal venous system of the right upper extremity. No evidence of thrombus or occlusion. RPTAT: QQ .Nehemias Olivo MD, MD Date Time Electronically viewed and signed by .Nehemias Olivo MD, MD on 12/20/2016 17:41 .R/ CC: NINA HOU BOLATITO M. Dec 21, 2016 11:41
--- NOTE | 2016-12-21 14:03 | RADRPT ---
PROCEDURE: US Renal CLINICAL INDICATION: Renal failure. TECHNIQUE: Multiple sonographic images of the kidneys and bladder were obtained. Evaluation of th e kidneys and bladder was performed as well with noonan scale and color and Doppler evaluation using a curved array transducer. The images were reviewed on a high-resolution PACS workstation. COMPARISON: No prior studies are available for comparison. FINDINGS: The right kidney measures 11.7 cm. The left kidney measures 11.8 cm. There is normal echogenicity within the parenchyma of the kidneys bilaterally. There is no evidence of hydronephrosis. There is some echogenic, shadowing calculi with the collect ing systems of the right kidney suggestive of nonobstructing calculi. No perinephric fluid collecti on is seen. Evaluation of the urinary bladder is unremarkable. IMPRESSION: 1. Probable nonobstructing renal calculi in the right kidney. 2. No evidence of hydronephrosis. RPTAT: [facility] Physician Babita Date Time Electronically viewed and signed by Physician Babita on 12/21/2016 14:03 /
--- NOTE | 2016-12-21 17:25 | CONS ---
Date/Time of Note Date/Time of Note DATE: 12/21/16 TIME: 17:23 Assessment/Plan Assessment/Plan Chief Complaint/Hosp Course SUBJECTIVE: No acute changes. No fevers. MICROBIOLOGY: Wound culture on 12/14/2016 grew strep, MRSA, Klebsiella oxytoca , repeat cx + MRSA. ANTIMICROBIALS: 1. Daptomycin 2. Cipro. PHYSICAL EXAMINATION: GENERAL: This is a morbidly obese elderly man, who is alert, in no distress. HEENT: Head atraumatic, normocephalic. Sclerae anicteric. Buccal mucosa pink. NECK: Supple. CHEST: Chest rise is symmetrical. Breath sounds clear. HEART: S1, S2. ABDOMEN: Soft, bowel tones present. EXTREMITIES: With left foot dressing intact. ASSESSMENT: 1. Left foot acute on chronic cellulitis. No evidence of osteomyelitis, per MRI. 2. Diabetes, with diabetic neuropathy. 3. Coronary artery disease. 4. Hypertension. 5. Cirrhosis, status post TIPS procedure. 6. RUE cellulitis 2 to IV infiltration PLAN: The patient remains stable, kidney US noted, continue abx, podiatry/ endocrinology rec-s [facility] staff Problems: Consultation Date/Type/Reason Admit Date/Time Dec 14, 2016 at 20:42 Type of Consultation: id Referring Provider: AHSAN ALVARENGA Exam/Review of Systems Vital Signs Vitals Vital Signs Date Time Temp Pulse Resp B/P Pulse Ox O2 Delivery O2 Flow Rate FiO2 12/21/16 07:15 97.9 61 20 147/68 99 12/18/16 20:00 Room Air Intake and Output 12/20/16 12/20/16 12/21/16 15:00 23:00 07:00 Intake Total 1540 ml Output Total 1900 ml Balance -360 ml Results Result Diagram: 12/21/16 0446 12/21/16 0446 Results 24 hrs Laboratory Tests Test 12/20/16 17:51 12/20/16 21:10 12/21/16 04:46 12/21/16 07:47 Bedside Glucose 104 101 153 White Blood Count 6.3 Red Blood Count 4.05 L Hemoglobin 13.4 L Hematocrit 38.9 L Mean Corpuscular Volume 96.0 Mean Corpuscular Hemoglobin 33.1 H Mean Corpuscular Hemoglobin Concent 34.4 Red Cell Distribution Width 14.0 Platelet Count 169 Mean Platelet Volume 11.3 H Neutrophils % 46.6 Lymphocytes % 32.4 Monocytes % 16.5 H Eosinophils % 3.8 Basophils % 0.5 Nucleated Red Blood Cells % 0.0 Neutrophils # 3.0 Lymphocytes # 2.1 Monocytes # 1.0 H Eosinophils # 0.2 Basophils # 0.0 Nucleated Red Blood Cells # 0.0 Sodium Level 136 Potassium Level 4.1 Chloride Level 95 L Carbon Dioxide Level 30 Anion Gap 15 Blood Urea Nitrogen 26 H Creatinine 1.31 H Glucose Level 156 Calcium Level 9.9 Magnesium Level 1.8 Creatine Kinase 44 Test 12/21/16 12:11 12/21/16 16:54 Bedside Glucose 128 82 Medications Medications Current Medications Ondansetron HCl (Zofran Inj) 4 mg Q6H PRN IV NAUSEA AND/OR VOMITING; Start 07/22 at 22:30 Acetaminophen (Tylenol Tab) 650 mg Q4H PRN PO PAIN AND OR ELEVATED TEMP; Start 12/14/16 at 22:30 Diagnostic Test (Pha) (Accu-Chek) 1 ea 02 XX ; Start 12/15/16 at 02:00 Miscellaneous Information 1 ea NOTE XX ; Start 12/14/16 at 23:00 Glucose (Glutose) 15 gm Q15M PRN PO DECREASED GLUCOSE; Start 12/14/16 at 23:00 Glucose (Glutose) 22.5 gm Q15M PRN PO DECREASED GLUCOSE; Start 12/14/16 at 23: 00 Dextrose (D50w Syringe) 25 ml Q15M PRN IV DECREASED GLUCOSE; Start 12/14/16 at 23:00 Dextrose (D50w Syringe) 50 ml Q15M PRN IV DECREASED GLUCOSE; Start 12/14/16 at 23:00 Glucagon (Glucagen) 1 mg Q15M PRN IM DECREASED GLUCOSE; Start 12/14/16 at 23:00 Glucose (Glutose) 15 gm Q15M PRN BUCCAL DECREASED GLUCOSE; Start 12/14/16 at 23 :00 Acetaminophen/ Hydrocodone Bitart ([place] (5/325)) 1 tab Q4H PRN PO PAIN LEVEL 4 -7 Last administered on 12/21/16 13:27; Admin Dose 1 TAB; Start 12/15/16 at 10: 00 Pantoprazole (Protonix Tab) 40 mg DAILY@06 PO Last administered on 12/21/16 06 :32; Admin Dose 40 MG; Start 12/16/16 at 06:00 Terbinafine HCl (Lamisil) 250 mg BID PO Last administered on 12/21/16 08:53; Admin Dose 250 MG; Start 12/15/16 at 21:00; Stop 12/22/16 at 20:59 Thiamine HCl (Vitamin B1) 100 mg DAILY PO Last administered on 12/21/16 08:54 ; Admin Dose 100 MG; Start 12/16/16 at 09:00 Allopurinol (Zyloprim) 300 mg DAILY PO Last administered on 12/21/16 08:53; Admin Dose 300 MG; Start 12/16/16 at 10:30 Ascorbic Acid (Vitamin C) 1,000 mg DAILY PO Last administered on 12/21/16 08: 54; Admin Dose 1,000 MG; Start 12/16/16 at 10:30 Aspirin (Halfprin) 81 mg DAILY PO Last administered on 12/21/16 08:53; Admin Dose 81 MG; Start 12/16/16 at 10:30 Cholecalciferol (Vitamin D) 1,000 unit DAILY PO Last administered on 12/21/16 08:54; Admin Dose 1,000 UNIT; Start 12/16/16 at 10:30 Levothyroxine Sodium (Synthroid) 25 mcg DAILY@06 PO Last administered on 06:31; Admin Dose 25 MCG; Start 12/16/16 at 10:30 Metolazone (Zaroxolyn) 5 mg DAILY PO Last administered on 12/20/16 08:24; Admin Dose 5 MG; Start 12/16/16 at 10:30; Status Future Hold Metoprolol Tartrate (Lopressor) 50 mg BID PO Last administered on 12/21/16 08: 55; Admin Dose 50 MG; Start 12/16/16 at 10:30 Ranolazine (Ranexa) 500 mg Q12 PO Last administered on 12/21/16 08:54; Admin Dose 500 MG; Start 12/16/16 at 10:30 Vitamin E (Vitamin E) 1,000 unit DAILY PO Last administered on 12/21/16 08:54 ; Admin Dose 1,000 UNIT; Start 12/16/16 at 10:30 Fish Oil (Fish Oil) 1,000 mg DAILY PO Last administered on 12/21/16 08:53; Admin Dose 1,000 MG; Start 12/16/16 at 10:30 Vitamin B Complex/ Vitamin C (Berocca) 1 cap DAILY PO Last administered on 12/21 08:53; Admin Dose 1 CAP; Start 12/16/16 at 11:30 Collagenase (Santyl) 1 applic DAILY TOP Last administered on 12/21/16 08:55; Admin Dose 1 APPLIC; Start 12/16/16 at 12:00 Sodium Hypochlorite (Dakin'S (Dilute 1/40%)) 1 applic DAILY IRR Last administered on 12/21/16 08:52; Admin Dose 1 APPLIC; Start 12/16/16 at 12:00 Insulin Glargine (Lantus) 48 unit DAILY SC Last administered on 12/21/16 08:13 ; Admin Dose 48 UNIT; Start 12/17/16 at 09:00 Mupirocin (Bactroban) 1 applic BID TOP Last administered on 12/21/16 08:54; Admin Dose 1 APPLIC; Start 12/18/16 at 12:00 Ciprofloxacin (Cipro) 500 mg BID@06,18 PO Last administered on 12/21/16 06:32 ; Admin Dose 500 MG; Start 12/19/16 at 18:00 Pregabalin 75 mg 75 mg BID PO Last administered on 12/21/16 08:54; Admin Dose 75 MG; Start 12/20/16 at 14:00 Daptomycin/Sodium Chloride (Cubicin/NS) 100 ml @ 200 mls/hr Q24H IVPB Last administered on 12/20/16 15:55; Admin Dose 200 MLS/HR; Start 12/20/16 at 16:00 Morphine Sulfate (morphine) 2 mg Q4H PRN IV PAIN Last administered on 04:16; Admin Dose 2 MG; Start 12/20/16 at 23:45 Enoxaparin Sodium (Lovenox) 40 mg QHS SC ; Start 12/21/16 at 21:00 SVETLANA MAY NP Dec 21, 2016 17:25
--- NOTE | 2016-12-21 17:32 | CONS ---
Date/Time of Note Date/Time of Note DATE: 12/21/16 TIME: 17:31 Assessment/Plan Assessment/Plan Problems: (1) Type 2 diabetes mellitus with hyperglycemia Status: Chronic Comment: He actually has adequate control now with a controlled regimen with a controlled diet. Since he is going to an ECF we can continue him in that fashion will follow him along. 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 Qualifiers: Obesity type: due to excess calories Qualified Code: E66.01 - Morbid obesity due to excess calories Consultation Date/Type/Reason Admit Date/Time Dec 14, 2016 at 20:42 Type of Consultation: Endocrinology Reason for Consultation Diabetes mellitus type 2 with an [id number] at admission Referring Provider: AHSAN ALVARENGA 24 HR Interval Summary Constitutional: no complaints Exam/Review of Systems Vital Signs Vitals Vital Signs Date Time Temp Pulse Resp B/P Pulse Ox O2 Delivery O2 Flow Rate FiO2 12/21/16 07:15 97.9 61 20 147/68 99 12/18/16 20:00 Room Air Intake and Output 12/20/16 12/20/16 12/21/16 15:00 23:00 07:00 Intake Total 1540 ml Output Total 1900 ml Balance -360 ml Exam No changes Results Result Diagram: 12/21/16 0446 12/21/16 0446 Results 24 hrs Laboratory Tests Test 12/20/16 17:51 12/20/16 21:10 12/21/16 04:46 12/21/16 07:47 Bedside Glucose 104 101 153 White Blood Count 6.3 Red Blood Count 4.05 L Hemoglobin 13.4 L Hematocrit 38.9 L Mean Corpuscular Volume 96.0 Mean Corpuscular Hemoglobin 33.1 H Mean Corpuscular Hemoglobin Concent 34.4 Red Cell Distribution Width 14.0 Platelet Count 169 Mean Platelet Volume 11.3 H Neutrophils % 46.6 Lymphocytes % 32.4 Monocytes % 16.5 H Eosinophils % 3.8 Basophils % 0.5 Nucleated Red Blood Cells % 0.0 Neutrophils # 3.0 Lymphocytes # 2.1 Monocytes # 1.0 H Eosinophils # 0.2 Basophils # 0.0 Nucleated Red Blood Cells # 0.0 Sodium Level 136 Potassium Level 4.1 Chloride Level 95 L Carbon Dioxide Level 30 Anion Gap 15 Blood Urea Nitrogen 26 H Creatinine 1.31 H Glucose Level 156 Calcium Level 9.9 Magnesium Level 1.8 Creatine Kinase 44 Test 12/21/16 12:11 12/21/16 16:54 Bedside Glucose 128 82 Medications Medications Current Medications Ondansetron HCl (Zofran Inj) 4 mg Q6H PRN IV NAUSEA AND/OR VOMITING; Start 07/22 at 22:30 Acetaminophen (Tylenol Tab) 650 mg Q4H PRN PO PAIN AND OR ELEVATED TEMP; Start 12/14/16 at 22:30 Diagnostic Test (Pha) (Accu-Chek) 1 ea 02 XX ; Start 12/15/16 at 02:00 Miscellaneous Information 1 ea NOTE XX ; Start 12/14/16 at 23:00 Glucose (Glutose) 15 gm Q15M PRN PO DECREASED GLUCOSE; Start 12/14/16 at 23:00 Glucose (Glutose) 22.5 gm Q15M PRN PO DECREASED GLUCOSE; Start 12/14/16 at 23: 00 Dextrose (D50w Syringe) 25 ml Q15M PRN IV DECREASED GLUCOSE; Start 12/14/16 at 23:00 Dextrose (D50w Syringe) 50 ml Q15M PRN IV DECREASED GLUCOSE; Start 12/14/16 at 23:00 Glucagon (Glucagen) 1 mg Q15M PRN IM DECREASED GLUCOSE; Start 12/14/16 at 23:00 Glucose (Glutose) 15 gm Q15M PRN BUCCAL DECREASED GLUCOSE; Start 12/14/16 at 23 :00 Acetaminophen/ Hydrocodone Bitart ([place] (5/325)) 1 tab Q4H PRN PO PAIN LEVEL 4 -7 Last administered on 12/21/16 13:27; Admin Dose 1 TAB; Start 12/15/16 at 10: 00 Pantoprazole (Protonix Tab) 40 mg DAILY@06 PO Last administered on 12/21/16 06 :32; Admin Dose 40 MG; Start 12/16/16 at 06:00 Terbinafine HCl (Lamisil) 250 mg BID PO Last administered on 12/21/16 08:53; Admin Dose 250 MG; Start 12/15/16 at 21:00; Stop 12/22/16 at 20:59 Thiamine HCl (Vitamin B1) 100 mg DAILY PO Last administered on 12/21/16 08:54 ; Admin Dose 100 MG; Start 12/16/16 at 09:00 Allopurinol (Zyloprim) 300 mg DAILY PO Last administered on 12/21/16 08:53; Admin Dose 300 MG; Start 12/16/16 at 10:30 Ascorbic Acid (Vitamin C) 1,000 mg DAILY PO Last administered on 12/21/16 08: 54; Admin Dose 1,000 MG; Start 12/16/16 at 10:30 Aspirin (Halfprin) 81 mg DAILY PO Last administered on 12/21/16 08:53; Admin Dose 81 MG; Start 12/16/16 at 10:30 Cholecalciferol (Vitamin D) 1,000 unit DAILY PO Last administered on 12/21/16 08:54; Admin Dose 1,000 UNIT; Start 12/16/16 at 10:30 Levothyroxine Sodium (Synthroid) 25 mcg DAILY@06 PO Last administered on 06:31; Admin Dose 25 MCG; Start 12/16/16 at 10:30 Metolazone (Zaroxolyn) 5 mg DAILY PO Last administered on 12/20/16 08:24; Admin Dose 5 MG; Start 12/16/16 at 10:30; Status Future Hold Metoprolol Tartrate (Lopressor) 50 mg BID PO Last administered on 12/21/16 08: 55; Admin Dose 50 MG; Start 12/16/16 at 10:30 Ranolazine (Ranexa) 500 mg Q12 PO Last administered on 12/21/16 08:54; Admin Dose 500 MG; Start 12/16/16 at 10:30 Vitamin E (Vitamin E) 1,000 unit DAILY PO Last administered on 12/21/16 08:54 ; Admin Dose 1,000 UNIT; Start 12/16/16 at 10:30 Fish Oil (Fish Oil) 1,000 mg DAILY PO Last administered on 12/21/16 08:53; Admin Dose 1,000 MG; Start 12/16/16 at 10:30 Vitamin B Complex/ Vitamin C (Berocca) 1 cap DAILY PO Last administered on 12/21 08:53; Admin Dose 1 CAP; Start 12/16/16 at 11:30 Collagenase (Santyl) 1 applic DAILY TOP Last administered on 12/21/16 08:55; Admin Dose 1 APPLIC; Start 12/16/16 at 12:00 Sodium Hypochlorite (Dakin'S (Dilute 1/40%)) 1 applic DAILY IRR Last administered on 12/21/16 08:52; Admin Dose 1 APPLIC; Start 12/16/16 at 12:00 Insulin Glargine (Lantus) 48 unit DAILY SC Last administered on 12/21/16 08:13 ; Admin Dose 48 UNIT; Start 12/17/16 at 09:00 Mupirocin (Bactroban) 1 applic BID TOP Last administered on 12/21/16 08:54; Admin Dose 1 APPLIC; Start 12/18/16 at 12:00 Ciprofloxacin (Cipro) 500 mg BID@06,18 PO Last administered on 12/21/16 06:32 ; Admin Dose 500 MG; Start 12/19/16 at 18:00 Pregabalin 75 mg 75 mg BID PO Last administered on 12/21/16 08:54; Admin Dose 75 MG; Start 12/20/16 at 14:00 Daptomycin/Sodium Chloride (Cubicin/NS) 100 ml @ 200 mls/hr Q24H IVPB Last administered on 12/20/16 15:55; Admin Dose 200 MLS/HR; Start 12/20/16 at 16:00 Morphine Sulfate (morphine) 2 mg Q4H PRN IV PAIN Last administered on 04:16; Admin Dose 2 MG; Start 12/20/16 at 23:45 Enoxaparin Sodium (Lovenox) 40 mg QHS SC ; Start 12/21/16 at 21:00 CARY DURAN MD Dec 21, 2016 17:32
[2016-12-21] MEDS: DAPTOMYCIN 800 MG in SOD CHLORIDE 0.9% 100 ML IVPB SCH (18:21)
[2016-12-21] MEDS ORDERED: LANT3I SC (19:46)
[2016-12-21] MEDS ORDERED: LYR75 PO (19:46)
[2016-12-21] MEDS ORDERED: METF500T PO (19:46)
[2016-12-21] MEDS ORDERED: MUPI22OI2 TOP (19:46)
[2016-12-21] MEDS ORDERED: NOVO3I SC (19:46)
[2016-12-21] MEDS ORDERED: Thiamine PO (19:46)
[2016-12-21] MEDS ORDERED: TERB250T46 PO (19:46)
[2016-12-21] MEDS ORDERED: CIPR500T4 PO (19:46)
--- NOTE | 2016-12-21 19:47 | PDOCDIS ---
Discharge Instructions DIAGNOSIS Discharge Diagnosis: diabetic foot ulcer and cellulitis CONDITION Patient Condition: Stable HOME CARE INSTRUCTIONS: Special Diet: 1800 prashanth ACTIVITY: Activity Restrictions: Slowly Increase Activity Rest between Activity NINA HOU Dec 21, 2016 19:47
--- NOTE | 2016-12-21 19:49 | DS ---
Date/Time of Note Date/Time of Note DATE: 12/21/16 TIME: 19:48 Discharge Summary Admission/Discharge Info Admit Date/Time Dec 14, 2016 at 20:42 Discharge Date/Time 12/21/16 Final Diagnosis 61-year-old male with past medical history of CAD, hypertension, type 2 diabetes poorly controlled, gout, previous left foot transmetatarsal amputation with subsequent infection and ulcer, cirrhosis, status post TIPS procedure, who sent in by bedspread cutter for increasing erythema to the left foot, cellulitis and diabetic foot ulcers. 1. Left foot MRSA / Klebsiella cellulitis and diabetic foot ulcer : MRI negative for osteo 2. Type 2 diabetes, again, poorly controlled as outpt, A1c = 10.3 but markedly improved now - 3. Hypertension: good control 4. Coronary artery disease Stable 5. Chronic Alcoholic cirrhosis, status post TIPS procedure in the past 6. Lactic acidosis, unclear source - but resolved 7. S/p TMA 8. Peripheral Neuropathy 9. Diuretic induced LAUREANO Patient Condition: Stable Hx of Present Illness The patient is a 61-year-old male with a history of CAD, hypertension, diabetes , gout, previous history of left foot transmetatarsal amputation, with a subsequent history of infection/ulcer, status post surgical debridement, history of cirrhosis, status post TIPS, who [facility] follow[facility], but was transferred to the ER by his bedspread cutter, Dr. Major, who for admission and IV antibiotics for increased erythema to the left foot extending up to the left lower leg. Patient denied fever, chills, CP, N/V. In ER, vitals were stable. Labs showed Na 133, lactate 2.8, glucose 417. Foot xray was read by radiologist as there is again amputation at the bases of the metatarsals with soft tissue swelling seen distally and with the suggestion of an ulceration plantar are to the metatarsal tarsal junction as seen in the lateral projection. . Hospital Course Patient was admitted and managed with IV abx and aggressive wound care. he was seen by both Podiatry and ID. MRI showed no osteo. He was also seen by endo to improve DM control. He has done well. He is recommended to be NWB LLE per podiatry and for that reason he is being transferred to SNF for continued care / abx and wound dressing and rehab. Creatinine was noted to be rising and diuretics were stopped and Vanco was changed to daptomycin. Cultures grew out MRSA sensitive to doxycycline Comorbidities were also aggressively managed as per Med records. Patient at this time has been evaluated and examined in detail and is assessed to be in stable condition and ready for discharge. Time spent on final evaluation and assessment, discharge planning, counselling and coordination has been >40mins. . Home Meds Active Scripts Doxycycline Hyclate* (Doxycycline Hyclate*) 100 Mg Tablet.dr, 100 MG PO BID for 14 Days, TAB Prov:NINA HOUMansi 12/21/16 [Thiamine] 100 MG TAB No Conflict Check, 100 MG PO DAILY for 30 Days Prov:NINA HOU Mansi 12/21/16 Mupirocin* (Bactroban*) 2% -22 Gram Oint...g., 1 APPLIC TOP BID for 7 Days Prov:NINA HOUMansi 12/21/16 Metformin Hcl (Glucophage) 500 Mg Tablet, 500 MG PO PC BREAKFAST DINNER for 30 Days, TAB Prov:NINA HOUMansi 12/21/16 Insulin Glargine* (Lantus*) 100 Unit/Ml Soln, 48 UNIT SC DAILY for 30 Days Prov:NINA HOUMansi 12/21/16 Insulin Aspart* (Novolog Insulin Pen*) 100 Unit/Ml Soln, 24 UNIT SC WITH MEALS for 30 Days Prov:NINA HOUMansi 12/21/16 Pregabalin* (Lyrica*) 75 Mg Capsule, 75 MG PO BID for 30 Days, CAP Prov:NINA HOUMansi 12/21/16 Terbinafine* (Lamisil*) 250 Mg Tablet, 250 MG PO BID for 14 Days, TAB Prov:NINA HOUMansi 12/21/16 Ciprofloxacin Hcl* (Ciprofloxacin Hcl*) 500 Mg Tablet, 500 MG PO BID@,18 for 14 Days, TAB Prov:NINA HOUManis 12/21/16 Metoprolol Tartrate* (Lopressor*) 50 Mg Tab, 50 MG PO BID for 10 Days, #20 TAB Prov:NISHANT SONG MD 10/19/16 Levothyroxine Sodium* (Levothyroxine Sodium*) 25 Mcg Tablet, 25 MCG PO DAILY@06 for 30 Days, #30 TAB Prov:NISHANT SONG MD 10/19/16 Reported Medications [place]-3S/Dha/Epa/Fish Oil (Fish Oil 1,200 mg Softgel) 1 Each Capsule, 1 EACH PO DAILY, CAP 10/13/16 Ranolazine* (Ranexa*) 500 Mg Tab.sr.12h, 500 MG PO Q12, TAB 10/13/16 Ubidecarenone* (Co Q-10*) 400 Mg Capsule, 400 MG PO DAILY, CAP 10/13/16 Cholecalciferol* (Vitamin D3*) 1,000 Unit Tablet, 1000 UNIT PO DAILY, TAB 10/13/16 Selenomethionine* (Selenium*) 200 Mcg Tablet, 200 MCG PO DAILY, TAB 10/13/16 Lisinopril* (Lisinopril*) 20 Mg Tablet, 20 MG PO BID, #30 TAB 06/22/16 Allopurinol* (Allopurinol*) 300 Mg Tablet, 300 MG PO DAILY, TAB 06/22/16 Aspirin Ec (Aspir 81) 81 Mg Tablet.dr, 81 MG PO DAILY, TAB 04/23/14 Vitamin B Complex (B Complex) 1 Tab.sa Tablet.sa, 1 TAB.SA PO DAILY 04/16/13 Vitamin E* (Vitamin E*) 1,000 Unit Capsule, 1000 UNIT PO DAILY 04/16/13 Ascorbic Acid* (Vitamin C*) 500 Mg Capsule.sa, 1000 MG PO DAILY 04/16/13 Discontinued Reported Medications Gabapentin* (Gabapentin*) 300 Mg Capsule, 300 MG PO BID, CAP 01/01/15 Insulin Aspart* (Novolog Insulin Pen*) 100 Unit/Ml Soln, 18 UNIT SC WITH MEALS, EA 01/01/15 Insulin Glargine,Hum.rec.anlog (Lantus) 100 U/Ml Vial, 30 UNITS SQ DAILY 09/10/12 Discontinued Scripts Furosemide (Lasix) 20 Mg Tab, 20 MG PO BID DIURETICS for 3 Days, #10 TAB Prov:NISHANT SONG MD 10/19/16 [Thiamine] 100 MG TAB No Conflict Check, 100 MG PO DAILY for 30 Days, #30 2 Refills Prov:NISHANT SONG MD 10/19/16 Metolazone* (Metolazone*) 5 Mg Tablet, 5 MG PO DAILY for 14 Days, #14 TAB Prov:NISHANT SONG MD 10/19/16 Follow-up Plan * Repeat BMP in a few days to eval creatinine levels Pending Labs Laboratory Tests Test 12/20/16 21:10 12/21/16 04:46 12/21/16 07:47 12/21/16 12:11 Bedside Glucose 101mg/dL (70-220) 153mg/dL (70-220) 128mg/dL (70-220) White Blood Count 6.310^3/ul (4.8-10.8) Red Blood Count 4.0510^6/ul (4.70-6.10) Hemoglobin 13.4g/dl (14.0-18.0) Hematocrit 38.9% (42.0-52.0) Mean Corpuscular Volume 96.0fl (82.0-101.0) Mean Corpuscular Hemoglobin 33.1pg (29.0-33.0) Mean Corpuscular Hemoglobin Concent 34.4g/dl (32.0-37.0) Red Cell Distribution Width 14.0% (11.5-14.5) Platelet Count 66699^3/UL (140-415) Mean Platelet Volume 11.3fl (7.4-10.4) Neutrophils % 46.6% (39.0-77.0) Lymphocytes % 32.4% (15.0-51.0) Monocytes % 16.5% (0.0-11.0) Eosinophils % 3.8% (0.0-7.0) Basophils % 0.5% (0.0-2.0) Nucleated Red Blood Cells % 0.0/100WBC (0.0-0.0) Neutrophils # 3.010^3/ul (1.6-7.5) Lymphocytes # 2.110^3/ul (0.8-2.9) Monocytes # 1.010^3/ul (0.3-0.9) Eosinophils # 0.210^3/ul (0.0-0.5) Basophils # 0.010^3/ul (0.0-0.1) Nucleated Red Blood Cells # 0.010^3/ul (0.0-0.0) Sodium Level 136mmol/L (135-144) Potassium Level 4.1mmol/L (3.5-5.1) Chloride Level 95mmol/L (97-110) Carbon Dioxide Level 30mmol/L (21-31) Anion Gap 15 (8-16) Blood Urea Nitrogen 26mg/dl (7-20) Creatinine 1.31mg/dl (0.61-1.24) Glucose Level 156mg/dl (70-220) Calcium Level 9.9mg/dl (8.4-10.2) Magnesium Level 1.8mg/dl (1.7-2.5) Creatine Kinase 44IU/L (23-200) Test 12/21/16 16:54 Bedside Glucose 82mg/dL (70-220) NINA HOU Dec 21, 2016 19:49 (70-220) NINA HOU Dec 21, 2016 19:49
[2016-12-21 20:06] VITALS: BP 139/66; RESP 20
[2016-12-21] MEDS ORDERED: DOXY100T20 PO (20:19)
[2016-12-21] MEDS ORDERED: DOXYCYCLINE 100 MG TAB PO SCH (21:00)
[2016-12-21] MEDS ORDERED: ENOXAPARIN 40 MG/0.4 ML SYG SC SCH (21:00)
== END 2016-12-21 20:30 | DRG 603 ==
LOC: E/R 16:19 → MS2 20:42
PROVIDERS: ADMIT Internal Medicine; ATTEND Internal Medicine
DX: L03.116 Cellulitis of left lower limb (principal); N17.9 Acute kidney failure, unspecified; E11.40 Type 2 diabetes mellitus with diabetic neuropathy, unspecified; I11.0 Hypertensive heart disease with heart failure; I50.9 Heart failure, unspecified; Z68.41 Body mass index [BMI] 40.0-44.9, adult; E11.621 Type 2 diabetes mellitus with foot ulcer; L97.524 Non-pressure chronic ulcer of other part of left foot with necrosis of bone; E66.01 Morbid (severe) obesity due to excess calories; I10 Essential (primary) hypertension; I44.0 Atrioventricular block, first degree; I45.10 Unspecified right bundle-branch block; M10.9 Gout, unspecified; K70.30 Alcoholic cirrhosis of liver without ascites; Z87.891 Personal history of nicotine dependence; F10.20 Alcohol dependence, uncomplicated; B95.4 Other streptococcus as the cause of diseases classified elsewhere; B95.61 Methicillin susceptible Staphylococcus aureus infection as the cause of diseases classified elsewhere; B96.1 Klebsiella pneumoniae [K. pneumoniae] as the cause of diseases classified elsewhere; E11.65 Type 2 diabetes mellitus with hyperglycemia
CPT/HCPCS: 36415; 71010; 73620; 73718; 76705; 76775; 80048; 80053; 80202; 81001; 81003; 82550; 82553; 82565; 82962; 83036; 83605; 83735; 84443; 84484; 84520; 84560; 85025; 85610; 85730; 87040; 87070; 87081; 87086; 93005; 93971; 96372; 96374; 96375; J0744; J1170; J1335; J1644; J1815; J2270; J2405; J3370; J7030; J7040; J7050

== ENCOUNTER 2017-05-16 15:49 | Inpatient (IN) | payer MEDICARE, OTHER ==
[~2017-05-16] VITALS: Ht 175.3 cm; Wt 128.6 kg
[~2017-05-16 15:49] MED LIST changes: +CIPR500T4 PO; +DOXY100T20 PO; -GABA300C16 PO; -INSU100V19 SQ; +LANT3I SC; -LAS20 PO; +LYR75 PO; +METF500T PO; -METO5TAB65 PO; +MUPI22OI2 TOP; +TERB250T46 PO
--- NOTE | 2017-05-16 16:22 | ERA ---
ER Documentation Chief Complaint Date/Time DATE: 05/16/17 TIME: 16:22 Chief Complaint POSSIBLE PNEMONIA SENT FROM WOUND CLINIC, COUGH & CONGESTION [id number] HPI The patient is a 72-year-old male, presenting with dyspnea, cough intermittently for 1 week, also with fever. He also complained of orthopnea paroxysmal nocturnal dyspnea for the last 3 days, denies neck pain, abdominal pain, vomiting, dysuria, diarrhea. He does not smoke nor drink Past medical history: CAD, diabetes mellitus, chronic left foot ulcer, hypertension, peripheral neuropathy, Cirrhosis Past surgical history multiple left foot surgery ROS All systems reviewed and are negative except as per history of present illness. Medications Home Meds Active Scripts [Thiamine] 100 MG TAB No Conflict Check, 100 MG PO DAILY for 30 Days Prov:NINA HOU. 12/21/16 Metformin Hcl (Glucophage) 500 Mg Tablet, 500 MG PO PC BREAKFAST DINNER for 30 Days, TAB Prov:NINA HOU . 12/21/16 Metoprolol Tartrate* (Lopressor*) 50 Mg Tab, 50 MG PO BID for 10 Days, #20 TAB Prov:NISHANT SNOG MD 10/19/16 Reported Medications Ranolazine* (Ranexa*) 500 Mg Tab.sr.12h, 500 MG PO Q12, TAB 05/16/17 Levothyroxine Sodium* (Levothyroxine Sodium*) 25 Mcg Tablet, 25 MCG PO BEFORE BREAKFAST, #30 TAB 05/16/17 Furosemide* (Furosemide*) 20 Mg Tablet, 20 MG PO BID, #30 TAB 05/16/17 Insulin Detemir (Levemir Flextouch) 100 Unit/1 Ml Insuln.pen, 30 UNIT SQ QHS 05/16/17 Insulin Aspart* (Novolog Insulin Pen*) 100 Unit/Ml Soln, 18 UNIT SC WITH MEALS, EA 05/16/17 Cruger-3S/Dha/Epa/Fish Oil (Fish Oil 1,200 mg Softgel) 1 Each Capsule, 1 EACH PO DAILY, CAP 10/13/16 Cholecalciferol* (Vitamin D3*) 1,000 Unit Tablet, 1000 UNIT PO DAILY, TAB 10/13/16 Selenomethionine* (Selenium*) 200 Mcg Tablet, 200 MCG PO DAILY, TAB 10/13/16 Lisinopril* (Lisinopril*) 20 Mg Tablet, 20 MG PO BID, #30 TAB 06/22/16 Allopurinol* (Allopurinol*) 300 Mg Tablet, 300 MG PO DAILY, TAB 06/22/16 Aspirin Ec (Aspir 81) 81 Mg Tablet.dr, 81 MG PO DAILY, TAB 04/23/14 Vitamin B Complex (B Complex) 1 Tab.sa Tablet.sa, 1 TAB.SA PO DAILY 04/16/13 Vitamin E* (Vitamin E*) 1,000 Unit Capsule, 1000 UNIT PO DAILY 04/16/13 Ascorbic Acid* (Vitamin C*) 500 Mg Capsule.sa, 1000 MG PO DAILY 04/16/13 Discontinued Reported Medications Ranolazine* (Ranexa*) 500 Mg Tab.sr.12h, 500 MG PO Q12, TAB 10/13/16 Ubidecarenone* (Co Q-10*) 400 Mg Capsule, 400 MG PO DAILY, CAP 10/13/16 Discontinued Scripts Doxycycline Hyclate* (Doxycycline Hyclate*) 100 Mg Tablet.dr, 100 MG PO BID for 14 Days, TAB Prov:NINA HOU. 12/21/16 Mupirocin* (Bactroban*) 2% -22 Gram Oint...g., 1 APPLIC TOP BID for 7 Days Prov:NINA HOU 12/21/16 Insulin Glargine* (Lantus*) 100 Unit/Ml Soln, 48 UNIT SC DAILY for 30 Days Prov:NINA HOU Mansi 12/21/16 Insulin Aspart* (Novolog Insulin Pen*) 100 Unit/Ml Soln, 24 UNIT SC WITH MEALS for 30 Days Prov:NINA HOU 12/21/16 Pregabalin* (Lyrica*) 75 Mg Capsule, 75 MG PO BID for 30 Days, CAP Prov:NINA HOU Mansi 12/21/16 Terbinafine* (Lamisil*) 250 Mg Tablet, 250 MG PO BID for 14 Days, TAB Prov:NINA HOU . 12/21/16 Ciprofloxacin Hcl* (Ciprofloxacin Hcl*) 500 Mg Tablet, 500 MG PO BID@06,18 for 14 Days, TAB Prov:NINA HOU 12/21/16 Levothyroxine Sodium* (Levothyroxine Sodium*) 25 Mcg Tablet, 25 MCG PO DAILY@06 for 30 Days, #30 TAB Prov:NISHANT SONG MD 10/19/16 Allergies Allergies: Coded Allergies: Penicillins (Verified Allergy, Unknown, 05/16/17) PMhx/Soc History of Surgery: Yes (TMA 2009, STENT (LIVER/HEART), RIGHT WRIST, RIGHT ANKLE SURGERY) Anesthesia Reaction: No Hx Neurological Disorder: Yes (NEUROPATHY) Hx Respiratory Disorders: Yes (ASTHMA) Hx Cardiac Disorders: Yes (CHF, HTN, ) Hx Psychiatric Problems: No Hx Miscellaneous Medical Probl: No Hx Alcohol Use: Yes (RARE OCCASIONS) Hx Substance Use: No Hx Tobacco Use: No Physical Exam Vitals Vital Signs Date Time Temp Pulse Resp B/P Pulse Ox O2 Delivery O2 Flow Rate FiO2 05/16/17 20:00 95 20 156/87 97 Nasal Cannula 2.0 05/16/17 16:51 85 22 93 21 05/16/17 16:04 100.2 85 22 178/81 93 Physical Exam Const: No acute distress. Head: Atraumatic. Eyes: Normal Conjunctiva. ENT: Normal External Ears, Nose and Mouth. Neck: Full range of motion. No meningismus. Resp: Bibasilar crackle, Mild bilateral expiratory wheezes Cardio: Regular rate and rhythm. Abd: Soft, non distended, normal bowel sounds, non tender. Skin: No petechiae or rashes. Back: No midline or flank tenderness. Ext: No cyanosis, or edema. Neur: Awake and alert. No focal deficit Psych: Normal Mood and Affect. Result Diagram: 05/16/17 1630 05/16/17 1630 Results 24 hrs Laboratory Tests Test 05/16/17 16:30 05/16/17 18:56 05/16/17 19:45 White Blood Count 4.910^3/ul Red Blood Count 4.5510^6/ul Hemoglobin 15.1g/dl Hematocrit 42.6% Mean Corpuscular Volume 93.6fl Mean Corpuscular Hemoglobin 33.2pg Mean Corpuscular Hemoglobin Concent 35.4g/dl Red Cell Distribution Width 13.7% Platelet Count 30840^3/UL Mean Platelet Volume 11.0fl Neutrophils % 62.7% Lymphocytes % 23.7% Monocytes % 12.2% Eosinophils % 0.6% Basophils % 0.4% Nucleated Red Blood Cells % 0.0/100WBC Neutrophils # (Manual) 3.110^3/ul Lymphocytes # 1.210^3/ul Monocytes # 0.610^3/ul Eosinophils # 0.010^3/ul Basophils # 0.010^3/ul Nucleated Red Blood Cells # 0.010^3/ul Prothrombin Time 13.9Sec Prothrombin Time Ratio 1.1 INR International Normalized Ratio 1.07 Activated Partial Thromboplast Time 30.9Sec D-Dimer 1254.80ng/ml D-Dimer Comment Sodium Level 134mmol/L Potassium Level 4.1mmol/L Chloride Level 98mmol/L Carbon Dioxide Level 30mmol/L Anion Gap 10 Blood Urea Nitrogen 13mg/dl Creatinine 0.90mg/dl Glucose Level 211mg/dl Lactic Acid Level 2.7mmol/L 2.7mmol/L Calcium Level 9.6mg/dl Total Bilirubin 0.7mg/dl Direct Bilirubin 0.00mg/dl Indirect Bilirubin 0.7mg/dl Aspartate Amino Transf (AST/SGOT) 50IU/L Alanine Aminotransferase (ALT/SGPT) 37IU/L Alkaline Phosphatase 70IU/L Troponin I 0.025ng/ml B-Type Natriuretic Peptide 1780PG/ML Total Protein 7.6g/dl Albumin 3.4g/dl Globulin 4.20g/dl Albumin/Globulin Ratio 0.80 Bedside Glucose 207mg/dL Current Medications Medications (Trade) Dose Ordered Sig/Marcos Route PRN Reason Start Time Stop Time Status Last Admin Dose Admin Levalbuterol (Xopenex Neb) 1.25 mg ONCE ONCE N 05/16/17 16:30 05/16/17 16:32 DC 05/16/17 16:51 Ipratropium [place] 0.5 mg 0.5 mg ONCE ONCE HHN 05/16/17 16:30 05/16/17 16:32 DC 05/16/17 16:51 Levofloxacin/ Dextrose 150 ml @ 100 mls/hr ONCE ONCE IVPB 05/16/17 17:30 05/16/17 18:59 DC 05/16/17 19:36 Vancomycin HCl (Vancocin) 250 ml @ 125 mls/hr ONCE IVPB 05/16/17 18:30 05/16/17 20:29 DC 05/16/17 20:30 IV Flush 10 ml 10 ml STK-MED ONCE .ROUTE 05/16/17 18:18 05/16/17 18:19 DC 05/16/17 18:30 Sodium Chloride 100 ml @ ud STK-MED ONCE .ROUTE 05/16/17 18:18 05/16/17 18:19 DC 05/16/17 18:30 Iohexol (Omnipaque) 100 ml @ ud STK-MED ONCE .ROUTE 05/16/17 18:18 05/16/17 18:19 DC 05/16/17 18:30 Iohexol (Omnipaque 350mg/ ml) 50 ml STK-MED ONCE .ROUTE 05/16/17 18:18 05/16/17 18:19 DC 05/16/17 18:30 Procedures/[place] [id number] Radiology Main Line: [phone] DIAGNOSTIC IMAGING REPORT Patient: MARIO CROOKS : 1955 Age: 62 Sex: M MR #: [id number] DOS: 05/16/17 0000 Ordering MD: ALICIA ANDERSON MD Location: E/R Room/Bed: PROCEDURE: US DVT. CLINICAL INDICATION: Bilateral lower extremity pain and swelling. TECHNIQUE: Multiple longitudinal and transverse images of the bilateral lower extremity veins were obtained with noonan scale and color Doppler imaging. 2D grayscale measurements with compression, color Doppler flow, and augmentation was performed. The calf veins were interrogated as well. COMPARISON: 12/20/2016 FINDINGS: The bilateral common femoral, superficial femoral and popliteal veins are normally compressible throughout. Color flow demonstrates normal filling of the vessel. Normal waveforms are visualized and there is normal response to augmentation. Left lower extremity below popliteal vein is not visualized due to brace. The right calf veins are visualized and are equally unremarkable. IMPRESSION: 1. Left lower extremity below popliteal vein is not visualized due to brace. Otherwise no evidence of a deep vein thrombosis involving either lower extremity. RPTAT: HH .Monica Spangler MD, MD Date Time Electronically viewed and signed by .Monica Spangler MD, MD on 05/16/2017 19: 28 .N/ CC: ALICIA ANDERSON MD EKG: Read by emergency physician Rate/Rhythm: Normal Sinus Rhythm 87 beats/min QRS, ST, T-waves: No ST elevation, no T inversion, Sinus arrhythmia, first- degree AV block, right bundle branch block, inferior lateral T abnormality Impression: Abnormal EKG MEDICAL MAKING DECISION: The patient is a 72-year-old male, presenting with acute severe sepsis due to acute pneumonia, acute CHF. UA is pending. The differential diagnoses considered include but are not limited to pneumonia, cystitis, pyelonephritis Admit MDM: Patient's infectious symptoms have not stabilized and the patient is at risk of rapid decompensation. The patient will be admitted for careful hydration, antibiotic therapy, and infectious source control. Severe Sepsis criteria: Infectious source: PNA End organ damage indicated by: Lactate > 2.0 mmol/L Sepsis Management: Time of recognition of severe sepsis/septic shock: 16:40 Within 3 hours of recognition: Blood cultures x 2 before broad-spectrum antibiotics: Yes 30 ml/kg NS bolus IVF if not given due to concurrent acugte CHF Initial lactate 2.7 Repeat lactate pending Critical Care: Critical care time 35 minutes excluding billable procedure Emergent fluid management while maintaining close respiratory support. Provision of immediate and broad-spectrum antibiotic therapy. Simultaneous assessment for possible sources in order to direct targeted therapy. Consideration for invasive and chemical support to prevent cardiopulmonary collapse. [place] [address] Radiology Main Line: [phone] DIAGNOSTIC IMAGING REPORT Patient: MARIO CROOKS : 1955 Age: 62 Sex: M MR #: [id number] DOS: 05/16/17 1629 Ordering MD: ALICIA ANDERSON MD Location: E/R Room/Bed: PROCEDURE: Chest Radiograph. CLINICAL INDICATION: Sepsis TECHNIQUE: Single frontal chest radiograph. COMPARISON: Chest radiograph 12/14/2016 FINDINGS: The cardiomediastinal silhouette is within normal limits. There is patchy air space disease in the left perihilar and likely left retrocardiac regions. No pleural effusions are seen. The bones are intact. IMPRESSION: 1. Suggested left perihilar and basilar infiltrates. Recommend correlation with pneumonia and follow up to resolution. RPTAT: HJBF .Darrick Interiano MD, Date Time Electronically viewed and signed by .Darrick Interiano MD, MD on 2016 16:55 .B/ CC: ALICIA ANDERSON MD [place] [address] Radiology Main Line: [phone] DIAGNOSTIC IMAGING REPORT Patient: MARIO CROOKS : 1955 Age: 62 Sex: M MR #: [id number] DOS: 05/16/17 1802 Ordering MD: ALICIA ANDERSON MD Location: E/R Room/Bed: PROCEDURE: CTA chest pulmonary angiography. CLINICAL INDICATION: Dyspnea. TECHNIQUE: CT angiography of the chest was performed after the uneventful intravenous administration of 125 cc of Omnipaque 350. Coronal and sagittal reformations were performed. 3-D/multiplanar reformations were performed by the technologist and an independent workstation. The total exam CTDI = 53.84, 24.41 mGy and the DLP equals 985.55 mGy-cm. Evaluation is partially limited due to motion artifact. One or more of the following dose reduction techniques were used: - Automated exposure control. - Adjustment of the mA and/or kV according to patient size. - Use of iterative reconstruction technique. COMPARISON: Chest x-ray dated 05/16/[address] dated 10/15/2016. FINDINGS: Pulmonary angiogram: There are no emboli through the level of the segmental pulmonary arteries. The subsegmental pulmonary arteries and both lower lobes are indeterminate for the presence of pulmonary emboli. The main pulmonary artery is normal in caliber and there is no evidence of right heart strain. Lungs, pleura, airways, and thoracic inlet: There is patchy peribronchovascular consolidation in the left upper lobe, right lower lobe, with additional scattered consolidation in the basilar segments of both lower lobes, left greater than right. There is also patchy ground-glass opacity in the right lower lobe and right middle lobe. There is no effusion or pneumothorax. The tracheobronchial tree is patent and normal in course and caliber. Cardiovascular system, mediastinum, and lymphatics: The heart is mildly enlarged without pericardial thickening or effusion. There are multivessel coronary artery calcifications. There are atherosclerotic changes of the aorta, which is nonaneurysmal. There is no axillary, hilar, or mediastinal adenopathy. Visualized upper abdomen: The liver is small and nodular in contour, consistent with changes of cirrhosis. There is a TIPS in place. Musculoskeletal system and soft tissues: There is moderate to severe multilevel degenerative enthesopathy. There are no concerning osseous lesions. The soft tissues are unremarkable. IMPRESSION: 1. No pulmonary emboli through the level of the segmental pulmonary arteries. 2. Patchy peribronchovascular consolidation throughout the left lung and in the right lower lobe, most consistent with bronchopneumonia. Follow-up to resolution is recommended. 3. Mild cardiomegaly. 4. Cirrhotic liver with a TIPS in place, the patency of which cannot be determined due to the phase of contrast. 5. Multivessel coronary artery calcifications and atherosclerotic changes of the aorta. RPTAT: HLBP .Raj Oden MD, MD Date Time Electronically viewed and signed by .Raj Oden MD, MD on 05/16/2017 18:46 .P/ CC: ALICIA ANDERSON MD Departure Diagnosis: Primary Impression: Severe sepsis Additional Impressions: Pneumonia CHF (congestive heart failure) Condition: Stable Additional Instructions: I discussed the findings with the patient. I discussed the patient with the on- call hospitalist Dr. Hui at 7:30 PM who was made aware of the lab, the treatment, the patient condition. The patient is admitted to telemetry ALICIA ANDERSON MD May 16, 2017 16:22
[2017-05-16] MEDS ORDERED: LEVALBUTEROL (NEB) 1.25 MG/0.5 ML AMP HHN ONE (16:30)
[2017-05-16] MEDS ORDERED: IPRATROPIUM (NEB) 0.5 MG/2.5 ML AMP HHN ONE (16:30)
--- NOTE | 2017-05-16 16:55 | RADRPT ---
PROCEDURE: Chest Radiograph. CLINICAL INDICATION: Sepsis TECHNIQUE: Single frontal chest radiograph. COMPARISON: Chest radiograph 12/14/2016 FINDINGS: The cardiomediastinal silhouette is within normal limits. There is patchy air space disease in the left perihilar and likely left retrocardiac regions. No pleural effusions are seen. The bones are intact. IMPRESSION: 1. Suggested left perihilar and basilar infiltrates. Recommend correlation with pneumonia and follo w up to resolution. RPTAT: HJBF .Darrick Interiano MD, MD Date Time Electronically viewed and signed by .Darrick Interiano MD, on 05/16/2017 16:55 .B/
[2017-05-16] MEDS ORDERED: INSU100I27 SQ (17:09)
[2017-05-16] MEDS ORDERED: NOVO3I SC (17:09)
[2017-05-16] MEDS ORDERED: FURO20TA3 PO (17:10)
[2017-05-16 17:13] LABS: BASOPHILS % 0.4 % (0.0-2.0); EOSINOPHILS % 0.6 % (0.0-7.0); HEMATOCRIT 42.6 % (42.0-52.0); HEMOGLOBIN 15.1 g/dl (14.0-18.0); LYMPHOCYTES # 1.2 10^3/ul (0.8-2.9); LYMPHOCYTES % 23.7 % (15.0-51.0); MEAN CORPUSCULAR HEMOGLOBIN 33.2 pg (29.0-33.0); MEAN CORPUSCULAR HGB CONC 35.4 g/dl (32.0-37.0); MEAN CORPUSCULAR VOLUME 93.6 fl (82.0-101.0); MONOCYTE # 0.6 10^3/ul (0.3-0.9); MONOCYTES % 12.2 % (0.0-11.0); NEUTROPHILS % 62.7 % (39.0-77.0); PLATELET COUNT 190 10^3/UL (140-415); RED BLOOD COUNT 4.55 10^6/ul (4.70-6.10); RED CELL DISTRIBUTION WIDTH 13.7 % (11.5-14.5); WHITE BLOOD COUNT 4.9 10^3/ul (4.8-10.8)
[2017-05-16] MEDS ORDERED: LEVOFLOXACIN 750MG/D5W (PMX) 150 ML IVPB ONE (17:30)
[2017-05-16 17:36] LABS: INR 1.07; PROTIME 13.9 Sec (12.2-14.2); PT RATIO 1.1
[2017-05-16 17:38] LABS: PARTIAL THROMBOPLASTIN TIME 30.9 Sec (25.0-35.0)
[2017-05-16 17:40] LABS: ALBUMIN 3.4 g/dl (3.3-4.9); ALBUMIN/GLOBULIN RATIO 0.8; BILIRUBIN,INDIRECT 0.7 mg/dl (0-1.1); BILIRUBIN,TOTAL 0.7 mg/dl (0.2-1.3); CALCIUM 9.6 mg/dl (8.4-10.2); CREATININE 0.9 mg/dl (0.61-1.24); D-DIMER 1254.8 ng/ml (<460); POTASSIUM 4.1 mmol/L (3.5-5.1); TOTAL PROTEIN 7.6 g/dl (6.1-8.1)
[2017-05-16 17:51] LABS: TROPONIN-I 0.025 ng/ml (0.00-0.12)
[2017-05-16] MEDS ORDERED: SOD CHLORIDE 0.9% 100 ML ONE (18:18)
[2017-05-16] MEDS ORDERED: IOHEXOL 100 ML ONE (18:18)
[2017-05-16] MEDS ORDERED: IOHEXOL 350MG/ML 50 ML BTL ONE (18:18)
[2017-05-16] MEDS ORDERED: VANCOMYCIN 1 GM (PMX) 250 ML IVPB SCH (18:30)
--- NOTE | 2017-05-16 18:47 | RADRPT ---
PROCEDURE: CTA chest pulmonary angiography. CLINICAL INDICATION: Dyspnea. TECHNIQUE: CT angiography of the chest was performed after the uneventful intravenous administratio n of 125 cc of Omnipaque 350. Coronal and sagittal reformations were performed. 3-D/multiplanar re formations were performed by the technologist and an independent workstation. The total exam CTDI = 53.84, 24.41 mGy and the DLP equals 985.55 mGy-cm. Evaluation is partially limited due to motion art ifact. One or more of the following dose reduction techniques were used: - Automated exposure control. - Adjustment of the mA and/or kV according to patient size. - Use of iterative reconstruction technique. COMPARISON: Chest x-ray dated 05/16/[address] dated 10/15/2016. FINDINGS: Pulmonary angiogram: There are no emboli through the level of the segmental pulmonary arteries. The subsegmental pulmonary arteries and both lower lobes are indeterminate for the presence of pulmonar y emboli. The main pulmonary artery is normal in caliber and there is no evidence of right heart str ain. Lungs, pleura, airways, and thoracic inlet: There is patchy peribronchovascular consolidation in th e left upper lobe, right lower lobe, with additional scattered consolidation in the basilar segments of both lower lobes, left greater than right. There is also patchy ground-glass opacity in the righ t lower lobe and right middle lobe. There is no effusion or pneumothorax. The tracheobronchial tree is patent and normal in course and caliber. Cardiovascular system, mediastinum, and lymphatics: The heart is mildly enlarged without pericardial thickening or effusion. There are multivessel coronary artery calcifications. There are atheroscler otic changes of the aorta, which is nonaneurysmal. There is no axillary, hilar, or mediastinal adeno erick. Visualized upper abdomen: The liver is small and nodular in contour, consistent with changes of cir rhosis. There is a TIPS in place. Musculoskeletal system and soft tissues: There is moderate to severe multilevel degenerative enthes opathy. There are no concerning osseous lesions. The soft tissues are unremarkable. IMPRESSION: 1. No pulmonary emboli through the level of the segmental pulmonary arteries. 2. Patchy peribronchovascular consolidation throughout the left lung and in the right lower lobe, mo st consistent with bronchopneumonia. Follow-up to resolution is recommended. 3. Mild cardiomegaly. 4. Cirrhotic liver with a TIPS in place, the patency of which cannot be determined due to the phase of contrast. 5. Multivessel coronary artery calcifications and atherosclerotic changes of the aorta. RPTAT: HLBP .Raj Oden MD, Date Time Electronically viewed and signed by .Raj Oden MD, on 05/16/2017 18:46 .P/
[2017-05-16] MEDS ORDERED: LEVO25TA53 PO (18:59)
[2017-05-16] MEDS ORDERED: RANO500T2 PO (19:00)
--- NOTE | 2017-05-16 19:29 | RADRPT ---
PROCEDURE: US DVT. CLINICAL INDICATION: Bilateral lower extremity pain and swelling. TECHNIQUE: Multiple longitudinal and transverse images of the bilateral lower extremity veins were obtained with noonan scale and color Doppler imaging. 2D grayscale measurements with compression, co joanna Doppler flow, and augmentation was performed. The calf veins were interrogated as well. COMPARISON: 12/20/2016 FINDINGS: The bilateral common femoral, superficial femoral and popliteal veins are normally compressible thro ughout. Color flow demonstrates normal filling of the vessel. Normal waveforms are visualized and there is normal response to augmentation. Left lower extremity below popliteal vein is not visualize d due to brace. The right calf veins are visualized and are equally unremarkable. IMPRESSION: 1. Left lower extremity below popliteal vein is not visualized due to brace. Otherwise no evidence of a deep vein thrombosis involving either lower extremity. RPTAT: HH .Monica Spangler MD, Date Time Electronically viewed and signed by .Monica Spangler MD, MD on 05/16/2017 19:28 .N/
[2017-05-16 21:13] VITALS: PULSE 80
[2017-05-16 21:18] VITALS: Ht 175.3 cm; Wt 128.6 kg
[2017-05-16] MEDS ORDERED: ONDANSETRON 4 MG INJ IV PRN (22:00)
[2017-05-16] MEDS ORDERED: LEVOFLOXACIN 500MG/D5W (PMX) 100 ML IVPB SCH (22:00)
[2017-05-16] MEDS ORDERED: INSULIN ASPART [NOVOLOG] 3 ML PEN SC ONE (22:30)
[2017-05-16] MEDS ORDERED: GLUCOSE GEL 15 GRAM TUBE BUCCAL PRN (22:30)
[2017-05-16] MEDS ORDERED: GLUCOSE GEL 15 GRAM TUBE PO PRN ×2 (22:30)
[2017-05-16] MEDS ORDERED: GLUCAGON 1 MG INJ IM PRN (22:30)
[2017-05-16] MEDS ORDERED: DEXTROSE 50% 50 ML SYRINGE IV PRN ×2 (22:30)
[2017-05-16] MEDS: HYDROCODONE/APAP (5/325) TAB PO PRN (22:54)
[2017-05-16] MEDS: INSULIN DETEMIR [LEVEMIR] 3ML CART SC SCH (22:58)
[2017-05-17] VITALS (12 sets, daily range): BP systolic 125–150; BP diastolic 56–82; PULSE 63–80; RESP 17–18
[2017-05-17] MEDS: ACCU-CHEK XX SCH ×2 (02:00)
[2017-05-17] MEDS: morphine 2 MG INJ IV PRN ×3 (03:57→20:11)
[2017-05-17 07:41] LABS: BASOPHILS % 0.5 % (0.0-2.0); EOSINOPHILS # 0.1 10^3/ul (0.0-0.5); EOSINOPHILS % 2.7 % (0.0-7.0); HEMATOCRIT 39.4 % (42.0-52.0); HEMOGLOBIN 13.9 g/dl (14.0-18.0); LYMPHOCYTES # 1.4 10^3/ul (0.8-2.9); LYMPHOCYTES % 36.7 % (15.0-51.0); MEAN CORPUSCULAR HEMOGLOBIN 33.3 pg (29.0-33.0); MEAN CORPUSCULAR HGB CONC 35.3 g/dl (32.0-37.0); MEAN CORPUSCULAR VOLUME 94.3 fl (82.0-101.0); MEAN PLATELET VOLUME 10.9 fl (7.4-10.4); MONOCYTE # 0.6 10^3/ul (0.3-0.9); MONOCYTES % 14.9 % (0.0-11.0); NEUTROPHILS % 44.7 % (39.0-77.0); PLATELET COUNT 175 10^3/UL (140-415); POSITIVE DIFF @See below; RED BLOOD COUNT 4.18 10^6/ul (4.70-6.10); RED CELL DISTRIBUTION WIDTH 13.7 % (11.5-14.5); WHITE BLOOD COUNT 3.8 10^3/ul (4.8-10.8)
[2017-05-17] MEDS: INSULIN ASPART [NOVOLOG] 3 ML PEN SC SCH ×7 (07:51→20:28)
[2017-05-17] MEDS ORDERED: INSULIN DETEMIR [LEVEMIR] 3ML CART SC SCH ×2 (08:00→21:00)
[2017-05-17 08:25] LABS: CALCIUM 8.9 mg/dl (8.4-10.2); CHOL/HDL RATIO 4.5 RATIO; CREATININE 0.81 mg/dl (0.61-1.24); MAGNESIUM 1.8 mg/dl (1.7-2.5); POTASSIUM 3.6 mmol/L (3.5-5.1)
[2017-05-17] MEDS: ASCORBIC ACID 500 MG TAB PO SCH (08:33)
[2017-05-17] MEDS: ASPIRIN (EC) 81 MG TAB PO SCH (08:33)
[2017-05-17] MEDS: ALLOPURINOL 300 MG TAB PO SCH (08:33)
[2017-05-17] MEDS: FUROSEMIDE 20 MG INJ IV SCH (08:33)
[2017-05-17] MEDS: HEPARIN 5,000 UNIT/0.5 ML VIAL SC SCH ×2 (08:37→20:19)
[2017-05-17] MEDS: CHOLECALCIFEROL 1,000 UNIT TAB PO SCH (08:42)
[2017-05-17] MEDS ORDERED: DOXYCYCLINE 100 MG in SOD CHLORIDE 0.9% 250 ML IVPB SCH (09:00)
[2017-05-17] MEDS ORDERED: FUROSEMIDE 20 MG TAB NGT SCH (09:00)
--- NOTE | 2017-05-17 12:54 | PN ---
Date/Time of Note Date/Time of Note DATE: 05/17/17 TIME: 12:41 Assessment/Plan VTE Prophylaxis VTE Prophylaxis Intervention: heparin Lines/Catheters IV Catheter Type (from [facility]): Saline Lock Urinary Cath still in place: No Assessment/Plan Assessment/Plan 1. Bilateral community acquired pneumonia, on antibiotics 2. Sepsis, improving 3. Chronic Alcoholic cirrhosis, status post TIPS procedure in the past 4. CAD, stable 5. DM, on insulins/metformin 6. HTN, controlled 7. Hypothyroidism, on supplement 8. Gout, on allopurinol 9. S/p TMA 10. Peripheral Neuropathy 11. Chronic left foot ulcer 12. DVT prophylaxis: heparin Exam/Review of Systems Vital Signs Vitals Vital Signs Date Time Temp Pulse Resp B/P Pulse Ox O2 Delivery O2 Flow Rate FiO2 05/17/17 11:34 98.6 78 18 133/56 97 05/17/17 08:00 2.0 05/16/17 20:00 Nasal Cannula 05/16/17 16:51 21 Intake and Output 05/16/17 05/16/17 05/17/17 14:59 22:59 06:59 Intake Total 200 ml Output Total 600 ml Balance -400 ml Exam Constitutional: alert, obese, oriented, well developed Psych: nl mood/affect, no complaints Head: atraumatic, normocephalic Eyes: EOMI, PERRL, nl conjunctiva, nl lids ENMT: nl external ears & nose, nl lips & teeth Neck: non-tender, supple Respiratory: crackles/rales Cardiovascular: nl pulses, regular rate and rhythm Gastrointestinal: nl liver, spleen, non-tender, soft, No ascites, No bowel sounds, No distended, No firm, No hepatomegaly, No mass , No other, No rebound or guarding, No splenomegaly, No surgical scars, No tender Musculoskeletal: nl extremities to inspection Extremities: other (left foot wound) 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, nl mental status, nl speech, nl strength Results Result Diagram: 05/17/17 0707 05/17/17 0707 Results 24 hrs Laboratory Tests Test 05/16/17 16:30 05/16/17 18:56 05/16/17 19:45 05/16/17 21:45 White Blood Count 4.9 # Red Blood Count 4.55 L Hemoglobin 15.1 Hematocrit 42.6 Mean Corpuscular Volume 93.6 Mean Corpuscular Hemoglobin 33.2 H Mean Corpuscular Hemoglobin Concent 35.4 Red Cell Distribution Width 13.7 Platelet Count 190 Mean Platelet Volume 11.0 H Neutrophils % 62.7 Lymphocytes % 23.7 Monocytes % 12.2 H Eosinophils % 0.6 Basophils % 0.4 Nucleated Red Blood Cells % 0.0 Neutrophils # (Manual) 3.1 Lymphocytes # 1.2 Monocytes # 0.6 Eosinophils # 0.0 Basophils # 0.0 Nucleated Red Blood Cells # 0.0 Prothrombin Time 13.9 Prothrombin Time Ratio 1.1 INR International Normalized Ratio 1.07 Activated Partial Thromboplast Time 30.9 D-Dimer 1254.80 H D-Dimer Comment Sodium Level 134 L Potassium Level 4.1 Chloride Level 98 Carbon Dioxide Level 30 Anion Gap 10 Blood Urea Nitrogen 13 Creatinine 0.90 Glucose Level 211 Lactic Acid Level 2.7 *H 2.7 *H Calcium Level 9.6 Total Bilirubin 0.7 Direct Bilirubin 0.00 Indirect Bilirubin 0.7 Aspartate Amino Transf (AST/SGOT) 50 H Alanine Aminotransferase (ALT/SGPT) 37 Alkaline Phosphatase 70 Troponin I 0.025 B-Type Natriuretic Peptide 1780 H Total Protein 7.6 Albumin 3.4 Globulin 4.20 H Albumin/Globulin Ratio 0.80 Bedside Glucose 207 189 Test 05/16/17 21:55 05/16/17 21:56 05/17/17 02:12 05/17/17 07:07 Troponin I 0.040 0.044 Lactic Acid Level 2.3 *H 1.5 Bedside Glucose 208 White Blood Count 3.8 #L Red Blood Count 4.18 L Hemoglobin 13.9 L Hematocrit 39.4 L Mean Corpuscular Volume 94.3 Mean Corpuscular Hemoglobin 33.3 H Mean Corpuscular Hemoglobin Concent 35.3 Red Cell Distribution Width 13.7 Platelet Count 175 Mean Platelet Volume 10.9 H Neutrophils % 44.7 Lymphocytes % 36.7 Monocytes % 14.9 H Eosinophils % 2.7 Basophils % 0.5 Nucleated Red Blood Cells % 0.0 Neutrophils # (Manual) 1.7 Lymphocytes # 1.4 Monocytes # 0.6 Eosinophils # 0.1 Basophils # 0.0 Nucleated Red Blood Cells # 0.0 Sodium Level 134 L Potassium Level 3.6 Chloride Level 102 Carbon Dioxide Level 30 Anion Gap 6 L Blood Urea Nitrogen 13 Creatinine 0.81 Glucose Level 141 # Hemoglobin A1c 10.4 H Calcium Level 8.9 Phosphorus Level 2.9 Magnesium Level 1.8 Triglycerides Level 122 Cholesterol Level 117 LDL Cholesterol, Calculated 67 HDL Cholesterol 26 L Cholesterol/HDL Ratio 4.5 Test 05/17/17 07:45 05/17/17 11:40 Bedside Glucose 161 181 Medications Medications Current Medications Allopurinol (Zyloprim) 300 mg DAILY PO Last administered on 05/17/17 08:33; Admin Dose 300 MG; Start 05/17/17 at 09:00 Ascorbic Acid (Vitamin C) 1,000 mg DAILY PO Last administered on 05/17/17 08: 33; Admin Dose 1,000 MG; Start 05/17/17 at 09:00 Aspirin (Halfprin) 81 mg DAILY PO Last administered on 05/17/17 08:33; Admin Dose 81 MG; Start 05/17/17 at 09:00 Cholecalciferol (Vitamin D) 1,000 unit DAILY PO Last administered on 05/17/17 08:42; Admin Dose 1,000 UNIT; Start 05/17/17 at 09:00 Insulin Detemir (Levemir) 30 unit QHS SC Last administered on 05/16/17 22:58; Admin Dose 30 UNIT; Start 05/16/17 at 22:30 Miscellaneous Information 1 ea NOTE XX ; Start 05/16/17 at 22:30 Glucose (Glutose) 15 gm Q15M PRN PO DECREASED GLUCOSE; Start 05/16/17 at 22:30 Glucose (Glutose) 22.5 gm Q15M PRN PO DECREASED GLUCOSE; Start 05/16/17 at 22: 30 Dextrose (D50w Syringe) 25 ml Q15M PRN IV DECREASED GLUCOSE; Start 05/16/17 at 22:30 Dextrose (D50w Syringe) 50 ml Q15M PRN IV DECREASED GLUCOSE; Start 05/16/17 at 22:30 Glucagon (Glucagen) 1 mg Q15M PRN IM DECREASED GLUCOSE; Start 05/16/17 at 22:30 Glucose (Glutose) 15 gm Q15M PRN BUCCAL DECREASED GLUCOSE; Start 05/16/17 at 22 :30 Morphine Sulfate (morphine) 2 mg Q4H PRN IV PAIN LEVEL 7-10 Last administered on 05/17/17 03:57; Admin Dose 2 MG; Start 05/16/17 at 22:00 Ondansetron HCl (Zofran Inj) 4 mg Q6H PRN IV NAUSEA AND/OR VOMITING; Start 07/22 at 22:00 Acetaminophen/ Hydrocodone Bitart ([place] (5/325)) 1 tab Q4H PRN PO PAIN LEVEL 4 -7 Last administered on 05/16/17 22:54; Admin Dose 1 TAB; Start 05/16/17 at 22: 00 Heparin Sodium (Porcine) (Heparin (5000 Units/0.5 ml)) 5,000 unit BID SC Last administered on 05/17/17 08:37; Admin Dose 5,000 UNIT; Start 05/17/17 at 09:00 Diagnostic Test (Pha) (Accu-Chek) 1 ea 02 XX ; Start 05/17/17 at 02:00 Diagnostic Test (Pha) 1 ea 1 ea 02 XX ; Start 05/17/17 at 02:00 Levofloxacin/ Dextrose (Levaquin 500mg/ D5W 100 ml (Pmx)) 100 ml @ 100 mls/hr Q24H IVPB ; Start 05/17/17 at 20:00 Furosemide 20 mg 20 mg DAILY IV Last administered on 05/17/17 08:33; Admin Dose 20 MG; Start 05/17/17 at 09:00 Doxycycline Hyclate/Sodium Chloride (Vibramycin/NS) 250 ml @ 250 mls/hr Q12 IVPB Last administered on 05/17/17 08:42; Admin Dose 250 MLS/HR; Start at 09:00 JESSICA PARRISH MD May 17, 2017 12:52
[2017-05-17] MEDS ORDERED: LEVOFLOXACIN 500MG/D5W (PMX) 100 ML IVPB SCH (13:00)
[2017-05-17] MEDS: INSULIN DETEMIR [LEVEMIR] 3ML CART SC SCH (20:30)
[2017-05-17] MEDS: LEVOFLOXACIN 500MG/D5W (PMX) 100 ML IVPB SCH (20:35)
--- NOTE | 2017-05-17 22:29 | HP ---
Date/Time of Note Date/Time of Note DATE: 05/17/17 TIME: 22:29 Assessment/Plan VTE Prophylaxis VTE Prophylaxis Intervention: heparin Lines/Catheters IV Catheter Type (from [facility]): Saline Lock Urinary Cath still in place: No Assessment/Plan Assessment/Plan ASSESSMENT 61-year-old male with a history of CAD, hypertension, diabetes, gout, previous history of left foot transmetatarsal amputation, with a subsequent history of infection/ulcer, status post surgical debridement, history of cirrhosis, status post TIPS p/w SOB and prod cough 2/2 Pneumonia. PLAN IV abx Respiratory cx Supplemental Oxygen, breathing treatment Cont home meds with adjustment as needed Notify [facility] (Dr. Sivakumar Major) about pt's admission HPI/ROS Admit Date/Time Admit Date/Time May 16, 2017 at 19:30 Hx of Present Illness This is a 61-year-old male with a history of CAD, hypertension, diabetes, gout, previous history of left foot transmetatarsal amputation, with a subsequent history of infection/ulcer, status post surgical debridement, history of cirrhosis, status post TIPS, who [facility] care followup, but was transferred to the ER for SOB and cough. Pt repoted symptoms atrted 5 days ago. Cought is prod of brownish sputum. Reported his son who is in the , who came to visit him last week had similar symptoms In ER, imaging suggestive of PNA. Had a temp of 100.2. . ROS Psychological: nl mood/affect, no complaints PMH/Family/Social Past Surgical History Past Surgical Hx: other Social History Smoking Status: Former smoker Exam/Review of Systems Vital Signs Vitals Vital Signs Date Time Temp Pulse Resp B/P Pulse Ox O2 Delivery O2 Flow Rate FiO2 05/17/17 20:55 70 05/17/17 20:00 98.3 18 134/82 92 05/17/17 08:00 2.0 05/16/17 20:00 Nasal Cannula 05/16/17 16:51 21 Intake and Output 05/16/17 05/16/17 05/17/17 15:00 23:00 07:00 Intake Total 200 ml Output Total 600 ml Balance -400 ml Exam Constitutional: alert, oriented, well developed Head: atraumatic, normocephalic Eyes: PERRL Respiratory: diminished breath sounds Cardiovascular: nl pulses, regular rate and rhythm Gastrointestinal: non-tender, soft Extremities: other (maggie LE covered) Labs Result Diagram: 05/17/17 0707 05/17/17 0707 Medications Medications Current Medications Allopurinol (Zyloprim) 300 mg DAILY PO Last administered on 05/17/17 08:33; Admin Dose 300 MG; Start 05/17/17 at 09:00 Ascorbic Acid (Vitamin C) 1,000 mg DAILY PO Last administered on 05/17/17 08: 33; Admin Dose 1,000 MG; Start 05/17/17 at 09:00 Aspirin (Halfprin) 81 mg DAILY PO Last administered on 05/17/17 08:33; Admin Dose 81 MG; Start 05/17/17 at 09:00 Cholecalciferol (Vitamin D) 1,000 unit DAILY PO Last administered on 05/17/17 08:42; Admin Dose 1,000 UNIT; Start 05/17/17 at 09:00 Insulin Detemir (Levemir) 30 unit QHS SC Last administered on 05/17/17 20:30; Admin Dose 30 UNIT; Start 05/16/17 at 22:30 Miscellaneous Information 1 ea NOTE XX ; Start 05/16/17 at 22:30 Glucose (Glutose) 15 gm Q15M PRN PO DECREASED GLUCOSE; Start 05/16/17 at 22:30 Glucose (Glutose) 22.5 gm Q15M PRN PO DECREASED GLUCOSE; Start 05/16/17 at 22: 30 Dextrose (D50w Syringe) 25 ml Q15M PRN IV DECREASED GLUCOSE; Start 05/16/17 at 22:30 Dextrose (D50w Syringe) 50 ml Q15M PRN IV DECREASED GLUCOSE; Start 05/16/17 at 22:30 Glucagon (Glucagen) 1 mg Q15M PRN IM DECREASED GLUCOSE; Start 05/16/17 at 22:30 Glucose (Glutose) 15 gm Q15M PRN BUCCAL DECREASED GLUCOSE; Start 05/16/17 at 22 :30 Morphine Sulfate (morphine) 2 mg Q4H PRN IV PAIN LEVEL 7-10 Last administered on 05/17/17 20:11; Admin Dose 2 MG; Start 05/16/17 at 22:00 Ondansetron HCl (Zofran Inj) 4 mg Q6H PRN IV NAUSEA AND/OR VOMITING; Start 07/22 at 22:00 Acetaminophen/ Hydrocodone Bitart ([place] (5/325)) 1 tab Q4H PRN PO PAIN LEVEL 4 -7 Last administered on 05/16/17 22:54; Admin Dose 1 TAB; Start 05/16/17 at 22: 00 Heparin Sodium (Porcine) (Heparin (5000 Units/0.5 ml)) 5,000 unit BID SC Last administered on 05/17/17 20:19; Admin Dose 5,000 UNIT; Start 05/17/17 at 09:00 Diagnostic Test (Pha) (Accu-Chek) 1 ea 02 XX ; Start 05/17/17 at 02:00 Diagnostic Test (Pha) 1 ea 1 ea 02 XX ; Start 05/17/17 at 02:00 Levofloxacin/ Dextrose (Levaquin 500mg/ D5W 100 ml (Pmx)) 100 ml @ 100 mls/hr Q24H IVPB Last administered on 05/17/17 20:35; Admin Dose 100 MLS/HR; Start at 20:00 Furosemide (Lasix) 20 mg DAILY IV Last administered on 05/17/17 08:33; Admin Dose 20 MG; Start 05/17/17 at 09:00 HILL HANYES MD May 17, 2017 22:29
[2017-05-17] MEDS: HYDROCODONE/APAP (5/325) TAB PO PRN (22:37)
[2017-05-18] VITALS (13 sets, daily range): BP systolic 120–156; BP diastolic 58–77; PULSE 66–86; RESP 16–18
[2017-05-18] MEDS: morphine 2 MG INJ IV PRN ×5 (00:17→21:01)
[2017-05-18] MEDS: ACCU-CHEK XX SCH ×2 (02:00)
[2017-05-18 07:26] LABS: BASOPHILS % 0.7 % (0.0-2.0); EOSINOPHILS # 0.2 10^3/ul (0.0-0.5); EOSINOPHILS % 3.3 % (0.0-7.0); HEMATOCRIT 40.7 % (42.0-52.0); HEMOGLOBIN 13.8 g/dl (14.0-18.0); LYMPHOCYTES % 36.7 % (15.0-51.0); MEAN CORPUSCULAR HGB CONC 33.9 g/dl (32.0-37.0); MEAN CORPUSCULAR VOLUME 94.4 fl (82.0-101.0); MEAN PLATELET VOLUME 10.5 fl (7.4-10.4); MONOCYTE # 0.7 10^3/ul (0.3-0.9); MONOCYTES % 12.2 % (0.0-11.0); NEUTROPHILS % 46.7 % (39.0-77.0); PLATELET COUNT 214 10^3/UL (140-415); POSITIVE DIFF @See below; RED BLOOD COUNT 4.31 10^6/ul (4.70-6.10); RED CELL DISTRIBUTION WIDTH 13.8 % (11.5-14.5); WHITE BLOOD COUNT 5.4 10^3/ul (4.8-10.8)
[2017-05-18 07:51] LABS: CALCIUM 9.4 mg/dl (8.4-10.2); CREATININE 0.93 mg/dl (0.61-1.24); POTASSIUM 4.8 mmol/L (3.5-5.1)
[2017-05-18] MEDS: INSULIN ASPART [NOVOLOG] 3 ML PEN SC SCH ×7 (08:00→20:47)
[2017-05-18] MEDS: HEPARIN 5,000 UNIT/0.5 ML VIAL SC SCH ×2 (08:44→20:46)
[2017-05-18] MEDS: FUROSEMIDE 20 MG INJ IV SCH (08:46)
[2017-05-18] MEDS: ASPIRIN (EC) 81 MG TAB PO SCH (08:47)
[2017-05-18] MEDS: ALLOPURINOL 300 MG TAB PO SCH (08:47)
[2017-05-18] MEDS: ASCORBIC ACID 500 MG TAB PO SCH (08:47)
[2017-05-18] MEDS: CHOLECALCIFEROL 1,000 UNIT TAB PO SCH (08:47)
--- NOTE | 2017-05-18 12:23 | PN ---
Date/Time of Note Date/Time of Note DATE: 05/18/17 TIME: 12:13 Assessment/Plan VTE Prophylaxis VTE Prophylaxis Intervention: heparin Lines/Catheters IV Catheter Type (from Nrs): Saline Lock Urinary Cath still in place: No Assessment/Plan Assessment/Plan 1. Bilateral community acquired pneumonia, on antibiotics 2. Sepsis, improving 3. Chronic Alcoholic cirrhosis, status post TIPS procedure in the past 4. CAD, stable 5. DM, on insulins/metformin 6. HTN, controlled 7. Hypothyroidism, on supplement 8. Gout, on allopurinol 9. S/p TMA 10. Peripheral Neuropathy 11. Chronic left foot ulcer 12. DVT prophylaxis: heparin Subjective 24 Hr Interval Summary Free Text/Dictation still cough with brownish sputum Exam/Review of Systems Vital Signs Vitals Vital Signs Date Time Temp Pulse Resp B/P Pulse Ox O2 Delivery O2 Flow Rate FiO2 05/18/17 11:29 98.4 78 16 142/69 96 05/17/17 20:30 Nasal Cannula 2.0 05/16/17 16:51 21 Intake and Output 05/17/17 05/17/17 05/18/17 15:00 23:00 07:00 Intake Total 250 ml 800 ml 400 ml Output Total 900 ml 200 ml Balance 250 ml -100 ml 200 ml Exam Constitutional: alert, oriented, well developed Psych: nl mood/affect, no complaints Head: atraumatic, normocephalic Eyes: EOMI, nl conjunctiva, nl lids ENMT: nl external ears & nose, nl lips & teeth, nl nasal mucosa & septum Neck: non-tender, supple Respiratory: crackles/rales, No congested cough, No diminished breath sounds, No intercostal retraction, No labored breathing, No other, No respirations, No tactile fremitus, No wheezing Cardiovascular: nl pulses, regular rate and rhythm, No S3, No S4, No bruits, No diastolic murmur, No edema, No gallop, No irregular rhythm, No jugular venous distention (JVD), No murmurs/extra sounds, No other, No rub, No systolic murmur Gastrointestinal: nl liver, spleen, non-tender, soft, No ascites, No bowel sounds, No distended, No firm, No hepatomegaly, No mass , No other, No rebound or guarding, No splenomegaly, No surgical scars, No tender Musculoskeletal: nl extremities to inspection Extremities: other (left foot wound) 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, nl mental status, nl speech, nl strength, other (left foot wound) Results Result Diagram: 05/18/1758 05/18/1758 Results 24 hrs Laboratory Tests Test 05/17/17 17:13 05/17/17 20:26 05/18/17 06:58 05/18/17 08:40 Bedside Glucose 164 151 86 White Blood Count 5.4 # Red Blood Count 4.31 L Hemoglobin 13.8 L Hematocrit 40.7 L Mean Corpuscular Volume 94.4 Mean Corpuscular Hemoglobin 32.0 Mean Corpuscular Hemoglobin Concent 33.9 Red Cell Distribution Width 13.8 Platelet Count 214 # Mean Platelet Volume 10.5 H Neutrophils % 46.7 Lymphocytes % 36.7 Monocytes % 12.2 H Eosinophils % 3.3 Basophils % 0.7 Nucleated Red Blood Cells % 0.0 Neutrophils # (Manual) 2.5 Lymphocytes # 2.0 Monocytes # 0.7 Eosinophils # 0.2 Basophils # 0.0 Nucleated Red Blood Cells # 0.0 Sodium Level 137 Potassium Level 4.8 Chloride Level 103 Carbon Dioxide Level 32 H Anion Gap 7 L Blood Urea Nitrogen 15 Creatinine 0.93 Glucose Level 81 # Calcium Level 9.4 Test 05/18/17 12:05 Bedside Glucose 153 Medications Medications Current Medications Allopurinol (Zyloprim) 300 mg DAILY PO Last administered on 05/18/17 08:47; Admin Dose 300 MG; Start 05/17/17 at 09:00 Ascorbic Acid (Vitamin C) 1,000 mg DAILY PO Last administered on 05/18/17 08: 47; Admin Dose 1,000 MG; Start 05/17/17 at 09:00 Aspirin (Halfprin) 81 mg DAILY PO Last administered on 05/18/17 08:47; Admin Dose 81 MG; Start 05/17/17 at 09:00 Cholecalciferol (Vitamin D) 1,000 unit DAILY PO Last administered on 05/18/17 08:47; Admin Dose 1,000 UNIT; Start 05/17/17 at 09:00 Insulin Detemir (Levemir) 30 unit QHS SC Last administered on 05/17/17 20:30; Admin Dose 30 UNIT; Start 05/16/17 at 22:30 Miscellaneous Information 1 ea NOTE XX ; Start 05/16/17 at 22:30 Glucose (Glutose) 15 gm Q15M PRN PO DECREASED GLUCOSE; Start 05/16/17 at 22:30 Glucose (Glutose) 22.5 gm Q15M PRN PO DECREASED GLUCOSE; Start 05/16/17 at 22: 30 Dextrose (D50w Syringe) 25 ml Q15M PRN IV DECREASED GLUCOSE; Start 05/16/17 at 22:30 Dextrose (D50w Syringe) 50 ml Q15M PRN IV DECREASED GLUCOSE; Start 05/16/17 at 22:30 Glucagon (Glucagen) 1 mg Q15M PRN IM DECREASED GLUCOSE; Start 05/16/17 at 22:30 Glucose (Glutose) 15 gm Q15M PRN BUCCAL DECREASED GLUCOSE; Start 05/16/17 at 22 :30 Morphine Sulfate (morphine) 2 mg Q4H PRN IV PAIN LEVEL 7-10 Last administered on 05/18/17 11:25; Admin Dose 2 MG; Start 05/16/17 at 22:00 Ondansetron HCl (Zofran Inj) 4 mg Q6H PRN IV NAUSEA AND/OR VOMITING; Start 07/22 at 22:00 Acetaminophen/ Hydrocodone Bitart ([place] (5/325)) 1 tab Q4H PRN PO PAIN LEVEL 4 -7 Last administered on 05/17/17 22:37; Admin Dose 1 TAB; Start 05/16/17 at 22: 00 Heparin Sodium (Porcine) (Heparin (5000 Units/0.5 ml)) 5,000 unit BID SC Last administered on 05/18/17 08:44; Admin Dose 5,000 UNIT; Start 05/17/17 at 09:00 Diagnostic Test (Pha) (Accu-Chek) 1 ea 02 XX ; Start 05/17/17 at 02:00 Diagnostic Test (Pha) 1 ea 1 ea 02 XX ; Start 05/17/17 at 02:00 Levofloxacin/ Dextrose (Levaquin 500mg/ D5W 100 ml (Pmx)) 100 ml @ 100 mls/hr Q24H IVPB Last administered on 05/17/17 20:35; Admin Dose 100 MLS/HR; Start at 20:00 Furosemide (Lasix) 20 mg DAILY IV Last administered on 05/18/17 08:46; Admin Dose 20 MG; Start 05/17/17 at 09:00 JESSICA PARRISH MD May 18, 2017 12:23
[2017-05-18] MEDS: GABAPENTIN 300 MG CAP PO SCH ×2 (14:36→20:45)
[2017-05-18] MEDS: LEVOFLOXACIN 500MG/D5W (PMX) 100 ML IVPB SCH (20:45)
[2017-05-18] MEDS: INSULIN DETEMIR [LEVEMIR] 3ML CART SC SCH (20:48)
[2017-05-19] VITALS (12 sets, daily range): BP systolic 137–158; BP diastolic 61–81; PULSE 68–83; RESP 18–20
[2017-05-19] MEDS: morphine 2 MG INJ IV PRN ×5 (01:21→20:35)
[2017-05-19] MEDS: ACCU-CHEK XX SCH ×2 (02:00)
[2017-05-19] MEDS: INSULIN ASPART [NOVOLOG] 3 ML PEN SC SCH ×7 (08:00→20:53)
[2017-05-19] MEDS: HEPARIN 5,000 UNIT/0.5 ML VIAL SC SCH ×2 (08:30→20:51)
[2017-05-19] MEDS: GABAPENTIN 300 MG CAP PO SCH ×3 (08:30→20:41)
[2017-05-19] MEDS: FUROSEMIDE 20 MG INJ IV SCH (08:30)
[2017-05-19] MEDS: ALLOPURINOL 300 MG TAB PO SCH (08:31)
[2017-05-19] MEDS: ASPIRIN (EC) 81 MG TAB PO SCH (08:31)
[2017-05-19] MEDS: ASCORBIC ACID 500 MG TAB PO SCH (08:31)
[2017-05-19] MEDS: CHOLECALCIFEROL 1,000 UNIT TAB PO SCH (08:31)
--- NOTE | 2017-05-19 14:45 | PN ---
Date/Time of Note Date/Time of Note DATE: 05/19/17 TIME: 14:42 Assessment/Plan VTE Prophylaxis VTE Prophylaxis Intervention: heparin Lines/Catheters IV Catheter Type (from Nrs): Saline Lock Urinary Cath still in place: No Assessment/Plan Assessment/Plan 1. Bilateral community acquired pneumonia, improving on antibiotics 2. Sepsis, improving 3. Chronic Alcoholic cirrhosis, status post TIPS procedure in the past 4. CAD, stable 5. DM, on insulins/metformin 6. HTN, controlled 7. Hypothyroidism, on supplement 8. Gout, on allopurinol 9. S/p TMA 10. Peripheral Neuropathy 11. Chronic left foot ulcer, called Dr. Major 12. DVT prophylaxis: heparin Subjective 24 Hr Interval Summary Free Text/Dictation still cough but no respiratory distress, afebrile Exam/Review of Systems Vital Signs Vitals Vital Signs Date Time Temp Pulse Resp B/P Pulse Ox O2 Delivery O2 Flow Rate FiO2 05/19/17 12:00 83 05/19/17 11:55 98.3 18 137/77 94 05/19/17 07:35 Nasal Cannula 2.0 05/16/17 16:51 21 Intake and Output 05/18/17 05/18/17 05/19/17 15:00 23:00 07:00 Intake Total 610 ml 800 ml Output Total 650 ml Balance 610 ml 150 ml Exam Constitutional: alert, oriented, well developed Psych: nl mood/affect, no complaints Head: atraumatic, normocephalic Eyes: EOMI, PERRL, nl conjunctiva, nl lids ENMT: nl external ears & nose, nl lips & teeth, nl nasal mucosa & septum Neck: non-tender, supple Respiratory: clear to auscultation Cardiovascular: nl pulses, regular rate and rhythm, No S3, No S4, No bruits, No diastolic murmur, No edema, No gallop, No irregular rhythm, No jugular venous distention (JVD), No murmurs/extra sounds, No other, No rub, No systolic murmur Gastrointestinal: nl liver, spleen, non-tender, soft, No ascites, No bowel sounds, No distended, No firm, No hepatomegaly, No mass , No other, No rebound or guarding, No splenomegaly, No surgical scars, No tender Musculoskeletal: nl extremities to inspection Extremities: normal pulses, other (left foot wound), No calf tenderness, No clubbing, No cyanosis, No edema, No palpable cord, No pitting pedal edema, No tenderness 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, nl mental status, nl speech, nl strength Skin: nl turgor Lymph: nl lymph nodes Results Result Diagram: 05/18/17 0658 05/18/17 0658 Results 24 hrs Laboratory Tests Test 05/18/17 17:51 05/18/17 20:43 05/19/17 02:03 05/19/17 08:01 Bedside Glucose 201 190 133 128 Test 05/19/17 11:29 Bedside Glucose 201 Medications Medications Current Medications Allopurinol (Zyloprim) 300 mg DAILY PO Last administered on 05/19/17 08:31; Admin Dose 300 MG; Start 05/17/17 at 09:00 Ascorbic Acid (Vitamin C) 1,000 mg DAILY PO Last administered on 05/19/17 08: 31; Admin Dose 1,000 MG; Start 05/17/17 at 09:00 Aspirin (Halfprin) 81 mg DAILY PO Last administered on 05/19/17 08:31; Admin Dose 81 MG; Start 05/17/17 at 09:00 Cholecalciferol (Vitamin D) 1,000 unit DAILY PO Last administered on 05/19/17 08:31; Admin Dose 1,000 UNIT; Start 05/17/17 at 09:00 Insulin Detemir (Levemir) 30 unit QHS SC Last administered on 05/18/17 20:48; Admin Dose 30 UNIT; Start 05/16/17 at 22:30 Miscellaneous Information 1 ea NOTE XX ; Start 05/16/17 at 22:30 Glucose (Glutose) 15 gm Q15M PRN PO DECREASED GLUCOSE; Start 05/16/17 at 22:30 Glucose (Glutose) 22.5 gm Q15M PRN PO DECREASED GLUCOSE; Start 05/16/17 at 22: 30 Dextrose (D50w Syringe) 25 ml Q15M PRN IV DECREASED GLUCOSE; Start 05/16/17 at 22:30 Dextrose (D50w Syringe) 50 ml Q15M PRN IV DECREASED GLUCOSE; Start 05/16/17 at 22:30 Glucagon (Glucagen) 1 mg Q15M PRN IM DECREASED GLUCOSE; Start 05/16/17 at 22:30 Glucose (Glutose) 15 gm Q15M PRN BUCCAL DECREASED GLUCOSE; Start 05/16/17 at 22 :30 Morphine Sulfate (morphine) 2 mg Q4H PRN IV PAIN LEVEL 7-10 Last administered on 05/19/17 11:25; Admin Dose 2 MG; Start 05/16/17 at 22:00 Ondansetron HCl (Zofran Inj) 4 mg Q6H PRN IV NAUSEA AND/OR VOMITING; Start 07/22 at 22:00 Acetaminophen/ Hydrocodone Bitart ([place] (5/325)) 1 tab Q4H PRN PO PAIN LEVEL 4 -7 Last administered on 05/17/17 22:37; Admin Dose 1 TAB; Start 05/16/17 at 22: 00 Heparin Sodium (Porcine) (Heparin (5000 Units/0.5 ml)) 5,000 unit BID SC Last administered on 05/19/17 08:30; Admin Dose 5,000 UNIT; Start 05/17/17 at 09:00 Diagnostic Test (Pha) (Accu-Chek) 1 ea 02 XX ; Start 05/17/17 at 02:00 Diagnostic Test (Pha) 1 ea 1 ea 02 XX ; Start 05/17/17 at 02:00 Levofloxacin/ Dextrose (Levaquin 500mg/ D5W 100 ml (Pmx)) 100 ml @ 100 mls/hr Q24H IVPB Last administered on 05/18/17 20:45; Admin Dose 100 MLS/HR; Start at 20:00 Furosemide (Lasix) 20 mg DAILY IV Last administered on 05/19/17 08:30; Admin Dose 20 MG; Start 05/17/17 at 09:00 Gabapentin (Neurontin) 300 mg TID PO Last administered on 05/19/17 13:40; Admin Dose 300 MG; Start 05/18/17 at 13:00 JESSICA PARRISH MD May 19, 2017 14:45
[2017-05-19] MEDS: LEVOFLOXACIN 500MG/D5W (PMX) 100 ML IVPB SCH (20:41)
[2017-05-19] MEDS: INSULIN DETEMIR [LEVEMIR] 3ML CART SC SCH (20:52)
[2017-05-19] MEDS: HYDROCODONE/APAP (5/325) TAB PO PRN (23:18)
[2017-05-20] VITALS (11 sets, daily range): BP systolic 126–172; BP diastolic 71–79; PULSE 76–84; RESP 18–20
[2017-05-20] MEDS: morphine 2 MG INJ IV PRN ×5 (00:58→21:36)
[2017-05-20] MEDS: ACCU-CHEK XX SCH ×2 (02:00)
[2017-05-20] MEDS: CHOLECALCIFEROL 1,000 UNIT TAB PO SCH (08:16)
[2017-05-20] MEDS: ASCORBIC ACID 500 MG TAB PO SCH (08:17)
[2017-05-20] MEDS: ALLOPURINOL 300 MG TAB PO SCH (08:17)
[2017-05-20] MEDS: ASPIRIN (EC) 81 MG TAB PO SCH (08:17)
[2017-05-20] MEDS: FUROSEMIDE 20 MG INJ IV SCH (08:17)
[2017-05-20] MEDS: GABAPENTIN 300 MG CAP PO SCH ×3 (08:17→20:07)
[2017-05-20] MEDS: HEPARIN 5,000 UNIT/0.5 ML VIAL SC SCH ×2 (08:18→20:32)
[2017-05-20] MEDS: INSULIN ASPART [NOVOLOG] 3 ML PEN SC SCH ×7 (08:19→20:37)
[2017-05-20] MEDS: HYDROCODONE/APAP (5/325) TAB PO PRN ×2 (11:30→20:15)
--- NOTE | 2017-05-20 13:51 | PN ---
Date/Time of Note Date/Time of Note DATE: 05/20/17 TIME: 13:50 Assessment/Plan VTE Prophylaxis VTE Prophylaxis Intervention: heparin Lines/Catheters IV Catheter Type (from Nrs): Saline Lock Urinary Cath still in place: No Assessment/Plan Assessment/Plan 1. Bilateral community acquired pneumonia, improving on antibiotics, persistent cough with hemoptysis, CT scan 2. Sepsis, improved 3. Chronic Alcoholic cirrhosis, status post TIPS procedure in the past 4. CAD, stable 5. DM, on insulins/metformin 6. HTN, controlled 7. Hypothyroidism, on supplement 8. Gout, on allopurinol 9. S/p TMA 10. Peripheral Neuropathy 11. Chronic left foot ulcer, called Dr. Major on 05/19/2017 12. DVT prophylaxis: heparin Subjective 24 Hr Interval Summary Free Text/Dictation cough with hemoptysis. no fever Exam/Review of Systems Vital Signs Vitals Vital Signs Date Time Temp Pulse Resp B/P Pulse Ox O2 Delivery O2 Flow Rate FiO2 05/20/17 13:18 81 05/20/17 08:00 Nasal Cannula 2.0 05/20/17 07:44 98.3 18 156/79 95 05/16/17 16:51 21 Intake and Output 05/19/17 05/19/17 05/20/17 15:00 23:00 07:00 Intake Total 1200 ml Output Total 1700 ml Balance -500 ml Exam Constitutional: alert, oriented, well developed Psych: nl mood/affect, no complaints Head: atraumatic, normocephalic Eyes: EOMI, nl conjunctiva, nl lids ENMT: nl external ears & nose, nl lips & teeth, nl nasal mucosa & septum Neck: non-tender, supple Respiratory: clear to auscultation, normal air movement Cardiovascular: nl pulses, regular rate and rhythm, No S3, No S4, No bruits, No diastolic murmur, No edema, No gallop, No irregular rhythm, No jugular venous distention (JVD), No murmurs/extra sounds, No other, No rub, No systolic murmur Gastrointestinal: nl liver, spleen, non-tender, soft, No ascites, No bowel sounds, No distended, No firm, No hepatomegaly, No mass , No other, No rebound or guarding, No splenomegaly, No surgical scars, No tender Musculoskeletal: nl extremities to inspection Extremities: other (left foot wound) 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, nl mental status, nl speech, nl strength Skin: nl turgor Results Result Diagram: 05/18/17 0658 05/18/17 0658 Results 24 hrs Laboratory Tests Test 05/19/17 17:18 05/19/17 20:39 05/20/17 01:01 05/20/17 08:11 Bedside Glucose 197 223 H 225 H 144 Test 05/20/17 11:32 Bedside Glucose 221 H Medications Medications Current Medications Allopurinol (Zyloprim) 300 mg DAILY PO Last administered on 05/20/17 08:17; Admin Dose 300 MG; Start 05/17/17 at 09:00 Ascorbic Acid (Vitamin C) 1,000 mg DAILY PO Last administered on 05/20/17 08: 17; Admin Dose 1,000 MG; Start 05/17/17 at 09:00 Aspirin (Halfprin) 81 mg DAILY PO Last administered on 05/20/17 08:17; Admin Dose 81 MG; Start 05/17/17 at 09:00 Cholecalciferol (Vitamin D) 1,000 unit DAILY PO Last administered on 05/20/17 08:16; Admin Dose 1,000 UNIT; Start 05/17/17 at 09:00 Insulin Detemir (Levemir) 30 unit QHS SC Last administered on 05/19/17 20:52; Admin Dose 30 UNIT; Start 05/16/17 at 22:30 Miscellaneous Information 1 ea NOTE XX ; Start 05/16/17 at 22:30 Glucose (Glutose) 15 gm Q15M PRN PO DECREASED GLUCOSE; Start 05/16/17 at 22:30 Glucose (Glutose) 22.5 gm Q15M PRN PO DECREASED GLUCOSE; Start 05/16/17 at 22: 30 Dextrose (D50w Syringe) 25 ml Q15M PRN IV DECREASED GLUCOSE; Start 05/16/17 at 22:30 Dextrose (D50w Syringe) 50 ml Q15M PRN IV DECREASED GLUCOSE; Start 05/16/17 at 22:30 Glucagon (Glucagen) 1 mg Q15M PRN IM DECREASED GLUCOSE; Start 05/16/17 at 22:30 Glucose (Glutose) 15 gm Q15M PRN BUCCAL DECREASED GLUCOSE; Start 05/16/17 at 22 :30 Morphine Sulfate (morphine) 2 mg Q4H PRN IV PAIN LEVEL 7-10 Last administered on 05/20/17 12:40; Admin Dose 2 MG; Start 05/16/17 at 22:00 Ondansetron HCl (Zofran Inj) 4 mg Q6H PRN IV NAUSEA AND/OR VOMITING; Start 07/22 at 22:00 Acetaminophen/ Hydrocodone Bitart ([place] (5/325)) 1 tab Q4H PRN PO PAIN LEVEL 4 -7 Last administered on 05/20/17 11:30; Admin Dose 1 TAB; Start 05/16/17 at 22: 00 Heparin Sodium (Porcine) (Heparin (5000 Units/0.5 ml)) 5,000 unit BID SC Last administered on 05/20/17 08:18; Admin Dose 5,000 UNIT; Start 05/17/17 at 09:00 Diagnostic Test (Pha) (Accu-Chek) 1 ea 02 XX ; Start 05/17/17 at 02:00 Diagnostic Test (Pha) 1 ea 1 ea 02 XX ; Start 05/17/17 at 02:00 Levofloxacin/ Dextrose (Levaquin 500mg/ D5W 100 ml (Pmx)) 100 ml @ 100 mls/hr Q24H IVPB Last administered on 05/19/17 20:41; Admin Dose 100 MLS/HR; Start at 20:00 Furosemide (Lasix) 20 mg DAILY IV Last administered on 05/20/17 08:17; Admin Dose 20 MG; Start 05/17/17 at 09:00 Gabapentin (Neurontin) 300 mg TID PO Last administered on 05/20/17 12:40; Admin Dose 300 MG; Start 05/18/17 at 13:00 JESSICA PARRISH MD May 20, 2017 13:51
--- NOTE | 2017-05-20 16:45 | RADRPT ---
PROCEDURE: CT Chest without contrast. CLINICAL INDICATION: Pneumonia and hemoptysis. TECHNIQUE: CT scan of the chest without contrast was performed on a multidetector high-resolution C T scanner. Coronal and sagittal reformatted images were obtained from the axial source images. The total exam CTDI equals 16.74 mGy and the total exam DLP equals 700.41 mGy-cm. One or more of the following dose reduction techniques were used: - Automated exposure control. - Adjustment of the mA and/or kV according to patient size. - Use of iterative reconstruction technique. COMPARISON: CT dated 05/16/2017. FINDINGS: Lungs, pleura, airways, and thoracic inlet: There is mildly improved patchy peribronchovascular con solidation with surrounding ground-glass opacity throughout the left lung and in the right middle an d right lower lobes, most pronounced in the lingula and basilar segments of the left lower lobe. The re is no effusion or pneumothorax. The tracheobronchial tree is patent and normal in course and cedric conrad. Cardiovascular system, mediastinum, and lymphatics: The heart is normal in size without pericardial thickening or effusion. There are multivessel coronary artery calcifications. There are atheroscler otic changes of the aorta, which is nonaneurysmal. There is no axillary, hilar, or mediastinal adeno erick. Visualized upper abdomen: A cirrhotic liver with a TIPS in place is again seen. Musculoskeletal system and soft tissues: There is similar moderate to severe multilevel degenerativ e enthesopathy. There are no concerning osseous lesions. The soft tissues are grossly unremarkable. IMPRESSION: 1. Improving multifocal pneumonia, left lung greater than right. Follow-up to resolution is recomme nded. 2. Multivessel coronary artery calcifications and atherosclerotic changes of the aorta. RPTAT: HLBP .Raj Oden MD, MD Date Time Electronically viewed and signed by .Raj Oden MD, MD on 05/20/2017 16:45 .P/
[2017-05-20] MEDS: LEVOFLOXACIN 500MG/D5W (PMX) 100 ML IVPB SCH (20:19)
[2017-05-20] MEDS: INSULIN DETEMIR [LEVEMIR] 3ML CART SC SCH (20:35)
[2017-05-20] MEDS: CEFEPIME 1GM/50 ML (PMX) 50 ML IVPB SCH (20:38)
[2017-05-21] VITALS (12 sets, daily range): BP systolic 122–149; BP diastolic 58–79; PULSE 76–103; RESP 19–21
--- NOTE | 2017-05-21 00:59 | CONS ---
DATE OF ADMISSION: 05/16/2017 DATE OF CONSULTATION: 05/20/2017 REQUESTING PHYSICIAN: Dr. Aleman. Thank you Dr. Aleman for this consultation. HISTORY OF PRESENT ILLNESS: This is a morbidly obese 62-year-old man well-known to our service from previous admission. Patient has a history of left foot cellulitis, for which he was treated previously with daptomycin, and is being seen by Dr. Major at the wound clinic. He had an MRI of the foot in December 2016 that revealed no evidence for osteomyelitis. The patient has been seeing Dr. Major at the wound clinic, and was sent to emergency department at [facility] secondary to severe shortness of breath and cough. His vital signs in emergency department revealed temperature of 100.2, pulse 85, respirations 22, blood pressure 178/81, saturation 93 percent. WBC count was 4.9, H and H 15.1 and 42.6, platelets 190,000, neutrophils 62. Sodium 134, BUN 13, creatinine 0.89. Lactic acid 2.7, normal bilirubin, AST 50, ALT 37, alk phos 70. He had a venous bilateral lower extremities ultrasound that revealed no DVT. Patient had a chest x-ray showing left perihilar and basilar infiltrates. CT of the chest revealed no evidence of pulmonary emboli, patchy peribronchovascular consolidation throughout the left lung and in the right lower lobe most consistent with bronchopneumonia, mild cardiomegaly, cirrhotic liver with TIPS in place, the patency of which cannot be determined due to the stasis of contrast, multivessel coronary artery calcifications, and atherosclerotic changes of the aortic. The patient was started on Levaquin. The latest wound culture on 05/07/2017 grew Streptococcus agalactiae. ALLERGIES: HE IS ALLERGIC TO PENICILLIN. PAST MEDICAL HISTORY: Significant for chronic left lower extremity cellulitis, coronary artery disease, diabetes, hypertension, gout, history of left transmetatarsal amputation, cirrhosis status post TIPS procedure. SOCIAL HISTORY: Patient lives at home. Denies smoking, alcohol, illicit drugs. No recent travel. Patient states his son was ill at home and had been coughing, after which he developed a cough and has been coughing for approximately 1 week. PHYSICAL EXAMINATION: GENERAL: This is a morbidly obese, well developed, elderly man who is alert in no distress. HEENT: Head atraumatic, normocephalic. Sclerae anicteric. Buccal mucosa dry. NECK: Supple. CHEST: Rise symmetrical. Breath sounds diminished at the bases. HEART: S1, S2. ABDOMEN: Soft, bowel sounds present. EXTREMITIES: Left lower extremity dressing intact. IMPRESSION: This is a 62-year-old man well known to our service, admitted with acute respiratory failure, hypoxemia secondary to bilateral bronchopneumonia. There is no evidence of pulmonary embolism per CT, patient also with left lower extremity nonhealing wound and as per Dr. Major's note, with exposed tendon. He is currently on Levaquin. We are going to start him on cefepime, continue Levaquin, try to obtain sputum culture. We will order MRI of the left foot to rule out osteomyelitis, swab nares for methicillin-resistant Staphylococcus aureus. Further recommendations per patient's clinical course. Discussed with Dr. Danial Croft. Dictated By: Uriel Calvin NP /gilberto/frederick /Document#: [id number] DAVIAN
[2017-05-21] MEDS: ACCU-CHEK XX SCH ×2 (02:00)
--- NOTE | 2017-05-21 02:36 | RADRPT ---
PROCEDURE: MR Foot. CLINICAL INDICATION: Amputations at the proximal left forefoot, now with possible infection. Surge ry was in 2009. TECHNIQUE: Noncontrast MRI examination of the left foot, with axial, sagittal and coronal reformat breanna images. T1-weighted and fluid-sensitive STIR sequences were employed. COMPARISON: Plain film examination of the left foot dated 12/14/2016. MRI examination of the left foot dated 12/16/2016. FINDINGS: Amputation of the left foot and at the base of the metatarsals, similar in appearance to prior exami nations. Metallic artifact associated with screw fixators at the distal tibia and fibula, similar in appearance to prior examination. Additionally, there is a screw fragment in the medial aspect of th e cuboid, also without significant change. There is a likely soft tissue ulceration at the lateral aspect of the distal foot remnant. This may be full-thickness, extending to the periosteum of the cuboid and proximal remnant of the fifth metat arsal. Likely air collections in the subcutaneous and soft tissues over the distal left foot remnant at the site of amputation, suggesting an infectious process. Decreased T1-weighted signal in the remnant of the base of the fifth metatarsal, which is seen deep to region of soft tissue defect. This suggests a degree of osteomyelitis. There is also a degree of osteomyelitis in the cuboid. Otherwise, there is no abnormal T1-weighted or fluid-sensitive STIR seq uence to suggest osteomyelitis in the remaining left foot osseous remnants. Likely osseous erosive changes in the midfoot. No definite abscess is identified. An IV contrast enhanced MRI examination may be more sensitive and specific. IMPRESSION: 1. Subcutaneous and soft tissue air over the distal left foot remnant and region of amputation sugge st an infectious process, with ulceration of the skin at the lateral aspect of the distal foot remna nt. 2. Osteomyelitis in the proximal remnant of the fifth metatarsal and in the cuboid. 3. Otherwise, no abnormal signal in the osseous structures of the left foot remnant to suggest osteo myelitis. 4. No definite abscess is identified, and IV contrast enhanced MRI examination may be more sensitive and specific. RPTAT: UU Chris Latif Physician Date Time Electronically viewed and signed by Chris Latif Physician on 05/21/2017 02:36 RS/
[2017-05-21] MEDS: morphine 2 MG INJ IV PRN ×4 (02:40→20:06)
[2017-05-21] MEDS: HYDROCODONE/APAP (5/325) TAB PO PRN ×2 (06:20→22:02)
[2017-05-21] MEDS: CEFEPIME 1GM/50 ML (PMX) 50 ML IVPB SCH ×2 (09:13→20:28)
[2017-05-21] MEDS: CHOLECALCIFEROL 1,000 UNIT TAB PO SCH (09:13)
[2017-05-21] MEDS: ASPIRIN (EC) 81 MG TAB PO SCH (09:14)
[2017-05-21] MEDS: ALLOPURINOL 300 MG TAB PO SCH (09:14)
[2017-05-21] MEDS: GABAPENTIN 300 MG CAP PO SCH ×3 (09:14→20:12)
[2017-05-21] MEDS: ASCORBIC ACID 500 MG TAB PO SCH (09:15)
[2017-05-21] MEDS: INSULIN ASPART [NOVOLOG] 3 ML PEN SC SCH ×6 (09:18→20:28)
[2017-05-21] MEDS: HEPARIN 5,000 UNIT/0.5 ML VIAL SC SCH ×2 (09:20→20:12)
[2017-05-21] MEDS: FUROSEMIDE 20 MG INJ IV SCH (09:21)
--- NOTE | 2017-05-21 13:03 | PN ---
Date/Time of Note Date/Time of Note DATE: 05/21/17 TIME: 13:00 Assessment/Plan VTE Prophylaxis VTE Prophylaxis Intervention: contraindicated Lines/Catheters [facility] Saline Lock Urinary Cath still in place: No Assessment/Plan Problems: (1) Pneumonia Status: Acute Comment: Subjectively is improving in terms of cough and shortness of breath. He is on broad-spectrum antibiotics. Sputum culture is not of assistance blood cultures are negative. Continue treatment. Anticipate discharge in roughly 24- 72 hours Qualifiers: Pneumonia type: due to unspecified organism Laterality: bilateral Lung location: lower lobe of lung Qualified Code: J18.9 - Pneumonia of both lower lobes due to infectious organism (2) Severe sepsis Status: Acute Comment: Improving nicely (3) Type 2 diabetes mellitus with hyperglycemia Status: Chronic Comment: Sugar control at home was poor. The patient does specifically inform me he is not compliant or cooperative with his diet and does miss medicines. Continue treatment. Please note given the cirrhosis metformin would have less of a role in the setting. Qualifiers: Diabetes mellitus retirement insulin use: with manager intermediate use Qualified Code : E11.65 - Type 2 diabetes mellitus with hyperglycemia, with long-term current use of insulin (4) Morbid obesity Status: Chronic Comment: Attempted calorie restriction diet. (5) Non-pressure chronic ulcer of other part of left foot with necrosis of bone Comment: This remains an issue and he is seen by our colleagues at the [facility] Subjective 24 Hr Interval Summary Free Text/Dictation Patient reports that he was disappointed to not receive dessert with his dinner last night he does however inform me that his diabetic control is better Constitutional: no complaints Respiratory: cough (Cough has improved), shortness of breath (Pertinence of breath has improved) Cardiovascular: no complaints Gastrointestinal: no complaints Exam/Review of Systems Vital Signs Vitals Vital Signs Date Time Temp Pulse Resp B/P Pulse Ox O2 Delivery O2 Flow Rate FiO2 05/21/17 12:10 83 05/21/17 11:56 98.3 20 149/68 96 05/20/17 20:00 Nasal Cannula 2.0 Intake and Output 05/20/17 05/20/17 05/21/17 15:00 23:00 07:00 Intake Total 1150 ml 800 ml Output Total 1400 ml 1200 ml Balance -250 ml -400 ml Exam Constitutional: alert, oriented Neck: non-tender, supple Respiratory: crackles/rales Cardiovascular: nl pulses, regular rate and rhythm Gastrointestinal: ascites, hepatomegaly, soft Results Result Diagram: 05/18/17 0658 05/18/17 0658 Results 24 hrs Laboratory Tests Test 05/20/17 16:53 05/20/17 20:21 05/21/17 02:39 05/21/17 09:11 Bedside Glucose 167 182 190 162 Medications Medications Current Medications Allopurinol (Zyloprim) 300 mg DAILY PO Last administered on 05/21/17 09:14; Admin Dose 300 MG; Start 05/17/17 at 09:00 Ascorbic Acid (Vitamin C) 1,000 mg DAILY PO Last administered on 05/21/17 09: 15; Admin Dose 1,000 MG; Start 05/17/17 at 09:00 Aspirin (Halfprin) 81 mg DAILY PO Last administered on 05/21/17 09:14; Admin Dose 81 MG; Start 05/17/17 at 09:00 Cholecalciferol (Vitamin D) 1,000 unit DAILY PO Last administered on 05/21/17 09:13; Admin Dose 1,000 UNIT; Start 05/17/17 at 09:00 Insulin Detemir (Levemir) 30 unit QHS SC Last administered on 05/20/17 20:35; Admin Dose 30 UNIT; Start 05/16/17 at 22:30 Miscellaneous Information 1 ea NOTE XX ; Start 05/16/17 at 22:30 Glucose (Glutose) 15 gm Q15M PRN PO DECREASED GLUCOSE; Start 05/16/17 at 22:30 Glucose (Glutose) 22.5 gm Q15M PRN PO DECREASED GLUCOSE; Start 05/16/17 at 22: 30 Dextrose (D50w Syringe) 25 ml Q15M PRN IV DECREASED GLUCOSE; Start 05/16/17 at 22:30 Dextrose (D50w Syringe) 50 ml Q15M PRN IV DECREASED GLUCOSE; Start 05/16/17 at 22:30 Glucagon (Glucagen) 1 mg Q15M PRN IM DECREASED GLUCOSE; Start 05/16/17 at 22:30 Glucose (Glutose) 15 gm Q15M PRN BUCCAL DECREASED GLUCOSE; Start 05/16/17 at 22 :30 Morphine Sulfate (morphine) 2 mg Q4H PRN IV PAIN LEVEL 7-10 Last administered on 05/21/17 09:22; Admin Dose 2 MG; Start 05/16/17 at 22:00 Ondansetron HCl (Zofran Inj) 4 mg Q6H PRN IV NAUSEA AND/OR VOMITING; Start 07/22 at 22:00 Acetaminophen/ Hydrocodone Bitart ([place] (5/325)) 1 tab Q4H PRN PO PAIN LEVEL 4 -7 Last administered on 05/21/17 06:20; Admin Dose 1 TAB; Start 05/16/17 at 22: 00 Heparin Sodium (Porcine) (Heparin (5000 Units/0.5 ml)) 5,000 unit BID SC Last administered on 05/21/17 09:20; Admin Dose 5,000 UNIT; Start 05/17/17 at 09:00 Diagnostic Test (Pha) (Accu-Chek) 1 ea 02 XX ; Start 05/17/17 at 02:00 Diagnostic Test (Pha) 1 ea 1 ea 02 XX ; Start 05/17/17 at 02:00 Levofloxacin/ Dextrose (Levaquin 500mg/ D5W 100 ml (Pmx)) 100 ml @ 100 mls/hr Q24H IVPB Last administered on 05/20/17 20:19; Admin Dose 100 MLS/HR; Start at 20:00 Furosemide (Lasix) 20 mg DAILY IV Last administered on 05/21/17 09:21; Admin Dose 20 MG; Start 05/17/17 at 09:00 Gabapentin 300 mg 300 mg TID PO Last administered on 05/21/17 09:14; Admin Dose 300 MG; Start 05/18/17 at 13:00 Cefepime HCl (Maxipime 1gm/50 ml (Pmx)) 50 ml @ 100 mls/hr Q12 IVPB Last administered on 05/21/17 09:13; Admin Dose 100 MLS/HR; Start 05/20/17 at 21:00 CARY DURAN MD May 21, 2017 13:03
--- NOTE | 2017-05-21 20:05 | CONS ---
Date/Time of Note Date/Time of Note DATE: 05/21/17 TIME: 19:55 Assessment/Plan Assessment/Plan Chief Complaint/Hosp Course ID PROGRESS NOTE CURRENT ABX: =>Cefepime +Levaquin 24H INTERVAL SUMMARY * Clinically stable, calm, resting comfortable, no fevers * No fevers, WBC normalized * BCx (-), MRSA + Wound cx => Pending * MRI IMPRESSION: * 1. Subcutaneous and soft tissue air over the distal left foot remnant and region of amputation suggest an infectious process, with ulceration of the skin at the lateral aspect of the distal foot remnant. * 2. Osteomyelitis in the proximal remnant of the fifth metatarsal and in the cuboid. * 3. Otherwise, no abnormal signal in the osseous structures of the left foot remnant to suggest osteomyelitis. * 4. No definite abscess is identified, and IV contrast enhanced MRI examination may be more sensitive and specific. EXAM GEN: VSS, NAD HEENT: Unremarkable NECK: supple CVS: RRR CHEST: Equal chest rise bilaterally without dyspnea on observation ABD: Soft, NT, EXT: warm SKIN: No rash, no diaphoresis ID ASSESSMENT 62 yo M admit with: 1. Acute respiratory failure, hypoxemia secondary to bilateral bronchopneumonia + COPD Asthma exacerbation * There is no evidence of pulmonary embolism per CT 2. LLEXT nonhealing wound and as per Dr. Major's note, with exposed tendon. * S/P TMA left foot with MRI evidence of infection + Osteomyelitis in the proximal remnant of the fifth metatarsal and in the cuboid. 3. DM w/complication of peripheral Neuropathy 4. Chronic Alcoholic cirrhosis, status post TIPS procedure in the past 4. CAD, stable 5. DM, on insulins/metformin 6. HTN, controlled 7. Hypothyroidism, on supplement CURRENT ABX: =>Cefepime +Levaquin ID RECOMMENDATIONS 1. Await final wound Cx results 2. Further recs podiatry 3. He has hx of MRSA foot wound -> f/u on MRSA screen pending . Problems: Consultation Date/Type/Reason Admit Date/Time May 16, 2017 at 19:30 Initial Consult Date Exam/Review of Systems Vital Signs Vitals Vital Signs Date Time Temp Pulse Resp B/P Pulse Ox O2 Delivery O2 Flow Rate FiO2 05/21/17 16:40 103 05/21/17 15:59 98.4 20 122/63 94 05/21/17 08:30 2.0 05/20/17 20:00 Nasal Cannula Intake and Output 05/20/17 05/20/17 05/21/17 15:00 23:00 07:00 Intake Total 1150 ml 800 ml Output Total 1400 ml 1200 ml Balance -250 ml -400 ml Results Result Diagram: 05/18/17 0658 05/18/17 0658 Results 24 hrs Laboratory Tests Test 05/20/17 20:21 05/21/17 02:39 05/21/17 09:11 05/21/17 12:48 Bedside Glucose 182 190 162 188 Test 05/21/17 17:24 Bedside Glucose 167 Medications Medications Current Medications Allopurinol (Zyloprim) 300 mg DAILY PO Last administered on 05/21/17 09:14; Admin Dose 300 MG; Start 05/17/17 at 09:00 Ascorbic Acid (Vitamin C) 1,000 mg DAILY PO Last administered on 05/21/17 09: 15; Admin Dose 1,000 MG; Start 05/17/17 at 09:00 Aspirin (Halfprin) 81 mg DAILY PO Last administered on 05/21/17 09:14; Admin Dose 81 MG; Start 05/17/17 at 09:00 Cholecalciferol (Vitamin D) 1,000 unit DAILY PO Last administered on 05/21/17 09:13; Admin Dose 1,000 UNIT; Start 05/17/17 at 09:00 Miscellaneous Information 1 ea NOTE XX ; Start 05/16/17 at 22:30 Glucose (Glutose) 15 gm Q15M PRN PO DECREASED GLUCOSE; Start 05/16/17 at 22:30 Glucose (Glutose) 22.5 gm Q15M PRN PO DECREASED GLUCOSE; Start 05/16/17 at 22: 30 Dextrose (D50w Syringe) 25 ml Q15M PRN IV DECREASED GLUCOSE; Start 05/16/17 at 22:30 Dextrose (D50w Syringe) 50 ml Q15M PRN IV DECREASED GLUCOSE; Start 05/16/17 at 22:30 Glucagon (Glucagen) 1 mg Q15M PRN IM DECREASED GLUCOSE; Start 05/16/17 at 22:30 Glucose (Glutose) 15 gm Q15M PRN BUCCAL DECREASED GLUCOSE; Start 05/16/17 at 22 :30 Morphine Sulfate (morphine) 2 mg Q4H PRN IV PAIN LEVEL 7-10 Last administered on 05/21/17 13:01; Admin Dose 2 MG; Start 05/16/17 at 22:00 Ondansetron HCl (Zofran Inj) 4 mg Q6H PRN IV NAUSEA AND/OR VOMITING; Start 07/22 at 22:00 Acetaminophen/ Hydrocodone Bitart ([place] (5/325)) 1 tab Q4H PRN PO PAIN LEVEL 4 -7 Last administered on 05/21/17 06:20; Admin Dose 1 TAB; Start 05/16/17 at 22: 00 Heparin Sodium (Porcine) (Heparin (5000 Units/0.5 ml)) 5,000 unit BID SC Last administered on 05/21/17 09:20; Admin Dose 5,000 UNIT; Start 05/17/17 at 09:00 Diagnostic Test (Pha) (Accu-Chek) 1 ea 02 XX ; Start 05/17/17 at 02:00 Diagnostic Test (Pha) 1 ea 1 ea 02 XX ; Start 05/17/17 at 02:00 Levofloxacin/ Dextrose (Levaquin 500mg/ D5W 100 ml (Pmx)) 100 ml @ 100 mls/hr Q24H IVPB Last administered on 05/20/17 20:19; Admin Dose 100 MLS/HR; Start at 20:00 Furosemide (Lasix) 20 mg DAILY IV Last administered on 05/21/17 09:21; Admin Dose 20 MG; Start 05/17/17 at 09:00 Gabapentin 300 mg 300 mg TID PO Last administered on 05/21/17 13:01; Admin Dose 300 MG; Start 05/18/17 at 13:00 Cefepime HCl (Maxipime 1gm/50 ml (Pmx)) 50 ml @ 100 mls/hr Q12 IVPB Last administered on 05/21/17 09:13; Admin Dose 100 MLS/HR; Start 05/20/17 at 21:00 Insulin Detemir (Levemir) 34 unit QHS SC ; Start 05/21/17 at 21:00 ZOIE EDMONDS NP May 21, 2017 20:05
[2017-05-21] MEDS: LEVOFLOXACIN 500MG/D5W (PMX) 100 ML IVPB SCH (20:06)
[2017-05-21] MEDS: INSULIN DETEMIR [LEVEMIR] 3ML CART SC SCH (20:26)
[2017-05-22] VITALS (13 sets, daily range): BP systolic 118–151; BP diastolic 61–79; PULSE 78–136; RESP 18–20
[2017-05-22] MEDS: morphine 2 MG INJ IV PRN ×4 (00:32→21:32)
[2017-05-22] MEDS: ACCU-CHEK XX SCH ×2 (02:00)
[2017-05-22 07:56] LABS: BASOPHIL # 0.1 10^3/ul (0.0-0.1); EOSINOPHILS # 0.4 10^3/ul (0.0-0.5); EOSINOPHILS % 7.4 % (0.0-7.0); HEMATOCRIT 41.6 % (42.0-52.0); HEMOGLOBIN 14.4 g/dl (14.0-18.0); LYMPHOCYTES # 1.7 10^3/ul (0.8-2.9); LYMPHOCYTES % 34.7 % (15.0-51.0); MEAN CORPUSCULAR HEMOGLOBIN 32.5 pg (29.0-33.0); MEAN CORPUSCULAR HGB CONC 34.6 g/dl (32.0-37.0); MEAN CORPUSCULAR VOLUME 93.9 fl (82.0-101.0); MEAN PLATELET VOLUME 10.6 fl (7.4-10.4); MONOCYTE # 0.7 10^3/ul (0.3-0.9); MONOCYTES % 13.4 % (0.0-11.0); NEUTROPHIL # 2.2 10^3/ul (1.6-7.5); NEUTROPHILS % 43.3 % (39.0-77.0); PLATELET COUNT 260 10^3/UL (140-415); RED BLOOD COUNT 4.43 10^6/ul (4.70-6.10); RED CELL DISTRIBUTION WIDTH 13.3 % (11.5-14.5)
[2017-05-22] MEDS: INSULIN ASPART [NOVOLOG] 3 ML PEN SC SCH ×7 (08:00→20:53)
[2017-05-22 08:14] LABS: CALCIUM 10.1 mg/dl (8.4-10.2); CREATININE 1.01 mg/dl (0.61-1.24); MAGNESIUM 2.1 mg/dl (1.7-2.5); PHOSPHORUS 3.9 mg/dl (2.5-4.9); POTASSIUM 4.5 mmol/L (3.5-5.1)
[2017-05-22] MEDS: CEFEPIME 1GM/50 ML (PMX) 50 ML IVPB SCH ×2 (09:28→20:49)
[2017-05-22] MEDS: ASCORBIC ACID 500 MG TAB PO SCH (09:29)
[2017-05-22] MEDS: FUROSEMIDE 20 MG INJ IV SCH (09:29)
[2017-05-22] MEDS: GABAPENTIN 300 MG CAP PO SCH ×3 (09:30→20:15)
[2017-05-22] MEDS: ASPIRIN (EC) 81 MG TAB PO SCH (09:30)
[2017-05-22] MEDS: CHOLECALCIFEROL 1,000 UNIT TAB PO SCH (09:31)
[2017-05-22] MEDS: ALLOPURINOL 300 MG TAB PO SCH (09:31)
[2017-05-22] MEDS: HEPARIN 5,000 UNIT/0.5 ML VIAL SC SCH ×2 (09:36→20:16)
--- NOTE | 2017-05-22 11:04 | PN ---
Date/Time of Note Date/Time of Note DATE: 05/22/17 TIME: 11:01 Assessment/Plan VTE Prophylaxis VTE Prophylaxis Intervention: heparin Lines/Catheters IV Catheter Type (from [facility]): Saline Lock Urinary Cath still in place: No Assessment/Plan Problems: (1) Non-pressure chronic ulcer of other part of left foot with necrosis of bone Status: Chronic Comment: Please see MRI scan and reports from infectious diseases. Dr. Aleman documented and spoken to Dr. Major regarding this patient on the . Awaiting cultures and formalized recommendations regarding this osteomyelitis. (2) Type 2 diabetes mellitus with hyperglycemia Status: Chronic Comment: Adequate and improved control in a controlled setting with controlled medications in a controlled diet Qualifiers: Diabetes mellitus intermediate manager insulin use: with intermediate manager use Qualified Code : E11.65 - Type 2 diabetes mellitus with hyperglycemia, with long-term current use of insulin (3) Morbid obesity Status: Chronic Comment: Calorie restriction diet (4) Pneumonia Status: Acute Comment: He is improving with antibiotic therapy. Probable able to discharge from the standpoint within 48 hours Qualifiers: Pneumonia type: due to unspecified organism Laterality: bilateral Lung location: lower lobe of lung Qualified Code: J18.9 - Pneumonia of both lower lobes due to infectious organism Subjective 24 Hr Interval Summary Free Text/Dictation Patient reports he is still coughing and producing mucus but is less than it was 3 days ago. He reports his breathing is better. He is concerned about his foot. Constitutional: no complaints Respiratory: cough, shortness of breath (Shortness of breath is better), sputum Cardiovascular: no complaints Gastrointestinal: no complaints Exam/Review of Systems Vital Signs Vitals Vital Signs Date Time Temp Pulse Resp B/P Pulse Ox O2 Delivery O2 Flow Rate FiO2 05/22/17 08:15 78 05/22/17 07:39 97.8 20 144/62 95 05/22/17 04:37 2.0 05/20/17 20:00 Nasal Cannula Intake and Output 05/21/17 05/21/17 05/22/17 15:00 23:00 07:00 Intake Total 1050 ml 300 ml Output Total 1000 ml 600 ml Balance 50 ml -300 ml Exam Constitutional: alert Neck: non-tender, supple Respiratory: crackles/rales, normal air movement Cardiovascular: nl pulses, regular rate and rhythm Gastrointestinal: nl liver, spleen, non-tender, soft Extremities: other (Onychomycosis right foot) Results Result Diagram: 05/22/17 0726 05/22/17 0726 Results 24 hrs Laboratory Tests Test 05/21/17 12:48 05/21/17 17:24 05/21/17 20:16 05/22/17 02:30 Bedside Glucose 188 167 209 149 Test 05/22/17 07:26 05/22/17 08:38 White Blood Count 5.0 Red Blood Count 4.43 L Hemoglobin 14.4 Hematocrit 41.6 L Mean Corpuscular Volume 93.9 Mean Corpuscular Hemoglobin 32.5 Mean Corpuscular Hemoglobin Concent 34.6 Red Cell Distribution Width 13.3 Platelet Count 260 # Mean Platelet Volume 10.6 H Neutrophils % 43.3 Lymphocytes % 34.7 Monocytes % 13.4 H Eosinophils % 7.4 H Basophils % 1.0 Nucleated Red Blood Cells % 0.0 Neutrophils # 2.2 Lymphocytes # 1.7 Monocytes # 0.7 Eosinophils # 0.4 Basophils # 0.1 Nucleated Red Blood Cells # 0.0 Sodium Level 136 Potassium Level 4.5 Chloride Level 102 Carbon Dioxide Level 32 H Anion Gap 7 L Blood Urea Nitrogen 16 Creatinine 1.01 Glucose Level 121 Calcium Level 10.1 Phosphorus Level 3.9 Magnesium Level 2.1 Bedside Glucose 129 Medications Medications Current Medications Allopurinol (Zyloprim) 300 mg DAILY PO Last administered on 05/22/17 09:31; Admin Dose 300 MG; Start 05/17/17 at 09:00 Ascorbic Acid (Vitamin C) 1,000 mg DAILY PO Last administered on 05/22/17 09: 29; Admin Dose 1,000 MG; Start 05/17/17 at 09:00 Aspirin (Halfprin) 81 mg DAILY PO Last administered on 05/22/17 09:30; Admin Dose 81 MG; Start 05/17/17 at 09:00 Cholecalciferol (Vitamin D) 1,000 unit DAILY PO Last administered on 05/22/17 09:31; Admin Dose 1,000 UNIT; Start 05/17/17 at 09:00 Miscellaneous Information 1 ea NOTE XX ; Start 05/16/17 at 22:30 Glucose (Glutose) 15 gm Q15M PRN PO DECREASED GLUCOSE; Start 05/16/17 at 22:30 Glucose (Glutose) 22.5 gm Q15M PRN PO DECREASED GLUCOSE; Start 05/16/17 at 22: 30 Dextrose (D50w Syringe) 25 ml Q15M PRN IV DECREASED GLUCOSE; Start 05/16/17 at 22:30 Dextrose (D50w Syringe) 50 ml Q15M PRN IV DECREASED GLUCOSE; Start 05/16/17 at 22:30 Glucagon (Glucagen) 1 mg Q15M PRN IM DECREASED GLUCOSE; Start 05/16/17 at 22:30 Glucose (Glutose) 15 gm Q15M PRN BUCCAL DECREASED GLUCOSE; Start 05/16/17 at 22 :30 Morphine Sulfate (morphine) 2 mg Q4H PRN IV PAIN LEVEL 7-10 Last administered on 05/22/17 09:36; Admin Dose 2 MG; Start 05/16/17 at 22:00 Ondansetron HCl (Zofran Inj) 4 mg Q6H PRN IV NAUSEA AND/OR VOMITING; Start 07/22 at 22:00 Acetaminophen/ Hydrocodone Bitart ([place] (5/325)) 1 tab Q4H PRN PO PAIN LEVEL 4 -7 Last administered on 05/21/17 22:02; Admin Dose 1 TAB; Start 05/16/17 at 22: 00 Heparin Sodium (Porcine) (Heparin (5000 Units/0.5 ml)) 5,000 unit BID SC Last administered on 05/22/17 09:36; Admin Dose 5,000 UNIT; Start 05/17/17 at 09:00 Diagnostic Test (Pha) (Accu-Chek) 1 ea 02 XX ; Start 05/17/17 at 02:00 Diagnostic Test (Pha) 1 ea 1 ea 02 XX ; Start 05/17/17 at 02:00 Levofloxacin/ Dextrose (Levaquin 500mg/ D5W 100 ml (Pmx)) 100 ml @ 100 mls/hr Q24H IVPB Last administered on 05/21/17 20:06; Admin Dose 100 MLS/HR; Start at 20:00 Furosemide (Lasix) 20 mg DAILY IV Last administered on 05/22/17 09:29; Admin Dose 20 MG; Start 05/17/17 at 09:00 Gabapentin 300 mg 300 mg TID PO Last administered on 05/22/17 09:30; Admin Dose 300 MG; Start 05/18/17 at 13:00 Cefepime HCl (Maxipime 1gm/50 ml (Pmx)) 50 ml @ 100 mls/hr Q12 IVPB Last administered on 05/22/17 09:28; Admin Dose 100 MLS/HR; Start 05/20/17 at 21:00 Insulin Detemir (Levemir) 34 unit QHS SC Last administered on 05/21/17 20:26; Admin Dose 34 UNIT; Start 05/21/17 at 21:00 CARY DURAN MD May 22, 2017 11:04
--- NOTE | 2017-05-22 14:00 | CONS ---
Date/Time of Note Date/Time of Note DATE: 05/22/17 TIME: 13:55 Assessment/Plan Assessment/Plan Chief Complaint/Hosp Course ID PROGRESS NOTE CURRENT ABX: =>Cefepime +Levaquin 24H INTERVAL SUMMARY * No new issues, waiting for culture results, still w/bronchial cough * No fevers, WBC normalized * BCx (-), MRSA + Wound cx => Pending * Darlene: 05/21/17-0500 Rcvd: 05/21/17-1149 Source: FOOT Sp Descrip: LEFT Microbiology WOUND CULTURE Preliminary Culture too young to evaluate * MRI IMPRESSION: * 1. Subcutaneous and soft tissue air over the distal left foot remnant and region of amputation suggest an infectious process, with ulceration of the skin at the lateral aspect of the distal foot remnant. * 2. Osteomyelitis in the proximal remnant of the fifth metatarsal and in the cuboid. * 3. Otherwise, no abnormal signal in the osseous structures of the left foot remnant to suggest osteomyelitis. * 4. No definite abscess is identified, and IV contrast enhanced MRI examination may be more sensitive and specific. EXAM GEN: VSS, NAD HEENT: Unremarkable NECK: supple CVS: RRR CHEST: Equal chest rise bilaterally without dyspnea on observation ABD: Soft, NT, EXT: warm SKIN: No rash, no diaphoresis ID ASSESSMENT 62 yo M admit with: 1. Acute respiratory failure, hypoxemia secondary to bilateral bronchopneumonia + COPD Asthma exacerbation * There is no evidence of pulmonary embolism per CT 2. LLEXT nonhealing wound and as per Dr. Major's note, with exposed tendon. * S/P TMA left foot with MRI evidence of infection + Osteomyelitis in the proximal remnant of the fifth metatarsal and in the cuboid. 3. DM w/complication of peripheral Neuropathy 4. Chronic Alcoholic cirrhosis, status post TIPS procedure in the past 4. CAD, stable 5. DM, on insulins/metformin 6. HTN, controlled 7. Hypothyroidism, on supplement CURRENT ABX: =>Cefepime +Levaquin ID RECOMMENDATIONS=> Continue current ABX 1. Await final wound Cx results 2. Further recs podiatry consult 3. He has hx of MRSA foot wound -> f/u on MRSA screen pending . Problems: Consultation Date/Type/Reason Admit Date/Time May 16, 2017 at 19:30 Exam/Review of Systems Vital Signs Vitals Vital Signs Date Time Temp Pulse Resp B/P Pulse Ox O2 Delivery O2 Flow Rate FiO2 05/22/17 12:11 87 05/22/17 12:06 98.2 20 119/79 96 05/22/17 04:37 2.0 05/20/17 20:00 Nasal Cannula Intake and Output 05/21/17 05/21/17 05/22/17 15:00 23:00 07:00 Intake Total 1050 ml 300 ml Output Total 1000 ml 600 ml Balance 50 ml -300 ml Results Result Diagram: 05/22/1726 05/22/17725 Results 24 hrs Laboratory Tests Test 05/21/17 17:24 05/21/17 20:16 05/22/17 02:30 05/22/17 07:26 Bedside Glucose 167 209 149 White Blood Count 5.0 Red Blood Count 4.43 L Hemoglobin 14.4 Hematocrit 41.6 L Mean Corpuscular Volume 93.9 Mean Corpuscular Hemoglobin 32.5 Mean Corpuscular Hemoglobin Concent 34.6 Red Cell Distribution Width 13.3 Platelet Count 260 # Mean Platelet Volume 10.6 H Neutrophils % 43.3 Lymphocytes % 34.7 Monocytes % 13.4 H Eosinophils % 7.4 H Basophils % 1.0 Nucleated Red Blood Cells % 0.0 Neutrophils # 2.2 Lymphocytes # 1.7 Monocytes # 0.7 Eosinophils # 0.4 Basophils # 0.1 Nucleated Red Blood Cells # 0.0 Sodium Level 136 Potassium Level 4.5 Chloride Level 102 Carbon Dioxide Level 32 H Anion Gap 7 L Blood Urea Nitrogen 16 Creatinine 1.01 Glucose Level 121 Calcium Level 10.1 Phosphorus Level 3.9 Magnesium Level 2.1 Test 05/22/17 08:38 05/22/17 12:39 Bedside Glucose 129 218 Medications Medications Current Medications Allopurinol (Zyloprim) 300 mg DAILY PO Last administered on 05/22/17 09:31; Admin Dose 300 MG; Start 05/17/17 at 09:00 Ascorbic Acid (Vitamin C) 1,000 mg DAILY PO Last administered on 05/22/17 09: 29; Admin Dose 1,000 MG; Start 05/17/17 at 09:00 Aspirin (Halfprin) 81 mg DAILY PO Last administered on 05/22/17 09:30; Admin Dose 81 MG; Start 05/17/17 at 09:00 Cholecalciferol (Vitamin D) 1,000 unit DAILY PO Last administered on 05/22/17 09:31; Admin Dose 1,000 UNIT; Start 05/17/17 at 09:00 Miscellaneous Information 1 ea NOTE XX ; Start 05/16/17 at 22:30 Glucose (Glutose) 15 gm Q15M PRN PO DECREASED GLUCOSE; Start 05/16/17 at 22:30 Glucose (Glutose) 22.5 gm Q15M PRN PO DECREASED GLUCOSE; Start 05/16/17 at 22: 30 Dextrose (D50w Syringe) 25 ml Q15M PRN IV DECREASED GLUCOSE; Start 05/16/17 at 22:30 Dextrose (D50w Syringe) 50 ml Q15M PRN IV DECREASED GLUCOSE; Start 05/16/17 at 22:30 Glucagon (Glucagen) 1 mg Q15M PRN IM DECREASED GLUCOSE; Start 05/16/17 at 22:30 Glucose (Glutose) 15 gm Q15M PRN BUCCAL DECREASED GLUCOSE; Start 05/16/17 at 22 :30 Morphine Sulfate (morphine) 2 mg Q4H PRN IV PAIN LEVEL 7-10 Last administered on 05/22/17 09:36; Admin Dose 2 MG; Start 05/16/17 at 22:00 Ondansetron HCl (Zofran Inj) 4 mg Q6H PRN IV NAUSEA AND/OR VOMITING; Start 07/22 at 22:00 Acetaminophen/ Hydrocodone Bitart ([place] (5/325)) 1 tab Q4H PRN PO PAIN LEVEL 4 -7 Last administered on 05/21/17 22:02; Admin Dose 1 TAB; Start 05/16/17 at 22: 00 Heparin Sodium (Porcine) (Heparin (5000 Units/0.5 ml)) 5,000 unit BID SC Last administered on 05/22/17 09:36; Admin Dose 5,000 UNIT; Start 05/17/17 at 09:00 Diagnostic Test (Pha) (Accu-Chek) 1 ea 02 XX ; Start 05/17/17 at 02:00 Diagnostic Test (Pha) 1 ea 1 ea 02 XX ; Start 05/17/17 at 02:00 Levofloxacin/ Dextrose (Levaquin 500mg/ D5W 100 ml (Pmx)) 100 ml @ 100 mls/hr Q24H IVPB Last administered on 05/21/17 20:06; Admin Dose 100 MLS/HR; Start at 20:00 Furosemide (Lasix) 20 mg DAILY IV Last administered on 05/22/17 09:29; Admin Dose 20 MG; Start 05/17/17 at 09:00 Gabapentin 300 mg 300 mg TID PO Last administered on 05/22/17 12:51; Admin Dose 300 MG; Start 05/18/17 at 13:00 Cefepime HCl (Maxipime 1gm/50 ml (Pmx)) 50 ml @ 100 mls/hr Q12 IVPB Last administered on 05/22/17 09:28; Admin Dose 100 MLS/HR; Start 05/20/17 at 21:00 Insulin Detemir (Levemir) 34 unit QHS SC Last administered on 05/21/17 20:26; Admin Dose 34 UNIT; Start 05/21/17 at 21:00 ZOIE EDMONDS NP May 22, 2017 14:00
[2017-05-22] MEDS: HYDROCODONE/APAP (5/325) TAB PO PRN (20:14)
[2017-05-22] MEDS: LEVOFLOXACIN 500MG/D5W (PMX) 100 ML IVPB SCH (20:14)
[2017-05-22] MEDS: INSULIN DETEMIR [LEVEMIR] 3ML CART SC SCH (20:52)
[2017-05-23] VITALS (13 sets, daily range): BP systolic 107–185; BP diastolic 60–85; PULSE 76–85; RESP 19–20
[2017-05-23] MEDS: ACCU-CHEK XX SCH ×2 (02:00)
[2017-05-23] MEDS: morphine 2 MG INJ IV PRN ×3 (03:33→20:17)
[2017-05-23] MEDS: INSULIN ASPART [NOVOLOG] 3 ML PEN SC SCH ×7 (08:00→20:24)
[2017-05-23] MEDS: CEFEPIME 1GM/50 ML (PMX) 50 ML IVPB SCH ×2 (08:53→20:21)
[2017-05-23] MEDS: HEPARIN 5,000 UNIT/0.5 ML VIAL SC SCH ×2 (09:15→20:38)
--- NOTE | 2017-05-23 11:29 | PN ---
Date/Time of Note Date/Time of Note DATE: 05/23/17 TIME: 11:09 Assessment/Plan VTE Prophylaxis VTE Prophylaxis Intervention: heparin Lines/Catheters IV Catheter Type (from Nrs): Saline Lock Urinary Cath still in place: No Assessment/Plan Assessment/Plan 1. Chronic nonhealing ulcer left foot with necrosis of bone - MRI shows evidence of infection and osteomyelitis in the proximal remnant of the fifth metatarsal and cuboid - Cultures growing Staph and Enterococcus - Currently on Cefepime. ID on board and recommendations appreciated. - Will start patient on Vanc empirically until sensitivities return. 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 Acute respiratory failure, hypoxemia secondary to bilateral bronchopneumonia + COPD Asthma exacerbation - Still c/o occasional SOB and using O2 intermittently - There is no evidence of pulmonary embolism per CT 3. DM w/complication of peripheral Neuropathy - On insulin and ISS - Will continue monitoring 4. Chronic Alcoholic cirrhosis, status post TIPS procedure in the past 5. CAD, stable 6. HTN - continue monitoring and adjust medication as needed - Pain control as could be contributing to occasional elevated BP 7. Hypothyroidism Subjective 24 Hr Interval Summary Free Text/Dictation Patient states experiencing pain in left foot with mild relief with PO and IV pain medications. States only receives about 45mins of relief with Morphine. Denies any other complaints and no acute overnight events. Exam/Review of Systems Vital Signs Vitals Vital Signs Date Time Temp Pulse Resp B/P Pulse Ox O2 Delivery O2 Flow Rate FiO2 05/23/17 08:22 76 05/23/17 08:13 97.8 20 159/85 98 05/22/17 19:40 2.0 05/20/17 20:00 Nasal Cannula Intake and Output 05/22/17 05/22/17 05/23/17 15:00 23:00 07:00 Intake Total 750 ml 300 ml Output Total 1000 ml Balance -250 ml 300 ml Exam General: NAD, awake and alert CVS: regular rate and rhythm, no murmurs Lungs: diminished breath sounds at base. equal chest rise Abd: soft, NT, ND, + BS. no guarding or rebound Ext: left foot wrapped with no discharge or drainage Results Result Diagram: 05/22/17 0726 05/22/17 0726 Results 24 hrs Laboratory Tests Test 05/22/17 12:39 05/22/17 17:31 05/22/17 20:45 05/23/17 03:32 Bedside Glucose 218 209 229 H 145 Test 05/23/17 08:02 05/23/17 09:00 Bedside Glucose 125 128 Medications Medications Current Medications Allopurinol (Zyloprim) 300 mg DAILY PO Last administered on 05/22/17 09:31; Admin Dose 300 MG; Start 05/17/17 at 09:00 Ascorbic Acid (Vitamin C) 1,000 mg DAILY PO Last administered on 05/22/17 09: 29; Admin Dose 1,000 MG; Start 05/17/17 at 09:00 Aspirin (Halfprin) 81 mg DAILY PO Last administered on 05/22/17 09:30; Admin Dose 81 MG; Start 05/17/17 at 09:00 Cholecalciferol (Vitamin D) 1,000 unit DAILY PO Last administered on 05/22/17 09:31; Admin Dose 1,000 UNIT; Start 05/17/17 at 09:00 Miscellaneous Information 1 ea NOTE XX ; Start 05/16/17 at 22:30 Glucose (Glutose) 15 gm Q15M PRN PO DECREASED GLUCOSE; Start 05/16/17 at 22:30 Glucose (Glutose) 22.5 gm Q15M PRN PO DECREASED GLUCOSE; Start 05/16/17 at 22: 30 Dextrose (D50w Syringe) 25 ml Q15M PRN IV DECREASED GLUCOSE; Start 05/16/17 at 22:30 Dextrose (D50w Syringe) 50 ml Q15M PRN IV DECREASED GLUCOSE; Start 05/16/17 at 22:30 Glucagon (Glucagen) 1 mg Q15M PRN IM DECREASED GLUCOSE; Start 05/16/17 at 22:30 Glucose (Glutose) 15 gm Q15M PRN BUCCAL DECREASED GLUCOSE; Start 05/16/17 at 22 :30 Morphine Sulfate (morphine) 2 mg Q4H PRN IV PAIN LEVEL 7-10 Last administered on 05/23/17 03:33; Admin Dose 2 MG; Start 05/16/17 at 22:00 Ondansetron HCl (Zofran Inj) 4 mg Q6H PRN IV NAUSEA AND/OR VOMITING; Start 07/22 at 22:00 Acetaminophen/ Hydrocodone Bitart ([place] (5/325)) 1 tab Q4H PRN PO PAIN LEVEL 4 -7 Last administered on 05/22/17 20:14; Admin Dose 1 TAB; Start 05/16/17 at 22: 00 Heparin Sodium (Porcine) (Heparin (5000 Units/0.5 ml)) 5,000 unit BID SC Last administered on 05/23/17 09:15; Admin Dose 5,000 UNIT; Start 05/17/17 at 09:00 Diagnostic Test (Pha) (Accu-Chek) 1 ea 02 XX ; Start 05/17/17 at 02:00 Diagnostic Test (Pha) 1 ea 1 ea 02 XX ; Start 05/17/17 at 02:00 Levofloxacin/ Dextrose (Levaquin 500mg/ D5W 100 ml (Pmx)) 100 ml @ 100 mls/hr Q24H IVPB Last administered on 05/22/17 20:14; Admin Dose 100 MLS/HR; Start at 20:00 Furosemide (Lasix) 20 mg DAILY IV Last administered on 05/22/17 09:29; Admin Dose 20 MG; Start 05/17/17 at 09:00 Gabapentin 300 mg 300 mg TID PO Last administered on 05/22/17 20:15; Admin Dose 300 MG; Start 05/18/17 at 13:00 Cefepime HCl (Maxipime 1gm/50 ml (Pmx)) 50 ml @ 100 mls/hr Q12 IVPB Last administered on 05/23/17 08:53; Admin Dose 100 MLS/HR; Start 05/20/17 at 21:00 Insulin Detemir (Levemir) 34 unit QHS SC Last administered on 05/22/17 20:52; Admin Dose 34 UNIT; Start 05/21/17 at 21:00 KEON ARNGEL MD May 23, 2017 11:19
[2017-05-23] MEDS ORDERED: VANCOMYCIN IV PER PHARMACY XX SCH (11:30)
[2017-05-23] MEDS ORDERED: LIDOCAINE 1% (MPF) 5 ML VIAL SC ONE (11:30)
[2017-05-23] MEDS: ASPIRIN (EC) 81 MG TAB PO SCH (12:02)
[2017-05-23] MEDS: ASCORBIC ACID 500 MG TAB PO SCH (12:02)
[2017-05-23] MEDS: ALLOPURINOL 300 MG TAB PO SCH (12:02)
[2017-05-23] MEDS: CHOLECALCIFEROL 1,000 UNIT TAB PO SCH (12:02)
[2017-05-23] MEDS: GABAPENTIN 300 MG CAP PO SCH ×3 (12:03→20:22)
[2017-05-23] MEDS ORDERED: VANCOMYCIN 2 GM in SOD CHLORIDE 0.9% 500 ML IVPB ONE (14:00)
[2017-05-23] MEDS: FUROSEMIDE 20 MG INJ IV SCH (14:25)
--- NOTE | 2017-05-23 15:01 | RADRPT ---
PROCEDURE: US guidance for PICC line CLINICAL INDICATION: PICC line placement TECHNIQUE: Multiple real-time images were acquired of the patient's arm utilizing a high resolutio n transducer. This was performed by the PICC line nurse for venous access. COMPARISON: None FINDINGS: Ultrasound guidance for PICC line placement. IMPRESSION: Ultrasound guidance for PICC line placement. RPTAT: AA .Dillan Stallworth MD, MD Date Time Electronically viewed and signed by .Dillan Stallworth MD, on 05/23/2017 15:01 .S/
--- NOTE | 2017-05-23 15:10 | RADRPT ---
PROCEDURE: XR Chest. CLINICAL INDICATION: Check PICC line position. TECHNIQUE: Single frontal view. COMPARISON: 05/16/2017. FINDINGS: There is a left arm PICC line with the tip in the lower superior vena cava. There is mild left basi lar atelectasis or pneumonia, improved. The lungs are otherwise clear. The heart size is normal. There is calcification in the aorta consistent with atherosclerosis. There is no pleural effusion. There is no pneumothorax. IMPRESSION: 1. Left arm PICC line tip in satisfactory position. 2. Improved appearance of the left lung base. 3. Otherwise normal chest radiograph. RPTAT: QQ .Nehemias Olivo MD, MD Date Time Electronically viewed and signed by .Nehemias Olivo MD, MD on 05/23/2017 15:10 .R/
--- NOTE | 2017-05-23 16:09 | CONS ---
Date/Time of Note Date/Time of Note DATE: 05/23/17 TIME: 16:07 Assessment/Plan Assessment/Plan Problems: (1) Acquired absence of left foot (2) PICC (peripherally inserted central catheter) removal Status: Acute (3) Type 2 diabetes mellitus with hyperglycemia Status: Chronic Qualifiers: Qualified Code: E11.65 - Type 2 diabetes mellitus with hyperglycemia, with long-term current use of insulin (4) Morbid obesity Status: Chronic (5) Non-pressure chronic ulcer of other part of right foot with fat layer exposed (6) CHF (congestive heart failure) Status: Acute (7) Pneumonia Status: Acute Qualifiers: Qualified Code: J18.9 - Pneumonia of both lower lobes due to infectious organism (8) Severe sepsis Status: Acute (9) Non-pressure chronic ulcer of other part of left foot with necrosis of bone Status: Chronic Additional Assessment/Plan Santyl to be applied to the left foot open wound and change daily. Nonweightbearing left foot. Consultation Date/Type/Reason Admit Date/Time May 16, 2017 at 19:30 Constitutional: no complaints Respiratory: cough, shortness of breath (Shortness of breath is better), sputum Cardiovascular: no complaints Gastrointestinal: no complaints Psychological: nl mood/affect, no complaints Past Surgical History Past Surgical Hx: other Social History Smoking Status: Former smoker Exam/Review of Systems Vital Signs Vitals Vital Signs Date Time Temp Pulse Resp B/P Pulse Ox O2 Delivery O2 Flow Rate FiO2 05/23/17 15:46 98.0 80 20 115/61 95 05/22/17 19:40 2.0 05/20/17 20:00 Nasal Cannula Intake and Output 05/22/17 05/22/17 05/23/17 15:00 23:00 07:00 Intake Total 750 ml 300 ml Output Total 1000 ml Balance -250 ml 300 ml Results Result Diagram: 05/22/17 0726 05/22/17 0726 Results 24 hrs Laboratory Tests Test 05/22/17 17:31 05/22/17 20:45 05/23/17 03:32 05/23/17 08:02 Bedside Glucose 209 229 H 145 125 Test 05/23/17 09:00 05/23/17 14:09 Bedside Glucose 128 199 Medications Medications Current Medications Allopurinol (Zyloprim) 300 mg DAILY PO Last administered on 05/23/17t 12:02; Admin Dose 300 MG; Start 05/17/17 at 09:00 Ascorbic Acid (Vitamin C) 1,000 mg DAILY PO Last administered on 05/23/17 12: 02; Admin Dose 1,000 MG; Start 05/17/17 at 09:00 Aspirin (Halfprin) 81 mg DAILY PO Last administered on 05/23/17 12:02; Admin Dose 81 MG; Start 05/17/17 at 09:00 Cholecalciferol (Vitamin D) 1,000 unit DAILY PO Last administered on 05/23/17 12:02; Admin Dose 1,000 UNIT; Start 05/17/17 at 09:00 Miscellaneous Information 1 ea NOTE XX ; Start 05/16/17 at 22:30 Glucose (Glutose) 15 gm Q15M PRN PO DECREASED GLUCOSE; Start 05/16/17 at 22:30 Glucose (Glutose) 22.5 gm Q15M PRN PO DECREASED GLUCOSE; Start 05/16/17 at 22: 30 Dextrose (D50w Syringe) 25 ml Q15M PRN IV DECREASED GLUCOSE; Start 05/16/17 at 22:30 Dextrose (D50w Syringe) 50 ml Q15M PRN IV DECREASED GLUCOSE; Start 05/16/17 at 22:30 Glucagon (Glucagen) 1 mg Q15M PRN IM DECREASED GLUCOSE; Start 05/16/17 at 22:30 Glucose (Glutose) 15 gm Q15M PRN BUCCAL DECREASED GLUCOSE; Start 05/16/17 at 22 :30 Morphine Sulfate (morphine) 2 mg Q4H PRN IV PAIN LEVEL 4-6 Last administered on 05/23/17 14:26; Admin Dose 2 MG; Start 05/16/17 at 22:00 Ondansetron HCl (Zofran Inj) 4 mg Q6H PRN IV NAUSEA AND/OR VOMITING; Start 07/22 at 22:00 Heparin Sodium (Porcine) (Heparin (5000 Units/0.5 ml)) 5,000 unit BID SC Last administered on 05/23/17 09:15; Admin Dose 5,000 UNIT; Start 05/17/17 at 09:00 Diagnostic Test (Pha) (Accu-Chek) 1 ea 02 XX ; Start 05/17/17 at 02:00 Diagnostic Test (Pha) (Accu-Chek) 1 ea 02 XX ; Start 05/17/17 at 02:00 Furosemide (Lasix) 20 mg DAILY IV Last administered on 05/23/17 14:25; Admin Dose 20 MG; Start 05/17/17 at 09:00 Gabapentin 300 mg 300 mg TID PO Last administered on 05/23/17 12:03; Admin Dose 300 MG; Start 05/18/17 at 13:00 Cefepime HCl (Maxipime 1gm/50 ml (Pmx)) 50 ml @ 100 mls/hr Q12 IVPB Last administered on 05/23/17 08:53; Admin Dose 100 MLS/HR; Start 05/20/17 at 21:00 Insulin Detemir (Levemir) 34 unit QHS SC Last administered on 05/22/17 20:52; Admin Dose 34 UNIT; Start 05/21/17 at 21:00 Acetaminophen/ Hydrocodone Bitart ([place] (7.5-325)) 1 tab Q4H PRN PO PAIN LEVEL 4-6; Start 05/23/17 at 11:30 Hydromorphone HCl 0.5 mg 0.5 mg Q4H PRN IV SEVERE PAIN LEVEL 7-10; Start at 11:30 Vancomycin HCl/ Sodium Chloride (Vancocin/NS) 500 ml @ 125 mls/hr LOADINGDOSE ONCE IVPB Last administered on 05/23/17 15:18; Admin Dose 125 MLS/HR; Start at 14:00; Stop 05/23/17 at 17:59 Levofloxacin (Levaquin) 500 mg Q24H PO ; Start 05/23/17 at 18:00 IV Flush 10 ml 10 ml PRN PRN IV IV PROTOCOL; Start 05/23/17 at 15:30 Vancomycin HCl/ Sodium Chloride (Vancocin/NS) 250 ml @ 83.333 mls/ hr Q12H IVPB ; Start 05/24/17 at 03:00 ANGEL STARK DPM May 23, 2017 16:08
--- NOTE | 2017-05-23 16:49 | PN ---
DATE: 05/23/2017 SUBJECTIVE DATA: No acute changes. Patient is alert, feels better, looks comfortable. Denies pain. No fevers. LABORATORY AND DIAGNOSTIC DATA: No labs this morning. MICROBIOLOGY: Left foot growing Staph aureus and Enterococcus species. Blood culture remains negative. ANTIMICROBIALS: Patient is on IV: 1. Vancomycin. 2. Cefepime. 3. Levaquin. OBJECTIVE DATA: GENERAL: This is a morbidly obese, well-developed, elderly man, who is alert, in no distress. HEENT: Head atraumatic, normocephalic. Sclerae anicteric. Buccal mucosa pink. NECK: Supple. CHEST: Rise symmetrical. Breath sounds clear. HEART: S1, S2. ABDOMEN: Soft, bowel sounds present. EXTREMITIES: With left lower extremity dressing intact. ASSESSMENT: 1. Acute respiratory failure, with hypoxemia on admission secondary to bilateral bronchopneumonia and chronic obstructive pulmonary disease exacerbation, improving. 2. Left lower extremity nonhealing wound, with cellulitis and evidence of osteomyelitis, as per MRI on May 20, 2017. 3. Peripheral vascular disease, with a history of left transmetatarsal amputation. 4. Diabetes, poorly controlled, with A1c 10.4. 5. Hypertension. 6. Chronic alcoholic cirrhosis, with a history of transjugular intrahepatic portosystemic shunt procedure. 7. Hypothyroidism. PLAN: Patient remains stable. HE IS ALLERGIC TO PENICILLIN, was started on vancomycin today for coverage of Enterococcus and Staph aureus that he is growing in his wounds. He will need PICC line, as we will have to treat his osteomyelitis with long-term IV antibiotics. He is being [facility] by [facility]. We will continue present care. We will ask Dr. Major to re- evaluate him while he is in-house. Await for final cultures and sensitivities. Dictated By: Uriel Calvin NP /[email or web address]/aparna /Document#: [id number]
[2017-05-23] MEDS: COLLAGENASE 30 GM TUBE TOP SCH (17:30)
[2017-05-23] MEDS: LEVOFLOXACIN 500 MG TAB PO SCH (17:39)
[2017-05-23] MEDS: INSULIN DETEMIR [LEVEMIR] 3ML CART SC SCH (20:37)
[2017-05-24] VITALS (10 sets, daily range): BP systolic 104–154; BP diastolic 57–81; PULSE 70–90; RESP 18–19
[2017-05-24] MEDS: HYDROmorphONE 1 MG/ML SYG IV PRN ×5 (00:09→20:37)
[2017-05-24] MEDS: ACCU-CHEK XX SCH ×2 (02:00)
[2017-05-24] MEDS: VANCOMYCIN 1.25 GM in SOD CHLORIDE 0.9% 250 ML IVPB SCH ×2 (02:28→15:08)
[2017-05-24] MEDS: INSULIN ASPART [NOVOLOG] 3 ML PEN SC SCH ×7 (08:00→20:44)
[2017-05-24] MEDS: FUROSEMIDE 20 MG INJ IV SCH (08:13)
[2017-05-24] MEDS: HEPARIN 5,000 UNIT/0.5 ML VIAL SC SCH ×2 (08:13→20:43)
[2017-05-24] MEDS: ASCORBIC ACID 500 MG TAB PO SCH (08:14)
[2017-05-24] MEDS: GABAPENTIN 300 MG CAP PO SCH ×3 (08:14→20:35)
[2017-05-24] MEDS: CHOLECALCIFEROL 1,000 UNIT TAB PO SCH (08:14)
[2017-05-24] MEDS: ALLOPURINOL 300 MG TAB PO SCH (08:14)
[2017-05-24] MEDS: ASPIRIN (EC) 81 MG TAB PO SCH (08:14)
[2017-05-24 08:15] LABS: BASOPHIL # 0.1 10^3/ul (0.0-0.1); EOSINOPHILS # 0.4 10^3/ul (0.0-0.5); EOSINOPHILS % 7.2 % (0.0-7.0); HEMATOCRIT 42.9 % (42.0-52.0); HEMOGLOBIN 14.7 g/dl (14.0-18.0); LYMPHOCYTES % 35.1 % (15.0-51.0); MEAN CORPUSCULAR HEMOGLOBIN 32.8 pg (29.0-33.0); MEAN CORPUSCULAR HGB CONC 34.3 g/dl (32.0-37.0); MEAN CORPUSCULAR VOLUME 95.8 fl (82.0-101.0); MEAN PLATELET VOLUME 10.9 fl (7.4-10.4); MONOCYTE # 0.7 10^3/ul (0.3-0.9); MONOCYTES % 12.9 % (0.0-11.0); NEUTROPHIL # 2.5 10^3/ul (1.6-7.5); NEUTROPHILS % 43.6 % (39.0-77.0); PLATELET COUNT 248 10^3/UL (140-415); RED BLOOD COUNT 4.48 10^6/ul (4.70-6.10); RED CELL DISTRIBUTION WIDTH 13.4 % (11.5-14.5); WHITE BLOOD COUNT 5.7 10^3/ul (4.8-10.8)
[2017-05-24] MEDS: COLLAGENASE 30 GM TUBE TOP SCH (08:15)
[2017-05-24] MEDS: CEFEPIME 1GM/50 ML (PMX) 50 ML IVPB SCH ×2 (08:34→20:36)
[2017-05-24 08:43] LABS: ALBUMIN 2.9 g/dl (3.3-4.9); ALBUMIN/GLOBULIN RATIO 0.67; BILIRUBIN,INDIRECT 0.5 mg/dl (0-1.1); BILIRUBIN,TOTAL 0.5 mg/dl (0.2-1.3); CALCIUM 10.1 mg/dl (8.4-10.2); CREATININE 0.85 mg/dl (0.61-1.24); MAGNESIUM 2.1 mg/dl (1.7-2.5); POTASSIUM 4.6 mmol/L (3.5-5.1); TOTAL PROTEIN 7.2 g/dl (6.1-8.1)
[2017-05-24] MEDS: HYDROCODONE/APAP (7.5/325) TAB PO PRN ×2 (11:25→15:53)
[2017-05-24] MEDS: MUPIROCIN 2% 22 GM OINT TOP SCH ×2 (12:17→20:40)
--- NOTE | 2017-05-24 14:12 | PN ---
Date/Time of Note Date/Time of Note DATE: 05/24/17 TIME: 14:08 Assessment/Plan VTE Prophylaxis VTE Prophylaxis Intervention: heparin Lines/Catheters IV Catheter Type (from Nrsg): PICC Line Central line still needed: Yes (snf antibiotics needed after discharge) Urinary Cath still in place: No Assessment/Plan Assessment/Plan 1. 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 ID on board and recommendations appreciated. Will need to touch base on plan for IV antibiotic therapy upon discharge 2. Acute respiratory failure, hypoxemia secondary to bilateral bronchopneumonia + COPD Asthma exacerbation - Still c/o occasional SOB and using O2 intermittently - There is no evidence of pulmonary embolism per CT 3. DM w/complication of peripheral Neuropathy - On insulin and ISS - Will continue monitoring 4. Chronic Alcoholic cirrhosis, status post TIPS procedure in the past 5. CAD, stable 6. HTN - continue monitoring and adjust medication as needed 7. Hypothyroidism Subjective 24 Hr Interval Summary Free Text/Dictation Patient seen and examined. Still c/o discomfort left foot but better relief with increased dose of [place]. Has occasional SOB but denies any fevers, chills , nausea, vomiting, chest pain, or abdominal issues. Exam/Review of Systems Vital Signs Vitals Vital Signs Date Time Temp Pulse Resp B/P Pulse Ox O2 Delivery O2 Flow Rate FiO2 05/24/17 12:16 84 05/24/17 12:16 97.7 18 144/81 94 05/23/17 20:00 Nasal Cannula 2.0 Intake and Output 05/23/17 05/23/17 05/24/17 15:00 23:00 07:00 Intake Total 50 ml 50 ml 549.999 ml Balance 50 ml 50 ml 549.999 ml Exam General: NAD, awake and alert CVS: regular rate and rhythm, no murmurs Lungs: diminished breath sounds at base. equal chest rise Abd: soft, NT, ND, + BS. no guarding or rebound Ext: left foot wrapped with no discharge or drainage Skin: venous stasis changes ankle to feet bilaterally Results Result Diagram: 05/24/17 0736 05/24/17 0736 Results 24 hrs Laboratory Tests Test 05/23/17 14:09 05/23/17 17:18 05/23/17 20:17 05/24/17 07:36 Bedside Glucose 199 186 178 White Blood Count 5.7 Red Blood Count 4.48 L Hemoglobin 14.7 Hematocrit 42.9 Mean Corpuscular Volume 95.8 Mean Corpuscular Hemoglobin 32.8 Mean Corpuscular Hemoglobin Concent 34.3 Red Cell Distribution Width 13.4 Platelet Count 248 Mean Platelet Volume 10.9 H Neutrophils % 43.6 Lymphocytes % 35.1 Monocytes % 12.9 H Eosinophils % 7.2 H Basophils % 1.0 Nucleated Red Blood Cells % 0.0 Neutrophils # 2.5 Lymphocytes # 2.0 Monocytes # 0.7 Eosinophils # 0.4 Basophils # 0.1 Nucleated Red Blood Cells # 0.0 Sodium Level 136 Potassium Level 4.6 Chloride Level 105 Carbon Dioxide Level 31 Anion Gap 5 L Blood Urea Nitrogen 19 Creatinine 0.85 Glucose Level 122 Calcium Level 10.1 Magnesium Level 2.1 Total Bilirubin 0.5 Direct Bilirubin 0.00 Indirect Bilirubin 0.5 Aspartate Amino Transf (AST/SGOT) 53 H Alanine Aminotransferase (ALT/SGPT) 34 Alkaline Phosphatase 56 Total Protein 7.2 Albumin 2.9 L Globulin 4.30 H Albumin/Globulin Ratio 0.67 Test 05/24/17 08:02 05/24/17 11:33 Bedside Glucose 126 156 Medications Medications Current Medications Allopurinol (Zyloprim) 300 mg DAILY PO Last administered on 05/24/17 08:14; Admin Dose 300 MG; Start 05/17/17 at 09:00 Ascorbic Acid (Vitamin C) 1,000 mg DAILY PO Last administered on 05/24/17 08: 14; Admin Dose 1,000 MG; Start 05/17/17 at 09:00 Aspirin (Halfprin) 81 mg DAILY PO Last administered on 05/24/17 08:14; Admin Dose 81 MG; Start 05/17/17 at 09:00 Cholecalciferol (Vitamin D) 1,000 unit DAILY PO Last administered on 05/24/17 08:14; Admin Dose 1,000 UNIT; Start 05/17/17 at 09:00 Miscellaneous Information 1 ea NOTE XX ; Start 05/16/17 at 22:30 Glucose (Glutose) 15 gm Q15M PRN PO DECREASED GLUCOSE; Start 05/16/17 at 22:30 Glucose (Glutose) 22.5 gm Q15M PRN PO DECREASED GLUCOSE; Start 05/16/17 at 22: 30 Dextrose (D50w Syringe) 25 ml Q15M PRN IV DECREASED GLUCOSE; Start 05/16/17 at 22:30 Dextrose (D50w Syringe) 50 ml Q15M PRN IV DECREASED GLUCOSE; Start 05/16/17 at 22:30 Glucagon (Glucagen) 1 mg Q15M PRN IM DECREASED GLUCOSE; Start 05/16/17 at 22:30 Glucose (Glutose) 15 gm Q15M PRN BUCCAL DECREASED GLUCOSE; Start 05/16/17 at 22 :30 Morphine Sulfate (morphine) 2 mg Q4H PRN IV PAIN LEVEL 4-6 Last administered on 05/23/17 20:17; Admin Dose 2 MG; Start 05/16/17 at 22:00 Ondansetron HCl (Zofran Inj) 4 mg Q6H PRN IV NAUSEA AND/OR VOMITING; Start 07/22 at 22:00 Heparin Sodium (Porcine) (Heparin (5000 Units/0.5 ml)) 5,000 unit BID SC Last administered on 05/24/17 08:13; Admin Dose 5,000 UNIT; Start 05/17/17 at 09:00 Diagnostic Test (Pha) (Accu-Chek) 1 ea 02 XX ; Start 05/17/17 at 02:00 Diagnostic Test (Pha) (Accu-Chek) 1 ea 02 XX ; Start 05/17/17 at 02:00 Furosemide (Lasix) 20 mg DAILY IV Last administered on 05/24/17 08:13; Admin Dose 20 MG; Start 05/17/17 at 09:00 Gabapentin 300 mg 300 mg TID PO Last administered on 05/24/17 12:17; Admin Dose 300 MG; Start 05/18/17 at 13:00 Cefepime HCl (Maxipime 1gm/50 ml (Pmx)) 50 ml @ 100 mls/hr Q12 IVPB Last administered on 05/24/17 08:34; Admin Dose 100 MLS/HR; Start 05/20/17 at 21:00 Insulin Detemir (Levemir) 34 unit QHS SC Last administered on 05/23/17 20:37; Admin Dose 34 UNIT; Start 05/21/17 at 21:00 Acetaminophen/ Hydrocodone Bitart ([place] (7.5-325)) 1 tab Q4H PRN PO PAIN LEVEL 4-6 Last administered on 05/24/17 11:25; Admin Dose 1 TAB; Start at 11:30 Hydromorphone HCl (Dilaudid) 0.5 mg Q4H PRN IV SEVERE PAIN LEVEL 7-10 Last administered on 05/24/17 13:41; Admin Dose 0.5 MG; Start 05/23/17 at 11:30 Levofloxacin (Levaquin) 500 mg Q24H PO Last administered on 05/23/17 17:39; Admin Dose 500 MG; Start 05/23/17 at 18:00 IV Flush 10 ml 10 ml PRN PRN IV IV PROTOCOL; Start 05/23/17 at 15:30 Vancomycin HCl/ Sodium Chloride (Vancocin/NS) 250 ml @ 83.333 mls/ hr Q12H IVPB Last administered on 05/24/17 02:28; Admin Dose 83.333 MLS/HR; Start at 03:00 Collagenase (Santyl) 1 applic DAILY TOP Last administered on 05/24/17 08:15; Admin Dose 1 APPLIC; Start 05/23/17 at 17:30 Mupirocin (Bactroban) 1 applic BID TOP Last administered on 05/24/17 12:17; Admin Dose 1 APPLIC; Start 05/24/17 at 11:00 Miscellaneous Information (*Rx Drug Level Order Reminder*) 1 ONCE ONCE XX ; Start 05/25/17 at 02:00; Stop 05/25/17 at 02:01 KEON RANGEL MD May 24, 2017 14:12
--- NOTE | 2017-05-24 16:55 | PN ---
DATE: 05/24/2017 SUBJECTIVE DATA: No events overnight. Patient is alert, feels good, looks comfortable. No fevers. LABORATORY AND DIAGNOSTIC DATA: WBC today 5.7, no shift, no bands. BUN 19, creatinine 0.85. MICROBIOLOGY: Left foot wound culture growing MRSA Enterococcus species and Corynebacterium species. ANTIMICROBIALS: Patient is on: 1. Cefepime. 2. Levaquin. 3. Vancomycin. PHYSICAL EXAMINATION: GENERAL: This is a morbidly obese, well developed, elderly man, who is awake, in no distress. HEENT: Head atraumatic, normocephalic. Sclerae anicteric. Buccal mucosa dry. NECK: Supple. CHEST: Rise symmetrical. Breath sounds diminished at the bases. HEART: S1, S2. ABDOMEN: Soft, bowel sounds present. EXTREMITIES: Left foot dressing intact. ASSESSMENT: 1. Resolving pneumonia. 2. Left lower extremity nonhealing wounds, with exposed tendon, cellulitis and osteomyelitis. 3. Peripheral vascular disease, history of left transmetatarsal amputation. 4. Poorly-controlled diabetes. 5. History of cirrhosis, status post transjugular intrahepatic portosystemic shunt (TIPS) procedure. 6. Hypothyroidism. 7. ALLERGY TO PENICILLIN. PLAN: Patient remains stable. He needs to be on antibiotics for 6-8 weeks and follow with Dr. Major [facility]. He can be discharged on IV vancomycin for 6 weeks. Complete 7 more days Levaquin for pneumonia. Dictated By: Uriel Calvin NP /gilberto/aparna /Document#: [id number]
[2017-05-24] MEDS: LEVOFLOXACIN 500 MG TAB PO SCH (17:20)
[2017-05-24] MEDS: INSULIN DETEMIR [LEVEMIR] 3ML CART SC SCH (20:45)
[2017-05-25] VITALS (8 sets, daily range): BP systolic 123–158; BP diastolic 65–77; PULSE 72–81; RESP 17–20
[2017-05-25] MEDS: HYDROmorphONE 1 MG/ML SYG IV PRN ×2 (02:01→10:23)
[2017-05-25] MEDS: ACCU-CHEK XX SCH ×2 (02:06)
[2017-05-25] MEDS: VANCOMYCIN 1.25 GM in SOD CHLORIDE 0.9% 250 ML IVPB SCH (03:55)
[2017-05-25] MEDS: HYDROCODONE/APAP (7.5/325) TAB PO PRN ×2 (04:01→12:32)
[2017-05-25] MEDS: INSULIN ASPART [NOVOLOG] 3 ML PEN SC SCH ×4 (08:39→12:35)
[2017-05-25] MEDS: ALLOPURINOL 300 MG TAB PO SCH (09:59)
[2017-05-25] MEDS: ASCORBIC ACID 500 MG TAB PO SCH (09:59)
[2017-05-25] MEDS: CHOLECALCIFEROL 1,000 UNIT TAB PO SCH (09:59)
[2017-05-25] MEDS: ASPIRIN (EC) 81 MG TAB PO SCH (10:00)
[2017-05-25] MEDS: FUROSEMIDE 20 MG INJ IV SCH (10:00)
[2017-05-25] MEDS: GABAPENTIN 300 MG CAP PO SCH ×2 (10:00→14:55)
[2017-05-25] MEDS: HEPARIN 5,000 UNIT/0.5 ML VIAL SC SCH (10:07)
[2017-05-25] MEDS: COLLAGENASE 30 GM TUBE TOP SCH (10:08)
[2017-05-25] MEDS: MUPIROCIN 2% 22 GM OINT TOP SCH (10:08)
--- NOTE | 2017-05-25 11:28 | PN ---
Date/Time of Note Date/Time of Note DATE: 05/25/17 TIME: 11:28 Assessment/Plan VTE Prophylaxis VTE Prophylaxis Intervention: heparin Lines/Catheters IV Catheter Type (from Nrsg): Central Line Central line still needed: Yes Urinary Cath still in place: No Assessment/Plan Assessment/Plan 1. 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 Spoke with Pharmacy and advised to dispense 1.25gm BID and levels need to be monitored by home health - MRI shows evidence of infection and osteomyelitis in the proximal remnant of the fifth metatarsal and cuboid - Cultures growing MRSA and Enterococcus - Currently on Vanc - Will need to follow up with Podiatry as outpatient - Will give pain medication for a week and advised will need to follow up with PCP for further management 2. Acute respiratory failure, hypoxemia secondary to bilateral bronchopneumonia + COPD Asthma exacerbation - Improving and will d/c on 6 days more of Levaquin - There is no evidence of pulmonary embolism per CT 3. DM w/complication of peripheral Neuropathy - On insulin and ISS - Will continue monitoring 4. Chronic Alcoholic cirrhosis, status post TIPS procedure in the past 5. CAD, stable 6. HTN - continue monitoring and adjust medication as needed 7. Hypothyroidism 8. Disposition - Will d/c home today once antibiotics are arranged. Subjective 24 Hr Interval Summary Free Text/Dictation Patient states he is feeling better and ready to go home. Still experiencing pain but does find relief with morphine and [place] for breakthrough. Denies any new complaints and no acute overnight events. Exam/Review of Systems Vital Signs Vitals Vital Signs Date Time Temp Pulse Resp B/P Pulse Ox O2 Delivery O2 Flow Rate FiO2 05/25/17 08:27 81 05/25/17 08:26 97.6 17 148/65 93 05/24/17 20:00 Nasal Cannula 2.0 Intake and Output 05/24/17 05/24/17 05/25/17 15:00 23:00 07:00 Intake Total 50 ml 1000 ml 406.666 ml Balance 50 ml 1000 ml 406.666 ml Exam General: NAD, awake and alert CVS: regular rate and rhythm, no murmurs Lungs: diminished breath sounds at base. equal chest rise Abd: soft, NT, ND, + BS. no guarding or rebound Ext: left foot wrapped with gauze with no discharge or drainage Skin: venous stasis changes present b/l Results Result Diagram: 05/24/17 0736 05/24/17 0736 Results 24 hrs Laboratory Tests Test 05/24/17 11:33 05/24/17 17:15 05/24/17 20:42 05/25/17 01:58 Bedside Glucose 156 214 186 185 Test 05/25/17 02:15 05/25/17 08:36 Vancomycin Level Trough 16.1 Bedside Glucose 205 Medications Medications Current Medications Allopurinol (Zyloprim) 300 mg DAILY PO Last administered on 05/25/17 09:59; Admin Dose 300 MG; Start 05/17/17 at 09:00 Ascorbic Acid (Vitamin C) 1,000 mg DAILY PO Last administered on 05/25/17 09: 59; Admin Dose 1,000 MG; Start 05/17/17 at 09:00 Aspirin (Halfprin) 81 mg DAILY PO Last administered on 05/25/17 10:00; Admin Dose 81 MG; Start 05/17/17 at 09:00 Cholecalciferol (Vitamin D) 1,000 unit DAILY PO Last administered on 05/25/17 09:59; Admin Dose 1,000 UNIT; Start 05/17/17 at 09:00 Miscellaneous Information 1 ea NOTE XX ; Start 05/16/17 at 22:30 Glucose (Glutose) 15 gm Q15M PRN PO DECREASED GLUCOSE; Start 05/16/17 at 22:30 Glucose (Glutose) 22.5 gm Q15M PRN PO DECREASED GLUCOSE; Start 05/16/17 at 22: 30 Dextrose (D50w Syringe) 25 ml Q15M PRN IV DECREASED GLUCOSE; Start 05/16/17 at 22:30 Dextrose (D50w Syringe) 50 ml Q15M PRN IV DECREASED GLUCOSE; Start 05/16/17 at 22:30 Glucagon (Glucagen) 1 mg Q15M PRN IM DECREASED GLUCOSE; Start 05/16/17 at 22:30 Glucose (Glutose) 15 gm Q15M PRN BUCCAL DECREASED GLUCOSE; Start 05/16/17 at 22 :30 Morphine Sulfate (morphine) 2 mg Q4H PRN IV PAIN LEVEL 4-6 Last administered on 05/23/17 20:17; Admin Dose 2 MG; Start 05/16/17 at 22:00 Ondansetron HCl (Zofran Inj) 4 mg Q6H PRN IV NAUSEA AND/OR VOMITING; Start 07/22 at 22:00 Heparin Sodium (Porcine) (Heparin (5000 Units/0.5 ml)) 5,000 unit BID SC Last administered on 05/25/17 10:07; Admin Dose 5,000 UNIT; Start 05/17/17 at 09:00 Diagnostic Test (Pha) (Accu-Chek) 1 ea 02 XX Last administered on 05/25/17 02: 06; Admin Dose 1 EA; Start 05/17/17 at 02:00 Diagnostic Test (Pha) (Accu-Chek) 1 ea 02 XX Last administered on 05/25/17 02: 06; Admin Dose 1 EA; Start 05/17/17 at 02:00 Furosemide (Lasix) 20 mg DAILY IV Last administered on 05/25/17 10:00; Admin Dose 20 MG; Start 05/17/17 at 09:00 Gabapentin 300 mg 300 mg TID PO Last administered on 05/25/17 10:00; Admin Dose 300 MG; Start 05/18/17 at 13:00 Cefepime HCl (Maxipime 1gm/50 ml (Pmx)) 50 ml @ 100 mls/hr Q12 IVPB Last administered on 05/24/17 20:36; Admin Dose 100 MLS/HR; Start 05/20/17 at 21:00 Insulin Detemir (Levemir) 34 unit QHS SC Last administered on 05/24/17 20:45; Admin Dose 34 UNIT; Start 05/21/17 at 21:00 Acetaminophen/ Hydrocodone Bitart ([place] (7.5-325)) 1 tab Q4H PRN PO PAIN LEVEL 4-6 Last administered on 05/25/17 04:01; Admin Dose 1 TAB; Start at 11:30 Hydromorphone HCl (Dilaudid) 0.5 mg Q4H PRN IV SEVERE PAIN LEVEL 7-10 Last administered on 05/25/17 10:23; Admin Dose 0.5 MG; Start 05/23/17 at 11:30 Levofloxacin (Levaquin) 500 mg Q24H PO Last administered on 05/24/17 17:20; Admin Dose 500 MG; Start 05/23/17 at 18:00 IV Flush 10 ml 10 ml PRN PRN IV IV PROTOCOL; Start 05/23/17 at 15:30 Vancomycin HCl/ Sodium Chloride (Vancocin/NS) 250 ml @ 83.333 mls/ hr Q12H IVPB Last administered on 05/25/17 03:55; Admin Dose 83.333 MLS/HR; Start at 03:00 Collagenase (Santyl) 1 applic DAILY TOP Last administered on 05/25/17 10:08; Admin Dose 1 APPLIC; Start 05/23/17 at 17:30 Mupirocin (Bactroban) 1 applic BID TOP Last administered on 05/25/17 10:08; Admin Dose 1 APPLIC; Start 05/24/17 at 11:00 KEON RANGEL MD May 25, 2017 11:28
[2017-05-25] MEDS ORDERED: LEVO500T72 PO (11:31)
[2017-05-25] MEDS ORDERED: GABA300C16 PO (11:31)
[2017-05-25] MEDS ORDERED: VANC1.257 IV ×2 (11:36→12:16)
--- NOTE | 2017-05-25 12:18 | PDOCDIS ---
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 Continue Levaquin PO for 6 more days. Follow up with Dr. Stark in Podiatry clinic. Apply Santyl to affected area and change dressings daily. Take MS Contin 15mg twice a day with Lando 7.5mg every 6hrs for breakthrough pain. You will need to follow up with PCP for further management and do not stop pain medications abruptly if taking daily. You will need to be tapered off the medications to avoid withdrawal. REFERRALS Referring Provider: ANGEL STARK DPM, ERIN MD May 25, 2017 12:18
[2017-05-25] MEDS ORDERED: MORP-72 PO (12:30)
[2017-05-25] MEDS ORDERED: HYDR-3605 PO (12:30)
[2017-05-25] MEDS ORDERED: SAN30GM TOP (12:34)
[2017-05-25] MEDS: CEFEPIME 1GM/50 ML (PMX) 50 ML IVPB SCH (12:35)
--- NOTE | 2017-05-25 12:35 | DS ---
Date/Time of Note Date/Time of Note DATE: 05/25/17 TIME: 12:35 Discharge Summary Admission/Discharge Info Admit Date/Time May 16, 2017 at 19:30 Discharge Date/Time Discharge Diagnosis 1. 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 Community acquired pneumonia 3. Chronic Alcoholic cirrhosis, status post TIPS procedure in the past 4. CAD, stable 5. DM, on insulins/metformin 6. HTN, controlled 7. Hypothyroidism, on supplement 8. Gout, on allopurinol 9. S/p TMA 10. Peripheral Neuropathy Patient Condition: Good Consults Infectious Disease- Dr. Croft Podiatry- Dr. Major Hx of Present Illness This is a 61-year-old male with a history of CAD, hypertension, diabetes, gout, previous history of left foot transmetatarsal amputation, with a subsequent history of infection/ulcer, status post surgical debridement, history of cirrhosis, status post TIPS, who [facility] follow[facility], but was transferred to the ER for SOB and cough. Pt reported symptoms started 5 days ago. Cough is prod of brownish sputum. Reported his son who is in the , who came to visit him last week had similar symptoms. In ER, imaging suggestive of PNA. Had a temp of 100.2. . Hospital Course Patient was admitted and diagnosed with bilateral community acquired pneumonia seen on CXR and CTA. He was started on antibiotics, bronchodilators, and oxygen supplementation. He also has a history of nonhealing left foot ulcer and Infectious disease as well as podiatry were consulted. MRI of the foot was performed which showed subcutaneous and soft tissue air over the distal left foot remnant and region of amputation suggest an infectious process, with ulceration of the skin at the lateral aspect of the distal foot remnant. Osteomyelitis in the proximal remnant of the fifth metatarsal and in the cuboid. The wound was cultured and grew MRSA, enterococcus and corneybacterium. He was started on Vancomycin and PICC line was placed. Patient pain medications were adjusted for better terminal gauger control of his pain. His respiratory symptoms improved and patient was discharged on Vancomycin IV and Levaquin PO with instructions to follow up with Podiatry clinic. Patient was stable for discharge home. Home Meds Active Scripts Collagenase* (Santyl*) 30 Gm Oint..gm., 1 APPLIC TOP DAILY for 30 Days, #1 TUB Prov:KEON RANGEL MD 05/25/17 Morphine Sulfate* (Ms Contin ER*) 15 Mg Tabsr, 15 MG PO BID Y for PAIN LEVEL 6- 10 for 10 Days, #20 TAB Prov:KEON RANGEL MD 05/25/17 Hydrocodone/Acetaminophen (Hydrocodon-Acetaminoph 7.5-325) 1 Each Tablet, 1 TAB PO Q4H Y for PAIN LEVEL 4-6 for 10 Days, #20 TAB Prov:KEON RANGEL MD 05/25/17 Vancomycin/0.9 % Sod Chloride (Vanco 1.25 gm/250 ml-0.9% NaCl) 1.25 Gm/250 Ml Plast..bag, 1.25 GM IV Q12 for 42 Days, #84 VIAL Prov:KEON RANGEL MD 05/25/17 Gabapentin* (Gabapentin*) 300 Mg Capsule, 300 MG PO TID for 30 Days, #90 CAP Prov:KEON RANGEL MD 05/25/17 Levofloxacin* (Levaquin*) 500 Mg Tablet, 500 MG PO Q24H for 6 Days, #6 TAB Prov:KEON RANGEL MD 05/25/17 [Thiamine] 100 MG TAB No Conflict Check, 100 MG PO DAILY for 30 Days Prov:NINA HOU M. 12/21/16 Metformin Hcl (Glucophage) 500 Mg Tablet, 500 MG PO PC BREAKFAST DINNER for 30 Days, TAB Prov:NINA HOU M. 12/21/16 Metoprolol Tartrate* (Lopressor*) 50 Mg Tab, 50 MG PO BID for 10 Days, #20 TAB Prov:NISHANT SONG MD 10/19/16 Reported Medications Ranolazine* (Ranexa*) 500 Mg Tab.sr.12h, 500 MG PO Q12, TAB 05/16/17 Levothyroxine Sodium* (Levothyroxine Sodium*) 25 Mcg Tablet, 25 MCG PO BEFORE BREAKFAST, #30 TAB 05/16/17 Furosemide* (Furosemide*) 20 Mg Tablet, 20 MG PO BID, #30 TAB 05/16/17 Insulin Detemir (Levemir Flextouch) 100 Unit/1 Ml Insuln.pen, 30 UNIT SQ QHS 05/16/17 Insulin Aspart* (Novolog Insulin Pen*) 100 Unit/Ml Soln, 18 UNIT SC WITH MEALS, EA 05/16/17 [place]-3S/Dha/Epa/Fish Oil (Fish Oil 1,200 mg Softgel) 1 Each Capsule, 1 EACH PO DAILY, CAP 10/13/16 Cholecalciferol* (Vitamin D3*) 1,000 Unit Tablet, 1000 UNIT PO DAILY, TAB 10/13/16 Selenomethionine* (Selenium*) 200 Mcg Tablet, 200 MCG PO DAILY, TAB 10/13/16 Lisinopril* (Lisinopril*) 20 Mg Tablet, 20 MG PO BID, #30 TAB 06/22/16 Allopurinol* (Allopurinol*) 300 Mg Tablet, 300 MG PO DAILY, TAB 06/22/16 Aspirin Ec (Aspir 81) 81 Mg Tablet.dr, 81 MG PO DAILY, TAB 04/23/14 Vitamin B Complex (B Complex) 1 Tab.sa Tablet.sa, 1 TAB.SA PO DAILY 04/16/13 Vitamin E* (Vitamin E*) 1,000 Unit Capsule, 1000 UNIT PO DAILY 04/16/13 Ascorbic Acid* (Vitamin C*) 500 Mg Capsule.sa, 1000 MG PO DAILY 04/16/13 Follow-up Plan Continue to take Vancomycin 1.25 gm twice a day and will be adjusted and renal function monitored by home health agency. Continue Levaquin PO for 6 more days. Follow up with Dr. Major in Podiatry clinic. Apply Santyl to affected area and change dressings daily. Discussed with patient that pain medications are meants to be short term but provide longer relief since was requiring IV pain medications over PO while in patient. He was instructed to take MS Contin 15mg twice a day with Roland 7.5mg every 6hrs for breakthrough pain. He was only given a 10 day supply with instructions to follow up with PCP for continuing pain management and hopes that pain would improve on the long course of antibiotics. Primary Care Provider Rober Talbert MD Time spent on discharge: > 30 minutes Pending Labs Laboratory Tests Test 05/24/17 17:15 05/24/17 20:42 05/25/17 01:58 05/25/17 02:15 Bedside Glucose 214mg/dL (70-220) 186mg/dL (70-220) 185mg/dL (70-220) Vancomycin Level Trough 16.1ug/ml (10.0-20.0) Test 05/25/17 08:36 05/25/17 11:56 Bedside Glucose 205mg/dL (70-220) 261mg/dL (70-220) KEON RANGEL MD May 25, 2017 12:35 11:56 Bedside Glucose 205mg/dL (70-220) 261mg/dL (70-220) KEON RANGEL MD May 25, 2017 12:35
--- NOTE | 2017-05-25 13:09 | CONS ---
Date/Time of Note Date/Time of Note DATE: 05/25/17 TIME: 13:08 Assessment/Plan Assessment/Plan Chief Complaint/Hosp Course SUBJECTIVE DATA: Sleeping, looks comfortable, no fevers overnight Temperature 98.1 pulse 82 respirations 19 blood pressure 144/77 saturation 96 on room air MICROBIOLOGY: Left foot wound culture growing MRSA Enterococcus species and Corynebacterium species. ANTIMICROBIALS: Patient is on: 1. Cefepime. 2. Levaquin. 3. Vancomycin. PHYSICAL EXAMINATION: GENERAL: This is a morbidly obese, well developed, elderly man, who is awake, in no distress. HEENT: Head atraumatic, normocephalic. Sclerae anicteric. Buccal mucosa dry. NECK: Supple. CHEST: Rise symmetrical. Breath sounds diminished at the bases. HEART: S1, S2. ABDOMEN: Soft, bowel sounds present. EXTREMITIES: Left foot dressing intact. ASSESSMENT: 1. Resolving pneumonia. 2. Left lower extremity nonhealing wounds, with exposed tendon, cellulitis and osteomyelitis. 3. Peripheral vascular disease, history of left transmetatarsal amputation. 4. Poorly-controlled diabetes. 5. History of cirrhosis, status post transjugular intrahepatic portosystemic shunt (TIPS) procedure. 6. Hypothyroidism. 7. ALLERGY TO PENICILLIN. PLAN: Patient remains stable. He needs to be on antibiotics for 6-8 weeks [address] with [address] [facility]. He can be discharged on IV vancomycin for 6 weeks. Complete 7 more days Levaquin for pneumonia. Problems: Consultation Date/Type/Reason Admit Date/Time May 16, 2017 at 19:30 Initial Consult Date Type of Consultation: Sleeping looks comfortableid Exam/Review of Systems Vital Signs Vitals Vital Signs Date Time Temp Pulse Resp B/P Pulse Ox O2 Delivery O2 Flow Rate FiO2 05/25/17 12:13 72 05/25/17 12:08 98.1 19 144/77 96 05/24/17 20:00 Nasal Cannula 2.0 Intake and Output 05/24/17 05/24/17 05/25/17 15:00 23:00 07:00 Intake Total 50 ml 1000 ml 406.666 ml Balance 50 ml 1000 ml 406.666 ml Results Result Diagram: 05/24/17 0736 05/24/17 0736 Results 24 hrs Laboratory Tests Test 05/24/17 17:15 05/24/17 20:42 05/25/17 01:58 05/25/17 02:15 Bedside Glucose 214 186 185 Vancomycin Level Trough 16.1 Test 05/25/17 08:36 05/25/17 11:56 Bedside Glucose 205 261 H Medications Medications Current Medications Allopurinol (Zyloprim) 300 mg DAILY PO Last administered on 05/25/17 09:59; Admin Dose 300 MG; Start 05/17/17 at 09:00 Ascorbic Acid (Vitamin C) 1,000 mg DAILY PO Last administered on 05/25/17 09: 59; Admin Dose 1,000 MG; Start 05/17/17 at 09:00 Aspirin (Halfprin) 81 mg DAILY PO Last administered on 05/25/17 10:00; Admin Dose 81 MG; Start 05/17/17 at 09:00 Cholecalciferol (Vitamin D) 1,000 unit DAILY PO Last administered on 05/25/17 09:59; Admin Dose 1,000 UNIT; Start 05/17/17 at 09:00 Miscellaneous Information 1 ea NOTE XX ; Start 05/16/17 at 22:30 Glucose (Glutose) 15 gm Q15M PRN PO DECREASED GLUCOSE; Start 05/16/17 at 22:30 Glucose (Glutose) 22.5 gm Q15M PRN PO DECREASED GLUCOSE; Start 05/16/17 at 22: 30 Dextrose (D50w Syringe) 25 ml Q15M PRN IV DECREASED GLUCOSE; Start 05/16/17 at 22:30 Dextrose (D50w Syringe) 50 ml Q15M PRN IV DECREASED GLUCOSE; Start 05/16/17 at 22:30 Glucagon (Glucagen) 1 mg Q15M PRN IM DECREASED GLUCOSE; Start 05/16/17 at 22:30 Glucose (Glutose) 15 gm Q15M PRN BUCCAL DECREASED GLUCOSE; Start 05/16/17 at 22 :30 Morphine Sulfate (morphine) 2 mg Q4H PRN IV PAIN LEVEL 4-6 Last administered on 05/23/17 20:17; Admin Dose 2 MG; Start 05/16/17 at 22:00 Ondansetron HCl (Zofran Inj) 4 mg Q6H PRN IV NAUSEA AND/OR VOMITING; Start 07/22 at 22:00 Heparin Sodium (Porcine) (Heparin (5000 Units/0.5 ml)) 5,000 unit BID SC Last administered on 05/25/17 10:07; Admin Dose 5,000 UNIT; Start 05/17/17 at 09:00 Diagnostic Test (Pha) (Accu-Chek) 1 ea 02 XX Last administered on 05/25/17 02: 06; Admin Dose 1 EA; Start 05/17/17 at 02:00 Diagnostic Test (Pha) (Accu-Chek) 1 ea 02 XX Last administered on 05/25/17 02: 06; Admin Dose 1 EA; Start 05/17/17 at 02:00 Furosemide (Lasix) 20 mg DAILY IV Last administered on 05/25/17 10:00; Admin Dose 20 MG; Start 05/17/17 at 09:00 Gabapentin 300 mg 300 mg TID PO Last administered on 05/25/17 10:00; Admin Dose 300 MG; Start 05/18/17 at 13:00 Cefepime HCl (Maxipime 1gm/50 ml (Pmx)) 50 ml @ 100 mls/hr Q12 IVPB Last administered on 05/25/17 12:35; Admin Dose 100 MLS/HR; Start 05/20/17 at 21:00 Insulin Detemir (Levemir) 34 unit QHS SC Last administered on 05/24/17 20:45; Admin Dose 34 UNIT; Start 05/21/17 at 21:00 Acetaminophen/ Hydrocodone Bitart ([place] (7.5-325)) 1 tab Q4H PRN PO PAIN LEVEL 4-6 Last administered on 05/25/17 12:32; Admin Dose 1 TAB; Start at 11:30 Hydromorphone HCl (Dilaudid) 0.5 mg Q4H PRN IV SEVERE PAIN LEVEL 7-10 Last administered on 05/25/17 10:23; Admin Dose 0.5 MG; Start 05/23/17 at 11:30 Levofloxacin (Levaquin) 500 mg Q24H PO Last administered on 05/24/17 17:20; Admin Dose 500 MG; Start 05/23/17 at 18:00 IV Flush 10 ml 10 ml PRN PRN IV IV PROTOCOL; Start 05/23/17 at 15:30 Vancomycin HCl/ Sodium Chloride (Vancocin/NS) 250 ml @ 83.333 mls/ hr Q12H IVPB Last administered on 05/25/17 03:55; Admin Dose 83.333 MLS/HR; Start at 03:00 Collagenase (Santyl) 1 applic DAILY TOP Last administered on 05/25/17 10:08; Admin Dose 1 APPLIC; Start 05/23/17 at 17:30 Mupirocin (Bactroban) 1 applic BID TOP Last administered on 05/25/17 10:08; Admin Dose 1 APPLIC; Start 05/24/17 at 11:00 SVETLANA MAY NP May 25, 2017 13:09
[2017-05-25] MEDS ORDERED: VANCOMYCIN 1 GM in NS 250 ML IVPB SCH (16:00)
== END 2017-05-25 19:20 | disposition home health service (06) | DRG 871 ==
LOC: E/R 15:49 → MS4 19:30
PROVIDERS: ADMIT Internal Medicine; ATTEND Internal Medicine
PROC: 02HV33Z Insertion of Infusion Device into Superior Vena Cava, Percutaneous Approach (ICD-10-PCS; principal; 2017-05-23)
DX: A41.9 Sepsis, unspecified organism (principal); J18.9 Pneumonia, unspecified organism; J96.01 Acute respiratory failure with hypoxia; I50.23 Acute on chronic systolic (congestive) heart failure; I11.0 Hypertensive heart disease with heart failure; K70.30 Alcoholic cirrhosis of liver without ascites; Z68.41 Body mass index [BMI] 40.0-44.9, adult; J44.1 Chronic obstructive pulmonary disease with (acute) exacerbation; M86.8X7 Other osteomyelitis, ankle and foot; J44.0 Chronic obstructive pulmonary disease with (acute) lower respiratory infection; E66.01 Morbid (severe) obesity due to excess calories; R65.20 Severe sepsis without septic shock; Z79.4 Long term (current) use of insulin; E03.9 Hypothyroidism, unspecified; M10.9 Gout, unspecified; G62.9 Polyneuropathy, unspecified; L97.524 Non-pressure chronic ulcer of other part of left foot with necrosis of bone; B95.8 Unspecified staphylococcus as the cause of diseases classified elsewhere; B95.2 Enterococcus as the cause of diseases classified elsewhere; E11.65 Type 2 diabetes mellitus with hyperglycemia
CPT/HCPCS: 36415; 36569; 71010; 71250; 71275; 73718; 76937; 80048; 80053; 80061; 80202; 82962; 83036; 83605; 83735; 83880; 84100; 84484; 85025; 85378; 85610; 85730; 87040; 87070; 87081; 93005; 93970; 94664; 96372; 96374; 96375; J1940; J0692; J1170; J1644; J1815; J1956; J2270; J3370; J7040; J7050; Q9967